=== PATIENT | female | born 1970 ===

== ENCOUNTER 2016-12-20 21:45 | Emergency (ER) | payer MEDICAID ==
[2016-12-20 21:57] VITALS: RESP 20; TEMP 99.2
[2016-12-20] MEDS ORDERED: Sodium Chloride 0.9% 1,000 ML IV ONE (22:01)
--- NOTE | 2016-12-20 22:14 | C.PDOC ---
History Of Present Illness 46 year old patient presents to the ED complaining of right flank pain that began tonight. Patient states the pain is severe. Patient denies fever, nausea, vomiting, numbness, weakness, or incontinence. Time Seen by Provider: 12/20/16 22:00 Chief Complaint (Nursing): Back Pain History Per: Patient History/Exam Limitations: no limitations Onset/Duration Of Symptoms: Hrs (tonight) Current Symptoms Are (Timing): Still Present Quality Of Discomfort: "Pain" Severity: Severe Pain Scale Rating Of: 7 Associated Symptoms: None Exacerbating Factor(s): Nothing Recent travel outside of the [place]: No Past Medical History Reviewed: Historical Data, Nursing Documentation, Vital Signs Vital Signs: Last Vital Signs Temp 99.2 F 12/20/16 21:52 Pulse 74 12/20/16 21:52 Resp 20 12/20/16 21:52 BP 119/73 12/20/16 21:52 Pulse Ox 100 12/21/16 00:50 Family History: States: Unknown Family Hx - Social History Hx Alcohol Use: No Hx Substance Use: No - Immunization History Hx Tetanus Toxoid Vaccination: No Hx Influenza Vaccination: No Hx Pneumococcal Vaccination: No Review Of Systems Except As Marked, All Systems Reviewed And Found Negative. Constitutional: Negative for: Fever Gastrointestinal: Negative for: Nausea, Vomiting Genitourinary: Negative for: Incontinence Musculoskeletal: Positive for: Other (right flank pain) Neurological: Negative for: Weakness, Numbness Physical Exam - Physical Exam Appears: Non-toxic, No Acute Distress Skin: Warm, Dry Head: Atraumatic, Normacephalic Neck: Normal ROM, Supple Chest: Symmetrical Cardiovascular: Rhythm Regular Respiratory: Normal Breath Sounds, No Rales, No Rhonchi, No Wheezing Gastrointestinal/Abdominal: Soft, No Tenderness, No Guarding, No Rebound Back: Normal Inspection, No CVA Tenderness, No Vertebral Tenderness Extremity: Normal ROM Neurological/Psych: Oriented x3, Normal Speech, Normal Cognition, Normal Motor, Normal Sensation Gait: Steady ED Course And Treatment - Laboratory Results Result Diagrams: 12/20/16 22:25 12/20/16 22:25 O2 Sat by Pulse Oximetry: 100 (room air) Pulse Ox Interpretation: Normal - CT Scan/US Abdomen/pelvis CT Other Rad Studies (CT/US): Read By Radiologist (Saulo Posey MD), Radiology Report Reviewed CT/US Interpretation: EXAM: CT Abdomen and Pelvis Without Intravenous Contrast. CLINICAL HISTORY: 46 years old, female; Pain; Abdominal pain; Flank ; Right lower quadrant (rlq); Additional info: Right. flank pain. TECHNIQUE: Axial computed tomography images of the abdomen and pelvis without intravenous contrast. This. CT exam was performed using one or more of the following dose reduction techniques: automated. exposure control, adjustment of the mA and/or kV according to patient size, and/or use of iterative. reconstruction technique. Coronal and sagittal reformatted images were created and reviewed. COMPARISON: No relevant prior studies available. FINDINGS: Lower thorax: There is bilateral linear atelectasis or scarring present in both lung bases. ABDOMEN: Liver: There are no focal liver lesions present. Gallbladder and bile ducts: Small stone the gallbladder. No gallbladder wall thickening or. pericholecystic fluid to suggest cholecystitis. Pancreas: The pancreas appears normal. No ductal dilation. Spleen: Unremarkable. No splenomegaly. Adrenals: Unremarkable. No mass. Kidneys and ureters: No obstructing renal stones or hydronephrosis. No solid mass. Normal. appearance of both ureters, and renal pelvises. Stomach and bowel: The stomach is normal. The duodenum is unremarkable. Bowel loops appear. within normal limits, no signs of wall thickening, mucosal edema, or bowel distention. Abundant. formed fecal material is seen within the large bowel loops which likely represents constipation. Appendix: The appendix is in a retrocecal location. There is a focal intraluminal appendiceal. calcification distal appendix. PELVIS: Bladder: The bladder is moderately distended. No stones. Reproductive: Unremarkable as visualized. ABDOMEN and PELVIS: Intraperitoneal space: Unremarkable. No free air. No significant fluid collection. Bones/joints: No acute fracture. No dislocation. Soft tissues: Unremarkable. Vasculature: The aorta and IVC appear within normal limits. No abdominal aortic aneurysm. Lymph nodes: Nonspecific small bilateral inguinal nodes. IMPRESSION: No evidence for bowel herniation, bowel obstruction, colitis, appendicitis or diverticulitis. No gross ureteral stone or obstructive uropathy is visualized. Constipation is likely present with mild stool impaction within the rectosigmoid. Cholelithiasis without evidence of cholecystitis. Progress Note: Plan: Abdomen/Pelvis CT, Labs, Morphine, IV fluids, Toradol Disposition Counseled Patient/Family Regarding: Diagnosis - Disposition Referrals: [facility] [Outside] Disposition: HOME/ ROUTINE Disposition Time: 00:46 Condition: STABLE Prescriptions: Dicyclomine [Bentyl] 10 mg PO QID #20 cap Instructions: Biliary Colic (GEN), Gallstones (ED), Abdominal Pain (ED) - POA Present On Arrival: None - Clinical Impression Clinical Impression: Gall bladder pain, Abdominal pain - Scribe Statement The provider has reviewed the documentation as recorded by the Scribe Kerry Avalos Provider Attestation: All medical record entries made by the Gulshanibe were at my direction and personally dictated by me. I have reviewed the chart and agree that the record accurately reflects my personal performance of the history, physical exam, medical decision making, and the department course for this patient. I have also personally directed, reviewed, and agree with the discharge instructions and disposition.
[2016-12-20] MEDS ORDERED: Sodium Chloride 0.9% 1,000 ML ONE (22:27)
[2016-12-20 22:32] LABS: BASO % 0.5 % (0.0-2.0); HEMATOCRIT 38.1 % (34.0-47.0); LYMPH # 0.5 K/uL (1.0-4.3); LYMPH % 5.4 % (20.0-40.0); MEAN CELL VOLUME 83.8 fL (81.0-99.0); MEAN CORPUSCULAR HEMOGLOBIN 28.1 pg (27.0-31.0); MEAN CORPUSCULAR HGB CONC 33.6 g/dL (33.0-37.0); MEAN PLATELET VOLUME 7.6 fL (7.2-11.7); MONO # 0.8 K/uL (0.0-0.8); MONO % 8.2 % (0.0-10.0); PLATELET COUNT 270 K/uL (130-400); RED CELL DISTRIBUTION WIDTH 13.9 % (11.5-14.5); WHITE BLOOD COUNT 9.8 K/uL (4.8-10.8)
[2016-12-20 23:10] LABS: CHLORIDE 102 mmol/L (98-107)
[2016-12-20 23:11] LABS: POTASSIUM 3.5 mmol/L (3.6-5.2); SODIUM 137 mmol/L (132-148)
[2016-12-20 23:13] LABS: ALB/GLOB RATIO 1.1 (1.0-2.1); AST/SGOT 21 U/L (14-36); CARBON DIOXIDE 25 mmol/L (22-30); GFR AFRICAN-AMERICAN > 60; TOTAL PROTEIN 7.4 g/dL (6.3-8.3)
[2016-12-20 23:14] LABS: ALKALINE PHOSPHATASE 69 U/L (38-126); ALT/SGPT 16 U/L (9-52); BLOOD UREA NITROGEN 14 mg/dL (7-17); CALCIUM 8.7 mg/dl (8.6-10.4); GLUCOSE,RANDOM 114 mg/dL (65-105)
[2016-12-21 00:29] LABS: RBC URINE 2 /hpf (0-3); URINE BILIRUBIN NEGATIVE (NEGATIVE); URINE BLOOD NEGATIVE (NEGATIVE); URINE COLOR Yellow (YELLOW); URINE GLUCOSE (UA) NORMAL (Normal); URINE KETONE NEGATIVE (NEGATIVE); URINE LEUKOCYTE ESTERASE NEG Leu/uL (Negative); URINE PROTEIN 1+ mg/dL (NEGATIVE); URINE UROBILINOGEN NORMAL mg/dL (0.2-1.0); WBC URINE < 1 /hpf (0-5)
[2016-12-21 04:20] VITALS: BP 128/76; PULSE 88; O2SAT 99
--- NOTE | 2016-12-21 08:27 | CT ---
PROCEDURE: CT Abdomen and Pelvis without intravenous contrast HISTORY: Right flank pain COMPARISON: None. TECHNIQUE: Without contrast.. Contrast Dose: 0 Radiation dose: Total exam DLP = 200.71 mGy-cm. This CT exam was performed using one or more of the following dose reduction techniques: Automated exposure control, adjustment of the mA and/or kV according to patient size, and/or use of iterative reconstruction technique. FINDINGS: LOWER THORAX: Linear scar/ atelectasis in left lower lobe. No infiltrate or pleural effusion LIVER: Unremarkable. No gross lesion or ductal dilatation. GALLBLADDER AND BILE DUCTS: Cholelithiasis. No mural thickening or pericholecystic fluid. PANCREAS: Unremarkable. No gross lesion or ductal dilatation. SPLEEN: Unremarkable. ADRENALS: Unremarkable. No mass. KIDNEYS AND URETERS: No mass, calculus or hydronephrosis. VASCULATURE: Unremarkable. No aortic aneurysm. BOWEL: Abundant feces in rectum. Mild retained feces in the ascending and transverse colon. This may indicate constipation. No bowel obstruction. No other abnormal bowel loops. APPENDIX: Normal appendix identified. High attenuation material is seen within the distal aspect of the appendix, likely reflecting retained contrast material from prior examination. PERITONEUM: Unremarkable. No free fluid. No free air. LYMPH NODES: Shotty inguinal lymphadenopathy. No retroperitoneal or pelvic lymphadenopathy. BLADDER: Unremarkable. REPRODUCTIVE: Normal uterus. BONES: No acute fracture. OTHER FINDINGS: None. IMPRESSION: No evidence of urinary calculus or urinary tract obstruction. Mild retained feces. Possible constipation. Shotty bilateral inguinal lymphadenopathy, nonspecific. The remainder of the examination is unremarkable. Preliminary interpretation of this examination was reported by [employer] at 11:58 p.m. on 12/20/2016. There is concurrence of this report with the preliminary interpretation.
[2016-12-21 08:28] LABS: NEUTROPHIL 87 % (50-75); TOTAL CELLS COUNTED 100
== END 2016-12-21 03:00 | disposition home or self-care (01) ==
LOC: MERGE 21:45 → C.ER 21:45
DX: K82.9 Disease of gallbladder, unspecified (principal); R10.9 Unspecified abdominal pain
CPT/HCPCS: 74176; 80053; 81001; 83690; 84703; 85025; 87086; 87181; 96374; 96375; 99284; J1885; J2270; J7040

== ENCOUNTER 2016-12-22 08:52 | Inpatient (IN) | payer MEDICAID, OTHER ==
--- NOTE | 2016-12-22 10:27 | C.PDOC ---
History Of Present Illness 46 yr old female brought in via BLS, with complaints of low back pain for the past 2-3 days. Patient states she is having difficulty walking due to the pain. Patient was seen in the ED 2 days ago, had a full work up done including CT of the abd/pelvis and blood work, was later discharged home. Patient is also complaining of weakness to the bilateral legs. Patient denies chest pain, SOB, nausea, vomiting, abdominal pain, diarrhea, constipation, dysuria, bowel/ bladder incontinence or sensory changes/saddle anesthesia. Patient also denies recent procedures/surgeries. Time Seen by Provider: 12/22/16 09:03 Chief Complaint (Nursing): Back Pain History Per: Patient History/Exam Limitations: no limitations Onset/Duration Of Symptoms: Days (2-3 days ) Current Symptoms Are (Timing): Still Present Quality Of Discomfort: "Pain" Severity: Moderate Past Medical History Reviewed: Historical Data, Nursing Documentation, Vital Signs Vital Signs: Last Vital Signs Temp 98.2 F 01/02/17 00:00 Pulse 72 01/02/17 00:00 Resp 20 01/02/17 00:00 BP 148/83 01/02/17 00:00 Pulse Ox 98 01/02/17 00:00 - Medical History Other PMH: eczema Family History: States: No Known Family Hx - Social History Hx Alcohol Use: No Hx Substance Use: No - Immunization History Hx Tetanus Toxoid Vaccination: No Hx Influenza Vaccination: No Hx Pneumococcal Vaccination: No Review Of Systems Except As Marked, All Systems Reviewed And Found Negative. Cardiovascular: Negative for: Chest Pain Respiratory: Negative for: Shortness of Breath Gastrointestinal: Negative for: Nausea, Vomiting, Abdominal Pain, Diarrhea, Constipation Genitourinary: Negative for: Dysuria, Incontinence Musculoskeletal: Positive for: Back Pain (Low back pain ), Other ((+) Weakness to the bilateral legs ) Neurological: Positive for: Weakness. Negative for: Numbness, Change in Speech , Confusion, Seizures, Altered Mental Status, Headache, Dizziness Physical Exam - Physical Exam Appears: Non-toxic, In Acute Distress (Mild distress due to the pain ), Other (( +) Malodorous) Skin: Warm, Dry, Other ((+) Upper Extremity - Thickened, scaley, dry skin ( eczematous appearing)) Head: Atraumatic, Normacephalic Eye(s): bilateral: Normal Inspection, PERRL, EOMI Oral Mucosa: Moist Neck: Normal, Normal ROM Cardiovascular: Rhythm Regular Respiratory: Normal Breath Sounds, No Rales, No Rhonchi, No Stridor, No Wheezing Gastrointestinal/Abdominal: Normal Exam, Bowel Sounds, Soft, No Tenderness, No Guarding, No Rebound Extremity: Normal ROM, No Pedal Edema, No Calf Tenderness, No Deformity, No Swelling Extremity: Bilateral: Atraumatic, Normal ROM Pulses: Left Dorsalis Pedis: Normal, Right Dorsalis Pedis: Normal Neurological/Psych: Oriented x3, Normal Speech, Normal Cognition, Normal Cranial Nerves, No Cerebellar Signs, Normal Motor (5/5 motor strength all ext), Normal Sensation, Normal Reflexes, No Dysarthria, No Romberg Gait: Unsteady ED Course And Treatment - Laboratory Results Result Diagrams: 01/02/17 06:24 01/02/17 06:24 O2 Sat by Pulse Oximetry: 100 (ra) Pulse Ox Interpretation: Normal - Other Rad CXR X-Ray: Viewed By Me, Read By Radiologist Interpretation: PROCEDURE: CHEST RADIOGRAPH, 1 VIEW. HISTORY: SOB. COMPARISON: None available. FINDINGS: LUNGS: Mild venous congestion. PLEURA : No pneumothorax or pleural fluid seen. CARDIOVASCULAR: Normal. OSSEOUS STRUCTURES: No significant abnormalities. VISUALIZED UPPER ABDOMEN: Normal. OTHER FINDINGS: None. IMPRESSION: Mild venous congestion. - CT Scan/US CT - Head Other Rad Studies (CT/US): Read By Radiologist, Radiology Report Reviewed CT/US Interpretation: PROCEDURE: CT HEAD WITHOUT CONTRAST. HISTORY: LEG WEAKNESS, ATAXIA. COMPARISON: None available. TECHNIQUE: Axial computed tomography images were obtained through the head/brain without intravenous contrast. Radiation dose: Total exam DLP = 826 mGy-cm. This CT exam was performed using one or more of the following dose reduction techniques: Automated exposure control, adjustment of the mA and/or kV according to patient size, and/or use of iterative reconstruction technique. FINDINGS: HEMORRHAGE: No intracranial hemorrhage. BRAIN: No mass effect or edema. No atrophy or chronic microvascular ischemic changes. VENTRICLES: Unremarkable. No hydrocephalus. CALVARIUM: Unremarkable. PARANASAL SINUSES: Unremarkable as visualized. No significant inflammatory changes. MASTOID AIR CELLS: Unremarkable as visualized. No inflammatory changes. OTHER FINDINGS: None. IMPRESSION: No acute intracranial abnormality. If focal neurologic deficit persists, consider MRI. CT - Lumbar Spine Other Rad Studies (CT/US): Read By Radiologist, Radiology Report Reviewed CT/US Interpretation: EXAM: CT Lumbar Spine With Intravenous Contrast. CLINICAL HISTORY: 46 years old, female; Pain; Low back pain; Additional info: Lowback pain, fever, diffambulating, R/O. abscess. TECHNIQUE: Axial computed tomography images of the lumbar spine with intravenous contrast. This CT exam. was performed using one or more of the following dose reduction techniques: automated exposure. control, adjustment of the mA and/or kV according to patient size, and/or use of iterative. reconstruction technique. Coronal and sagittal reformatted images were created and reviewed. CONTRAST: 100 mL of [id number] administered intravenously. EXAM DATE/TIME: 12/22/2016 12:54 PM. COMPARISON: There are no prior studies for comparison. FINDINGS: Vertebrae: 5 lumbar vertebral bodies are normal in height. There are no lumbar spine fractures. Alignment T12-L1 to L4/L5 is maintained. There is minimal retrolisthesis L5 on S1. There is. narrowing of the L5-S1 disc space. Remaining disc spaces are maintained. There are degenerative. changes L5/S1. There is endplate sclerosis with early subchondral cyst formation. There are degenerative posterior bony arteries. There is mild disc bulging. There is minimal disc bulge at. L4/L5. Facet joints align anatomically. Sacroiliac joints are symmetric. Discs/spinal canal/neural foramina: See above. Soft tissues: Motion limits evaluation of soft tissues. Psoas and paraspinous muscles are. symmetric. Kidneys and ureters: Kidneys are unremarkable. IMPRESSION: Degenerative change L5-S1, no acute osseous abnormality; no abscess Progress Note: Patient given IM Toradol and PO flexeril. On reassessment, patient unsteady on her feet when nurse tried to ambulate her. Blood work, CT head, UA, UDs ordered. Patient also noted to have low grade fever - CT lumbar spine with IV contrast ordered. 3:15pm- Patient resting comfortably, still pending CT LS spine. Asked clearing house clerk to check into delay. 4:05PM- ED nurse calling again to find out about CT scan LS spine delay. Reevaluation Time: 10:50 Reassessment Condition: Improved (On reassessment, patient reports improvement of her back pain. However when ambulated by nurse, patient very unsteady on feet and unable to ambulate. Blood work, UA, Upreg, EKG, CT head ordered.) - Physician Consult Information Physician Contacted: Gus Jung Outcome Of Conversation: Discussed patient with Dr. Aftab jung, agrees with admission to his service. Disposition Counseled Patient/Family Regarding: Studies Performed, Diagnosis, Need For Followup, Rx Given - Disposition Disposition: HOME/ ROUTINE Disposition Time: 18:08 Condition: FAIR - POA Present On Arrival: None - Clinical Impression Clinical Impression: Low back pain, Left shift, Bandemia, Elevated CK, Unsteady gait, Dehydration - Scribe Statement The provider has reviewed the documentation as recorded by the Gulshanibe Martina Portillo Provider Attestation: All medical record entries made by the Gulshanibe were at my direction and personally dictated by me. I have reviewed the chart and agree that the record accurately reflects my personal performance of the history, physical exam, medical decision making, and the department course for this patient. I have also personally directed, reviewed, and agree with the discharge instructions and disposition. Decision To Admit - Pt Status Changed To: Hospital Disposition Of: Inpatient - Admit Certification Admit to Inpatient:: After my assessment, the patient will require hospitalization for at least two midnights. This is because of the severity of symptoms shown, intensity of services needed, and/or the medical risk in this patient being treated as an outpatient. - InPatient: Physician Admission Certification:: see notes - . Bed Request Type: Regular Admitting Physician: Gus Jung Patient Diagnosis: Low back pain, Unsteady gait, Bandemia, Left shift, Elevated CK, Dehydration
[2016-12-22 11:27] LABS: VENOUS BLOOD GAS BASE EXCESS -3.1 mmol/L (0.0-2.0); VENOUS BLOOD GAS PCO2 35 mmHg (40-60); VENOUS BLOOD PH 7.39 (7.32-7.43)
[2016-12-22 11:31] LABS: BASO % 0.5 % (0.0-2.0); HEMATOCRIT 37.5 % (34.0-47.0); LYMPH # 0.4 K/uL (1.0-4.3); LYMPH % 4.5 % (20.0-40.0); MEAN CELL VOLUME 84.2 fL (81.0-99.0); MEAN CORPUSCULAR HEMOGLOBIN 27.8 pg (27.0-31.0); MEAN PLATELET VOLUME 7.9 fL (7.2-11.7); MONO # 0.4 K/uL (0.0-0.8); MONO % 4.7 % (0.0-10.0); PLATELET COUNT 176 K/uL (130-400); RED CELL DISTRIBUTION WIDTH 13.4 % (11.5-14.5); WHITE BLOOD COUNT 8.9 K/uL (4.8-10.8)
[2016-12-22 11:42] LABS: CHLORIDE 102 mmol/L (98-107)
[2016-12-22 11:43] LABS: POTASSIUM 3.5 mmol/L (3.6-5.2); SODIUM 136 mmol/L (132-148)
[2016-12-22 11:45] LABS: ALB/GLOB RATIO 0.9 (1.0-2.1); ALKALINE PHOSPHATASE 68 U/L (38-126); AST/SGOT 24 U/L (14-36); BILIRUBIN,TOTAL 0.9 mg/dL (0.2-1.3); CARBON DIOXIDE 22 mmol/L (22-30); GFR AFRICAN-AMERICAN > 60; TOTAL PROTEIN 7.3 g/dL (6.3-8.3)
[2016-12-22 11:46] LABS: ALT/SGPT 13 U/L (9-52); BLOOD UREA NITROGEN 19 mg/dL (7-17); CALCIUM 8.1 mg/dl (8.6-10.4); GLUCOSE,RANDOM 96 mg/dL (65-105)
--- NOTE | 2016-12-22 11:59 | CT ---
PROCEDURE: CT HEAD WITHOUT CONTRAST. HISTORY: LEG WEAKNESS, ATAXIA COMPARISON: None available. TECHNIQUE: Axial computed tomography images were obtained through the head/brain without intravenous contrast. Radiation dose: Total exam DLP = 826 mGy-cm. This CT exam was performed using one or more of the following dose reduction techniques: Automated exposure control, adjustment of the mA and/or kV according to patient size, and/or use of iterative reconstruction technique. FINDINGS: HEMORRHAGE: No intracranial hemorrhage. BRAIN: No mass effect or edema. No atrophy or chronic microvascular ischemic changes. VENTRICLES: Unremarkable. No hydrocephalus. CALVARIUM: Unremarkable. PARANASAL SINUSES: Unremarkable as visualized. No significant inflammatory changes. MASTOID AIR CELLS: Unremarkable as visualized. No inflammatory changes. OTHER FINDINGS: None. IMPRESSION: No acute intracranial abnormality. If focal neurologic deficit persists, consider MRI.
[2016-12-22 12:12] LABS: RBC URINE 6 /hpf (0-3); URINE BACTERIA RARE (<OCC); URINE BILIRUBIN NEGATIVE (NEGATIVE); URINE BLOOD 1+ (NEGATIVE); URINE COLOR Yellow (YELLOW); URINE GLUCOSE (UA) NORMAL (Normal); URINE KETONE 2+ mg/dL (NEGATIVE); URINE LEUKOCYTE ESTERASE NEG Leu/uL (Negative); URINE PROTEIN 1+ mg/dL (NEGATIVE); WBC URINE 4 /hpf (0-5)
[2016-12-22 12:23] LABS: NEUTROPHIL 86 % (50-75); TOTAL CELLS COUNTED 100
[2016-12-22] MEDS ORDERED: Sodium Chloride 0.9% 1,000 ML IV ONE (12:23)
[2016-12-22 12:25] LABS: LARGE PLATELETS PRESENT
--- NOTE | 2016-12-22 14:01 | RAD ---
PROCEDURE: CHEST RADIOGRAPH, 1 VIEW HISTORY: SOB COMPARISON: None available. FINDINGS: LUNGS: Mild venous congestion. PLEURA: No pneumothorax or pleural fluid seen. CARDIOVASCULAR: Normal. OSSEOUS STRUCTURES: No significant abnormalities. VISUALIZED UPPER ABDOMEN: Normal. OTHER FINDINGS: None. IMPRESSION: Mild venous congestion.
[2016-12-22] MEDS ORDERED: Iodixanol 320 MG/ML 100 ML BOTTLE IV ONE (16:22)
--- NOTE | 2016-12-22 18:02 | CT ---
EXAM: CT Lumbar Spine With Intravenous Contrast CLINICAL HISTORY: 46 years old, female; Pain; Low back pain; Additional info: Lowback pain, fever, diffambulating, R/O abscess TECHNIQUE: Axial computed tomography images of the lumbar spine with intravenous contrast. This CT exam was performed using one or more of the following dose reduction techniques: automated exposure control, adjustment of the mA and/or kV according to patient size, and/or use of iterative reconstruction technique. Coronal and sagittal reformatted images were created and reviewed. CONTRAST: 100 mL of [id number] administered intravenously. EXAM DATE/TIME: 12/22/2016 12:54 PM COMPARISON: There are no prior studies for comparison. FINDINGS: Vertebrae: 5 lumbar vertebral bodies are normal in height. There are no lumbar spine fractures. Alignment T12-L1 to L4/L5 is maintained. There is minimal retrolisthesis L5 on S1. There is narrowing of the L5-S1 disc space. Remaining disc spaces are maintained. There are degenerative changes L5/S1. There is endplate sclerosis with early subchondral cyst formation. There are degenerative posterior bony arteries. There is mild disc bulging. There is minimal disc bulge at L4/L5. Facet joints align anatomically. Sacroiliac joints are symmetric. Discs/spinal canal/neural foramina: See above. Soft tissues: Motion limits evaluation of soft tissues. Psoas and paraspinous muscles are symmetric. Kidneys and ureters: Kidneys are unremarkable. IMPRESSION: Degenerative change L5-S1, no acute osseous abnormality; no abscess
[2016-12-22] MEDS ORDERED: Potassium Chloride 20 mEq ER Tab PO STA (19:04)
[2016-12-23] MEDS: Enoxaparin 40 mg Syringe SC SCH (10:25)
[2016-12-23] MEDS: Pantoprazole 40 mg EC Tab PO SCH (10:30)
--- NOTE | 2016-12-23 12:05 | CP.PCM.HP ---
History of Present Illness - History of Present Illness History of Present Illness: 46 yr female with sudden onset of back for 3 to 4 days was bruoght in by bls with pain in lower back no neutrological weaknes but severe pain on arriva; s/p raven andpo felxeril ct head neg ct ls spine also no fracture no fever or chills pt has no weakness now which pt suggested was difficult as pt had a sevre pain and pain si better Present on Admission - Present on Admission Any Indicators Present on Admission: No Past Patient History - Past Medical History & Family History Past Medical History?: Yes - Past Social History Smoking Status: Never Smoked - CARDIAC Hx Cardiac Disorders: No - PULMONARY Hx Respiratory Disorders: No - NEUROLOGICAL Hx Neurological Disorder: No - HEENT Hx HEENT Problems: No - RENAL Hx Chronic Kidney Disease: No - ENDOCRINE/METABOLIC Hx Endocrine Disorders: No - HEMATOLOGICAL/ONCOLOGICAL Hx Blood Disorders: No - INTEGUMENTARY Hx Dermatological Problems: Yes Hx Basil Cell: No Hx Lomeli: No Hx Cellulitis: No Hx Eczema: Yes Hx Melanoma: No Hx Psoriasis: No Hx Squamous Cell: No - MUSCULOSKELETAL/RHEUMATOLOGICAL Hx Falls: No - GASTROINTESTINAL Hx Gastrointestinal Disorders: No - GENITOURINARY/GYNECOLOGICAL Hx Genitourinary Disorders: No - PSYCHIATRIC Hx Substance Use: No - SURGICAL HISTORY Hx Surgeries: No - ANESTHESIA Hx Anesthesia: No Hx Malignant Hyperthermia: No Has any member of the family had a problem w/ anesthesia?: No Meds Home Medications: Home Medication List Medication Instructions Recorded Confirmed Type Cyclobenzaprine [Cyclobenzaprine 10 mg PO BID PRN #15 tab 12/22/16 Rx HCl] Naproxen [Naprosyn Tab] 375 mg PO BID PRN #15 tab 12/22/16 Rx Allergies/Adverse Reactions: Allergies Allergy/AdvReac Type Severity Reaction Status Date / Time No Known Allergies Allergy Unverified 12/20/16 21:57 Physical Exam - Constitutional Appears: Well - Head Exam Head Exam: ATRAUMATIC, NORMAL INSPECTION, NORMOCEPHALIC - Eye Exam Eye Exam: EOMI, Normal appearance, PERRL Pupil Exam: NORMAL ACCOMODATION, PERRL - ENT Exam ENT Exam: Mucous Membranes Moist, Normal Exam - Neck Exam Neck exam: Positive for: Normal Inspection - Respiratory Exam Respiratory Exam: Decreased Breath Sounds - Cardiovascular Exam Cardiovascular Exam: REGULAR RHYTHM, +S1, +S2 - GI/Abdominal Exam GI & Abdominal Exam: Diminished Bowel Sounds, Soft - Rectal Exam Rectal Exam: Deferred Results - Vital Signs Recent Vital Signs: Last Vital Signs Temp 102.2 F H 12/23/16 08:23 Pulse 94 H 12/23/16 08:23 Resp 20 12/23/16 08:23 BP 119/76 12/23/16 08:23 Pulse Ox 97 12/23/16 08:23 - Labs Result Diagrams: 12/26/16 06:59 12/26/16 06:59 Assessment & Plan (1) Low back pain Status: Acute (2) Abdominal pain Status: Acute (3) Gall bladder pain Status: Acute - Assessment and Plan (Free Text) Plan: ls spine ct no acute patho head ct no acute patho protonix lovenox apin med neuro zoila same felxeril other mx as ordered
[2016-12-23] MEDS: Potassium Chloride 10 mEq ER Tab PO SCH (13:25)
[2016-12-23] MEDS: Vancomycin 1 gm/NS 200 ml 1 GM/200 ML BAG IVPB SCH (14:03)
--- NOTE | 2016-12-23 15:28 | CON ---
DATE: 12/23/2016 ATTENDING PHYSICIAN: Dr. Bijal Avalos REASON FOR CONSULTATION: Intractable low back pain and lower extremity weakness. HISTORY OF PRESENT ILLNESS: The patient is a 46-year-old, right-handed lady with past medical histor y of severe eczema. The patient was admitted because of severe low back pain and difficulty ambulati ng. The patient came to the Emergency Room 4 days ago because of the pain and patient was discharged home and patient came back because of the severe low back pain and in the Emergency Room, patient wa s found to have a fever and patient was admitted for further evaluation and neuro consult was request ed because of the lower extremity weakness. The patient denies any photophobia, phonophobia, nausea, numbness, tingling of the lower extremities. Predominantly, it is pain in the right lower back. Th e patient denies urine or bowel incontinence. The patient stated that she is able to go to the bathr oom by herself without help, but she needs help to get off the bed because of the severe low back yoni n. The patient stated that her back pain is less than before today. PAST MEDICAL HISTORY: As mentioned above. SOCIAL HISTORY: Nonsmoker, ethanol or drug abuser. PERSONAL HISTORY: The patient has 2 children, lives with her 2 children and working at [email or web address]. Most of the day, she is standing. The patient also stated that she fell down 2-3 months ago, slipped and fell down on the ice on her ba ck. ALLERGIES: No known allergic reaction to medications. FAMILY HISTORY: Noncontributory. MEDICATIONS: Naprosyn, dicyclomine, cyclobenzaprine, enoxaparin, pantoprazole, acetaminophen. REVIEW OF SYSTEMS: As per H and P and ER notes, reviewed. PHYSICAL EXAMINATION: VITAL SIGNS: Blood pressure 101/68, respiration 18, pulse 82, temperature 100.2. MENTAL STATUS: The patient is alert, awake, oriented x 3. Normal naming, repetition, comprehension. No agnosia. No apraxia. No right/left confusion. No finger agnosia. CRANIAL NERVES: Pupils 3 mm bilaterally, reactive to light and accommodation. Extraocular movements intact. V1-V3 intact. No double vision. No blurred vision. No nystagmus. No field defect. Tong ue midline. NECK: Supple. Accessory nerve intact. MOTOR: Normal tone in upper and lower extremities. No pronation drift. No tremors . There is diffuse dermatitis of the skin, probably secondary to chronic eczema. Upper extremities: Deltoid, elbow and bods developer 5/5. Lower extremities: Hip flexion, knee flexion/extension, ankle dorsiflexion, eden ntar extension 5/5. Deep tendon reflexes 2 in the upper and lower extremities, plantar flexion both sides. There is no clonus, no fasciculations, no signs of upper motor neuron. No urine or bowel inc ontinence. SENSORY: Pinprick, light touch, position intact. There is no sensory level on examination. COORDINATION: [id number] intact. CAT scan of the lumbar and brain reviewed. CAT scan of the brain did not reveal significant findings . CAT scan of the lumbosacral spine consistent with degenerative disk disease at L5-S1. No large he rniated disk or spinal stenosis. IMPRESSION: Intractable low back pain, most likely secondary to musculoskeletal etiology, probably a ggravated recently post fall on the ice a few months ago. The patient has no signs of upper motor ne uron to indicate cord etiology or cauda equina syndrome. The patient will need physical therapy, chelita st heating pad for the lower back, muscle relaxant and nonsteroidal, Toradol b.i.d. p.r.n. for the lo wer back. The patient has no signs of upper motor neuron to consider further workup. The patient's fever could be secondary to systemic etiology rather than central nervous system etiology. The patie nt has no signs of meningeal irritation. Thank you for the consultation and Dr. Bailon will follow up the patient tomorrow. Stas Arango MD cc: [id number] TT: 12/23/2016 15:27:39 Confirmation # [id number] Dictation # [id number] en
[2016-12-23 19:44] LABS: BASO % 0.3 % (0.0-2.0); EOS % 0.1 % (0.0-4.0); HEMATOCRIT 35.8 % (34.0-47.0); LYMPH # 0.4 K/uL (1.0-4.3); LYMPH % 6.7 % (20.0-40.0); MEAN CORPUSCULAR HEMOGLOBIN 27.4 pg (27.0-31.0); MEAN CORPUSCULAR HGB CONC 32.6 g/dL (33.0-37.0); MEAN PLATELET VOLUME 8.2 fL (7.2-11.7); MONO # 0.4 K/uL (0.0-0.8); MONO % 7.9 % (0.0-10.0); PLATELET COUNT 164 K/uL (130-400); RED CELL DISTRIBUTION WIDTH 13.6 % (11.5-14.5); WHITE BLOOD COUNT 5.4 K/uL (4.8-10.8)
[2016-12-23 19:55] LABS: CHLORIDE 102 mmol/L (98-107)
[2016-12-23 19:56] LABS: POTASSIUM 4.2 mmol/L (3.6-5.2); SODIUM 132 mmol/L (132-148)
[2016-12-23 19:58] LABS: BILIRUBIN,TOTAL 0.5 mg/dL (0.2-1.3); GFR AFRICAN-AMERICAN > 60
[2016-12-23 19:59] LABS: ALB/GLOB RATIO 0.8 (1.0-2.1); ALKALINE PHOSPHATASE 91 U/L (38-126); ALT/SGPT 29 U/L (9-52); AST/SGOT 40 U/L (14-36); BLOOD UREA NITROGEN 11 mg/dL (7-17); CALCIUM 7.2 mg/dl (8.6-10.4); CARBON DIOXIDE 22 mmol/L (22-30); GLUCOSE,RANDOM 137 mg/dL (65-105); TOTAL PROTEIN 6.6 g/dL (6.3-8.3)
[2016-12-23 20:24] LABS: NEUTROPHIL 74 % (50-75); TOTAL CELLS COUNTED 100
[2016-12-24] MEDS: Vancomycin 1 gm/NS 200 ml 1 GM/200 ML BAG IVPB SCH ×2 (00:24→14:01)
--- NOTE | 2016-12-24 07:49 | PN ---
DATE: 12/24/2016 NEUROLOGICAL PROBLEM: Lower back pain. The patient was seen and evaluated by Dr. Stas Arango in the weekend. Her lower back pain is not radicular in nature. Her back pain also not associating with bowel or bladder incontinence. The patient's symptoms improved by bedrest and current medication about more than 40%. The rest of the examination shows mild distal symmetric sensorimotor neuropathy associating with existing lower back pain. The patient's workup has been followed as per Dr. Stas Arango. CAT scan of the lumbosacral spine showed degenerative disease at L5-S1. RECENT BLOOD WORKUP: CBC 5.4, hemoglobin 11.7, hematocrit 35.8, platelet 164. Sodium 132, potassium 4.8 chloride 102, bicarbonate 22, BUN 11, creatinine 0.5. Urinalysis shows 1+ protein, 2+ ketones, 1+ blood, RBCs and squamous epithelial cells noted. Tox screen is negative. RECOMMENDATIONS: 1. Back pain can be treated symptomatically. 2. IV hydration. 3. Appropriate medication for her urinary tract infection. 4. The patient should get out of the bed and physical therapy should be given if it is needed. 5. From neurological point of view, no further workup is needed. Ishaan Bailon MD cc: [id number] TT: 12/24/2016 07:48:42 Confirmation # [id number] Dictation # [id number] mn SKYLER
[2016-12-24] MEDS: Potassium Chloride 10 mEq ER Tab PO SCH (08:56)
--- NOTE | 2016-12-24 09:12 | CP.PCM.PN ---
<Cordell Cornejo - Last Filed: 12/24/16 12:52> Subjective - Date & Time of Evaluation Date of Evaluation: 12/24/16 Time of Evaluation: 09:00 - Subjective Subjective: PGY2 on medicine Dr. Avalos service: Pt seen and examined at bedside this morning. Pt reports elevated temperature this morning at 99.7, Tmax was 102.2 yesterday afternoon. Pt otherwise has no other complaints at the moment. Objective - Vital Signs/Intake and Output Vital Signs (last 24 hours): Temp Pulse Resp BP Pulse Ox 99.7 F H 82 20 109/65 98 12/24/16 08:03 12/24/16 08:03 12/24/16 08:03 12/24/16 08:03 12/24/16 08:03 Intake and Output: 12/24/16 12/24/16 06:59 18:59 Intake Total 400 Balance 400 - Medications Medications: Current Medications Acetaminophen (Tylenol 325mg Tab) 650 mg PO Q8 PRN PRN Reason: Pain, Mild (1-3) Last Admin: 12/23/16 09:04 Dose: 650 mg Acetaminophen (Tylenol 325mg Tab) 650 mg PO Q8 PRN PRN Reason: Fever>100.4 Last Admin: 12/23/16 17:01 Dose: 650 mg Cyclobenzaprine HCl (Flexeril) 10 mg PO BID PRN PRN Reason: Muscle spasm Last Admin: 12/23/16 10:30 Dose: 10 mg Dicyclomine HCl (Bentyl) 10 mg PO QID [facility] Last Admin: 12/23/16 22:45 Dose: 10 mg Enoxaparin Sodium (Lovenox) 40 mg SC DAILY [facility] Last Admin: 12/23/16 10:25 Dose: 40 mg Vancomycin/Sodium Chloride (Vancocin) 1 gm in 200 mls @ 133 mls/hr IVPB Q12H [facility] Stop: 12/28/16 12:01 Last Admin: 12/24/16 00:24 Dose: 133 mls/hr Imipenem/Cilastatin Sodium 500 (mg/ Sodium Chloride) 100 mls @ 100 mls/hr IVPB Q6H [facility] Last Admin: 12/24/16 01:53 Dose: 100 mls/hr Naproxen (Anaprox) 275 mg PO BID PRN PRN Reason: Pain, moderate (4-7) Pantoprazole Sodium (Protonix Ec Tab) 40 mg PO DAILY [place] Last Admin: 12/23/16 10:30 Dose: 40 mg Pneumococcal Polyvalent Vaccine (Pneumovax 23 Vaccine) 0.5 ml IM .ONCE ONE Stop: 12/25/16 21:31 - Labs Labs: 12/23/16 19:37 12/23/16 19:37 - Constitutional Appears: Non-toxic, No Acute Distress - Head Exam Head Exam: NORMAL INSPECTION, NORMOCEPHALIC - Eye Exam Eye Exam: Normal appearance Pupil Exam: NORMAL ACCOMODATION - ENT Exam ENT Exam: Mucous Membranes Moist - Respiratory Exam Respiratory Exam: Clear to Ausculation Bilateral, NORMAL BREATHING PATTERN - Cardiovascular Exam Cardiovascular Exam: REGULAR RHYTHM, +S1, +S2. absent: Gallop, Rubs - GI/Abdominal Exam GI & Abdominal Exam: Soft, Normal Bowel Sounds - Neurological Exam Neurological Exam: Alert, Awake, Oriented x3 - Psychiatric Exam Psychiatric exam: Normal Mood - Skin Skin Exam: Intact Additional comments: left forearm scaly patch Assessment and Plan - Assessment and Plan (Free Text) Assessment: Bacteremia Febrile in past 24 hours, WBC WNL. Blood culture positive for gram positive cocci in clusters. Dr. Russo consulted. Vancomycin 1g IV q12H. Primaxin 500mg IV q6H. F/U vancomycin trough. UTI Urine culture positive for Staph aureus. Dr. Russo consulted. Vancomycin 1g IV q12H. Low back pain Lumbar CT showed degenerative changes L5-S1 without other acute abnormalities per report. Neuro Dr. Bailon consulted, help appreciated. Flexeril 10mg PO BID PRN. Anaprox 275mg PO BID PRN. Likely musculoskeletal origin. Leg weakness Head CT negative for acute etiologies per report. Neuro Dr. Bailon consulted, help appreciated. Prophylactic measure SCD, Lovenox, Protonix <Gus Avalos S - Last Filed: 12/25/16 22:41> Objective - Vital Signs/Intake and Output Vital Signs (last 24 hours): Temp Pulse Resp BP Pulse Ox 98.6 F 96 H 20 121/64 99 12/25/16 15:00 12/25/16 15:00 12/25/16 15:00 12/25/16 15:00 12/25/16 15:00 Intake and Output: 12/25/16 12/26/16 18:59 06:59 Intake Total 1180 Balance 1180 - Medications Medications: Current Medications Acetaminophen (Tylenol 325mg Tab) 650 mg PO Q8 PRN PRN Reason: Pain, Mild (1-3) Last Admin: 12/23/16 09:04 Dose: 650 mg Acetaminophen (Tylenol 325mg Tab) 650 mg PO Q8 PRN PRN Reason: Fever>100.4 Last Admin: 12/23/16 17:01 Dose: 650 mg Cyclobenzaprine HCl (Flexeril) 10 mg PO BID PRN PRN Reason: Muscle spasm Last Admin: 12/24/16 09:30 Dose: 10 mg Dicyclomine HCl (Bentyl) 10 mg PO QID [facility] Last Admin: 12/25/16 21:27 Dose: 10 mg Enoxaparin Sodium (Lovenox) 40 mg SC DAILY [facility] Last Admin: 12/25/16 10:43 Dose: 40 mg Vancomycin/Sodium Chloride (Vancocin) 1 gm in 200 mls @ 133 mls/hr IVPB Q12H [facility] Stop: 12/28/16 12:01 Last Admin: 12/25/16 11:32 Dose: 133 mls/hr Piperacillin Sod/Tazobactam Sod (Zosyn 3.375 Gm Iv Premix) 3.375 gm in 50 mls @ 100 mls/hr IVPB Q6H [facility] Last Admin: 12/25/16 21:29 Dose: 100 mls/hr Naproxen (Anaprox) 275 mg PO BID PRN PRN Reason: Pain, moderate (4-7) Last Admin: 12/24/16 09:27 Dose: 275 mg Pantoprazole Sodium (Protonix Ec Tab) 40 mg PO DAILY [facility] Last Admin: 12/25/16 10:43 Dose: 40 mg Vitamin A (Vitamin A & D Oint Ud Foilpak) 1 ea TOP BID [facility] Last Admin: 12/25/16 17:43 Dose: 1 ea - Labs Labs: 12/25/16 07:08 12/25/16 07:08 Assessment and Plan (1) Low back pain Status: Acute (2) Abdominal pain Status: Acute (3) Gall bladder pain Status: Acute Attending/Attestation - Attestation I have personally seen and examined this patient.: Yes I have fully participated in the care of the patient.: Yes I have reviewed all pertinent clinical information, including history, physical exam and plan: Yes Notes (Text): seen and discussed iwht staff and resident mx as ordered back pain better iv primaxin
[2016-12-24] MEDS: Naproxen 275 mg Tab PO PRN (09:27)
[2016-12-24] MEDS: Pantoprazole 40 mg EC Tab PO SCH (09:28)
[2016-12-24] MEDS: Enoxaparin 40 mg Syringe SC SCH (11:46)
--- NOTE | 2016-12-24 13:05 | CP.PCM.CON ---
History of Present Illness - History of Present Illness History of Present Illness: fver and low back pain hx eczema r/o Osteo consider echo/MRI cont iv antibiotics Review of Systems - Constitutional Constitutional: As Per HPI, Anorexia, Fever - EENT Eyes: absent: As Per HPI, Blind Spots, Blurred Vision, Change in Vision, Decreased Night Vision, Diplopia, Discharge, Dry Eye, Exophthalmos, Floaters, Irritation, Itchy Eyes, Loss of Peripheral Vision, Pain, Photophobia, Requires Corrective Lenses, Sees Flashes, Spots in Vision, Tunnel Vision, Other Visual Disturbances, Loss of Vision, Other Ears: absent: As Per HPI, Decreased Hearing, Ear Discharge, Ear Pain, Tinnitus, Abnormal Hearing, Disequilibrium, Dizziness, Other Nose/Mouth/Throat: absent: As Per HPI, Epistaxis, Nasal Congestion, Nasal Discharge, Nasal Obstruction, Nasal Trauma, Nose Pain, Post Nasal Drip, Sinus Pain, Sinus Pressure, Bleeding Gums, Change in Voice, Dental Pain, Dry Mouth, Dysphagia, Halitosis, Hoarsness, Lip Swelling, Mouth Lesions, Mouth Pain, Odynophagia, Sore Throat, Throat Swelling, Tongue Swelling, Facial Pain, Neck Pain, Neck Mass, Other - Breasts Breasts: absent: As Per HPI, Change in Shape, Mass, Pain, Nipple Discharge, Nipple Inversion, Skin Changes, Swelling, Other - Cardiovascular Cardiovascular: absent: As Per HPI, Acrocyanosis, Chest Pain, Chest Pain at Rest , Chest Pain with Activity, Claudication, Diaphoresis, Dyspnea, Dyspnea on Exertion, Edema, Irregular Heart Rhythm, Pain Radiating to Arm/Neck/Jaw, Leg Edema, Leg Ulcers, Lightheadedness, Orthopnea, Palpitations, Paroxysmal Nocturnal Dyspnea, Pedal Edema, Radiating Pain, Rapid Heart Rate, Slow Heart Rate, Syncope, Other - Respiratory Respiratory: absent: As Per HPI, Cough, Dyspnea, Hemoptysis, Dyspnea on Exertion , Wheezing, Snoring, Stridor, Pain on Inspiration, Chest Congestion, Excessive Mucous Production, Change in Mucous Color, Pain with Coughing, Other - Gastrointestinal Gastrointestinal: absent: As Per HPI, Abdominal Pain, Belching, Bloating, Change in Bowel Habits, Change in Stool Character, Coffee Ground Emesis, Constipation, Cramping, Diarrhea, Dyspepsia, Dysphagia, Early Satiety, Excessive Flatus, Fecal Incontinence, Heartburn, Hematemesis, Hematochezia, Loose Stools, Melena, Nausea, Odynophagia, Temesmus, Vomiting, Other - Genitourinary Genitourinary: absent: As Per HPI, Change in Urinary Stream, Difficulty Urinating, Dysuria, Flank Pain, Hematuria, Pyuria, Nocturia, Urinary Incontinence, Urinary Frequency, Urinary Hesitance, Urinary Urgency, Voiding Freq/Small Amts, Freq UTI, Hx Renal/Bladder Calculi, Hx /Renal Surgery, Bladder Distension, Other - Reproductive: Female Reproductive:Female: absent: As Per HPI, Amenorrhea, Amenorrhea/ Control, Currently Menstual, Cycle <21 Days, Cycle >35 Days, Cycle Variable, Menses 1-7 Days, Menses >/= 8 Days, Menses Variable, Cycle > 4 Weeks Between, No Menses for 6 Months, Heavy Menses, Light Menses, Normal Menses, Spotting Between Cycles , S/P Hysterectomy, Menopausal, Post Menopausal, Premenarche, Abnormal Vaginal Bleeding, Dysmenorrhea, Dyspareunia, Genital Lesions, Genital Pruritis, Pelvic Pain, Prolapse Symptoms, Sexual Dysfunction, Vaginal Discharge, Vaginal Dryness , Vaginal Odor, Vaginal Pruritis, Other - Menstruation Menstruation: absent: As Per HPI, Amenorrhea, Amenorrhea/ Control, Currently Menstual, Cycle <21 Days, Cycle >35 Days, Cycle Variable, Menses 1-7 Days, Menses >/= 8 Days, Menses Variable, Cycle > 4 Weeks Between, No Menses for 6 Months, Heavy Menses, Light Menses, Normal Menses, Spotting Between Cycles , S/P Hysterectomy, Menopausal, Post Menopausal, Premenarche, Abnormal Vaginal Bleeding, Dysmenorrhea, Other - Musculoskeletal Musculoskeletal: As Per HPI - Integumentary Integumentary: As Per HPI, Rash, Skin Pain, Wounds - Neurological Neurological: absent: As Per HPI, Abnormal Gait, Abnormal Hearing, Abnormal Movements, Abnormal Speech, Behavioral Changes, Burning Sensations, Confusion, Convulsions, Disequilibrium, Dizziness, Numbness, Focal Weakness, Frequent Falls , Headaches, Lack of Coordination, Loss of Vision, Memory Loss, Paresthesias, Radicular Pain, Restless Legs, Sensory Deficit, Syncope, Tingling, Tremor, Vertigo, Weakness, Other Visual Disturbances, Other - Psychiatric Psychiatric: absent: As Per HPI, Abnormal Sleep Pattern, Anhedonia, Anxiety, Auditory Hallucinations, Behavioral Changes, Change in Appetite, Change in Libido, Confusion, Depression, Difficulty Concentrating, Hallucinations, Homicidal Ideation, Hopelessness, Irritability, Memory Loss, Mood Swings, Panic Attacks, Paranoia, Suicidal Ideation, Visual Hallucinations, Tactile Hallucinations, Other - Endocrine Endocrine: absent: As Per HPI, Change in Body Appearance, Change in Libido, Cold Intolorance, Deepening of Voice, Excessive Sweating, Fatigue, Flushing, Heat Intolorance, Increase in Ring/Shoe/Hat Size, Palpitations, Polydipsia, Polyphagia, Polyuria, Other - Hematologic/Lymphatic Hematologic: absent: As Per HPI, Easy Bleeding, Easy Bruising, Lymphadenopathy, Other Past Patient History - Past Medical History & Family History Past Medical History?: Yes - Past Social History Smoking Status: Never Smoked - CARDIAC Hx Cardiac Disorders: No - PULMONARY Hx Respiratory Disorders: No - NEUROLOGICAL Hx Neurological Disorder: No - HEENT Hx HEENT Problems: No - RENAL Hx Chronic Kidney Disease: No - ENDOCRINE/METABOLIC Hx Endocrine Disorders: No - HEMATOLOGICAL/ONCOLOGICAL Hx Blood Disorders: No - INTEGUMENTARY Hx Dermatological Problems: Yes Hx Basil Cell: No Hx Lomeli: No Hx Cellulitis: No Hx Eczema: Yes Hx Melanoma: No Hx Psoriasis: No Hx Squamous Cell: No - MUSCULOSKELETAL/RHEUMATOLOGICAL Hx Falls: No - GASTROINTESTINAL Hx Gastrointestinal Disorders: No - GENITOURINARY/GYNECOLOGICAL Hx Genitourinary Disorders: No - PSYCHIATRIC Hx Substance Use: No - SURGICAL HISTORY Hx Surgeries: No - ANESTHESIA Hx Anesthesia: No Hx Malignant Hyperthermia: No Has any member of the family had a problem w/ anesthesia?: No Meds Home Medications: Home Medication List Medication Instructions Recorded Confirmed Type Cyclobenzaprine [Cyclobenzaprine 10 mg PO BID PRN #15 tab 12/22/16 Rx HCl] Naproxen [Naprosyn Tab] 375 mg PO BID PRN #15 tab 12/22/16 Rx Allergies/Adverse Reactions: Allergies Allergy/AdvReac Type Severity Reaction Status Date / Time No Known Allergies Allergy Unverified 12/20/16 21:57 - Medications Medications: Current Medications Acetaminophen (Tylenol 325mg Tab) 650 mg PO Q8 PRN PRN Reason: Pain, Mild (1-3) Last Admin: 12/23/16 09:04 Dose: 650 mg Acetaminophen (Tylenol 325mg Tab) 650 mg PO Q8 PRN PRN Reason: Fever>100.4 Last Admin: 12/23/16 17:01 Dose: 650 mg Cyclobenzaprine HCl (Flexeril) 10 mg PO BID PRN PRN Reason: Muscle spasm Last Admin: 12/24/16 09:30 Dose: 10 mg Dicyclomine HCl (Bentyl) 10 mg PO QID [facility] Last Admin: 12/24/16 09:28 Dose: 10 mg Enoxaparin Sodium (Lovenox) 40 mg SC DAILY [facility] Last Admin: 12/24/16 11:46 Dose: 40 mg Vancomycin/Sodium Chloride (Vancocin) 1 gm in 200 mls @ 133 mls/hr IVPB Q12H [facility] Stop: 12/28/16 12:01 Last Admin: 12/24/16 00:24 Dose: 133 mls/hr Imipenem/Cilastatin Sodium 500 (mg/ Sodium Chloride) 100 mls @ 100 mls/hr IVPB Q6H [facility] Last Admin: 12/24/16 09:38 Dose: 100 mls/hr Naproxen (Anaprox) 275 mg PO BID PRN PRN Reason: Pain, moderate (4-7) Last Admin: 12/24/16 09:27 Dose: 275 mg Pantoprazole Sodium (Protonix Ec Tab) 40 mg PO DAILY [facility] Last Admin: 12/24/16 09:28 Dose: 40 mg Pneumococcal Polyvalent Vaccine (Pneumovax 23 Vaccine) 0.5 ml IM .ONCE ONE Stop: 12/25/16 21:31 Physical Exam - Constitutional Appears: Non-toxic, Chronically Ill - Head Exam Head Exam: NORMOCEPHALIC - Eye Exam Eye Exam: PERRL. absent: Scleral icterus - ENT Exam ENT Exam: Mucous Membranes Dry - Neck Exam Neck exam: Negative for: Lymphadenopathy - Respiratory Exam Respiratory Exam: Decreased Breath Sounds - Cardiovascular Exam Cardiovascular Exam: REGULAR RHYTHM, +S1, +S2 - GI/Abdominal Exam GI & Abdominal Exam: Diminished Bowel Sounds, Soft. absent: Tenderness - Rectal Exam Rectal Exam: Deferred - Exam Exam: NORMAL INSPECTION - Extremities Exam Extremities exam: Positive for: pedal pulses present. Negative for: calf tenderness, tenderness - Back Exam Back exam: absent: CVA tenderness (L), CVA tenderness (R) - Neurological Exam Neurological exam: Alert, CN II-XII Intact, Oriented x3 - Psychiatric Exam Psychiatric exam: Depressed Results - Vital Signs Recent Vital Signs: Last Vital Signs Temp 99.7 F H 12/24/16 08:03 Pulse 82 12/24/16 08:03 Resp 20 12/24/16 08:03 BP 109/65 12/24/16 08:03 Pulse Ox 98 12/24/16 08:03 - Labs Result Diagrams: 12/23/16 19:37 12/23/16 19:37 Labs: Laboratory Results - last 24 hr 12/23/16 12/23/16 19:37 19:37 WBC 5.4 RBC 4.26 Hgb 11.7 Hct 35.8 MCV 84.0 MCH 27.4 MCHC 32.6 L RDW 13.6 Plt Count 164 MPV 8.2 Neut % (Auto) 85.0 H Lymph % (Auto) 6.7 L Fajardo % (Auto) 7.9 Eos % (Auto) 0.1 Baso % (Auto) 0.3 Neut # 4.6 Lymph # 0.4 L Fajardo # 0.4 Eos # 0.0 Baso # 0.0 Neutrophils % (Manual) 74 Lymphocytes % (Manual) 11 L Monocytes % (Manual) 15 H Platelet Estimate Slightly decreased L Sodium 132 Potassium 4.2 Chloride 102 Carbon Dioxide 22 Anion Gap 13 BUN 11 Creatinine 0.5 L Est GFR ( Amer) > 60 Est GFR (Non-Af Amer) > 60 Random Glucose 137 H Calcium 7.2 L Total Bilirubin 0.5 AST 40 H D ALT 29 Alkaline Phosphatase 91 Total Protein 6.6 Albumin 2.9 L Globulin 3.6 Albumin/Globulin Ratio 0.8 L Assessment & Plan (1) Sepsis affecting skin Status: Acute (2) Sepsis affecting skin Status: Acute (3) Low back pain Status: Acute - Assessment and Plan (Free Text) Assessment: needs echo MRI IV antibiotics
[2016-12-24] MEDS ORDERED: Piperacill/Tazo 3.375gm in Dex 3.375 GM/50 ML BAG IVPB SCH (14:30)
[2016-12-24] MEDS: Piperacill/Tazo 3.375gm in Dex 3.375 GM/50 ML BAG IVPB SCH ×2 (16:47→21:38)
--- NOTE | 2016-12-24 18:10 | CP.PCM.PN ---
Subjective - Date & Time of Evaluation Date of Evaluation: 12/24/16 Time of Evaluation: 07:40 - Subjective Subjective: clinically same Objective - Vital Signs/Intake and Output Vital Signs (last 24 hours): Temp Pulse Resp BP Pulse Ox 99.7 F H 82 20 109/65 98 12/24/16 08:03 12/24/16 08:03 12/24/16 08:03 12/24/16 08:03 12/24/16 08:03 Intake and Output: 12/24/16 12/24/16 06:59 18:59 Intake Total 400 700 Balance 400 700 - Medications Medications: Current Medications Acetaminophen (Tylenol 325mg Tab) 650 mg PO Q8 PRN PRN Reason: Pain, Mild (1-3) Last Admin: 12/23/16 09:04 Dose: 650 mg Acetaminophen (Tylenol 325mg Tab) 650 mg PO Q8 PRN PRN Reason: Fever>100.4 Last Admin: 12/23/16 17:01 Dose: 650 mg Cyclobenzaprine HCl (Flexeril) 10 mg PO BID PRN PRN Reason: Muscle spasm Last Admin: 12/24/16 09:30 Dose: 10 mg Dicyclomine HCl (Bentyl) 10 mg PO QID [facility] Last Admin: 12/24/16 14:07 Dose: 10 mg Enoxaparin Sodium (Lovenox) 40 mg SC DAILY [facility] Last Admin: 12/24/16 11:46 Dose: 40 mg Vancomycin/Sodium Chloride (Vancocin) 1 gm in 200 mls @ 133 mls/hr IVPB Q12H [facility] Stop: 12/28/16 12:01 Last Admin: 12/24/16 14:01 Dose: 133 mls/hr Piperacillin Sod/Tazobactam Sod (Zosyn 3.375 Gm Iv Premix) 3.375 gm in 50 mls @ 100 mls/hr IVPB Q6H [facility] Last Admin: 12/24/16 16:47 Dose: 100 mls/hr Naproxen (Anaprox) 275 mg PO BID PRN PRN Reason: Pain, moderate (4-7) Last Admin: 12/24/16 09:27 Dose: 275 mg Pantoprazole Sodium (Protonix Ec Tab) 40 mg PO DAILY [facility] Last Admin: 12/24/16 09:28 Dose: 40 mg Pneumococcal Polyvalent Vaccine (Pneumovax 23 Vaccine) 0.5 ml IM .ONCE ONE Stop: 12/25/16 21:31 - Labs Labs: 12/23/16 19:37 12/23/16 19:37 - Constitutional Appears: Well - Head Exam Head Exam: ATRAUMATIC, NORMAL INSPECTION, NORMOCEPHALIC - Eye Exam Eye Exam: EOMI, Normal appearance, PERRL Pupil Exam: NORMAL ACCOMODATION, PERRL - ENT Exam ENT Exam: Mucous Membranes Moist, Normal Exam - Neck Exam Neck Exam: Full ROM, Normal Inspection. absent: Lymphadenopathy - Respiratory Exam Respiratory Exam: Decreased Breath Sounds - Cardiovascular Exam Cardiovascular Exam: REGULAR RHYTHM, +S1, +S2 - GI/Abdominal Exam GI & Abdominal Exam: Soft, Diminished Bowel Sounds - Rectal Exam Rectal Exam: Deferred Assessment and Plan (1) Low back pain Status: Acute (2) Abdominal pain Status: Acute (3) Gall bladder pain Status: Acute - Assessment and Plan (Free Text) Plan: CASEseen and discussed with staff and resident mx as ordered back pain better iv primaxin discharge with work up of back pain as out pt lumbaosacral ct scan neg for fracture
[2016-12-25] MEDS: Vancomycin 1 gm/NS 200 ml 1 GM/200 ML BAG IVPB SCH ×2 (00:58→11:32)
[2016-12-25] MEDS: Piperacill/Tazo 3.375gm in Dex 3.375 GM/50 ML BAG IVPB SCH ×4 (04:16→21:29)
[2016-12-25 07:28] LABS: BASO % 0.3 % (0.0-2.0); CHLORIDE 100 mmol/L (98-107); EOS # 0.1 K/uL (0.0-0.7); EOS % 1.2 % (0.0-4.0); HEMATOCRIT 36.4 % (34.0-47.0); LYMPH # 0.8 K/uL (1.0-4.3); LYMPH % 12.5 % (20.0-40.0); MEAN CELL VOLUME 84.2 fL (81.0-99.0); MEAN CORPUSCULAR HEMOGLOBIN 28.4 pg (27.0-31.0); MEAN CORPUSCULAR HGB CONC 33.7 g/dL (33.0-37.0); MEAN PLATELET VOLUME 8.5 fL (7.2-11.7); MONO # 0.6 K/uL (0.0-0.8); MONO % 10.1 % (0.0-10.0); NRBC % 0.1 % (0.0-2.0); RED CELL DISTRIBUTION WIDTH 13.5 % (11.5-14.5); WHITE BLOOD COUNT 6.1 K/uL (4.8-10.8)
[2016-12-25 07:29] LABS: POTASSIUM 4.2 mmol/L (3.6-5.2); SODIUM 135 mmol/L (132-148)
[2016-12-25 07:30] LABS: GFR AFRICAN-AMERICAN > 60
[2016-12-25 07:31] LABS: ALB/GLOB RATIO 0.8 (1.0-2.1); ALKALINE PHOSPHATASE 121 U/L (38-126); ALT/SGPT 24 U/L (9-52); AST/SGOT 28 U/L (14-36); BILIRUBIN,TOTAL 0.6 mg/dL (0.2-1.3); BLOOD UREA NITROGEN 11 mg/dL (7-17); CALCIUM 7.8 mg/dl (8.6-10.4); CARBON DIOXIDE 26 mmol/L (22-30); GLUCOSE,RANDOM 106 mg/dL (65-105); TOTAL PROTEIN 6.8 g/dL (6.3-8.3)
--- NOTE | 2016-12-25 10:28 | CP.PCM.PN ---
Subjective - Date & Time of Evaluation Date of Evaluation: 12/25/16 Time of Evaluation: 07:40 - Subjective Subjective: clinically same Objective - Vital Signs/Intake and Output Vital Signs (last 24 hours): Temp Pulse Resp BP Pulse Ox 98.6 F 90 20 122/60 97 12/25/16 07:30 12/25/16 07:30 12/25/16 07:30 12/25/16 07:30 12/25/16 07:30 Intake and Output: 12/25/16 12/25/16 06:59 18:59 Intake Total 480 Balance 480 - Medications Medications: Current Medications Acetaminophen (Tylenol 325mg Tab) 650 mg PO Q8 PRN PRN Reason: Pain, Mild (1-3) Last Admin: 12/23/16 09:04 Dose: 650 mg Acetaminophen (Tylenol 325mg Tab) 650 mg PO Q8 PRN PRN Reason: Fever>100.4 Last Admin: 12/23/16 17:01 Dose: 650 mg Cyclobenzaprine HCl (Flexeril) 10 mg PO BID PRN PRN Reason: Muscle spasm Last Admin: 12/24/16 09:30 Dose: 10 mg Dicyclomine HCl (Bentyl) 10 mg PO QID [facility] Last Admin: 12/24/16 21:38 Dose: 10 mg Enoxaparin Sodium (Lovenox) 40 mg SC DAILY [facility] Last Admin: 12/24/16 11:46 Dose: 40 mg Vancomycin/Sodium Chloride (Vancocin) 1 gm in 200 mls @ 133 mls/hr IVPB Q12H [facility] Stop: 12/28/16 12:01 Last Admin: 12/25/16 00:58 Dose: 133 mls/hr Piperacillin Sod/Tazobactam Sod (Zosyn 3.375 Gm Iv Premix) 3.375 gm in 50 mls @ 100 mls/hr IVPB Q6H [facility] Last Admin: 12/25/16 04:16 Dose: 100 mls/hr Naproxen (Anaprox) 275 mg PO BID PRN PRN Reason: Pain, moderate (4-7) Last Admin: 12/24/16 09:27 Dose: 275 mg Pantoprazole Sodium (Protonix Ec Tab) 40 mg PO DAILY [facility] Last Admin: 12/24/16 09:28 Dose: 40 mg Pneumococcal Polyvalent Vaccine (Pneumovax 23 Vaccine) 0.5 ml IM .ONCE ONE Stop: 12/25/16 21:31 - Labs Labs: 12/25/16 07:08 12/25/16 07:08 - Constitutional Appears: Well - Head Exam Head Exam: ATRAUMATIC, NORMAL INSPECTION, NORMOCEPHALIC - Eye Exam Eye Exam: EOMI, Normal appearance, PERRL Pupil Exam: NORMAL ACCOMODATION, PERRL - ENT Exam ENT Exam: Mucous Membranes Moist, Normal Exam - Neck Exam Neck Exam: Full ROM, Normal Inspection. absent: Lymphadenopathy - Respiratory Exam Respiratory Exam: Decreased Breath Sounds - Cardiovascular Exam Cardiovascular Exam: REGULAR RHYTHM, +S1, +S2 - GI/Abdominal Exam GI & Abdominal Exam: Soft, Diminished Bowel Sounds - Rectal Exam Rectal Exam: Deferred Assessment and Plan (1) Low back pain Status: Acute (2) Abdominal pain Status: Acute (3) Gall bladder pain Status: Acute - Assessment and Plan (Free Text) Plan: CASEseen and discussed iw staff and resident mx as ordered back pain better iv primaxindischarge with work up of back pain as out pt
[2016-12-25] MEDS: Pantoprazole 40 mg EC Tab PO SCH (10:43)
[2016-12-25] MEDS: Enoxaparin 40 mg Syringe SC SCH (10:43)
--- NOTE | 2016-12-25 11:16 | CP.PCM.PN ---
<Joesph Lam - Last Filed: 12/25/16 14:10> Subjective - Date & Time of Evaluation Date of Evaluation: 12/25/16 Time of Evaluation: 09:30 - Subjective Subjective: Medicine Note- Dr. Avalos's service Patient was seen and examined at bedside. Patient reports no acute complaints at this time. No fevers. Tolerating PO, moving bowels normally. No events overnight. Objective - Vital Signs/Intake and Output Vital Signs (last 24 hours): Temp Pulse Resp BP Pulse Ox 98.6 F 90 20 122/60 97 12/25/16 07:30 12/25/16 07:30 12/25/16 07:30 12/25/16 07:30 12/25/16 07:30 Intake and Output: 12/25/16 12/25/16 06:59 18:59 Intake Total 480 Balance 480 - Medications Medications: Current Medications Acetaminophen (Tylenol 325mg Tab) 650 mg PO Q8 PRN PRN Reason: Pain, Mild (1-3) Last Admin: 12/23/16 09:04 Dose: 650 mg Acetaminophen (Tylenol 325mg Tab) 650 mg PO Q8 PRN PRN Reason: Fever>100.4 Last Admin: 12/23/16 17:01 Dose: 650 mg Cyclobenzaprine HCl (Flexeril) 10 mg PO BID PRN PRN Reason: Muscle spasm Last Admin: 12/24/16 09:30 Dose: 10 mg Dicyclomine HCl (Bentyl) 10 mg PO QID [facility] Last Admin: 12/25/16 10:43 Dose: 10 mg Enoxaparin Sodium (Lovenox) 40 mg SC DAILY [facility] Last Admin: 12/25/16 10:43 Dose: 40 mg Vancomycin/Sodium Chloride (Vancocin) 1 gm in 200 mls @ 133 mls/hr IVPB Q12H [facility] Stop: 12/28/16 12:01 Last Admin: 12/25/16 00:58 Dose: 133 mls/hr Piperacillin Sod/Tazobactam Sod (Zosyn 3.375 Gm Iv Premix) 3.375 gm in 50 mls @ 100 mls/hr IVPB Q6H [facility] Last Admin: 12/25/16 10:43 Dose: 100 mls/hr Naproxen (Anaprox) 275 mg PO BID PRN PRN Reason: Pain, moderate (4-7) Last Admin: 12/24/16 09:27 Dose: 275 mg Pantoprazole Sodium (Protonix Ec Tab) 40 mg PO DAILY [facility] Last Admin: 12/25/16 10:43 Dose: 40 mg Pneumococcal Polyvalent Vaccine (Pneumovax 23 Vaccine) 0.5 ml IM .ONCE ONE Stop: 12/25/16 21:31 - Labs Labs: 12/25/16 07:08 12/25/16 07:08 - Constitutional Appears: Non-toxic, No Acute Distress - Head Exam Head Exam: ATRAUMATIC, NORMAL INSPECTION, NORMOCEPHALIC - Eye Exam Pupil Exam: NORMAL ACCOMODATION, PERRL - ENT Exam ENT Exam: Mucous Membranes Moist - Respiratory Exam Respiratory Exam: Clear to Ausculation Bilateral, NORMAL BREATHING PATTERN. absent: Prolonged Expiratory Phase, Rales, Rhonchi, Wheezes - Cardiovascular Exam Cardiovascular Exam: REGULAR RHYTHM, +S1, +S2 - GI/Abdominal Exam GI & Abdominal Exam: Soft, Normal Bowel Sounds. absent: Diminished Bowel Sounds , Hernia, Hypoactive Bowel Sounds - Extremities Exam Extremities Exam: Normal Capillary Refill, Normal Inspection - Neurological Exam Neurological Exam: Alert, Awake, Oriented x3 - Psychiatric Exam Psychiatric exam: Normal Affect, Normal Mood - Skin Skin Exam: Dry, Intact, Normal Color, Warm Assessment and Plan - Assessment and Plan (Free Text) Assessment: Bacteremia Febrile in past 24 hours, WBC WNL. Blood culture positive for gram positive cocci in clusters. Dr. Russo consulted. Vancomycin 1g IV q12H. Primaxin 500mg IV q6H. f/u Echo UTI Urine culture positive for Staph aureus. Dr. Russo consulted. Vancomycin 1g IV q12H. Low back pain Lumbar CT showed degenerative changes L5-S1 without other acute abnormalities per report. Neuro Dr. Bailon consulted- No further neuro workup needed. Flexeril 10mg PO BID PRN. Anaprox 275mg PO BID PRN. Likely musculoskeletal origin. Leg weakness Head CT negative for acute etiologies per report. Neuro Dr. Bailon consulted, help appreciated. Prophylactic measure SCD, Lovenox, Protonix <Gus Avalos S - Last Filed: 12/25/16 22:40> Objective - Vital Signs/Intake and Output Vital Signs (last 24 hours): Temp Pulse Resp BP Pulse Ox 98.6 F 96 H 20 121/64 99 05/23/17 15:00 12/25/16 15:00 12/25/16 15:00 12/25/16 15:00 12/25/16 15:00 Intake and Output: 12/25/16 12/26/16 18:59 06:59 Intake Total 1180 Balance 1180 - Medications Medications: Current Medications Acetaminophen (Tylenol 325mg Tab) 650 mg PO Q8 PRN PRN Reason: Pain, Mild (1-3) Last Admin: 12/23/16 09:04 Dose: 650 mg Acetaminophen (Tylenol 325mg Tab) 650 mg PO Q8 PRN PRN Reason: Fever>100.4 Last Admin: 12/23/16 17:01 Dose: 650 mg Cyclobenzaprine HCl (Flexeril) 10 mg PO BID PRN PRN Reason: Muscle spasm Last Admin: 12/24/16 09:30 Dose: 10 mg Dicyclomine HCl (Bentyl) 10 mg PO QID [facility] Last Admin: 12/25/16 21:27 Dose: 10 mg Enoxaparin Sodium (Lovenox) 40 mg SC DAILY [facility] Last Admin: 12/25/16 10:43 Dose: 40 mg Vancomycin/Sodium Chloride (Vancocin) 1 gm in 200 mls @ 133 mls/hr IVPB Q12H [facility] Stop: 12/28/16 12:01 Last Admin: 12/25/16 11:32 Dose: 133 mls/hr Piperacillin Sod/Tazobactam Sod (Zosyn 3.375 Gm Iv Premix) 3.375 gm in 50 mls @ 100 mls/hr IVPB Q6H [facility] Last Admin: 12/25/16 21:29 Dose: 100 mls/hr Naproxen (Anaprox) 275 mg PO BID PRN PRN Reason: Pain, moderate (4-7) Last Admin: 12/24/16 09:27 Dose: 275 mg Pantoprazole Sodium (Protonix Ec Tab) 40 mg PO DAILY [facility] Last Admin: 12/25/16 10:43 Dose: 40 mg Vitamin A (Vitamin A & D Oint Ud Foilpak) 1 ea TOP BID [facility] Last Admin: 12/25/16 17:43 Dose: 1 ea - Labs Labs: 12/25/16 07:08 12/25/16 07:08 Assessment and Plan (1) Low back pain Status: Acute (2) Abdominal pain Status: Acute (3) Gall bladder pain Status: Acute Attending/Attestation - Attestation I have personally seen and examined this patient.: Yes I have fully participated in the care of the patient.: Yes I have reviewed all pertinent clinical information, including history, physical exam and plan: Yes Notes (Text): 12/25/16 22:39 CASEseen and discussed [facility] staff and resident mx as ordered back pain better iv primaxindischarge with work up of back pain as out pt
--- NOTE | 2016-12-25 12:25 | CP.PCM.PN ---
Subjective - Date & Time of Evaluation Date of Evaluation: 12/25/16 Time of Evaluation: 09:00 - Subjective Subjective: MSSA seopsis r/o endocarditis consider Nafcillin Objective - Vital Signs/Intake and Output Vital Signs (last 24 hours): Temp Pulse Resp BP Pulse Ox 98.6 F 90 20 122/60 97 12/25/16 07:30 12/25/16 07:30 12/25/16 07:30 12/25/16 07:30 12/25/16 07:30 Intake and Output: 12/25/16 12/25/16 06:59 18:59 Intake Total 480 Balance 480 - Medications Medications: Current Medications Acetaminophen (Tylenol 325mg Tab) 650 mg PO Q8 PRN PRN Reason: Pain, Mild (1-3) Last Admin: 12/23/16 09:04 Dose: 650 mg Acetaminophen (Tylenol 325mg Tab) 650 mg PO Q8 PRN PRN Reason: Fever>100.4 Last Admin: 12/23/16 17:01 Dose: 650 mg Cyclobenzaprine HCl (Flexeril) 10 mg PO BID PRN PRN Reason: Muscle spasm Last Admin: 12/24/16 09:30 Dose: 10 mg Dicyclomine HCl (Bentyl) 10 mg PO QID [facility] Last Admin: 12/25/16 10:43 Dose: 10 mg Enoxaparin Sodium (Lovenox) 40 mg SC DAILY [facility] Last Admin: 12/25/16 10:43 Dose: 40 mg Vancomycin/Sodium Chloride (Vancocin) 1 gm in 200 mls @ 133 mls/hr IVPB Q12H [facility] Stop: 12/28/16 12:01 Last Admin: 12/25/16 11:32 Dose: 133 mls/hr Piperacillin Sod/Tazobactam Sod (Zosyn 3.375 Gm Iv Premix) 3.375 gm in 50 mls @ 100 mls/hr IVPB Q6H [facility] Last Admin: 12/25/16 10:43 Dose: 100 mls/hr Naproxen (Anaprox) 275 mg PO BID PRN PRN Reason: Pain, moderate (4-7) Last Admin: 12/24/16 09:27 Dose: 275 mg Pantoprazole Sodium (Protonix Ec Tab) 40 mg PO DAILY [facility] Last Admin: 12/25/16 10:43 Dose: 40 mg Pneumococcal Polyvalent Vaccine (Pneumovax 23 Vaccine) 0.5 ml IM .ONCE ONE Stop: 12/25/16 21:31 - Labs Labs: 12/25/16 07:08 12/25/16 07:08 Assessment and Plan (1) Sepsis affecting skin Status: Acute (2) Sepsis affecting skin Status: Acute (3) Low back pain Status: Acute
[2016-12-25] MEDS ORDERED: Pneumococcal 23-Valent Vaccine IM ONE (13:45)
[2016-12-25] MEDS: Vitamins A & D Oint UD Foilpak TOP SCH (17:43)
[2016-12-26] MEDS: Vancomycin 1 gm/NS 200 ml 1 GM/200 ML BAG IVPB SCH ×2 (00:17→12:22)
[2016-12-26] MEDS: Piperacill/Tazo 3.375gm in Dex 3.375 GM/50 ML BAG IVPB SCH ×3 (03:10→16:41)
[2016-12-26 07:29] LABS: BASO % 0.2 % (0.0-2.0); EOS # 0.1 K/uL (0.0-0.7); EOS % 1.3 % (0.0-4.0); HEMATOCRIT 33.6 % (34.0-47.0); LYMPH # 0.7 K/uL (1.0-4.3); LYMPH % 12.2 % (20.0-40.0); MEAN CELL VOLUME 83.4 fL (81.0-99.0); MEAN CORPUSCULAR HEMOGLOBIN 27.8 pg (27.0-31.0); MEAN CORPUSCULAR HGB CONC 33.3 g/dL (33.0-37.0); MEAN PLATELET VOLUME 8.6 fL (7.2-11.7); MONO # 0.8 K/uL (0.0-0.8); MONO % 13.6 % (0.0-10.0); RED CELL DISTRIBUTION WIDTH 13.8 % (11.5-14.5); WHITE BLOOD COUNT 5.9 K/uL (4.8-10.8)
[2016-12-26 07:51] LABS: CHLORIDE 103 mmol/L (98-107); POTASSIUM 4.1 mmol/L (3.6-5.2); SODIUM 139 mmol/L (132-148)
--- NOTE | 2016-12-26 07:51 | CARD ---
APPROVED REPORT EXAM: Two-dimensional and M-mode echocardiogram with Doppler and color Doppler. Other Information Quality : GoodRhythm : NSR INDICATION endocarditis +blc M-Mode DIMENSIONS RVDd1.52 (2.1-3.2cm)Left Atrium (MM)2.37 (2.5-4.0cm) IVSd0.79 (0.7-1.1cm)Aortic Root2.71 (2.2-3.7cm) LVDd4.91 (4.0-5.6cm)Aortic Cusp Exc.2.00 (1.5-2.0cm) PWd0.68 (0.7-1.1cm)FS (%) 44 % LVDs2.74 (2.0-3.8cm)LVEF (%)75 (>50%) Mitral Valve MV E Ebdyfhxr767.4cm/sMV A Ogiovaha55.2cm/sE/A ratio1.3 TDI E/Lateral E'0.0E/Medial E'0.0 LEFT VENTRICLE The left ventricle is normal size. There is normal left ventricular wall thickness. The left ventricular function is normal. The left ventricular ejection fraction is within the normal range. The Ejection Fraction is >55%. No regional wall motion abnormalities noted. The left ventricular diastolic function is normal. No left ventricle thrombus noted on this study. There is no ventricular septal defect visualized. There is no left ventricular aneurysm. There is no mass noted in the left ventricle. RIGHT VENTRICLE The right ventricle is normal size. There is normal right ventricular wall thickness. The right ventricular systolic function is normal. ATRIA The left atrium size is normal. The right atrium size is normal. The interatrial septum is intact with no evidence for an atrial septal defect. AORTIC VALVE The aortic valve is normal in structure and function. No aortic regurgitation is present. There is no aortic valvular stenosis. There is no aortic valvular vegetation. MITRAL VALVE The mitral valve is normal in structure and function. There is no evidence of mitral valve prolapse. There is no mitral valve stenosis. There is no mitral valve regurgitation noted. TRICUSPID VALVE The tricuspid valve is normal in structure and function. There is no tricuspid valve regurgitation noted. There is no tricuspid valve prolapse or vegetation. There is no tricuspid valve stenosis. PULMONIC VALVE The pulmonary valve is normal in structure and function. There is no pulmonic valvular regurgitation. There is no pulmonic valvular stenosis. GREAT VESSELS The aortic root is normal in size. The ascending aorta is normal in size. The pulmonary artery is normal. The IVC is normal in size and collapses >50% with inspiration. PERICARDIAL EFFUSION The pericardium appears normal. There is no pleural effusion. <Conclusion> The left ventricular ejection fraction is within the normal range. The Ejection Fraction is >55%. If clininically suspected would suggest BAUDILIO for endocarditis eval
[2016-12-26 07:53] LABS: GFR AFRICAN-AMERICAN > 60
[2016-12-26 07:54] LABS: ALB/GLOB RATIO 0.8 (1.0-2.1); ALKALINE PHOSPHATASE 129 U/L (38-126); ALT/SGPT 23 U/L (9-52); AST/SGOT 36 U/L (14-36); BILIRUBIN,TOTAL 0.6 mg/dL (0.2-1.3); BLOOD UREA NITROGEN 13 mg/dL (7-17); CARBON DIOXIDE 26 mmol/L (22-30); GLUCOSE,RANDOM 106 mg/dL (65-105); TOTAL PROTEIN 6.5 g/dL (6.3-8.3)
[2016-12-26 07:55] LABS: CALCIUM 7.9 mg/dl (8.6-10.4)
[2016-12-26] MEDS: Pantoprazole 40 mg EC Tab PO SCH (11:02)
[2016-12-26] MEDS: Vitamins A & D Oint UD Foilpak TOP SCH ×2 (11:03→17:36)
[2016-12-26] MEDS: Enoxaparin 40 mg Syringe SC SCH (11:03)
--- NOTE | 2016-12-26 12:06 | CP.PCM.PN ---
<Cordell Cornejo - Last Filed: 12/26/16 16:11> Subjective - Date & Time of Evaluation Date of Evaluation: 12/26/16 Time of Evaluation: 09:00 - Subjective Subjective: PGY2 on medicine Dr. Avalos service: Pt seen and examined at bedside this morning. Pt reports no complaint at the moment. No acute events overnight. Objective - Vital Signs/Intake and Output Vital Signs (last 24 hours): Temp Pulse Resp BP Pulse Ox 98.4 F 70 20 117/79 98 12/26/16 07:43 12/26/16 07:43 12/26/16 07:43 12/26/16 07:43 12/26/16 07:43 Intake and Output: 12/26/16 12/26/16 06:59 18:59 Intake Total 540 Balance 540 - Medications Medications: Current Medications Acetaminophen (Tylenol 325mg Tab) 650 mg PO Q8 PRN PRN Reason: Pain, Mild (1-3) Last Admin: 12/23/16 09:04 Dose: 650 mg Acetaminophen (Tylenol 325mg Tab) 650 mg PO Q8 PRN PRN Reason: Fever>100.4 Last Admin: 12/23/16 17:01 Dose: 650 mg Cyclobenzaprine HCl (Flexeril) 10 mg PO BID PRN PRN Reason: Muscle spasm Last Admin: 12/24/16 09:30 Dose: 10 mg Dicyclomine HCl (Bentyl) 10 mg PO QID [facility] Last Admin: 12/26/16 11:03 Dose: 10 mg Enoxaparin Sodium (Lovenox) 40 mg SC DAILY [facility] Last Admin: 12/26/16 11:03 Dose: 40 mg Vancomycin/Sodium Chloride (Vancocin) 1 gm in 200 mls @ 133 mls/hr IVPB Q12H [facility] Stop: 12/28/16 12:01 Last Admin: 12/26/16 00:17 Dose: 133 mls/hr Piperacillin Sod/Tazobactam Sod (Zosyn 3.375 Gm Iv Premix) 3.375 gm in 50 mls @ 100 mls/hr IVPB Q6H [facility] Last Admin: 12/26/16 03:10 Dose: 100 mls/hr Naproxen (Anaprox) 275 mg PO BID PRN PRN Reason: Pain, moderate (4-7) Last Admin: 12/24/16 09:27 Dose: 275 mg Pantoprazole Sodium (Protonix Ec Tab) 40 mg PO DAILY [facility] Last Admin: 12/26/16 11:02 Dose: 40 mg Vitamin A (Vitamin A & D Oint Ud Foilpak) 1 ea TOP BID [facility] Last Admin: 12/26/16 11:03 Dose: 1 ea - Labs Labs: 12/26/16 06:59 12/26/16 06:59 - Constitutional Appears: Non-toxic, No Acute Distress - Head Exam Head Exam: NORMAL INSPECTION, NORMOCEPHALIC - ENT Exam ENT Exam: Mucous Membranes Moist - Respiratory Exam Respiratory Exam: Clear to Ausculation Bilateral, NORMAL BREATHING PATTERN. absent: Rhonchi, Wheezes - Cardiovascular Exam Cardiovascular Exam: REGULAR RHYTHM, +S1, +S2. absent: Gallop, Rubs - GI/Abdominal Exam GI & Abdominal Exam: Soft, Normal Bowel Sounds - Extremities Exam Extremities Exam: absent: Pedal Edema - Neurological Exam Neurological Exam: Alert, Awake, Oriented x3 - Psychiatric Exam Psychiatric exam: Normal Mood - Skin Skin Exam: Intact Assessment and Plan - Assessment and Plan (Free Text) Assessment: Bacteremia Febrile in past 24 hours, WBC WNL. Blood culture positive for gram positive cocci in clusters. Dr. Russo consulted, help appreciated. Vancomycin 1g IV q12H started 12/23, trough 15.7 on 12/25. Primaxin 500mg IV q6H started 12/24. TTE ECHO showed EF >55%. Repeat culture negative for [address] Jackson consulted for BAUDILIO to r/o endocarditis, help appreciated. BAUDILIO scheduled for 10:30AM on Saturday. UTI Urine culture positive for Staph aureus. Dr. Russo consulted, help appreciated. Vancomycin 1g IV q12H. Low back pain Lumbar CT showed degenerative changes L5-S1 without other acute abnormalities per report. Neuro Dr. Bailon consulted- No further neuro workup needed. Flexeril 10mg PO BID PRN. Anaprox 275mg PO BID PRN. Likely musculoskeletal origin. Leg weakness Head CT negative for acute etiologies per report. Neuro Dr. Bailon consulted, help appreciated. Prophylactic measure SCD, Lovenox, Protonix <Avalos,Aureliouma S - Last Filed: 12/26/16 20:18> Objective - Vital Signs/Intake and Output Vital Signs (last 24 hours): Temp Pulse Resp BP Pulse Ox 97.7 F 61 20 123/79 99 12/26/16 16:43 12/26/16 16:43 12/26/16 16:43 12/26/16 16:43 12/26/16 16:43 Intake and Output: 12/26/16 12/27/16 18:59 06:59 Intake Total 700 Balance 700 - Medications Medications: Current Medications Acetaminophen (Tylenol 325mg Tab) 650 mg PO Q8 PRN PRN Reason: Pain, Mild (1-3) Last Admin: 12/23/16 09:04 Dose: 650 mg Acetaminophen (Tylenol 325mg Tab) 650 mg PO Q8 PRN PRN Reason: Fever>100.4 Last Admin: 12/23/16 17:01 Dose: 650 mg Cyclobenzaprine HCl (Flexeril) 10 mg PO BID PRN PRN Reason: Muscle spasm Last Admin: 12/24/16 09:30 Dose: 10 mg Dicyclomine HCl (Bentyl) 10 mg PO QID [facility] Last Admin: 12/26/16 17:36 Dose: 10 mg Enoxaparin Sodium (Lovenox) 40 mg SC DAILY [facility] Last Admin: 12/26/16 11:03 Dose: 40 mg Cefazolin Sodium/Dextrose (Ancef Iv 2 Gm Duplex) 2 gm in 100 mls @ 100 mls/hr IVPB Q8H [facility] Naproxen (Anaprox) 275 mg PO BID PRN PRN Reason: Pain, moderate (4-7) Last Admin: 12/26/16 16:14 Dose: 275 mg Pantoprazole Sodium (Protonix Ec Tab) 40 mg PO DAILY [facility] Last Admin: 12/26/16 11:02 Dose: 40 mg Vitamin A (Vitamin A & D Oint Ud Foilpak) 1 ea TOP BID [facility] Last Admin: 12/26/16 17:36 Dose: 1 ea - Labs Labs: 12/26/16 06:59 12/26/16 06:59 Assessment and Plan (1) Low back pain Status: Acute (2) Abdominal pain Status: Acute (3) Gall bladder pain Status: Acute Attending/Attestation - Attestation I have personally seen and examined this patient.: Yes I have fully participated in the care of the patient.: Yes I have reviewed all pertinent clinical information, including history, physical exam and plan: Yes Notes (Text): awaiting for bloo dculture if ok with id kristian callahan pt
[2016-12-26] MEDS: Naproxen 275 mg Tab PO PRN (16:14)
--- NOTE | 2016-12-26 17:51 | CP.PCM.PN ---
Subjective - Date & Time of Evaluation Date of Evaluation: 12/26/16 Time of Evaluation: 09:20 - Subjective Subjective: clinically same Objective - Vital Signs/Intake and Output Vital Signs (last 24 hours): Temp Pulse Resp BP Pulse Ox 97.7 F 61 20 123/79 99 12/26/16 16:43 12/26/16 16:43 12/26/16 16:43 12/26/16 16:43 12/26/16 16:43 Intake and Output: 12/26/16 12/26/16 06:59 18:59 Intake Total 540 700 Balance 540 700 - Medications Medications: Current Medications Acetaminophen (Tylenol 325mg Tab) 650 mg PO Q8 PRN PRN Reason: Pain, Mild (1-3) Last Admin: 12/23/16 09:04 Dose: 650 mg Acetaminophen (Tylenol 325mg Tab) 650 mg PO Q8 PRN PRN Reason: Fever>100.4 Last Admin: 12/23/16 17:01 Dose: 650 mg Cyclobenzaprine HCl (Flexeril) 10 mg PO BID PRN PRN Reason: Muscle spasm Last Admin: 12/24/16 09:30 Dose: 10 mg Dicyclomine HCl (Bentyl) 10 mg PO QID [facility] Last Admin: 12/26/16 17:36 Dose: 10 mg Enoxaparin Sodium (Lovenox) 40 mg SC DAILY [facility] Last Admin: 12/26/16 11:03 Dose: 40 mg Vancomycin/Sodium Chloride (Vancocin) 1 gm in 200 mls @ 133 mls/hr IVPB Q12H [facility] Stop: 12/28/16 12:01 Last Admin: 12/26/16 12:22 Dose: 133 mls/hr Piperacillin Sod/Tazobactam Sod (Zosyn 3.375 Gm Iv Premix) 3.375 gm in 50 mls @ 100 mls/hr IVPB Q6H [facility] Last Admin: 12/26/16 16:41 Dose: 100 mls/hr Naproxen (Anaprox) 275 mg PO BID PRN PRN Reason: Pain, moderate (4-7) Last Admin: 12/26/16 16:14 Dose: 275 mg Pantoprazole Sodium (Protonix Ec Tab) 40 mg PO DAILY [facility] Last Admin: 12/26/16 11:02 Dose: 40 mg Vitamin A (Vitamin A & D Oint Ud Foilpak) 1 ea TOP BID [facility] Last Admin: 12/26/16 17:36 Dose: 1 ea - Labs Labs: 12/26/16 06:59 12/26/16 06:59 - Constitutional Appears: Well - Head Exam Head Exam: ATRAUMATIC, NORMAL INSPECTION, NORMOCEPHALIC - Eye Exam Eye Exam: EOMI, Normal appearance, PERRL Pupil Exam: NORMAL ACCOMODATION, PERRL - ENT Exam ENT Exam: Mucous Membranes Moist, Normal Exam - Neck Exam Neck Exam: Full ROM, Normal Inspection. absent: Lymphadenopathy - Respiratory Exam Respiratory Exam: Decreased Breath Sounds - Cardiovascular Exam Cardiovascular Exam: REGULAR RHYTHM, +S1, +S2 - GI/Abdominal Exam GI & Abdominal Exam: Soft, Diminished Bowel Sounds - Rectal Exam Rectal Exam: Deferred Assessment and Plan (1) Low back pain Status: Acute (2) Abdominal pain Status: Acute (3) Gall bladder pain Status: Acute - Assessment and Plan (Free Text) Plan: ct scan neg coti same id consultation spetic wrok up back pain better
--- NOTE | 2016-12-26 18:32 | CP.PCM.PN ---
Subjective - Date & Time of Evaluation Date of Evaluation: 12/26/16 Time of Evaluation: 09:00 - Subjective Subjective: admitted with severe sepsis and bacteremia on IV antibiotics to [facility] 14 days IV rx consider BAUDILIO Objective - Vital Signs/Intake and Output Vital Signs (last 24 hours): Temp Pulse Resp BP Pulse Ox 97.7 F 61 20 123/79 99 12/26/16 16:43 12/26/16 16:43 12/26/16 16:43 12/26/16 16:43 12/26/16 16:43 Intake and Output: 12/26/16 12/26/16 06:59 18:59 Intake Total 540 700 Balance 540 700 - Medications Medications: Current Medications Acetaminophen (Tylenol 325mg Tab) 650 mg PO Q8 PRN PRN Reason: Pain, Mild (1-3) Last Admin: 12/23/16 09:04 Dose: 650 mg Acetaminophen (Tylenol 325mg Tab) 650 mg PO Q8 PRN PRN Reason: Fever>100.4 Last Admin: 12/23/16 17:01 Dose: 650 mg Cyclobenzaprine HCl (Flexeril) 10 mg PO BID PRN PRN Reason: Muscle spasm Last Admin: 12/24/16 09:30 Dose: 10 mg Dicyclomine HCl (Bentyl) 10 mg PO QID [facility] Last Admin: 12/26/16 17:36 Dose: 10 mg Enoxaparin Sodium (Lovenox) 40 mg SC DAILY [facility] Last Admin: 12/26/16 11:03 Dose: 40 mg Vancomycin/Sodium Chloride (Vancocin) 1 gm in 200 mls @ 133 mls/hr IVPB Q12H [facility] Stop: 12/28/16 12:01 Last Admin: 12/26/16 12:22 Dose: 133 mls/hr Piperacillin Sod/Tazobactam Sod (Zosyn 3.375 Gm Iv Premix) 3.375 gm in 50 mls @ 100 mls/hr IVPB Q6H [facility] Last Admin: 12/26/16 16:41 Dose: 100 mls/hr Naproxen (Anaprox) 275 mg PO BID PRN PRN Reason: Pain, moderate (4-7) Last Admin: 12/26/16 16:14 Dose: 275 mg Pantoprazole Sodium (Protonix Ec Tab) 40 mg PO DAILY [facility] Last Admin: 12/26/16 11:02 Dose: 40 mg Vitamin A (Vitamin A & D Oint Ud Foilpak) 1 ea TOP BID [facility] Last Admin: 12/26/16 17:36 Dose: 1 ea - Labs Labs: 12/26/16 06:59 12/26/16 06:59 - Constitutional Appears: Non-toxic, Cachectic, Chronically Ill - Head Exam Head Exam: NORMOCEPHALIC - Eye Exam Eye Exam: PERRL. absent: Scleral icterus - ENT Exam ENT Exam: Mucous Membranes Dry - Neck Exam Neck Exam: absent: Lymphadenopathy - Respiratory Exam Respiratory Exam: Decreased Breath Sounds - Cardiovascular Exam Cardiovascular Exam: REGULAR RHYTHM, +S1, +S2 - GI/Abdominal Exam GI & Abdominal Exam: Distended, Soft Assessment and Plan (1) Sepsis affecting skin Status: Acute (2) Sepsis affecting skin Status: Acute (3) Low back pain Status: Acute
[2016-12-26] MEDS: ceFAZolin IV 2 gm in Dextrose 2 GM/100 ML BAG IVPB SCH (20:46)
[2016-12-26] MEDS ORDERED: Lidocaine 2% Inj (20ml) INFIL ONE (22:08)
[2016-12-27] MEDS: ceFAZolin IV 2 gm in Dextrose 2 GM/100 ML BAG IVPB SCH ×4 (04:02→23:34)
[2016-12-27 07:26] LABS: BASO % 0.5 % (0.0-2.0); EOS # 0.1 K/uL (0.0-0.7); HEMATOCRIT 34.7 % (34.0-47.0); LYMPH # 0.6 K/uL (1.0-4.3); LYMPH % 12.5 % (20.0-40.0); MEAN CELL VOLUME 83.7 fL (81.0-99.0); MEAN CORPUSCULAR HEMOGLOBIN 27.7 pg (27.0-31.0); MEAN CORPUSCULAR HGB CONC 33.1 g/dL (33.0-37.0); MEAN PLATELET VOLUME 8.2 fL (7.2-11.7); MONO # 0.6 K/uL (0.0-0.8); MONO % 11.6 % (0.0-10.0); NRBC % 0.1 % (0.0-2.0); RED CELL DISTRIBUTION WIDTH 14.3 % (11.5-14.5)
[2016-12-27 07:33] LABS: INR 1.1
[2016-12-27 07:34] LABS: CHLORIDE 102 mmol/L (98-107)
[2016-12-27 07:35] LABS: POTASSIUM 4.2 mmol/L (3.6-5.2); SODIUM 138 mmol/L (132-148)
[2016-12-27 07:37] LABS: ALB/GLOB RATIO 0.8 (1.0-2.1); AST/SGOT 30 U/L (14-36); BILIRUBIN,TOTAL 0.5 mg/dL (0.2-1.3); BLOOD UREA NITROGEN 16 mg/dL (7-17); CARBON DIOXIDE 27 mmol/L (22-30); GFR AFRICAN-AMERICAN > 60
[2016-12-27 07:38] LABS: ALKALINE PHOSPHATASE 143 U/L (38-126); ALT/SGPT 21 U/L (9-52); CALCIUM 8.2 mg/dl (8.6-10.4); GLUCOSE,RANDOM 92 mg/dL (65-105)
[2016-12-27] MEDS ORDERED: ceFAZolin IV 2 gm in Dextrose 2 GM/100 ML BAG IVPB SCH (08:00)
[2016-12-27] MEDS: Enoxaparin 40 mg Syringe SC SCH (11:00)
[2016-12-27] MEDS: Pantoprazole 40 mg EC Tab PO SCH (11:00)
[2016-12-27] MEDS: Vitamins A & D Oint UD Foilpak TOP SCH ×2 (11:00→17:24)
--- NOTE | 2016-12-27 14:26 | CP.PCM.PN ---
<Cordell Cornejo - Last Filed: 12/27/16 14:28> Subjective - Date & Time of Evaluation Date of Evaluation: 12/27/16 Time of Evaluation: 09:00 - Subjective Subjective: PGY2 on medicine Dr. Avalos service: Pt seen and examined at bedside this morning. Pt has no complaints right now. Denied acute events overnight. Objective - Vital Signs/Intake and Output Vital Signs (last 24 hours): Temp Pulse Resp BP Pulse Ox 97.6 F 66 20 131/84 98 12/27/16 07:27 12/27/16 07:27 12/27/16 07:27 12/27/16 07:27 12/27/16 07:27 Intake and Output: 12/27/16 12/27/16 06:59 18:59 Intake Total 890 Balance 890 - Medications Medications: Current Medications Acetaminophen (Tylenol 325mg Tab) 650 mg PO Q8 PRN PRN Reason: Pain, Mild (1-3) Last Admin: 12/23/16 09:04 Dose: 650 mg Acetaminophen (Tylenol 325mg Tab) 650 mg PO Q8 PRN PRN Reason: Fever>100.4 Last Admin: 12/23/16 17:01 Dose: 650 mg Cyclobenzaprine HCl (Flexeril) 10 mg PO BID PRN PRN Reason: Muscle spasm Last Admin: 12/24/16 09:30 Dose: 10 mg Dicyclomine HCl (Bentyl) 10 mg PO QID [facility] Last Admin: 12/26/16 22:19 Dose: 10 mg Enoxaparin Sodium (Lovenox) 40 mg SC DAILY [facility] Last Admin: 12/26/16 11:03 Dose: 40 mg Cefazolin Sodium/Dextrose (Ancef Iv 2 Gm Duplex) 2 gm in 100 mls @ 100 mls/hr IVPB Q8H [facility] Naproxen (Anaprox) 275 mg PO BID PRN PRN Reason: Pain, moderate (4-7) Last Admin: 12/26/16 16:14 Dose: 275 mg Pantoprazole Sodium (Protonix Ec Tab) 40 mg PO DAILY [facility] Last Admin: 12/26/16 11:02 Dose: 40 mg Vitamin A (Vitamin A & D Oint Ud Foilpak) 1 ea TOP BID [facility] Last Admin: 12/26/16 17:36 Dose: 1 ea - Labs Labs: 12/27/16 07:16 05/25/17 07:16 PT 12.0 SECONDS (9.7-12.2) 12/27/16 07:16 INR 1.1 12/27/16 07:16 APTT 30 SECONDS (21-34) 12/27/16 07:16 - Constitutional Appears: Non-toxic, No Acute Distress - Head Exam Head Exam: NORMAL INSPECTION, NORMOCEPHALIC - Eye Exam Eye Exam: Normal appearance Pupil Exam: NORMAL ACCOMODATION - Respiratory Exam Respiratory Exam: Clear to Ausculation Bilateral, NORMAL BREATHING PATTERN. absent: Wheezes - Cardiovascular Exam Cardiovascular Exam: REGULAR RHYTHM, +S1, +S2. absent: Gallop, Rubs - GI/Abdominal Exam GI & Abdominal Exam: Soft, Normal Bowel Sounds - Extremities Exam Extremities Exam: absent: Pedal Edema - Neurological Exam Neurological Exam: Alert, Awake, Oriented x3 - Psychiatric Exam Psychiatric exam: Normal Mood - Skin Skin Exam: Intact, Rash Additional comments: scaly patch on the back and bilateral UE Assessment and Plan - Assessment and Plan (Free Text) Assessment: Bacteremia Febrile in past 24 hours, WBC WNL. Blood culture positive for gram positive cocci in clusters. Dr. Russo consulted, help appreciated. Vancomycin 1g IV q12H started 12/23, trough 15.7 on 12/25. Primaxin 500mg IV q6H started 12/24. TTE ECHO showed EF >55%. Repeat blood culture positive for Gram+ species. Dr. Jackson consulted for BAUDILIO to r/o endocarditis, help appreciated. NPO for BAUDILIO scheduled for 10:30AM on Saturday. UTI Urine culture positive for Staph aureus. Dr. Russo consulted, help appreciated. Vancomycin 1g IV q12H. Low back pain Lumbar CT showed degenerative changes L5-S1 without other acute abnormalities per report. Neuro Dr. Bailon consulted- No further neuro workup needed. Flexeril 10mg PO BID PRN. Anaprox 275mg PO BID PRN. Likely musculoskeletal origin. F/U MRI of back. Leg weakness Head CT negative for acute etiologies per report. Neuro Dr. Bailon consulted, help appreciated. Scaly skin lesions Biopsy taken from back. F/U pathology, lymphocyte studies, as well as rheumatology workup. Prophylactic measure SCD, Lovenox, Protonix <Gus Avalos S - Last Filed: 12/27/16 18:52> Objective - Vital Signs/Intake and Output Vital Signs (last 24 hours): Temp Pulse Resp BP Pulse Ox 97.9 F 82 20 112/76 98 12/27/16 18:18 12/27/16 18:18 12/27/16 18:18 12/27/16 18:18 12/27/16 18:18 Intake and Output: 12/27/16 12/27/16 06:59 18:59 Intake Total 890 240 Balance 890 240 - Medications Medications: Current Medications Acetaminophen (Tylenol 325mg Tab) 650 mg PO Q8 PRN PRN Reason: Pain, Mild (1-3) Last Admin: 12/23/16 09:04 Dose: 650 mg Acetaminophen (Tylenol 325mg Tab) 650 mg PO Q8 PRN PRN Reason: Fever>100.4 Last Admin: 12/23/16 17:01 Dose: 650 mg Cyclobenzaprine HCl (Flexeril) 10 mg PO BID PRN PRN Reason: Muscle spasm Last Admin: 12/24/16 09:30 Dose: 10 mg Dicyclomine HCl (Bentyl) 10 mg PO QID [facility] Last Admin: 12/27/16 17:25 Dose: 10 mg Enoxaparin Sodium (Lovenox) 40 mg SC DAILY [facility] Last Admin: 12/27/16 11:00 Dose: 40 mg Cefazolin Sodium/Dextrose (Ancef Iv 2 Gm Duplex) 2 gm in 100 mls @ 100 mls/hr IVPB Q8H [facility] Last Admin: 12/27/16 16:46 Dose: 100 mls/hr Naproxen (Anaprox) 275 mg PO BID PRN PRN Reason: Pain, moderate (4-7) Last Admin: 12/26/16 16:14 Dose: 275 mg Pantoprazole Sodium (Protonix Ec Tab) 40 mg PO DAILY [facility] Last Admin: 12/27/16 11:00 Dose: 40 mg Vitamin A (Vitamin A & D Oint Ud Foilpak) 1 ea TOP BID [facility] Last Admin: 12/27/16 17:24 Dose: 1 ea - Labs Labs: 12/27/16 07:16 12/27/16 07:16 PT 12.0 SECONDS (9.7-12.2) 12/27/16 07:16 INR 1.1 05/25/17 07:16 APTT 30 SECONDS (21-34) 12/27/16 07:16 Assessment and Plan (1) Low back pain Status: Acute (2) Abdominal pain Status: Acute (3) Gall bladder pain Status: Acute Attending/Attestation - Attestation I have personally seen and examined this patient.: Yes I have fully participated in the care of the patient.: Yes I have reviewed all pertinent clinical information, including history, physical exam and plan: Yes Notes (Text): 12/27/16 18:52 case seen and discussed iw staff and resident zoila as ordered iv antibitoic followupiw id skin biopsy pending
[2016-12-28 02:22] LABS: TOTAL PROTEIN, SERUM 6.3 g/dL (6.1-8.1)
[2016-12-28 06:33] LABS: CHLORIDE 101 mmol/L (98-107); POTASSIUM 3.9 mmol/L (3.6-5.2); SODIUM 138 mmol/L (132-148)
[2016-12-28 06:35] LABS: AST/SGOT 24 U/L (14-36); BILIRUBIN,TOTAL 0.6 mg/dL (0.2-1.3); CARBON DIOXIDE 27 mmol/L (22-30); GFR AFRICAN-AMERICAN > 60
[2016-12-28 06:36] LABS: ALB/GLOB RATIO 0.8 (1.0-2.1); ALKALINE PHOSPHATASE 130 U/L (38-126); ALT/SGPT 13 U/L (9-52); BLOOD UREA NITROGEN 17 mg/dL (7-17); CALCIUM 8.5 mg/dl (8.6-10.4); GLUCOSE,RANDOM 105 mg/dL (65-105); TOTAL PROTEIN 6.7 g/dL (6.3-8.3)
[2016-12-28 06:37] LABS: BASO % 0.4 % (0.0-2.0); EOS % 0.6 % (0.0-4.0); HEMATOCRIT 34.3 % (34.0-47.0); LYMPH # 0.8 K/uL (1.0-4.3); LYMPH % 15.4 % (20.0-40.0); MEAN CELL VOLUME 83.3 fL (81.0-99.0); MEAN CORPUSCULAR HEMOGLOBIN 27.7 pg (27.0-31.0); MEAN CORPUSCULAR HGB CONC 33.2 g/dL (33.0-37.0); MEAN PLATELET VOLUME 8.3 fL (7.2-11.7); MONO # 0.6 K/uL (0.0-0.8); NRBC % 0.1 % (0.0-2.0); RED CELL DISTRIBUTION WIDTH 13.8 % (11.5-14.5)
--- NOTE | 2016-12-28 07:22 | MRI ---
PROCEDURE: MR LUMBAR SPINE WITH AND WITHOUT CONTRAST HISTORY: back pain, bacteremia COMPARISON: None available. TECHNIQUE: Multiecho multiplanar sequences were performed through the lumbar spine with and without the use of intravenous contrast. FINDINGS: Normal lumbar lordosis. Vertebral body heights are preserved. Marrow signal unremarkable. Conus medullaris unremarkable at the level of L1 Paraspinal soft tissues are unremarkable. No abnormal enhancement. T12-L1: No disc herniation, spinal canal stenosis or neural foraminal narrowing. L1-2: No disc herniation, spinal canal stenosis or neural foraminal narrowing. L2-3: No disc herniation, spinal canal stenosis or neural foraminal narrowing. L3-4: No disc herniation, spinal canal stenosis or neural foraminal narrowing. L4-5: No disc herniation, spinal canal stenosis or neural foraminal narrowing. L5-S1: Broad-based posterior disc herniation with narrowing of the L5-S1 disc space. Abnormal increased signal along the disc on the T2 weighted images. Postcontrast imaging demonstrates enhancement noted with vertebral bodies bridging of the L5-S1 disc space and associated enhancement of the paravertebral and epidural soft tissues with thickening. Enhancement of the nerve root sleeve is also noted on the right. OTHER FINDINGS: None. IMPRESSION: Discitis at L5-S1 with epidural phlegmon and inflammation of the adjacent paravertebral soft tissues. No evidence of abscess. Enhancement of the vertebral bodies at L5 and S1 bridging L5-S1 disc space which could represent marrow reactive changes related to adjacent discitis. Vertebral osteomyelitis is not excluded.
[2016-12-28] MEDS: ceFAZolin IV 2 gm in Dextrose 2 GM/100 ML BAG IVPB SCH (08:37)
--- NOTE | 2016-12-28 10:29 | CP.PCM.PN ---
Addendum entered and electronically signed by Joesph Lam DO 12/28/16 14:29: As per Dr. Russo, patient will need 6 weeks of IV antibiotics. Addendum entered and electronically signed by Joesph Lam DO 12/28/16 13:51: As per Dr. Palma, no surgical intervention needed at this time, continue antibiotics. Recommends TLSO brace for comfort. Addendum entered and electronically signed by Joesph Lam DO 12/28/16 12:48: BAUDILIO negative. Consulting neurosurg- Dr. Palma for epidural phlegmon and discitis- he will evaluate the patient today Original Note: <Joesph Lam - Last Filed: 12/28/16 10:26> Subjective - Date & Time of Evaluation Date of Evaluation: 12/28/16 Time of Evaluation: 07:40 - Subjective Subjective: Medicine Note- Dr. Avalos's service Patient was seen and examined at bedside. Patient reports that her back is still painful from biopsy. Otherwise no acute complaints. No events overnight, per nursing. Scheduled for BAUDILIO today Objective - Vital Signs/Intake and Output Vital Signs (last 24 hours): Temp Pulse Resp BP Pulse Ox 98.0 F 61 20 91/45 L 100 12/28/16 08:00 12/28/16 08:00 12/28/16 08:00 12/28/16 08:00 12/28/16 08:00 Intake and Output: 12/28/16 12/28/16 06:59 18:59 Intake Total 450 Balance 450 - Medications Medications: Current Medications Acetaminophen (Tylenol 325mg Tab) 650 mg PO Q8 PRN PRN Reason: Pain, Mild (1-3) Last Admin: 12/23/16 09:04 Dose: 650 mg Acetaminophen (Tylenol 325mg Tab) 650 mg PO Q8 PRN PRN Reason: Fever>100.4 Last Admin: 12/23/16 17:01 Dose: 650 mg Cyclobenzaprine HCl (Flexeril) 10 mg PO BID PRN PRN Reason: Muscle spasm Last Admin: 12/24/16 09:30 Dose: 10 mg Dicyclomine HCl (Bentyl) 10 mg PO QID [facility] Last Admin: 12/27/16 21:26 Dose: 10 mg Enoxaparin Sodium (Lovenox) 40 mg SC DAILY [facility] Last Admin: 12/27/16 11:00 Dose: 40 mg Cefazolin Sodium/Dextrose (Ancef Iv 2 Gm Duplex) 2 gm in 100 mls @ 100 mls/hr IVPB Q8H [facility] Last Admin: 12/28/16 08:37 Dose: 100 mls/hr Naproxen (Anaprox) 275 mg PO BID PRN PRN Reason: Pain, moderate (4-7) Last Admin: 12/26/16 16:14 Dose: 275 mg Pantoprazole Sodium (Protonix Ec Tab) 40 mg PO DAILY [facility] Last Admin: 12/27/16 11:00 Dose: 40 mg Vitamin A (Vitamin A & D Oint Ud Foilpak) 1 ea TOP BID [facility] Last Admin: 12/27/16 17:24 Dose: 1 ea - Labs Labs: 12/28/16 06:15 12/28/16 06:15 PT 12.0 SECONDS (9.7-12.2) 12/27/16 07:16 INR 1.1 12/27/16 07:16 APTT 30 SECONDS (21-34) 12/27/16 07:16 - Constitutional Appears: Non-toxic, No Acute Distress - Head Exam Head Exam: ATRAUMATIC, NORMAL INSPECTION, NORMOCEPHALIC - Eye Exam Pupil Exam: NORMAL ACCOMODATION - ENT Exam ENT Exam: Mucous Membranes Moist - Respiratory Exam Respiratory Exam: Clear to Ausculation Bilateral, NORMAL BREATHING PATTERN. absent: Prolonged Expiratory Phase, Rales, Rhonchi, Wheezes - Cardiovascular Exam Cardiovascular Exam: REGULAR RHYTHM, +S1, +S2 - GI/Abdominal Exam GI & Abdominal Exam: Soft, Normal Bowel Sounds. absent: Guarding, Tenderness, Diminished Bowel Sounds, Hypoactive Bowel Sounds - Extremities Exam Extremities Exam: Normal Capillary Refill, Normal Inspection - Back Exam Additional comments: scaly patch on the back and bilateral UE - Neurological Exam Neurological Exam: Alert, Awake, Oriented x3 - Psychiatric Exam Psychiatric exam: Normal Affect, Normal Mood - Skin Skin Exam: Dry, Intact, Normal Color, Warm Assessment and Plan - Assessment and Plan (Free Text) Assessment: Bacteremia Febrile in past 24 hours, WBC WNL. Blood culture positive for gram positive cocci in clusters. Dr. Russo consulted, help appreciated. Vancomycin 1g IV q12H started 12/23, trough 15.7 on 12/25. Primaxin 500mg IV q6H started 12/24. TTE ECHO showed EF >55%. Repeat blood culture positive for Gram+ species. Dr. Jackson consulted for BAUDILIO to r/o endocarditis, help appreciated. NPO for BAUDILIO scheduled for 10:30AM today UTI Urine culture positive for Staph aureus. Dr. Rusos consulted, help appreciated. Vancomycin 1g IV q12H. Low back pain Lumbar CT showed degenerative changes L5-S1 without other acute abnormalities per report. Neuro Dr. Bailon consulted- No further neuro workup needed. Flexeril 10mg PO BID PRN. Anaprox 275mg PO BID PRN. Likely musculoskeletal origin. MRI lumbar w and w/o contrast- Discitis at L5-S1 with epidural phlegmon and inflammation of adjacent apravertebral soft tissues. No evidence of abscess. Enhancement of the vertebral bodies at L5 and S1 bridging L5-S1 disc space which could represent marrow reactive changes related to adjacent discitis. Vertebral osteomyelitis is not excluded. Leg weakness Head CT negative for acute etiologies per report. Neuro Dr. Bailon consulted, help appreciated. Scaly skin lesions Biopsy taken from back. F/U pathology, lymphocyte studies, as well as rheumatology workup. Prophylactic measure SCD, Lovenox, Protonix <Gus Avalos S - Last Filed: 12/30/16 12:16> Objective - Vital Signs/Intake and Output Vital Signs (last 24 hours): Temp Pulse Resp BP Pulse Ox 97.6 F 73 20 138/82 98 12/30/16 07:34 12/30/16 07:34 12/30/16 07:34 12/30/16 07:34 12/30/16 07:34 Intake and Output: 12/30/16 12/30/16 06:59 18:59 Intake Total 1340 Balance 1340 - Medications Medications: Current Medications Acetaminophen (Tylenol 325mg Tab) 650 mg PO Q8 PRN PRN Reason: Pain, Mild (1-3) Last Admin: 12/23/16 09:04 Dose: 650 mg Acetaminophen (Tylenol 325mg Tab) 650 mg PO Q8 PRN PRN Reason: Fever>100.4 Last Admin: 12/23/16 17:01 Dose: 650 mg Cyclobenzaprine HCl (Flexeril) 10 mg PO BID PRN PRN Reason: Muscle spasm Last Admin: 12/28/16 11:52 Dose: 10 mg Dicyclomine HCl (Bentyl) 10 mg PO QID [facility] Last Admin: 12/30/16 09:47 Dose: 10 mg Nafcillin Sodium 2 gm/ Sodium (Chloride) 250 mls @ 250 mls/hr IVPB Q6H [facility] Last Admin: 12/30/16 08:40 Dose: 250 mls/hr Naproxen (Anaprox) 275 mg PO BID PRN PRN Reason: Pain, moderate (4-7) Last Admin: 12/28/16 11:53 Dose: 275 mg Pantoprazole Sodium (Protonix Ec Tab) 40 mg PO DAILY [facility] Last Admin: 12/30/16 09:47 Dose: 40 mg Vitamin A (Vitamin A & D Oint Ud Foilpak) 1 ea TOP BID [facility] Last Admin: 12/30/16 09:47 Dose: 1 ea - Labs Labs: 12/29/16 07:15 12/29/16 07:15 PT 12.0 SECONDS (9.7-12.2) 12/27/16 07:16 INR 1.1 12/27/16 07:16 APTT 30 SECONDS (21-34) 12/27/16 07:16 Assessment and Plan (1) Low back pain Status: Acute (2) Abdominal pain Status: Acute (3) Gall bladder pain Status: Acute Attending/Attestation - Attestation I have personally seen and examined this patient.: Yes I have fully participated in the care of the patient.: Yes I have reviewed all pertinent clinical information, including history, physical exam and plan: Yes Notes (Text): admitted with back peters and no whas phelgmon neeeds antibitoic
[2016-12-28] MEDS ORDERED: ePHEDrine 50 mg/ml Inj ONE (10:43)
[2016-12-28] MEDS ORDERED: Lidocaine 2% Inj (20ml) ONE (10:43)
[2016-12-28] MEDS ORDERED: Propofol 10 mg/ml Inj (20 ML) ONE ×2 (10:43)
--- NOTE | 2016-12-28 11:09 | CP.PCM.PN ---
Subjective - Date & Time of Evaluation Date of Evaluation: 12/28/16 Time of Evaluation: 11:08 - Subjective Subjective: Patient s/p BAUDILIO No evidence of endocarditis Normal EF Medical management Full BAUDILIO report to follow Thank you Objective - Vital Signs/Intake and Output Vital Signs (last 24 hours): Temp Pulse Resp BP Pulse Ox 98.0 F 61 20 91/45 L 100 12/28/16 08:00 12/28/16 08:00 12/28/16 08:00 12/28/16 08:00 12/28/16 08:00 Intake and Output: 12/28/16 12/28/16 06:59 18:59 Intake Total 450 Balance 450 - Medications Medications: Current Medications Acetaminophen (Tylenol 325mg Tab) 650 mg PO Q8 PRN PRN Reason: Pain, Mild (1-3) Last Admin: 12/23/16 09:04 Dose: 650 mg Acetaminophen (Tylenol 325mg Tab) 650 mg PO Q8 PRN PRN Reason: Fever>100.4 Last Admin: 12/23/16 17:01 Dose: 650 mg Cyclobenzaprine HCl (Flexeril) 10 mg PO BID PRN PRN Reason: Muscle spasm Last Admin: 12/24/16 09:30 Dose: 10 mg Dicyclomine HCl (Bentyl) 10 mg PO QID [facility] Last Admin: 12/27/16 21:26 Dose: 10 mg Enoxaparin Sodium (Lovenox) 40 mg SC DAILY [facility] Last Admin: 12/27/16 11:00 Dose: 40 mg Cefazolin Sodium/Dextrose (Ancef Iv 2 Gm Duplex) 2 gm in 100 mls @ 100 mls/hr IVPB Q8H [facility] Last Admin: 12/28/16 08:37 Dose: 100 mls/hr Naproxen (Anaprox) 275 mg PO BID PRN PRN Reason: Pain, moderate (4-7) Last Admin: 12/26/16 16:14 Dose: 275 mg Pantoprazole Sodium (Protonix Ec Tab) 40 mg PO DAILY [facility] Last Admin: 12/27/16 11:00 Dose: 40 mg Vitamin A (Vitamin A & D Oint Ud Foilpak) 1 ea TOP BID [facility] Last Admin: 12/27/16 17:24 Dose: 1 ea - Labs Labs: 12/28/16 06:15 12/28/16 06:15 PT 12.0 SECONDS (9.7-12.2) 12/27/16 07:16 INR 1.1 12/27/16 07:16 APTT 30 SECONDS (21-34) 12/27/16 07:16
[2016-12-28] MEDS: Pantoprazole 40 mg EC Tab PO SCH (11:52)
[2016-12-28] MEDS: Enoxaparin 40 mg Syringe SC SCH (11:52)
[2016-12-28] MEDS: Vitamins A & D Oint UD Foilpak TOP SCH ×2 (11:53→17:50)
[2016-12-28] MEDS: Naproxen 275 mg Tab PO PRN (11:53)
--- NOTE | 2016-12-28 12:19 | CP.PCM.PN ---
Subjective - Date & Time of Evaluation Date of Evaluation: 12/28/16 Time of Evaluation: 08:00 - Subjective Subjective: blood cultures are persistently positive source unclear at this time cont IV antibiotics for persistent MSSA bacteremia Objective - Vital Signs/Intake and Output Vital Signs (last 24 hours): Temp Pulse Resp BP Pulse Ox 98.0 F 61 20 91/45 L 100 12/28/16 08:00 12/28/16 08:00 12/28/16 10:00 12/28/16 08:00 12/28/16 10:00 Intake and Output: 12/28/16 12/28/16 06:59 18:59 Intake Total 450 Balance 450 - Medications Medications: Current Medications Acetaminophen (Tylenol 325mg Tab) 650 mg PO Q8 PRN PRN Reason: Pain, Mild (1-3) Last Admin: 12/23/16 09:04 Dose: 650 mg Acetaminophen (Tylenol 325mg Tab) 650 mg PO Q8 PRN PRN Reason: Fever>100.4 Last Admin: 12/23/16 17:01 Dose: 650 mg Cyclobenzaprine HCl (Flexeril) 10 mg PO BID PRN PRN Reason: Muscle spasm Last Admin: 12/28/16 11:52 Dose: 10 mg Dicyclomine HCl (Bentyl) [address] [facility] Last Admin: 12/28/16 11:54 Dose: 10 mg Enoxaparin Sodium (Lovenox) [address] [facility] Last Admin: 12/28/16 11:52 Dose: 40 mg Cefazolin Sodium/Dextrose (Ancef Iv 2 Gm Duplex) 2 gm in 100 mls @ 100 mls/hr IVPB Q8H [facility] Last Admin: 12/28/16 08:37 Dose: 100 mls/hr Naproxen (Anaprox) 275 mg PO BID PRN PRN Reason: Pain, moderate (4-7) Last Admin: 12/28/16 11:53 Dose: 275 mg Pantoprazole Sodium (Protonix Ec Tab) [address] [facility] Last Admin: 12/28/16 11:52 Dose: 40 mg Vitamin A (Vitamin A & D Oint Ud Foilpak) [address] [facility] Last Admin: 12/28/16 11:53 Dose: 1 ea - Labs Labs: 12/28/16 06:15 12/28/16 06:15 PT 12.0 SECONDS (9.7-12.2) 12/27/16 07:16 INR 1.1 12/27/16 07:16 APTT 30 SECONDS (21-34) 12/27/16 07:16 Assessment and Plan (1) Sepsis affecting skin Status: Acute (2) Sepsis affecting skin Status: Acute (3) Low back pain Status: Acute
--- NOTE | 2016-12-28 13:05 | CP.PCM.PN ---
Subjective - Date & Time of Evaluation Date of Evaluation: 12/28/16 Time of Evaluation: 07:20 - Subjective Subjective: clinically same Objective - Vital Signs/Intake and Output Vital Signs (last 24 hours): Temp Pulse Resp BP Pulse Ox 98.0 F 61 20 91/45 L 100 12/28/16 08:00 12/28/16 08:00 12/28/16 10:00 12/28/16 08:00 12/28/16 10:00 Intake and Output: 12/28/16 12/28/16 06:59 18:59 Intake Total 450 Balance 450 - Medications Medications: Current Medications Acetaminophen (Tylenol 325mg Tab) 650 mg PO Q8 PRN PRN Reason: Pain, Mild (1-3) Last Admin: 12/23/16 09:04 Dose: 650 mg Acetaminophen (Tylenol 325mg Tab) 650 mg PO Q8 PRN PRN Reason: Fever>100.4 Last Admin: 12/23/16 17:01 Dose: 650 mg Cyclobenzaprine HCl (Flexeril) 10 mg PO BID PRN PRN Reason: Muscle spasm Last Admin: 12/28/16 11:52 Dose: 10 mg Dicyclomine HCl (Bentyl) 10 mg PO QID [facility] Last Admin: 12/28/16 11:54 Dose: 10 mg Enoxaparin Sodium (Lovenox) 40 mg SC DAILY [facility] Last Admin: 12/28/16 11:52 Dose: 40 mg Nafcillin Sodium 2 gm/ Sodium (Chloride) 250 mls @ 250 mls/hr IVPB Q6H [facility] Naproxen (Anaprox) 275 mg PO BID PRN PRN Reason: Pain, moderate (4-7) Last Admin: 12/28/16 11:53 Dose: 275 mg Pantoprazole Sodium (Protonix Ec Tab) 40 mg PO DAILY [facility] Last Admin: 12/28/16 11:52 Dose: 40 mg Vitamin A (Vitamin A & D Oint Ud Foilpak) 1 ea TOP BID [facility] Last Admin: 12/28/16 11:53 Dose: 1 ea - Labs Labs: 12/28/16 06:15 12/28/16 06:15 PT 12.0 SECONDS (9.7-12.2) 12/27/16 07:16 INR 1.1 12/27/16 07:16 APTT 30 SECONDS (21-34) 12/27/16 07:16 - Constitutional Appears: Well - Head Exam Head Exam: ATRAUMATIC, NORMAL INSPECTION, NORMOCEPHALIC - Eye Exam Eye Exam: EOMI, Normal appearance, PERRL Pupil Exam: NORMAL ACCOMODATION, PERRL - ENT Exam ENT Exam: Mucous Membranes Moist, Normal Exam - Neck Exam Neck Exam: Full ROM, Normal Inspection. absent: Lymphadenopathy - Cardiovascular Exam Cardiovascular Exam: REGULAR RHYTHM, +S1, +S2 - GI/Abdominal Exam GI & Abdominal Exam: Soft, Diminished Bowel Sounds - Rectal Exam Rectal Exam: Deferred Assessment and Plan (1) Low back pain Status: Acute (2) Abdominal pain Status: Acute (3) Gall bladder pain Status: Acute - Assessment and Plan (Free Text) Plan: may need iv antibitic for 6 weeks eacho neg for vegetation
--- NOTE | 2016-12-29 06:42 | CARD ---
APPROVED REPORT EXAM: Transesophageal echocardiogram with color flow Doppler. INDICATION R/O Veg.; positive blood culture. Mitral Valve E/A ratio0.0 TDI E/Lateral E'0.0E/Medial E'0.0 Reason For Test : Rule out endocarditis. PROCEDURE After obtaining informed consent, patient underwent transesophageal echo in the [employer]. Type of Sedation : Conscious Sedation Sedation was provided by anesthesiologist. Sedation was achieved with intravenously. The BAUDILIO was performed complications. Throughout the procedure, the blood pressure, pulse oximetry, cardiac rhythm, and rate were monitored. The patient tolerated the procedure without adverse effects. Recovery from conscious sedation was uneventful and vital signs were stable. LEFT VENTRICLE The left ventricle is normal size. The left ventricular function is normal. The left ventricular ejection fraction is within the normal range. RIGHT VENTRICLE The right ventricle is normal size. ATRIA The left atrium size is normal. The right atrium size is normal. AORTIC VALVE The aortic valve is normal in structure. There is no aortic valvular stenosis. There is no aortic valvular vegetation. MITRAL VALVE The mitral valve is normal in structure. Mitral regurgitation is mild. TRICUSPID VALVE The tricuspid valve is normal in structure. PULMONIC VALVE The pulmonary valve is normal in structure. GREAT VESSELS The aortic root is normal in size. <Conclusion> No Endocarditis noted Normal LV function
[2016-12-29 07:41] LABS: BASO % 0.5 % (0.0-2.0); EOS % 0.5 % (0.0-4.0); HEMATOCRIT 33.1 % (34.0-47.0); LYMPH % 19.6 % (20.0-40.0); MEAN CELL VOLUME 83.6 fL (81.0-99.0); MEAN CORPUSCULAR HEMOGLOBIN 27.8 pg (27.0-31.0); MEAN CORPUSCULAR HGB CONC 33.2 g/dL (33.0-37.0); MEAN PLATELET VOLUME 8.1 fL (7.2-11.7); MONO # 0.6 K/uL (0.0-0.8); NRBC % 0.1 % (0.0-2.0); RED CELL DISTRIBUTION WIDTH 13.9 % (11.5-14.5); WHITE BLOOD COUNT 5.1 K/uL (4.8-10.8)
[2016-12-29 07:59] LABS: CHLORIDE 104 mmol/L (98-107); POTASSIUM 4.1 mmol/L (3.6-5.2); SODIUM 138 mmol/L (132-148)
[2016-12-29 08:01] LABS: GFR AFRICAN-AMERICAN > 60
[2016-12-29 08:02] LABS: ALB/GLOB RATIO 0.8 (1.0-2.1); ALKALINE PHOSPHATASE 114 U/L (38-126); ALT/SGPT 14 U/L (9-52); AST/SGOT 32 U/L (14-36); BLOOD UREA NITROGEN 17 mg/dL (7-17); CALCIUM 8.2 mg/dl (8.6-10.4); CARBON DIOXIDE 25 mmol/L (22-30); GLUCOSE,RANDOM 92 mg/dL (65-105); TOTAL PROTEIN 6.7 g/dL (6.3-8.3)
[2016-12-29] MEDS: Vitamins A & D Oint UD Foilpak TOP SCH ×2 (10:38→17:24)
[2016-12-29] MEDS: Enoxaparin 40 mg Syringe SC SCH (10:38)
[2016-12-29] MEDS: Pantoprazole 40 mg EC Tab PO SCH (10:38)
--- NOTE | 2016-12-29 10:38 | CP.PCM.PN ---
Subjective - Date & Time of Evaluation Date of Evaluation: 12/29/16 Time of Evaluation: 07:20 - Subjective Subjective: clinically same Objective - Vital Signs/Intake and Output Vital Signs (last 24 hours): Temp Pulse Resp BP Pulse Ox 98 F 60 20 133/76 96 12/29/16 07:59 12/29/16 07:59 12/29/16 07:59 12/29/16 07:59 12/29/16 07:59 Intake and Output: 12/29/16 12/29/16 06:59 18:59 Intake Total 370 Balance 370 - Medications Medications: Current Medications Acetaminophen (Tylenol 325mg Tab) 650 mg PO Q8 PRN PRN Reason: Pain, Mild (1-3) Last Admin: 12/23/16 09:04 Dose: 650 mg Acetaminophen (Tylenol 325mg Tab) 650 mg PO Q8 PRN PRN Reason: Fever>100.4 Last Admin: 12/23/16 17:01 Dose: 650 mg Cyclobenzaprine HCl (Flexeril) 10 mg PO BID PRN PRN Reason: Muscle spasm Last Admin: 12/28/16 11:52 Dose: 10 mg Dicyclomine HCl (Bentyl) 10 mg PO QID [facility] Last Admin: 12/28/16 21:31 Dose: 10 mg Enoxaparin Sodium (Lovenox) 40 mg SC DAILY [facility] Last Admin: 12/28/16 11:52 Dose: 40 mg Nafcillin Sodium 2 gm/ Sodium (Chloride) 250 mls @ 250 mls/hr IVPB Q6H [facility] Last Admin: 12/29/16 08:21 Dose: 250 mls/hr Naproxen (Anaprox) 275 mg PO BID PRN PRN Reason: Pain, moderate (4-7) Last Admin: 12/28/16 11:53 Dose: 275 mg Pantoprazole Sodium (Protonix Ec Tab) 40 mg PO DAILY [facility] Last Admin: 12/28/16 11:52 Dose: 40 mg Vitamin A (Vitamin A & D Oint Ud Foilpak) 1 ea TOP BID [facility] Last Admin: 12/28/16 17:50 Dose: 1 ea - Labs Labs: 12/29/16 07:15 12/29/16 07:15 PT 12.0 SECONDS (9.7-12.2) 12/27/16 07:16 INR 1.1 12/27/16 07:16 APTT 30 SECONDS (21-34) 12/27/16 07:16 - Constitutional Appears: Well - Head Exam Head Exam: ATRAUMATIC, NORMAL INSPECTION, NORMOCEPHALIC - Eye Exam Eye Exam: EOMI, Normal appearance, PERRL Pupil Exam: NORMAL ACCOMODATION, PERRL - ENT Exam ENT Exam: Mucous Membranes Moist, Normal Exam - Neck Exam Neck Exam: Full ROM, Normal Inspection. absent: Lymphadenopathy - Respiratory Exam Respiratory Exam: Decreased Breath Sounds - Cardiovascular Exam Cardiovascular Exam: REGULAR RHYTHM, +S1, +S2 - GI/Abdominal Exam GI & Abdominal Exam: Soft, Diminished Bowel Sounds - Rectal Exam Rectal Exam: Deferred Assessment and Plan (1) Low back pain Status: Acute (2) Abdominal pain Status: Acute (3) Gall bladder pain Status: Acute
[2016-12-30] MEDS: Enoxaparin 40 mg Syringe SC SCH (09:47)
[2016-12-30] MEDS: Vitamins A & D Oint UD Foilpak TOP SCH ×2 (09:47→17:31)
[2016-12-30] MEDS: Pantoprazole 40 mg EC Tab PO SCH (09:47)
--- NOTE | 2016-12-30 12:42 | CP.PCM.PN ---
Subjective - Date & Time of Evaluation Date of Evaluation: 12/30/16 Time of Evaluation: 07:00 - Subjective Subjective: clinically same Objective - Vital Signs/Intake and Output Vital Signs (last 24 hours): Temp Pulse Resp BP Pulse Ox 97.6 F 73 20 138/82 98 12/30/16 07:34 12/30/16 07:34 12/30/16 07:34 12/30/16 07:34 12/30/16 07:34 Intake and Output: 12/30/16 12/30/16 06:59 18:59 Intake Total 1340 Balance 1340 - Medications Medications: Current Medications Acetaminophen (Tylenol 325mg Tab) 650 mg PO Q8 PRN PRN Reason: Pain, Mild (1-3) Last Admin: 12/23/16 09:04 Dose: 650 mg Acetaminophen (Tylenol 325mg Tab) 650 mg PO Q8 PRN PRN Reason: Fever>100.4 Last Admin: 12/23/16 17:01 Dose: 650 mg Cyclobenzaprine HCl (Flexeril) 10 mg PO BID PRN PRN Reason: Muscle spasm Last Admin: 12/28/16 11:52 Dose: 10 mg Dicyclomine HCl (Bentyl) 10 mg PO QID [facility] Last Admin: 12/30/16 09:47 Dose: 10 mg Nafcillin Sodium 2 gm/ Sodium (Chloride) 250 mls @ 250 mls/hr IVPB Q6H [facility] Last Admin: 12/30/16 08:40 Dose: 250 mls/hr Naproxen (Anaprox) 275 mg PO BID PRN PRN Reason: Pain, moderate (4-7) Last Admin: 12/28/16 11:53 Dose: 275 mg Pantoprazole Sodium (Protonix Ec Tab) 40 mg PO DAILY [facility] Last Admin: 12/30/16 09:47 Dose: 40 mg Vitamin A (Vitamin A & D Oint Ud Foilpak) 1 ea TOP BID [facility] Last Admin: 12/30/16 09:47 Dose: 1 ea - Labs Labs: 12/29/16 07:15 12/29/16 07:15 PT 12.0 SECONDS (9.7-12.2) 12/27/16 07:16 INR 1.1 12/27/16 07:16 APTT 30 SECONDS (21-34) 12/27/16 07:16 - Constitutional Appears: Well - Head Exam Head Exam: ATRAUMATIC, NORMAL INSPECTION, NORMOCEPHALIC - Eye Exam Eye Exam: EOMI, Normal appearance, PERRL Pupil Exam: NORMAL ACCOMODATION, PERRL - ENT Exam ENT Exam: Mucous Membranes Moist, Normal Exam - Neck Exam Neck Exam: Full ROM, Normal Inspection. absent: Lymphadenopathy - Respiratory Exam Respiratory Exam: Decreased Breath Sounds - Cardiovascular Exam Cardiovascular Exam: REGULAR RHYTHM, +S1, +S2 - GI/Abdominal Exam GI & Abdominal Exam: Soft, Diminished Bowel Sounds - Rectal Exam Rectal Exam: Deferred Assessment and Plan (1) Low back pain Status: Acute (2) Abdominal pain Status: Acute (3) Gall bladder pain Status: Acute
[2016-12-31] MEDS: Vitamins A & D Oint UD Foilpak TOP SCH ×2 (09:31→18:15)
[2016-12-31] MEDS: Pantoprazole 40 mg EC Tab PO SCH (09:31)
[2016-12-31] MEDS: Naproxen 275 mg Tab PO PRN (09:32)
--- NOTE | 2016-12-31 12:54 | CP.PCM.PN ---
Subjective - Date & Time of Evaluation Date of Evaluation: 12/31/16 Time of Evaluation: 08:00 - Subjective Subjective: MRI COULD NOT R/O VERTEBRAL OSTEOMYELITIS- RECC AT LEAST 6 WEEKS HI DOSE IV RX Objective - Vital Signs/Intake and Output Vital Signs (last 24 hours): Temp Pulse Resp BP Pulse Ox 98.2 F 69 20 167/91 H 99 12/31/16 08:00 12/31/16 08:00 12/31/16 08:00 12/31/16 08:00 12/31/16 08:00 Intake and Output: 12/31/16 12/31/16 06:59 18:59 Intake Total 1430 Balance 1430 - Medications Medications: Current Medications Acetaminophen (Tylenol 325mg Tab) 650 mg PO Q8 PRN PRN Reason: Pain, Mild (1-3) Last Admin: 12/23/16 09:04 Dose: 650 mg Acetaminophen (Tylenol 325mg Tab) 650 mg PO Q8 PRN PRN Reason: Fever>100.4 Last Admin: 12/23/16 17:01 Dose: 650 mg Cyclobenzaprine HCl (Flexeril) 10 mg PO BID PRN PRN Reason: Muscle spasm Last Admin: 12/31/16 09:31 Dose: 10 mg Dicyclomine HCl (Bentyl) 10 mg PO QID [facility] Last Admin: 12/31/16 09:32 Dose: 10 mg Nafcillin Sodium 2 gm/ Sodium (Chloride) 250 mls @ 250 mls/hr IVPB Q6H [place] Last Admin: 12/31/16 08:17 Dose: 250 mls/hr Naproxen (Anaprox) 275 mg PO BID PRN PRN Reason: Pain, moderate (4-7) Last Admin: 12/31/16 09:32 Dose: 275 mg Pantoprazole Sodium (Protonix Ec Tab) 40 mg PO DAILY [facility] Last Admin: 12/31/16 09:31 Dose: 40 mg Vitamin A (Vitamin A & D Oint Ud Foilpak) 1 ea TOP BID [facility] Last Admin: 12/31/16 09:31 Dose: 1 ea - Labs Labs: 12/29/16 07:15 12/29/16 07:15 PT 12.0 SECONDS (9.7-12.2) 12/27/16 07:16 INR 1.1 05/25/17 07:16 APTT 30 SECONDS (21-34) 12/27/16 07:16 Assessment and Plan (1) Sepsis affecting skin Status: Acute (2) Sepsis affecting skin Status: Acute (3) Low back pain Status: Acute
--- NOTE | 2016-12-31 18:06 | CP.PCM.PN ---
Subjective - Date & Time of Evaluation Date of Evaluation: 12/31/16 Time of Evaluation: 07:00 - Subjective Subjective: clinically same Objective - Vital Signs/Intake and Output Vital Signs (last 24 hours): Temp Pulse Resp BP Pulse Ox 97.3 F L 87 20 144/93 H 98 12/31/16 15:35 12/31/16 15:35 12/31/16 15:35 12/31/16 15:35 12/31/16 15:35 Intake and Output: 12/31/16 12/31/16 06:59 18:59 Intake Total 1430 1000 Balance 1430 1000 - Medications Medications: Current Medications Acetaminophen (Tylenol 325mg Tab) 650 mg PO Q8 PRN PRN Reason: Pain, Mild (1-3) Last Admin: 12/23/16 09:04 Dose: 650 mg Acetaminophen (Tylenol 325mg Tab) 650 mg PO Q8 PRN PRN Reason: Fever>100.4 Last Admin: 12/23/16 17:01 Dose: 650 mg Cyclobenzaprine HCl (Flexeril) 10 mg PO BID PRN PRN Reason: Muscle spasm Last Admin: 12/31/16 09:31 Dose: 10 mg Dicyclomine HCl (Bentyl) 10 mg PO QID [facility] Last Admin: 12/31/16 17:31 Dose: 10 mg Nafcillin Sodium 2 gm/ Sodium (Chloride) 250 mls @ 250 mls/hr IVPB Q4H [facility] Last Admin: 12/31/16 16:07 Dose: 250 mls/hr Naproxen (Anaprox) 275 mg PO BID PRN PRN Reason: Pain, moderate (4-7) Last Admin: 12/31/16 09:32 Dose: 275 mg Pantoprazole Sodium (Protonix Ec Tab) 40 mg PO DAILY [facility] Last Admin: 12/31/16 09:31 Dose: 40 mg Vitamin A (Vitamin A & D Oint Ud Foilpak) 1 ea TOP BID [facility] Last Admin: 12/31/16 09:31 Dose: 1 ea - Labs Labs: 12/29/16 07:15 12/29/16 07:15 PT 12.0 SECONDS (9.7-12.2) 12/27/16 07:16 INR 1.1 12/27/16 07:16 APTT 30 SECONDS (21-34) 12/27/16 07:16 - Constitutional Appears: Well - Head Exam Head Exam: ATRAUMATIC, NORMAL INSPECTION, NORMOCEPHALIC - Eye Exam Eye Exam: EOMI, Normal appearance, PERRL Pupil Exam: NORMAL ACCOMODATION, PERRL - ENT Exam ENT Exam: Mucous Membranes Moist, Normal Exam - Neck Exam Neck Exam: Full ROM, Normal Inspection. absent: Lymphadenopathy - Respiratory Exam Respiratory Exam: Decreased Breath Sounds - Cardiovascular Exam Cardiovascular Exam: REGULAR RHYTHM, +S1, +S2 - GI/Abdominal Exam GI & Abdominal Exam: Soft, Diminished Bowel Sounds - Rectal Exam Rectal Exam: Deferred Assessment and Plan (1) Low back pain Status: Acute (2) Abdominal pain Status: Acute (3) Gall bladder pain Status: Acute
--- NOTE | 2017-01-01 07:43 | CON ---
DATE: 12/28/2016 HISTORY OF PRESENT ILLNESS: This is a 34-year-old lady who was admitted to the hospital 3 or 4 days ago with several days of severe low back pain and what she describes as difficulty walking. Upon adm ission, she was found to have fever, leftward shift. Further workup with a CT and MR documented disk itis with an epidural phlegmon at the L5-S1 level. Interviewing the patient today, she reports nothing but back pain, severe pain in the lumbosacral lakeisha ction. Denies any shooting pain into the leg though she states she occasionally gets intermittent nu mbness in her calf. She denies bowel or bladder complaints. Her past medical history, medications, allergies, social history are all reviewed in the EMR. PHYSICAL EXAMINATION: She does demonstrate 5/5 strength in all groups of both lower extremities. Se nsory exam is grossly intact. Reflexes are 1+ throughout. She has severe tenderness to palpation of the lumbosacral junction was not tested. MRI shows a very mild diskitis with disk space collapse at L5-S1. There is a phlegmon, which is not causing any significant neural element compromise, which is mostly behind the body of the upper sacru m. The thecal sac and the S1 nerve roots are very well visualized. IMPRESSION AND PLAN: I would advocate ordering a TLSO brace for the patient, which she should wear w henever she is out of bed for the next 6 weeks. This will invariably help her low back pain. Tomas hobson, the antibiotic treatment for the diskitis I would leave to Dr. Russo. The computer crashed juan le I was using it and thus I was not able to visualize whether she had an ESR or CRP done. The gener al recommendation is to obtain that now and treat her with IV antibiotics until it is less than half the original value, but again, I would leave this much more definitively to Dr. Russo. Jamison Khanna MD cc: [id number] TT: 12/28/2016 15:24:48 Confirmation # [id number] Dictation # [id number] jody
[2017-01-01] MEDS: Vitamins A & D Oint UD Foilpak TOP SCH ×2 (11:44→18:18)
[2017-01-01] MEDS: Pantoprazole 40 mg EC Tab PO SCH (11:44)
--- NOTE | 2017-01-01 14:32 | CP.PCM.PN ---
Subjective - Date & Time of Evaluation Date of Evaluation: 01/01/17 Time of Evaluation: 12:00 - Subjective Subjective: PGY2 Medicine Note - Dr. Bijal Avalos's service: Patient seen and examined at bedside this AM. Patient reports low back pain. Patient denies fever, chills, chest pain, SOB. Objective - Vital Signs/Intake and Output Vital Signs (last 24 hours): Temp Pulse Resp BP Pulse Ox 98.4 F 76 20 159/97 H 99 01/01/17 08:00 01/01/17 08:00 01/01/17 08:00 01/01/17 08:00 01/01/17 08:00 Intake and Output: 01/01/17 01/01/17 06:59 18:59 Intake Total 1730 Balance 1730 - Medications Medications: Current Medications Acetaminophen (Tylenol 325mg Tab) 650 mg PO Q8 PRN PRN Reason: Pain, Mild (1-3) Last Admin: 12/23/16 09:04 Dose: 650 mg Acetaminophen (Tylenol 325mg Tab) 650 mg PO Q8 PRN PRN Reason: Fever>100.4 Last Admin: 12/23/16 17:01 Dose: 650 mg Cyclobenzaprine HCl (Flexeril) 10 mg PO BID PRN PRN Reason: Muscle spasm Last Admin: 12/31/16 09:31 Dose: 10 mg Dicyclomine HCl (Bentyl) 10 mg PO QID [facility] Last Admin: 01/01/17 11:43 Dose: 10 mg Nafcillin Sodium 2 gm/ Sodium (Chloride) 250 mls @ 250 mls/hr IVPB Q4H [facility] Last Admin: 01/01/17 13:43 Dose: 250 mls/hr Naproxen (Anaprox) 275 mg PO BID PRN PRN Reason: Pain, moderate (4-7) Last Admin: 12/31/16 09:32 Dose: 275 mg Pantoprazole Sodium (Protonix Ec Tab) 40 mg PO DAILY [facility] Last Admin: 01/01/17 11:44 Dose: 40 mg Vitamin A (Vitamin A & D Oint Ud Foilpak) 1 ea TOP BID [facility] Last Admin: 01/01/17 11:44 Dose: 1 ea - Labs Labs: 12/29/16 07:15 12/29/16 07:15 PT 12.0 SECONDS (9.7-12.2) 12/27/16 07:16 INR 1.1 12/27/16 07:16 APTT 30 SECONDS (21-34) 12/27/16 07:16 - Constitutional Appears: Non-toxic, No Acute Distress - Head Exam Head Exam: NORMAL INSPECTION - Eye Exam Eye Exam: EOMI - ENT Exam ENT Exam: Mucous Membranes Moist - Respiratory Exam Respiratory Exam: Clear to Ausculation Bilateral, NORMAL BREATHING PATTERN. absent: Rales, Rhonchi, Wheezes - Cardiovascular Exam Cardiovascular Exam: REGULAR RHYTHM, +S1, +S2. absent: Gallop, Rubs, Murmur - GI/Abdominal Exam GI & Abdominal Exam: Soft, Normal Bowel Sounds. absent: Tenderness - Neurological Exam Neurological Exam: Alert, Oriented x3 - Psychiatric Exam Psychiatric exam: Normal Affect, Normal Mood - Skin Skin Exam: Normal Color, Warm Assessment and Plan - Assessment and Plan (Free Text) Assessment: Bacteremia Afebrile in past 24 hours, WBC WNL. Blood culture positive for gram positive cocci in clusters. Repeat blood culture negative x [address] Russo consulted, help appreciated. Vancomycin 1g IV q12H started 12/23, trough 15.7 on 12/25. Primaxin 500mg IV q6H started 12/24. BAUDILIO ECHO showed EF >55%. negative for vegetations. Dr. Jackson consulted for BAUDILIO to r/o endocarditis, help appreciated. 6 weeks of IV abx per Dr. Russo PICC line ordered UTI Urine culture positive for Staph aureus. Dr. Russo consulted, help appreciated. Vancomycin 1g IV q12H. Low back pain Lumbar CT showed degenerative changes L5-S1 without other acute abnormalities per report. Neuro Dr. Bailon consulted- No further neuro workup needed. Flexeril 10mg PO BID PRN. Anaprox 275mg PO BID PRN. Likely musculoskeletal origin. MRI lumbar w and w/o contrast- Discitis at L5-S1 with epidural phlegmon and inflammation of adjacent apravertebral soft tissues. No evidence of abscess. Enhancement of the vertebral bodies at L5 and S1 bridging L5-S1 disc space which could represent marrow reactive changes related to adjacent discitis. Vertebral osteomyelitis is not excluded. WHITNEYLO brace per Dr. Khanna F/U ESR and CRP - if levels are half of what they were before, may not need full 6 weeks of IV abx Leg weakness Head CT negative for acute etiologies per report. Neuro Dr. Bailon consulted, help appreciated. Scaly skin lesions Biopsy taken from back. F/U pathology, lymphocyte studies, as well as rheumatology workup. Prophylactic measure SCD, Lovenox, Protonix
--- NOTE | 2017-01-01 15:27 | CP.PCM.PN ---
Subjective - Date & Time of Evaluation Date of Evaluation: 01/01/17 Time of Evaluation: 07:00 - Subjective Subjective: Clinically same Objective - Vital Signs/Intake and Output Vital Signs (last 24 hours): Temp Pulse Resp BP Pulse Ox 98.4 F 76 20 159/97 H 99 01/01/17 08:00 01/01/17 08:00 01/01/17 08:00 01/01/17 08:00 01/01/17 08:00 Intake and Output: 01/01/17 01/01/17 06:59 18:59 Intake Total 1730 Balance 1730 - Medications Medications: Current Medications Acetaminophen (Tylenol 325mg Tab) 650 mg PO Q8 PRN PRN Reason: Pain, Mild (1-3) Last Admin: 12/23/16 09:04 Dose: 650 mg Acetaminophen (Tylenol 325mg Tab) 650 mg PO Q8 PRN PRN Reason: Fever>100.4 Last Admin: 12/23/16 17:01 Dose: 650 mg Cyclobenzaprine HCl (Flexeril) 10 mg PO BID PRN PRN Reason: Muscle spasm Last Admin: 12/31/16 09:31 Dose: 10 mg Dicyclomine HCl (Bentyl) 10 mg PO QID [facility] Last Admin: 01/01/17 15:04 Dose: 10 mg Nafcillin Sodium 2 gm/ Sodium (Chloride) 250 mls @ 250 mls/hr IVPB Q4H [facility] Last Admin: 01/01/17 13:43 Dose: 250 mls/hr Naproxen (Anaprox) 275 mg PO BID PRN PRN Reason: Pain, moderate (4-7) Last Admin: 12/31/16 09:32 Dose: 275 mg Pantoprazole Sodium (Protonix Ec Tab) 40 mg PO DAILY [facility] Last Admin: 01/01/17 11:44 Dose: 40 mg Vitamin A (Vitamin A & D Oint Ud Foilpak) 1 ea TOP BID [facility] Last Admin: 01/01/17 11:44 Dose: 1 ea - Labs Labs: 12/29/16 07:15 12/29/16 07:15 PT 12.0 SECONDS (9.7-12.2) 12/27/16 07:16 INR 1.1 12/27/16 07:16 APTT 30 SECONDS (21-34) 05/25/17 07:16 - Constitutional Appears: Well - Head Exam Head Exam: ATRAUMATIC, NORMAL INSPECTION, NORMOCEPHALIC - Eye Exam Eye Exam: EOMI, Normal appearance, PERRL Pupil Exam: NORMAL ACCOMODATION, PERRL - ENT Exam ENT Exam: Mucous Membranes Moist, Normal Exam - Neck Exam Neck Exam: Full ROM, Normal Inspection. absent: Lymphadenopathy - Respiratory Exam Respiratory Exam: Decreased Breath Sounds - Cardiovascular Exam Cardiovascular Exam: REGULAR RHYTHM, +S1, +S2 - GI/Abdominal Exam GI & Abdominal Exam: Soft, Diminished Bowel Sounds - Rectal Exam Rectal Exam: Deferred Assessment and Plan (1) Low back pain Status: Acute (2) Abdominal pain Status: Acute (3) Gall bladder pain Status: Acute
[2017-01-02 06:39] LABS: BASO % 0.3 % (0.0-2.0); EOS % 0.1 % (0.0-4.0); HEMATOCRIT 33.8 % (34.0-47.0); LYMPH # 1.4 K/uL (1.0-4.3); LYMPH % 20.4 % (20.0-40.0); MEAN CELL VOLUME 83.7 fL (81.0-99.0); MEAN CORPUSCULAR HEMOGLOBIN 28.1 pg (27.0-31.0); MEAN CORPUSCULAR HGB CONC 33.5 g/dL (33.0-37.0); MEAN PLATELET VOLUME 7.2 fL (7.2-11.7); MONO # 0.4 K/uL (0.0-0.8); MONO % 6.1 % (0.0-10.0); RED CELL DISTRIBUTION WIDTH 13.9 % (11.5-14.5); WHITE BLOOD COUNT 6.6 K/uL (4.8-10.8)
[2017-01-02 06:40] LABS: CHLORIDE 101 mmol/L (98-107); SODIUM 135 mmol/L (132-148)
[2017-01-02 06:41] LABS: POTASSIUM 3.9 mmol/L (3.6-5.2)
[2017-01-02 06:43] LABS: ALB/GLOB RATIO 0.8 (1.0-2.1); ALKALINE PHOSPHATASE 96 U/L (38-126); AST/SGOT 31 U/L (14-36); BILIRUBIN,TOTAL 1.2 mg/dL (0.2-1.3); BLOOD UREA NITROGEN 13 mg/dL (7-17); CARBON DIOXIDE 27 mmol/L (22-30); GFR AFRICAN-AMERICAN > 60; GLUCOSE,RANDOM 79 mg/dL (65-105); TOTAL PROTEIN 6.6 g/dL (6.3-8.3)
[2017-01-02 06:44] LABS: ALT/SGPT 17 U/L (9-52); CALCIUM 8.2 mg/dl (8.6-10.4)
[2017-01-02 07:28] LABS: ABNORMAL PROTEIN BAND 1 0.23 g/dL (None Detected); BETA 1 GLOBULIN 0.4 g/dL (0.4-0.6); BETA 2 GLOBULIN 0.4 g/dL (0.2-0.5); GAMMA GLOBULIN 1.3 g/dL (0.8-1.7)
--- NOTE | 2017-01-02 09:14 | CP.PCM.PN ---
Subjective - Date & Time of Evaluation Date of Evaluation: 01/02/17 Time of Evaluation: 10:00 - Subjective Subjective: PGY2 on medicine Dr. Avalos service: Pt seen and examined at bedside this morning. Pt reports back pain improved from yesterday. No other complaints at this time. Objective - Vital Signs/Intake and Output Vital Signs (last 24 hours): Temp Pulse Resp BP Pulse Ox 98.1 F 86 20 161/99 H 100 01/02/17 08:00 01/02/17 08:00 01/02/17 08:00 01/02/17 08:00 01/02/17 08:37 Intake and Output: 01/02/17 01/02/17 06:59 18:59 Intake Total 1600 Balance 1600 - Medications Medications: Current Medications Acetaminophen (Tylenol 325mg Tab) 650 mg PO Q8 PRN PRN Reason: Pain, Mild (1-3) Last Admin: 12/23/16 09:04 Dose: 650 mg Acetaminophen (Tylenol 325mg Tab) 650 mg PO Q8 PRN PRN Reason: Fever>100.4 Last Admin: 12/23/16 17:01 Dose: 650 mg Cyclobenzaprine HCl (Flexeril) 10 mg PO BID PRN PRN Reason: Muscle spasm Last Admin: 12/31/16 09:31 Dose: 10 mg Dicyclomine HCl (Bentyl) 10 mg PO QID [facility] Last Admin: 01/01/17 22:06 Dose: 10 mg Nafcillin Sodium 2 gm/ Sodium (Chloride) 250 mls @ 250 mls/hr IVPB Q4H [facility] Last Admin: 01/02/17 08:17 Dose: 250 mls/hr Naproxen (Anaprox) 275 mg PO BID PRN PRN Reason: Pain, moderate (4-7) Last Admin: 12/31/16 09:32 Dose: 275 mg Pantoprazole Sodium (Protonix Ec Tab) 40 mg PO DAILY [facility] Last Admin: 01/01/17 11:44 Dose: 40 mg Vitamin A (Vitamin A & D Oint Ud Foilpak) 1 ea TOP BID [facility] Last Admin: 01/01/17 18:18 Dose: 1 ea - Labs Labs: 01/02/17 06:24 01/02/17 06:24 PT 12.0 SECONDS (9.7-12.2) 12/27/16 07:16 INR 1.1 12/27/16 07:16 APTT 30 SECONDS (21-34) 12/27/16 07:16 - Constitutional Appears: Non-toxic, No Acute Distress - Head Exam Head Exam: NORMOCEPHALIC - Eye Exam Eye Exam: Normal appearance - Respiratory Exam Respiratory Exam: Clear to Ausculation Bilateral, NORMAL BREATHING PATTERN. absent: Rhonchi, Wheezes - Cardiovascular Exam Cardiovascular Exam: REGULAR RHYTHM, +S1, +S2. absent: Gallop, Rubs - GI/Abdominal Exam GI & Abdominal Exam: Soft, Normal Bowel Sounds - Extremities Exam Extremities Exam: absent: Pedal Edema - Neurological Exam Neurological Exam: Alert, Awake, Oriented x3 - Psychiatric Exam Psychiatric exam: Normal Affect, Normal Mood - Skin Skin Exam: Dry, Intact Assessment and Plan - Assessment and Plan (Free Text) Assessment: Bacteremia Afebrile in past 24 hours, WBC WNL. Blood culture positive for gram positive cocci in clusters. Repeat blood culture negative x [address] Russo consulted, help appreciated. Vancomycin 1g IV q12H started 12/23, trough 15.7 on 12/25. Primaxin 500mg IV q6H started 12/24. BAUDILIO ECHO showed EF >55%. negative for vegetations. Dr. Jackson consulted for BAUDILIO to r/o endocarditis, help appreciated. 6 weeks of IV abx per Dr. Russo. PICC line installed. UTI Urine culture positive for Staph aureus. Dr. Russo consulted, help appreciated. Vancomycin 1g IV q12H. Low back pain Lumbar CT showed degenerative changes L5-S1 without other acute abnormalities per report. Neuro Dr. Bailon consulted- No further neuro workup needed. Flexeril 10mg PO BID PRN. Anaprox 275mg PO BID PRN. Likely musculoskeletal origin. MRI lumbar w and w/o contrast- Discitis at L5-S1 with epidural phlegmon and inflammation of adjacent apravertebral soft tissues. No evidence of abscess. Enhancement of the vertebral bodies at L5 and S1 bridging L5-S1 disc space which could represent marrow reactive changes related to adjacent discitis. Vertebral osteomyelitis is not excluded. ESLO brace per Dr. Khanna ESR 54, previously 59. Leg weakness Head CT negative for acute etiologies per report. Neuro Dr. Bailon consulted, help appreciated. Scaly skin lesions Biopsy taken from back. F/U pathology, lymphocyte studies, as well as rheumatology workup. Prophylactic measure SCD, Lovenox, Protonix
[2017-01-02] MEDS: Vitamins A & D Oint UD Foilpak TOP SCH ×2 (10:27→17:18)
[2017-01-02] MEDS: Pantoprazole 40 mg EC Tab PO SCH (10:28)
--- NOTE | 2017-01-02 11:21 | CP.PCM.PN ---
Subjective - Date & Time of Evaluation Date of Evaluation: 01/02/17 Time of Evaluation: 07:00 - Subjective Subjective: clinically same Objective - Vital Signs/Intake and Output Vital Signs (last 24 hours): Temp Pulse Resp BP Pulse Ox 98.1 F 86 20 161/99 H 100 01/02/17 08:00 01/02/17 08:00 01/02/17 08:00 01/02/17 08:00 01/02/17 08:37 Intake and Output: 01/02/17 01/02/17 06:59 18:59 Intake Total 1600 Balance 1600 - Medications Medications: Current Medications Acetaminophen (Tylenol 325mg Tab) 650 mg PO Q8 PRN PRN Reason: Pain, Mild (1-3) Last Admin: 12/23/16 09:04 Dose: 650 mg Acetaminophen (Tylenol 325mg Tab) 650 mg PO Q8 PRN PRN Reason: Fever>100.4 Last Admin: 12/23/16 17:01 Dose: 650 mg Cyclobenzaprine HCl (Flexeril) 10 mg PO BID PRN PRN Reason: Muscle spasm Last Admin: 12/31/16 09:31 Dose: 10 mg Dicyclomine HCl (Bentyl) 10 mg PO QID [facility] Last Admin: 01/02/17 10:28 Dose: 10 mg Nafcillin Sodium 2 gm/ Sodium (Chloride) 250 mls @ 250 mls/hr IVPB Q4H [facility] Last Admin: 01/02/17 08:17 Dose: 250 mls/hr Naproxen (Anaprox) 275 mg PO BID PRN PRN Reason: Pain, moderate (4-7) Last Admin: 12/31/16 09:32 Dose: 275 mg Pantoprazole Sodium (Protonix Ec Tab) 40 mg PO DAILY [facility] Last Admin: 01/02/17 10:28 Dose: 40 mg Vitamin A (Vitamin A & D Oint Ud Foilpak) 1 ea TOP BID [facility] Last Admin: 01/02/17 10:27 Dose: 1 ea - Labs Labs: 01/02/17 06:24 01/02/17 06:24 PT 12.0 SECONDS (9.7-12.2) 12/27/16 07:16 INR 1.1 12/27/16 07:16 APTT 30 SECONDS (21-34) 12/27/16 07:16 - Constitutional Appears: Well - Head Exam Head Exam: ATRAUMATIC, NORMAL INSPECTION, NORMOCEPHALIC - Eye Exam Eye Exam: EOMI, Normal appearance, PERRL Pupil Exam: NORMAL ACCOMODATION, PERRL - ENT Exam ENT Exam: Mucous Membranes Moist, Normal Exam - Neck Exam Neck Exam: Full ROM, Normal Inspection. absent: Lymphadenopathy - Respiratory Exam Respiratory Exam: Decreased Breath Sounds - Cardiovascular Exam Cardiovascular Exam: REGULAR RHYTHM, +S1, +S2 - GI/Abdominal Exam GI & Abdominal Exam: Soft, Diminished Bowel Sounds - Rectal Exam Rectal Exam: Deferred Assessment and Plan (1) Low back pain Status: Acute (2) Abdominal pain Status: Acute (3) Gall bladder pain Status: Acute - Assessment and Plan (Free Text) Plan: clinically same dr. 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
--- NOTE | 2017-01-02 14:32 | RAD ---
PROCEDURE: CHEST RADIOGRAPH, 1 VIEW HISTORY: verify right PICC COMPARISON: None available. FINDINGS: LUNGS: RIGHT PICC LINE WITH TIP EXTENDING TO THE CAVOATRIAL JUNCTION. NO EVIDENCE OF POSTPROCEDURE PNEUMOTHORAX. MILD VENOUS CONGESTION. PATCHY BIBASILAR AIRSPACE OPACITIES WITH A SUGGESTION OF A SMALL LEFT pleural effusion. PLEURA: As above. CARDIOVASCULAR: Normal. OSSEOUS STRUCTURES: No significant abnormalities. VISUALIZED UPPER ABDOMEN: Normal. OTHER FINDINGS: None. IMPRESSION: RIGHT PICC LINE WITH TIP EXTENDING TO THE CAVOATRIAL JUNCTION. NO EVIDENCE OF POSTPROCEDURE PNEUMOTHORAX. MILD VENOUS CONGESTION. PATCHY BIBASILAR AIRSPACE OPACITIES WITH A SUGGESTION OF A SMALL LEFT pleural effusion.
[2017-01-02 17:17] LABS: HTLV-I-II AB W/REFL CONF Nonreactive (Nonreactive)
[2017-01-03 07:28] LABS: BASO % 0.4 % (0.0-2.0); EOS % 0.1 % (0.0-4.0); LYMPH % 16.7 % (20.0-40.0); MEAN CELL VOLUME 83.2 fL (81.0-99.0); MEAN CORPUSCULAR HEMOGLOBIN 27.7 pg (27.0-31.0); MEAN CORPUSCULAR HGB CONC 33.3 g/dL (33.0-37.0); MEAN PLATELET VOLUME 7.1 fL (7.2-11.7); MONO # 0.4 K/uL (0.0-0.8); MONO % 6.3 % (0.0-10.0); WHITE BLOOD COUNT 5.7 K/uL (4.8-10.8)
[2017-01-03 07:42] LABS: CHLORIDE 103 mmol/L (98-107); SODIUM 137 mmol/L (132-148)
[2017-01-03 07:43] LABS: POTASSIUM 3.5 mmol/L (3.6-5.2)
[2017-01-03 07:45] LABS: ALB/GLOB RATIO 0.7 (1.0-2.1); ALKALINE PHOSPHATASE 95 U/L (38-126); AST/SGOT 25 U/L (14-36); BLOOD UREA NITROGEN 11 mg/dL (7-17); CARBON DIOXIDE 27 mmol/L (22-30); GFR AFRICAN-AMERICAN > 60; GLUCOSE,RANDOM 78 mg/dL (65-105); TOTAL PROTEIN 6.1 g/dL (6.3-8.3)
[2017-01-03 07:46] LABS: ALT/SGPT 16 U/L (9-52); CALCIUM 7.7 mg/dl (8.6-10.4)
--- NOTE | 2017-01-03 10:11 | CP.PCM.PN ---
Subjective - Date & Time of Evaluation Date of Evaluation: 01/03/17 Time of Evaluation: 07:00 - Subjective Subjective: clinically same Objective - Vital Signs/Intake and Output Vital Signs (last 24 hours): Temp Pulse Resp BP Pulse Ox 98.0 F 77 20 164/93 H 99 01/03/17 07:43 01/03/17 07:43 01/03/17 07:43 01/03/17 07:43 01/03/17 07:43 Intake and Output: 01/03/17 01/03/17 06:59 18:59 Intake Total 1650 Balance 1650 - Medications Medications: Current Medications Acetaminophen (Tylenol 325mg Tab) 650 mg PO Q8 PRN PRN Reason: Pain, Mild (1-3) Last Admin: 12/23/16 09:04 Dose: 650 mg Acetaminophen (Tylenol 325mg Tab) 650 mg PO Q8 PRN PRN Reason: Fever>100.4 Last Admin: 12/23/16 17:01 Dose: 650 mg Cyclobenzaprine HCl (Flexeril) 10 mg PO BID PRN PRN Reason: Muscle spasm Last Admin: 12/31/16 09:31 Dose: 10 mg Dicyclomine HCl (Bentyl) 10 mg PO QID [facility] Last Admin: 01/02/17 21:22 Dose: 10 mg Nafcillin Sodium 2 gm/ Sodium (Chloride) 250 mls @ 250 mls/hr IVPB Q4H [facility] Last Admin: 01/03/17 05:15 Dose: 250 mls/hr Naproxen (Anaprox) 275 mg PO BID PRN PRN Reason: Pain, moderate (4-7) Last Admin: 12/31/16 09:32 Dose: 275 mg Pantoprazole Sodium (Protonix Ec Tab) 40 mg PO DAILY [facility] Last Admin: 01/02/17 10:28 Dose: 40 mg Vitamin A (Vitamin A & D Oint Ud Foilpak) 1 ea TOP BID [facility] Last Admin: 01/02/17 17:18 Dose: 1 ea - Labs Labs: 01/03/17 07:06 01/03/17 07:06 PT 12.0 SECONDS (9.7-12.2) 12/27/16 07:16 INR 1.1 12/27/16 07:16 APTT 30 SECONDS (21-34) 05/25/17 07:16 - Constitutional Appears: Well - Head Exam Head Exam: ATRAUMATIC, NORMAL INSPECTION, NORMOCEPHALIC - Eye Exam Eye Exam: EOMI, Normal appearance, PERRL Pupil Exam: NORMAL ACCOMODATION, PERRL - ENT Exam ENT Exam: Mucous Membranes Moist, Normal Exam - Neck Exam Neck Exam: Full ROM, Normal Inspection. absent: Lymphadenopathy - Respiratory Exam Respiratory Exam: Decreased Breath Sounds - Cardiovascular Exam Cardiovascular Exam: REGULAR RHYTHM, +S1, +S2 - GI/Abdominal Exam GI & Abdominal Exam: Soft, Diminished Bowel Sounds - Rectal Exam Rectal Exam: Deferred Assessment and Plan (1) Low back pain Status: Acute (2) Abdominal pain Status: Acute (3) Gall bladder pain Status: Acute
[2017-01-03] MEDS: Vitamins A & D Oint UD Foilpak TOP SCH ×2 (10:43→17:26)
[2017-01-03] MEDS: Pantoprazole 40 mg EC Tab PO SCH (10:43)
--- NOTE | 2017-01-03 14:03 | CP.PCM.PN ---
<Cordell Cornejo - Last Filed: 01/03/17 13:56> Subjective - Date & Time of Evaluation Date of Evaluation: 01/03/17 Time of Evaluation: 09:00 - Subjective Subjective: PGY2 on medicine Dr. Avalos service: Pt seen and examined at bedside this morning. No complaints at the moment and no acute events overnight. Pt will be followed by hospitalist service as per Dr. Avalos. Per Dr. Russo, pt will need to complete 2 weeks of Nifcillin 2g IV q4H (12/28-01/11) followed by 4 more weeks of Rocephin 2g IV qD. Objective - Vital Signs/Intake and Output Vital Signs (last 24 hours): Temp Pulse Resp BP Pulse Ox 98.0 F 77 20 164/93 H 99 01/03/17 07:43 01/03/17 07:43 01/03/17 07:43 01/03/17 07:43 01/03/17 07:43 Intake and Output: 01/03/17 01/03/17 06:59 18:59 Intake Total 1650 Balance 1650 - Medications Medications: Current Medications Acetaminophen (Tylenol 325mg Tab) 650 mg PO Q8 PRN PRN Reason: Pain, Mild (1-3) Last Admin: 12/23/16 09:04 Dose: 650 mg Acetaminophen (Tylenol 325mg Tab) 650 mg PO Q8 PRN PRN Reason: Fever>100.4 Last Admin: 12/23/16 17:01 Dose: 650 mg Cyclobenzaprine HCl (Flexeril) 10 mg PO BID PRN PRN Reason: Muscle spasm Last Admin: 12/31/16 09:31 Dose: 10 mg Dicyclomine HCl (Bentyl) 10 mg PO QID [facility] Last Admin: 01/03/17 10:44 Dose: 10 mg Nafcillin Sodium 2 gm/ Sodium (Chloride) 250 mls @ 250 mls/hr IVPB Q4H [facility] Last Admin: 01/03/17 10:00 Dose: 250 mls/hr Naproxen (Anaprox) 275 mg PO BID PRN PRN Reason: Pain, moderate (4-7) Last Admin: 12/31/16 09:32 Dose: 275 mg Pantoprazole Sodium (Protonix Ec Tab) 40 mg PO DAILY [facility] Last Admin: 01/03/17 10:43 Dose: 40 mg Vitamin A (Vitamin A & D Oint Ud Foilpak) 1 ea TOP BID [place] Last Admin: 01/03/17 10:43 Dose: 1 ea - Labs Labs: 01/03/17 07:06 01/03/17 07:06 PT 12.0 SECONDS (9.7-12.2) 12/27/16 07:16 INR 1.1 12/27/16 07:16 APTT 30 SECONDS (21-34) 12/27/16 07:16 - Constitutional Appears: Non-toxic, No Acute Distress - Head Exam Head Exam: NORMOCEPHALIC - Eye Exam Eye Exam: Normal appearance Pupil Exam: NORMAL ACCOMODATION - Respiratory Exam Respiratory Exam: Clear to Ausculation Bilateral, NORMAL BREATHING PATTERN. absent: Rhonchi, Wheezes - Cardiovascular Exam Cardiovascular Exam: REGULAR RHYTHM, +S1, +S2. absent: Gallop, Rubs - GI/Abdominal Exam GI & Abdominal Exam: Soft, Normal Bowel Sounds - Neurological Exam Neurological Exam: Alert, Awake, Oriented x3 - Psychiatric Exam Psychiatric exam: Normal Mood - Skin Skin Exam: Intact Assessment and Plan - Assessment and Plan (Free Text) Assessment: Bacteremia Afebrile in past 24 hours, WBC WNL. Blood culture positive for gram positive cocci in clusters. Repeat blood culture negative x [address] Russo consulted, help appreciated. Vancomycin 1g IV q12H started 12/23, trough 15.7 on 12/25. Primaxin 500mg IV q6H started 12/24. Nafcillin 2g IV q4 started 12/28. BAUDILIO ECHO showed EF >55%. negative for vegetations. Dr. Jackson consulted for BAUDILIO to r/o endocarditis, help appreciated. 6 weeks of IV abx per Dr. Russo. PICC line installed. Per Dr. Russo, pt will need to complete 2 weeks of Nifcillin 2g IV q4H (12/28-01/11) followed by 4 more weeks of Rocephin 2g IV qD. UTI Urine culture positive for Staph aureus. Dr. Russo consulted, help appreciated. See above for abx management. Low back pain Lumbar CT showed degenerative changes L5-S1 without other acute abnormalities per report. Neuro Dr. Bailon consulted- No further neuro workup needed. Flexeril 10mg PO BID PRN. Anaprox 275mg PO BID PRN. Likely musculoskeletal origin. MRI lumbar w and w/o contrast- Discitis at L5-S1 with epidural phlegmon and inflammation of adjacent apravertebral soft tissues. No evidence of abscess. Enhancement of the vertebral bodies at L5 and S1 bridging L5-S1 disc space which could represent marrow reactive changes related to adjacent discitis. Vertebral osteomyelitis is not excluded. ESLO brace per Dr. Khanna ESR 54, previously 59. Leg weakness Head CT negative for acute etiologies per report. Neuro Dr. Bailon consulted, help appreciated. Scaly skin lesions Biopsy taken from back. CD4 count 293. HIV negative. HTLV AB negative. Heme Dr. Ramirez consulted, help appreciated. F/U pathology, lymphocyte studies, as well as rheumatology workup. Prophylactic measure SCD, Lovenox, Protonix Will transfer care to hospitalist service as per Dr. Avalos. <Saad Rios H - Last Filed: 01/03/17 15:21> Objective - Vital Signs/Intake and Output Vital Signs (last 24 hours): Temp Pulse Resp BP Pulse Ox 98.0 F 77 20 164/93 H 99 01/03/17 07:43 01/03/17 07:43 01/03/17 07:43 01/03/17 07:43 01/03/17 07:43 Intake and Output: 01/03/17 01/03/17 06:59 18:59 Intake Total 1650 Balance 1650 - Medications Medications: Current Medications Acetaminophen (Tylenol 325mg Tab) 650 mg PO Q8 PRN PRN Reason: Pain, Mild (1-3) Last Admin: 12/23/16 09:04 Dose: 650 mg Acetaminophen (Tylenol 325mg Tab) 650 mg PO Q8 PRN PRN Reason: Fever>100.4 Last Admin: 12/23/16 17:01 Dose: 650 mg Cyclobenzaprine HCl (Flexeril) 10 mg PO BID PRN PRN Reason: Muscle spasm Last Admin: 12/31/16 09:31 Dose: 10 mg Dicyclomine HCl (Bentyl) 10 mg PO QID [facility] Last Admin: 01/03/17 14:09 Dose: 10 mg Nafcillin Sodium 2 gm/ Sodium (Chloride) 250 mls @ 250 mls/hr IVPB Q4H [facility] Last Admin: 01/03/17 14:00 Dose: 250 mls/hr Naproxen (Anaprox) 275 mg PO BID PRN PRN Reason: Pain, moderate (4-7) Last Admin: 12/31/16 09:32 Dose: 275 mg Pantoprazole Sodium (Protonix Ec Tab) 40 mg PO DAILY [facility] Last Admin: 01/03/17 10:43 Dose: 40 mg Vitamin A (Vitamin A & D Oint Ud Foilpak) 1 ea TOP BID [place] Last Admin: 01/03/17 10:43 Dose: 1 ea - Labs Labs: 01/03/17 07:06 01/03/17 07:06 PT 12.0 SECONDS (9.7-12.2) 12/27/16 07:16 INR 1.1 12/27/16 07:16 APTT 30 SECONDS (21-34) 12/27/16 07:16 Attending/Attestation - Attestation I have personally seen and examined this patient.: No I have fully participated in the care of the patient.: No I have reviewed all pertinent clinical information, including history, physical exam and plan: Yes Notes (Text): 01/03/17 15:20 Medical attending: The patient is being transferred to the hospitalist service after they found out that the patient does not have insurance. I reviewed the case with the registered medical assistant, oriented the patient to the hospitalist census will be following the patient. From what I understand she is probably can be needing prolonged IV antibiotics and will need a PICC line Thank you very much, Saad Rios
--- NOTE | 2017-01-03 14:12 | CP.PCM.CON ---
History of Present Illness - History of Present Illness History of Present Illness: Dr. 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 She reports that these lesions started about a year ago was on her arms and also lower back area. She has had these lesions for about a year and they have become progressively worse. She came to the hospital because of lower back pain and fever and chills as well. She denies any weight loss, night sweats, chest pain or palpitations, PMH: none PSH: denies PFH: denies Social History: Denies smoking, etoh use, or illicit drug use, she works at [employer] Review of Systems - Review of Systems All systems: reviewed and no additional remarkable complaints except - Constitutional Constitutional: Chills, Fever - Cardiovascular Cardiovascular: absent: Chest Pain - Gastrointestinal Gastrointestinal: absent: Abdominal Pain, Nausea, Vomiting - Genitourinary Genitourinary: absent: Dysuria - Musculoskeletal Musculoskeletal: Back Pain - Integumentary Integumentary: Changing Lesions, Pruritus - Neurological Neurological: absent: Weakness Past Patient History - Past Medical History & Family History Past Medical History?: Yes - Past Social History Smoking Status: Never Smoked - CARDIAC Hx Cardiac Disorders: No - PULMONARY Hx Respiratory Disorders: No - NEUROLOGICAL Hx Neurological Disorder: No - HEENT Hx HEENT Problems: No - RENAL Hx Chronic Kidney Disease: No - ENDOCRINE/METABOLIC Hx Endocrine Disorders: No - HEMATOLOGICAL/ONCOLOGICAL Hx Blood Disorders: No - INTEGUMENTARY Hx Dermatological Problems: Yes Hx Basil Cell: No Hx Lomeli: No Hx Cellulitis: No Hx Eczema: Yes Hx Melanoma: No Hx Psoriasis: No Hx Squamous Cell: No - MUSCULOSKELETAL/RHEUMATOLOGICAL Hx Falls: No - GASTROINTESTINAL Hx Gastrointestinal Disorders: No - GENITOURINARY/GYNECOLOGICAL Hx Genitourinary Disorders: No - PSYCHIATRIC Hx Substance Use: No - SURGICAL HISTORY Hx Surgeries: No - ANESTHESIA Hx Anesthesia: No Hx Malignant Hyperthermia: No Has any member of the family had a problem w/ anesthesia?: No Meds Home Medications: Home Medication List Medication Instructions Recorded Confirmed Type Cyclobenzaprine [Cyclobenzaprine 10 mg PO BID PRN #15 tab 12/22/16 Rx HCl] Naproxen [Naprosyn Tab] 375 mg PO BID PRN #15 tab 12/22/16 Rx Allergies/Adverse Reactions: Allergies Allergy/AdvReac Type Severity Reaction Status Date / Time No Known Allergies Allergy Unverified 12/20/16 21:57 - Medications Medications: Current Medications Acetaminophen (Tylenol 325mg Tab) 650 mg PO Q8 PRN PRN Reason: Pain, Mild (1-3) Last Admin: 12/23/16 09:04 Dose: 650 mg Acetaminophen (Tylenol 325mg Tab) 650 mg PO Q8 PRN PRN Reason: Fever>100.4 Last Admin: 12/23/16 17:01 Dose: 650 mg Cyclobenzaprine HCl (Flexeril) 10 mg PO BID PRN PRN Reason: Muscle spasm Last Admin: 12/31/16 09:31 Dose: 10 mg Dicyclomine HCl (Bentyl) 10 mg PO QID [facility] Last Admin: 01/03/17 14:09 Dose: 10 mg Nafcillin Sodium 2 gm/ Sodium (Chloride) 250 mls @ 250 mls/hr IVPB Q4H [facility] Last Admin: 01/03/17 14:00 Dose: 250 mls/hr Naproxen (Anaprox) 275 mg PO BID PRN PRN Reason: Pain, moderate (4-7) Last Admin: 12/31/16 09:32 Dose: 275 mg Pantoprazole Sodium (Protonix Ec Tab) 40 mg PO DAILY [facility] Last Admin: 01/03/17 10:43 Dose: 40 mg Vitamin A (Vitamin A & D Oint Ud Foilpak) 1 ea TOP BID [facility] Last Admin: 01/03/17 10:43 Dose: 1 ea Physical Exam - Constitutional Appears: Non-toxic, No Acute Distress - Head Exam Head Exam: ATRAUMATIC, NORMAL INSPECTION - Eye Exam Eye Exam: Normal appearance Pupil Exam: NORMAL ACCOMODATION - Respiratory Exam Respiratory Exam: Clear to Auscultation Bilateral. absent: Rhonchi, Wheezes - Cardiovascular Exam Cardiovascular Exam: REGULAR RHYTHM, RRR, +S1, +S2. absent: Gallop, Rubs - Skin Additional comments: thick scaly lesions on her forearms and hands and also lower back area. Results - Vital Signs Recent Vital Signs: Last Vital Signs Temp 98.0 F 01/03/17 07:43 Pulse 77 01/03/17 07:43 Resp 20 01/03/17 07:43 BP 164/93 H 01/03/17 07:43 Pulse Ox 99 01/03/17 07:43 - Labs Result Diagrams: 01/03/17 07:06 01/03/17 07:06 Labs: Laboratory Results - last 24 hr 12/27/16 01/03/17 01/03/17 07:16 07:06 07:06 WBC 5.7 RBC 3.72 L Hgb 10.3 L Hct 31.0 L MCV 83.2 MCH 27.7 MCHC 33.3 RDW 14.0 Plt Count 450 H MPV 7.1 L Neut % (Auto) 76.5 H Lymph % (Auto) 16.7 L [place] % (Auto) 6.3 Eos % (Auto) 0.1 Baso % (Auto) 0.4 Neut # 4.4 Lymph # 1.0 [place] # 0.4 Eos # 0.0 Baso # 0.0 Sodium 137 Potassium 3.5 L Chloride 103 Carbon Dioxide 27 Anion Gap 11 BUN 11 Creatinine 0.8 Est GFR ( Amer) > 60 Est GFR (Non-Af Amer) > 60 Random Glucose 78 Calcium 7.7 L Total Bilirubin 1.0 AST 25 ALT 16 Alkaline Phosphatase 95 Total Protein 6.1 L Albumin 2.6 L Globulin 3.5 Albumin/Globulin Ratio 0.7 L HTLV I/II Antibody Nonreactive HTLV I/II Ab (MAITE) TEST NOT PERFORMED HTLV I/II P19-I TEST NOT PERFORMED HTLV I/II P19-I/II TEST NOT PERFORMED HTLV I/II P24 TEST NOT PERFORMED HTLV I/II gp 21 TEST NOT PERFORMED HTLV I/II gp 46 TEST NOT PERFORMED HTLV I/II gp 46-I TEST NOT PERFORMED HTLV I/II gp 46-II TEST NOT PERFORMED HTLV Streptavidin Ctrl TEST NOT PERFORMED Assessment & Plan (1) Skin lesions Assessment and Plan: Consulted for 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 Will follow up biopsy results when they become available. A&D ointment. Status: Acute (2) Bandemia Assessment and Plan: On IV antibiotics for bacteremia. Status: Acute (3) Low back pain Assessment and Plan: on Naproxen. Status: Acute
[2017-01-03] MEDS ORDERED: Potassium Chloride 20 mEq ER Tab PO STA (16:48)
[2017-01-04 07:32] LABS: BASO % 0.4 % (0.0-2.0); HEMATOCRIT 31.9 % (34.0-47.0); LYMPH # 0.9 K/uL (1.0-4.3); MEAN CELL VOLUME 83.6 fL (81.0-99.0); MEAN CORPUSCULAR HGB CONC 33.5 g/dL (33.0-37.0); MONO # 0.3 K/uL (0.0-0.8); MONO % 5.9 % (0.0-10.0); NRBC % 0.1 % (0.0-2.0); RED CELL DISTRIBUTION WIDTH 14.3 % (11.5-14.5); WHITE BLOOD COUNT 5.4 K/uL (4.8-10.8)
[2017-01-04 07:58] LABS: CHLORIDE 103 mmol/L (98-107); POTASSIUM 3.8 mmol/L (3.6-5.2); SODIUM 137 mmol/L (132-148)
[2017-01-04 08:00] LABS: ALB/GLOB RATIO 0.8 (1.0-2.1); ALKALINE PHOSPHATASE 99 U/L (38-126); ALT/SGPT 18 U/L (9-52); AST/SGOT 17 U/L (14-36); BLOOD UREA NITROGEN 9 mg/dL (7-17); CARBON DIOXIDE 27 mmol/L (22-30); GFR AFRICAN-AMERICAN > 60; TOTAL PROTEIN 6.2 g/dL (6.3-8.3)
[2017-01-04 08:01] LABS: GLUCOSE,RANDOM 87 mg/dL (65-105); PHOSPHOROUS 3.7 mg/dL (2.5-4.5)
[2017-01-04] MEDS: Pantoprazole 40 mg EC Tab PO SCH (10:17)
[2017-01-04] MEDS: Vitamins A & D Oint UD Foilpak TOP SCH ×2 (10:17→18:12)
--- NOTE | 2017-01-04 11:20 | CARD ---
APPROVED REPORT EKG Measurement Heart [id number] OR 130P30 [id number] <Conclusion> Normal sinus rhythm Normal ECG
--- NOTE | 2017-01-04 13:29 | CP.PCM.PN ---
<Cordell Cornejo - Last Filed: 01/04/17 13:27> Subjective - Date & Time of Evaluation Date of Evaluation: 01/04/17 Time of Evaluation: 09:00 - Subjective Subjective: PGY2 on medicine Dr. Rios service: Pt seen and examined at bedside this morning. Pt has no acute complaints and reports no acute events overnight. Objective - Vital Signs/Intake and Output Vital Signs (last 24 hours): Temp Pulse Resp BP Pulse Ox 98.2 F 78 20 173/99 H 100 01/04/17 07:49 01/04/17 07:49 01/04/17 07:49 01/04/17 07:49 01/04/17 07:49 Intake and Output: 01/04/17 01/04/17 06:59 18:59 Intake Total 1600 Balance 1600 - Medications Medications: Current Medications Acetaminophen (Tylenol 325mg Tab) 650 mg PO Q8 PRN PRN Reason: Pain, Mild (1-3) Last Admin: 12/23/16 09:04 Dose: 650 mg Acetaminophen (Tylenol 325mg Tab) 650 mg PO Q8 PRN PRN Reason: Fever>100.4 Last Admin: 12/23/16 17:01 Dose: 650 mg Cyclobenzaprine HCl (Flexeril) 10 mg PO BID PRN PRN Reason: Muscle spasm Last Admin: 12/31/16 09:31 Dose: 10 mg Dicyclomine HCl (Bentyl) 10 mg PO QID [facility] Last Admin: 01/04/17 10:17 Dose: 10 mg Nafcillin Sodium 2 gm/ Sodium (Chloride) 250 mls @ 250 mls/hr IVPB Q4H [facility] Last Admin: 01/04/17 12:28 Dose: 250 mls/hr Naproxen (Anaprox) 275 mg PO BID PRN PRN Reason: Pain, moderate (4-7) Last Admin: 12/31/16 09:32 Dose: 275 mg Pantoprazole Sodium (Protonix Ec Tab) 40 mg PO DAILY [facility] Last Admin: 01/04/17 10:17 Dose: 40 mg Vitamin A (Vitamin A & D Oint Ud Foilpak) 1 ea TOP BID [facility] Last Admin: 01/04/17 10:17 Dose: 1 ea - Labs Labs: 01/04/17 07:23 01/04/17 07:23 PT 12.0 SECONDS (9.7-12.2) 12/27/16 07:16 INR 1.1 12/27/16 07:16 APTT 30 SECONDS (21-34) 12/27/16 07:16 - Constitutional Appears: Non-toxic, No Acute Distress - Head Exam Head Exam: NORMOCEPHALIC - Eye Exam Eye Exam: Normal appearance - ENT Exam ENT Exam: Mucous Membranes Moist - Respiratory Exam Respiratory Exam: Clear to Ausculation Bilateral, NORMAL BREATHING PATTERN. absent: Wheezes - Cardiovascular Exam Cardiovascular Exam: REGULAR RHYTHM, +S1, +S2. absent: Gallop, Rubs - GI/Abdominal Exam GI & Abdominal Exam: Soft, Normal Bowel Sounds - Neurological Exam Neurological Exam: Alert, Awake, Oriented x3 - Psychiatric Exam Psychiatric exam: Normal Mood - Skin Skin Exam: Intact Additional comments: scaly lesions bilateral arms and back Assessment and Plan - Assessment and Plan (Free Text) Assessment: Bacteremia Afebrile in past 24 hours, WBC WNL. Blood culture positive for gram positive cocci in clusters. Repeat blood culture negative x [address] Russo consulted, help appreciated. Vancomycin 1g IV q12H started 12/23, trough 15.7 on 12/25. Primaxin 500mg IV q6H started 12/24. Nafcillin 2g IV q4 started 12/28. BAUDILIO ECHO showed EF >55%. negative for vegetations. Dr. Jackson consulted for BAUDILIO to r/o endocarditis, help appreciated. 6 weeks of IV abx per Dr. Russo. PICC line installed. Per Dr. Russo, pt will need to complete 2 weeks of Nifcillin 2g IV q4H (12/28-01/11) followed by 4 more weeks of Rocephin 2g IV qD. UTI Urine culture positive for Staph aureus. Dr. Russo consulted, help appreciated. See above for abx management. Low back pain Lumbar CT showed degenerative changes L5-S1 without other acute abnormalities per report. Neuro Dr. Bailon consulted- No further neuro workup needed. Flexeril 10mg PO BID PRN. Anaprox 275mg PO BID PRN. Likely musculoskeletal origin. MRI lumbar w and w/o contrast- Discitis at L5-S1 with epidural phlegmon and inflammation of adjacent apravertebral soft tissues. No evidence of abscess. Enhancement of the vertebral bodies at L5 and S1 bridging L5-S1 disc space which could represent marrow reactive changes related to adjacent discitis. Vertebral osteomyelitis is not excluded. TLSO brace per Dr. Khanna ESR 54, previously 59. Leg weakness Head CT negative for acute etiologies per report. Neuro Dr. Bailon consulted, help appreciated. Scaly skin lesions Biopsy taken from back. CD4 count 293. HIV negative. HTLV AB negative. Heme Dr. Ramirez consulted, help appreciated. F/U pathology, lymphocyte studies, as well as rheumatology workup. Prophylactic measure SCD, Lovenox, Protonix <Saad Rios H - Last Filed: 01/04/17 14:39> Objective - Vital Signs/Intake and Output Vital Signs (last 24 hours): Temp Pulse Resp BP Pulse Ox 98.2 F 78 20 173/99 H 100 01/04/17 07:49 01/04/17 07:49 01/04/17 07:49 01/04/17 07:49 01/04/17 07:49 Intake and Output: 01/04/17 01/04/17 06:59 18:59 Intake Total 1600 Balance 1600 - Medications Medications: Current Medications Acetaminophen (Tylenol 325mg Tab) 650 mg PO Q8 PRN PRN Reason: Pain, Mild (1-3) Last Admin: 12/23/16 09:04 Dose: 650 mg Acetaminophen (Tylenol 325mg Tab) 650 mg PO Q8 PRN PRN Reason: Fever>100.4 Last Admin: 12/23/16 17:01 Dose: 650 mg Cyclobenzaprine HCl (Flexeril) 10 mg PO BID PRN PRN Reason: Muscle spasm Last Admin: 12/31/16 09:31 Dose: 10 mg Dicyclomine HCl (Bentyl) 10 mg PO QID [facility] Last Admin: 01/04/17 14:35 Dose: 10 mg Nafcillin Sodium 2 gm/ Sodium (Chloride) 250 mls @ 250 mls/hr IVPB Q4H [facility] Last Admin: 01/04/17 12:28 Dose: 250 mls/hr Naproxen (Anaprox) 275 mg PO BID PRN PRN Reason: Pain, moderate (4-7) Last Admin: 12/31/16 09:32 Dose: 275 mg Pantoprazole Sodium (Protonix Ec Tab) 40 mg PO DAILY [facility] Last Admin: 01/04/17 10:17 Dose: 40 mg Vitamin A (Vitamin A & D Oint Ud Foilpak) 1 ea TOP BID [place] Last Admin: 01/04/17 10:17 Dose: 1 ea - Labs Labs: 01/04/17 07:23 01/04/17 07:23 PT 12.0 SECONDS (9.7-12.2) 12/27/16 07:16 INR 1.1 12/27/16 07:16 APTT 30 SECONDS (21-34) 12/27/16 07:16 Attending/Attestation - Attestation I have personally seen and examined this patient.: Yes I have fully participated in the care of the patient.: Yes I have reviewed all pertinent clinical information, including history, physical exam and plan: Yes Notes (Text): 01/04/17 14:38 Medical attending: Patient was seen and examined by me, agrees the above note by medical social worker. This is my first time meeting the patient she was transferred to the hospitalist service after the previous physician was no longer able to see her. I spoke with the medical staff as well as reviewed some old medical records and previous recent notes. She is a on IV antibiotics at this time and from what I understand she's can needed until January 11 at which point she could hopefully be discharge and come back with IV antibiotics infusions. Thank you very much, Saad Rios
--- NOTE | 2017-01-05 01:11 | CP.PCM.PN ---
<Loli Burr - Last Filed: 01/05/17 01:08> Subjective - Date & Time of Evaluation Date of Evaluation: 01/05/17 Time of Evaluation: 00:35 - Subjective Subjective: Pt seen and examined at bedside. Pt has no acute complaints . Denies SOB, chest pain, headache, f/c, abd pain, n/v, pain or swelling in the extremities. Objective - Vital Signs/Intake and Output Vital Signs (last 24 hours): Temp Pulse Resp BP Pulse Ox 98.4 F 86 20 157/98 H 99 01/05/17 00:00 01/05/17 00:00 01/05/17 00:00 01/05/17 00:00 01/05/17 00:00 Intake and Output: 01/04/17 01/05/17 18:59 06:59 Intake Total 980 900 Balance 980 900 - Medications Medications: Current Medications Acetaminophen (Tylenol 325mg Tab) 650 mg PO Q8 PRN PRN Reason: Pain, Mild (1-3) Last Admin: 12/23/16 09:04 Dose: 650 mg Acetaminophen (Tylenol 325mg Tab) 650 mg PO Q8 PRN PRN Reason: Fever>100.4 Last Admin: 12/23/16 17:01 Dose: 650 mg Cyclobenzaprine HCl (Flexeril) 10 mg PO BID PRN PRN Reason: Muscle spasm Last Admin: 12/31/16 09:31 Dose: 10 mg Dicyclomine HCl (Bentyl) 10 mg PO QID [facility] Last Admin: 01/04/17 21:30 Dose: 10 mg Nafcillin Sodium 2 gm/ Sodium (Chloride) 250 mls @ 250 mls/hr IVPB Q4H [facility] Last Admin: 01/05/17 00:47 Dose: 250 mls/hr Naproxen (Anaprox) 275 mg PO BID PRN PRN Reason: Pain, moderate (4-7) Last Admin: 12/31/16 09:32 Dose: 275 mg Pantoprazole Sodium (Protonix Ec Tab) 40 mg PO DAILY [facility] Last Admin: 01/04/17 10:17 Dose: 40 mg Vitamin A (Vitamin A & D Oint Ud Foilpak) 1 ea TOP BID [facility] Last Admin: 01/04/17 18:12 Dose: 1 ea - Labs Labs: 01/04/17 07:23 01/04/17 07:23 PT 12.0 SECONDS (9.7-12.2) 12/27/16 07:16 INR 1.1 12/27/16 07:16 APTT 30 SECONDS (21-34) 12/27/16 07:16 - Constitutional Appears: Non-toxic, No Acute Distress - Head Exam Head Exam: ATRAUMATIC, NORMAL INSPECTION - Eye Exam Eye Exam: EOMI, PERRL - Respiratory Exam Respiratory Exam: Clear to Ausculation Bilateral, NORMAL BREATHING PATTERN. absent: Respiratory Distress - Cardiovascular Exam Cardiovascular Exam: REGULAR RHYTHM, +S1, +S2 - GI/Abdominal Exam GI & Abdominal Exam: Soft, Normal Bowel Sounds. absent: Distended, Firm, Guarding, Tenderness - Extremities Exam Extremities Exam: Normal Inspection - Back Exam Back Exam: NORMAL INSPECTION - Neurological Exam Neurological Exam: Alert, Awake - Psychiatric Exam Psychiatric exam: Normal Affect, Normal Mood - Skin Additional comments: scaly lesions bilateral arms and back Assessment and Plan - Assessment and Plan (Free Text) Assessment: Bacteremia Afebrile in past 24 hours, WBC WNL. Blood culture positive for gram positive cocci in clusters. Repeat blood culture negative x [address] Russo consulted, help appreciated. Vancomycin 1g IV q12H started 12/23, trough 15.7 on 12/25. Primaxin 500mg IV q6H started 12/24. Nafcillin 2g IV q4 started 12/28. BAUDILIO ECHO showed EF >55%. negative for vegetations. Dr. Jackson consulted for BAUDILIO to r/o endocarditis, help appreciated. 6 weeks of IV abx per Dr. Russo. PICC line installed. Per Dr. Russo, pt will need to complete 2 weeks of Nifcillin 2g IV q4H (12/28-01/11) followed by 4 more weeks of Rocephin 2g IV qD. UTI Urine culture positive for Staph aureus. Dr. Russo consulted, help appreciated. See above for abx management. Low back pain Lumbar CT showed degenerative changes L5-S1 without other acute abnormalities per report. Neuro Dr. Bailon consulted- No further neuro workup needed. Flexeril 10mg PO BID PRN. Anaprox 275mg PO BID PRN. Likely musculoskeletal origin. MRI lumbar w and w/o contrast- Discitis at L5-S1 with epidural phlegmon and inflammation of adjacent apravertebral soft tissues. No evidence of abscess. Enhancement of the vertebral bodies at L5 and S1 bridging L5-S1 disc space which could represent marrow reactive changes related to adjacent discitis. Vertebral osteomyelitis is not excluded. TLSO brace per Dr. Khanna ESR 54, previously 59. Leg weakness Head CT negative for acute etiologies per report. Neuro Dr. Bailon consulted, help appreciated. Scaly skin lesions Biopsy taken from back. CD4 count 293. HIV negative. HTLV AB negative. Heme Dr. Ramirez consulted, help appreciated. F/U pathology, lymphocyte studies, as well as rheumatology workup. Prophylactic measure SCD, Lovenox, Protonix <Saad Rios H - Last Filed: 01/05/17 14:20> Objective - Vital Signs/Intake and Output Vital Signs (last 24 hours): Temp Pulse Resp BP Pulse Ox 98.5 F 93 H 20 151/91 H 97 01/05/17 10:00 01/05/17 10:00 01/05/17 10:00 01/05/17 10:00 01/05/17 10:00 Intake and Output: 01/05/17 01/05/17 06:59 18:59 Intake Total 900 1120 Balance 900 1120 - Medications Medications: Current Medications Acetaminophen (Tylenol 325mg Tab) 650 mg PO Q8 PRN PRN Reason: Pain, Mild (1-3) Last Admin: 12/23/16 09:04 Dose: 650 mg Acetaminophen (Tylenol 325mg Tab) 650 mg PO Q8 PRN PRN Reason: Fever>100.4 Last Admin: 12/23/16 17:01 Dose: 650 mg Cyclobenzaprine HCl (Flexeril) 10 mg PO BID PRN PRN Reason: Muscle spasm Last Admin: 12/31/16 09:31 Dose: 10 mg Dicyclomine HCl (Bentyl) 10 mg PO QID [facility] Last Admin: 01/05/17 13:10 Dose: 10 mg Nafcillin Sodium 2 gm/ Sodium (Chloride) 250 mls @ 250 mls/hr IVPB Q4H [place] Last Admin: 01/05/17 13:10 Dose: 250 mls/hr Naproxen (Anaprox) 275 mg PO BID PRN PRN Reason: Pain, moderate (4-7) Last Admin: 12/31/16 09:32 Dose: 275 mg Pantoprazole Sodium (Protonix Ec Tab) 40 mg PO DAILY [facility] Last Admin: 01/05/17 09:03 Dose: 40 mg Vitamin A (Vitamin A & D Oint Ud Foilpak) 1 ea TOP BID [facility] Last Admin: 01/05/17 09:03 Dose: 1 ea - Labs Labs: 01/05/17 07:00 01/05/17 07:00 PT 12.0 SECONDS (9.7-12.2) 12/27/16 07:16 INR 1.1 12/27/16 07:16 APTT 30 SECONDS (21-34) 12/27/16 07:16 Attending/Attestation - Attestation I have personally seen and examined this patient.: Yes I have fully participated in the care of the patient.: Yes I have reviewed all pertinent clinical information, including history, physical exam and plan: Yes Notes (Text): 01/05/17 14:19 Medical Attending: Patient was seen and examined by me. Agree with the above note by the resident Patient did not have any acute complaints when I saw her. She felt that we were moving in the right direction Her pain she said was decreased from before Currently will be here until January 11 and then hopefully can be DC then thank you Saad Rios
[2017-01-05 07:18] LABS: BASO % 0.5 % (0.0-2.0); EOS % 0.1 % (0.0-4.0); HEMATOCRIT 30.6 % (34.0-47.0); LYMPH # 0.8 K/uL (1.0-4.3); LYMPH % 19.5 % (20.0-40.0); MEAN CELL VOLUME 83.2 fL (81.0-99.0); MEAN CORPUSCULAR HEMOGLOBIN 28.1 pg (27.0-31.0); MEAN CORPUSCULAR HGB CONC 33.8 g/dL (33.0-37.0); MEAN PLATELET VOLUME 6.8 fL (7.2-11.7); MONO # 0.3 K/uL (0.0-0.8); MONO % 6.9 % (0.0-10.0); RED CELL DISTRIBUTION WIDTH 14.6 % (11.5-14.5); WHITE BLOOD COUNT 4.1 K/uL (4.8-10.8)
[2017-01-05 07:31] LABS: CHLORIDE 102 mmol/L (98-107); SODIUM 137 mmol/L (132-148)
[2017-01-05 07:32] LABS: POTASSIUM 3.5 mmol/L (3.6-5.2)
[2017-01-05 07:34] LABS: ALB/GLOB RATIO 0.8 (1.0-2.1); ALKALINE PHOSPHATASE 81 U/L (38-126); ALT/SGPT 16 U/L (9-52); AST/SGOT 21 U/L (14-36); BLOOD UREA NITROGEN 9 mg/dL (7-17); CARBON DIOXIDE 27 mmol/L (22-30); GFR AFRICAN-AMERICAN > 60; GLUCOSE,RANDOM 82 mg/dL (65-105); TOTAL PROTEIN 6.2 g/dL (6.3-8.3)
[2017-01-05 07:35] LABS: CALCIUM 7.8 mg/dl (8.6-10.4)
[2017-01-05] MEDS: Vitamins A & D Oint UD Foilpak TOP SCH ×2 (09:03→17:02)
[2017-01-05] MEDS: Pantoprazole 40 mg EC Tab PO SCH (09:03)
--- NOTE | 2017-01-05 21:41 | CP.PCM.PN ---
Subjective - Date & Time of Evaluation Date of Evaluation: 01/05/17 Time of Evaluation: 16:00 - Subjective Subjective: Feeling better Objective - Vital Signs/Intake and Output Vital Signs (last 24 hours): Temp Pulse Resp BP Pulse Ox 97.4 F L 94 H 20 157/97 H 96 01/05/17 15:00 01/05/17 15:00 01/05/17 15:00 01/05/17 15:00 01/05/17 15:00 Intake and Output: 01/05/17 01/06/17 18:59 06:59 Intake Total 1920 Balance 1920 - Medications Medications: Current Medications Acetaminophen (Tylenol 325mg Tab) 650 mg PO Q8 PRN PRN Reason: Pain, Mild (1-3) Last Admin: 12/23/16 09:04 Dose: 650 mg Acetaminophen (Tylenol 325mg Tab) 650 mg PO Q8 PRN PRN Reason: Fever>100.4 Last Admin: 12/23/16 17:01 Dose: 650 mg Cyclobenzaprine HCl (Flexeril) 10 mg PO BID PRN PRN Reason: Muscle spasm Last Admin: 12/31/16 09:31 Dose: 10 mg Dicyclomine HCl (Bentyl) 10 mg PO QID [facility] Last Admin: 01/05/17 21:14 Dose: 10 mg Nafcillin Sodium 2 gm/ Sodium (Chloride) 250 mls @ 250 mls/hr IVPB Q4H [facility] Last Admin: 01/05/17 21:14 Dose: 250 mls/hr Naproxen (Anaprox) 275 mg PO BID PRN PRN Reason: Pain, moderate (4-7) Last Admin: 12/31/16 09:32 Dose: 275 mg Pantoprazole Sodium (Protonix Ec Tab) 40 mg PO DAILY [facility] Last Admin: 01/05/17 09:03 Dose: 40 mg Vitamin A (Vitamin A & D Oint Ud Foilpak) 1 ea TOP BID [facility] Last Admin: 01/05/17 17:02 Dose: 1 ea - Labs Labs: 01/05/17 07:00 01/05/17 07:00 PT 12.0 SECONDS (9.7-12.2) 12/27/16 07:16 INR 1.1 12/27/16 07:16 APTT 30 SECONDS (21-34) 12/27/16 07:16 - Head Exam Head Exam: ATRAUMATIC - Eye Exam Eye Exam: Normal appearance - ENT Exam ENT Exam: Mucous Membranes Dry - Respiratory Exam Respiratory Exam: NORMAL BREATHING PATTERN - Cardiovascular Exam Cardiovascular Exam: +S1, +S2 - GI/Abdominal Exam GI & Abdominal Exam: Normal Bowel Sounds Assessment and Plan (1) Skin lesions Assessment & Plan: awaiting skin biopsy results Status: Acute
[2017-01-06] MEDS ORDERED: Potassium Chloride 20 mEq ER Tab PO STA (01:59)
--- NOTE | 2017-01-06 02:00 | CP.PCM.PN ---
<LenoLoli - Last Filed: 01/06/17 01:56> Subjective - Date & Time of Evaluation Date of Evaluation: 01/06/17 Time of Evaluation: 00:10 - Subjective Subjective: Pt seen and examined at bedside. Pt has no acute complaints. Reports 2 normal BM today. Tolerating diet. Denies SOB, chest pain, headache, f/c, abd pain, n/v , pain or swelling in the extremities. Objective - Vital Signs/Intake and Output Vital Signs (last 24 hours): Temp Pulse Resp BP Pulse Ox 98 F 81 20 136/88 100 01/06/17 00:00 01/06/17 00:00 01/06/17 00:00 01/06/17 00:00 01/06/17 00:00 Intake and Output: 01/05/17 01/06/17 18:59 06:59 Intake Total 1920 Balance 1920 - Medications Medications: Current Medications Acetaminophen (Tylenol 325mg Tab) 650 mg PO Q8 PRN PRN Reason: Pain, Mild (1-3) Last Admin: 12/23/16 09:04 Dose: 650 mg Acetaminophen (Tylenol 325mg Tab) 650 mg PO Q8 PRN PRN Reason: Fever>100.4 Last Admin: 12/23/16 17:01 Dose: 650 mg Cyclobenzaprine HCl (Flexeril) 10 mg PO BID PRN PRN Reason: Muscle spasm Last Admin: 12/31/16 09:31 Dose: 10 mg Dicyclomine HCl (Bentyl) 10 mg PO QID [facility] Last Admin: 01/05/17 21:14 Dose: 10 mg Nafcillin Sodium 2 gm/ Sodium (Chloride) 250 mls @ 250 mls/hr IVPB Q4H [facility] Last Admin: 01/06/17 00:44 Dose: 250 mls/hr Naproxen (Anaprox) 275 mg PO BID PRN PRN Reason: Pain, moderate (4-7) Last Admin: 12/31/16 09:32 Dose: 275 mg Pantoprazole Sodium (Protonix Ec Tab) 40 mg PO DAILY [facility] Last Admin: 01/05/17 09:03 Dose: 40 mg Vitamin A (Vitamin A & D Oint Ud Foilpak) 1 ea TOP BID [facility] Last Admin: 01/05/17 17:02 Dose: 1 ea - Labs Labs: 01/05/17 07:00 06/03/17 07:00 PT 12.0 SECONDS (9.7-12.2) 12/27/16 07:16 INR 1.1 12/27/16 07:16 APTT 30 SECONDS (21-34) 12/27/16 07:16 - Constitutional Appears: Non-toxic, No Acute Distress - Head Exam Head Exam: ATRAUMATIC, NORMAL INSPECTION - Eye Exam Eye Exam: EOMI - ENT Exam ENT Exam: Mucous Membranes Moist - Respiratory Exam Respiratory Exam: Clear to Ausculation Bilateral, NORMAL BREATHING PATTERN. absent: Accessory Muscle Use, Respiratory Distress - Cardiovascular Exam Cardiovascular Exam: REGULAR RHYTHM, +S1, +S2 - GI/Abdominal Exam GI & Abdominal Exam: Soft, Normal Bowel Sounds. absent: Distended, Firm, Guarding, Tenderness - Extremities Exam Extremities Exam: Normal Inspection. absent: Calf Tenderness - Back Exam Back Exam: NORMAL INSPECTION. absent: CVA tenderness (L), CVA tenderness (R), paraspinal tenderness - Neurological Exam Neurological Exam: Alert, Awake, Oriented x3 - Psychiatric Exam Psychiatric exam: Normal Affect, Normal Mood - Skin Skin Exam: Dry, Intact, Normal Color, Warm Assessment and Plan - Assessment and Plan (Free Text) Assessment: Bacteremia Afebrile in past 24 hours, WBC WNL. Blood culture positive for gram positive cocci in clusters. Repeat blood culture negative x [address] Russo consulted, help appreciated. Vancomycin 1g IV q12H started 12/23, trough 15.7 on 12/25. Primaxin 500mg IV q6H started 12/24. Nafcillin 2g IV q4 started 12/28. BAUDILIO ECHO showed EF >55%. negative for vegetations. Dr. Jackson consulted for BAUDILIO to r/o endocarditis, help appreciated. 6 weeks of IV abx per Dr. Russo. PICC line installed. Per Dr. Russo, pt will need to complete 2 weeks of Nifcillin 2g IV q4H (12/28-01/11) followed by 4 more weeks of Rocephin 2g IV qD. UTI Urine culture positive for Staph aureus. Dr. Russo consulted, help appreciated. See above for abx management. Hypokalemia K 3.5 Replaced with 20meq orally f/u am labs, Mg Low back pain Lumbar CT showed degenerative changes L5-S1 without other acute abnormalities per report. Neuro Dr. Bailon consulted- No further neuro workup needed. Flexeril 10mg PO BID PRN. Anaprox 275mg PO BID PRN. Likely musculoskeletal origin. MRI lumbar w and w/o contrast- Discitis at L5-S1 with epidural phlegmon and inflammation of adjacent apravertebral soft tissues. No evidence of abscess. Enhancement of the vertebral bodies at L5 and S1 bridging L5-S1 disc space which could represent marrow reactive changes related to adjacent discitis. Vertebral osteomyelitis is not excluded. TLSO brace per Dr. Khanna ESR 54, previously 59. Leg weakness Head CT negative for acute etiologies per report. Neuro Dr. Bailon consulted, help appreciated. Scaly skin lesions Biopsy taken from back. CD4 count 293. HIV negative. HTLV AB negative. Heme Dr. Ramirez consulted, help appreciated. F/U pathology, lymphocyte studies, as well as rheumatology workup. Prophylactic measure SCD, Lovenox, Protonix <Saad Rios H - Last Filed: 01/06/17 10:17> Objective - Vital Signs/Intake and Output Vital Signs (last 24 hours): Temp Pulse Resp BP Pulse Ox 98 F 81 20 136/88 100 01/06/17 00:00 01/06/17 00:00 01/06/17 00:00 01/06/17 00:00 01/06/17 00:00 Intake and Output: 01/06/17 01/06/17 06:59 18:59 Intake Total 740 Balance 740 - Medications Medications: Current Medications Acetaminophen (Tylenol 325mg Tab) 650 mg PO Q8 PRN PRN Reason: Pain, Mild (1-3) Last Admin: 12/23/16 09:04 Dose: 650 mg Acetaminophen (Tylenol 325mg Tab) 650 mg PO Q8 PRN PRN Reason: Fever>100.4 Last Admin: 12/23/16 17:01 Dose: 650 mg Cyclobenzaprine HCl (Flexeril) 10 mg PO BID PRN PRN Reason: Muscle spasm Last Admin: 12/31/16 09:31 Dose: 10 mg Dicyclomine HCl (Bentyl) 10 mg PO QID [facility] Last Admin: 01/06/17 09:17 Dose: 10 mg Nafcillin Sodium 2 gm/ Sodium (Chloride) 250 mls @ 250 mls/hr IVPB Q4H [facility] Last Admin: 01/06/17 09:16 Dose: 250 mls/hr Naproxen (Anaprox) 275 mg PO BID PRN PRN Reason: Pain, moderate (4-7) Last Admin: 12/31/16 09:32 Dose: 275 mg Pantoprazole Sodium (Protonix Ec Tab) 40 mg PO DAILY [facility] Last Admin: 01/06/17 09:17 Dose: 40 mg Vitamin A (Vitamin A & D Oint Ud Foilpak) 1 ea TOP BID [facility] Last Admin: 01/06/17 09:17 Dose: 1 ea - Labs Labs: 01/06/17 06:50 01/06/17 06:50 PT 12.0 SECONDS (9.7-12.2) 12/27/16 07:16 INR 1.1 12/27/16 07:16 APTT 30 SECONDS (21-34) 12/27/16 07:16 Attending/Attestation - Attestation I have personally seen and examined this patient.: Yes I have fully participated in the care of the patient.: Yes I have reviewed all pertinent clinical information, including history, physical exam and plan: Yes Notes (Text): 01/06/17 10:15 Medical Attending: Patient was seen and examined by me. Agree with the above note by the resident. No large changes from before. We are continuing the current IV abx regimen until January 11. She reports feeling better and thinks we are moving in the right direction When asked about walking she says it is only during PT and she still has a lot of lower extremity weakness. Eating/diet is ok Bathroom BM and urination reported as ok thank you Saad Rios
[2017-01-06 06:59] LABS: BASO % 0.4 % (0.0-2.0); HEMATOCRIT 33.6 % (34.0-47.0); LYMPH # 1.1 K/uL (1.0-4.3); LYMPH % 20.2 % (20.0-40.0); MEAN CELL VOLUME 83.6 fL (81.0-99.0); MEAN CORPUSCULAR HEMOGLOBIN 27.6 pg (27.0-31.0); MEAN CORPUSCULAR HGB CONC 32.9 g/dL (33.0-37.0); MEAN PLATELET VOLUME 6.9 fL (7.2-11.7); MONO # 0.4 K/uL (0.0-0.8); MONO % 6.9 % (0.0-10.0); RED CELL DISTRIBUTION WIDTH 14.6 % (11.5-14.5); WHITE BLOOD COUNT 5.6 K/uL (4.8-10.8)
[2017-01-06 07:24] LABS: CHLORIDE 104 mmol/L (98-107)
[2017-01-06 07:26] LABS: POTASSIUM 3.7 mmol/L (3.6-5.2); SODIUM 137 mmol/L (132-148)
[2017-01-06 07:27] LABS: ALB/GLOB RATIO 0.8 (1.0-2.1); ALKALINE PHOSPHATASE 91 U/L (38-126); AST/SGOT 16 U/L (14-36); CARBON DIOXIDE 25 mmol/L (22-30); GFR AFRICAN-AMERICAN > 60; TOTAL PROTEIN 6.6 g/dL (6.3-8.3)
[2017-01-06 07:28] LABS: ALT/SGPT 18 U/L (9-52); BLOOD UREA NITROGEN 12 mg/dL (7-17); CALCIUM 7.8 mg/dl (8.6-10.4); GLUCOSE,RANDOM 91 mg/dL (65-105); MAGNESIUM 2.1 mg/dL (1.6-2.3)
[2017-01-06] MEDS: Pantoprazole 40 mg EC Tab PO SCH (09:17)
[2017-01-06] MEDS: Vitamins A & D Oint UD Foilpak TOP SCH ×2 (09:17→18:15)
--- NOTE | 2017-01-06 15:54 | CP.PCM.PN ---
Subjective - Date & Time of Evaluation Date of Evaluation: 01/06/17 Time of Evaluation: 09:00 - Subjective Subjective: no fever less pain await bx report cont rx Objective - Vital Signs/Intake and Output Vital Signs (last 24 hours): Temp Pulse Resp BP Pulse Ox 98.1 F 90 20 117/73 98 01/06/17 09:00 01/06/17 09:00 01/06/17 09:00 01/06/17 09:00 01/06/17 09:00 Intake and Output: 01/06/17 01/06/17 06:59 18:59 Intake Total 740 Balance 740 - Medications Medications: Current Medications Acetaminophen (Tylenol 325mg Tab) 650 mg PO Q8 PRN PRN Reason: Pain, Mild (1-3) Last Admin: 12/23/16 09:04 Dose: 650 mg Acetaminophen (Tylenol 325mg Tab) 650 mg PO Q8 PRN PRN Reason: Fever>100.4 Last Admin: 12/23/16 17:01 Dose: 650 mg Cyclobenzaprine HCl (Flexeril) 10 mg PO BID PRN PRN Reason: Muscle spasm Last Admin: 12/31/16 09:31 Dose: 10 mg Dicyclomine HCl (Bentyl) 10 mg PO QID [facility] Last Admin: 01/06/17 13:49 Dose: 10 mg Nafcillin Sodium 2 gm/ Sodium (Chloride) 250 mls @ 250 mls/hr IVPB Q4H [facility] Last Admin: 01/06/17 13:49 Dose: 250 mls/hr Naproxen (Anaprox) 275 mg PO BID PRN PRN Reason: Pain, moderate (4-7) Last Admin: 12/31/16 09:32 Dose: 275 mg Pantoprazole Sodium (Protonix Ec Tab) 40 mg PO DAILY [facility] Last Admin: 01/06/17 09:17 Dose: 40 mg Vitamin A (Vitamin A & D Oint Ud Foilpak) 1 ea TOP BID [facility] Last Admin: 01/06/17 09:17 Dose: 1 ea - Labs Labs: 01/06/17 06:50 01/06/17 06:50 PT 12.0 SECONDS (9.7-12.2) 12/27/16 07:16 INR 1.1 12/27/16 07:16 APTT 30 SECONDS (21-34) 12/27/16 07:16 Assessment and Plan (1) Sepsis affecting skin Status: Acute (2) Sepsis affecting skin Status: Acute (3) Low back pain Status: Acute
[2017-01-07 07:14] LABS: BASO % 0.4 % (0.0-2.0); EOS % 0.1 % (0.0-4.0); HEMATOCRIT 31.6 % (34.0-47.0); LYMPH # 0.8 K/uL (1.0-4.3); LYMPH % 17.7 % (20.0-40.0); MEAN CELL VOLUME 83.7 fL (81.0-99.0); MEAN CORPUSCULAR HEMOGLOBIN 27.7 pg (27.0-31.0); MEAN PLATELET VOLUME 7.2 fL (7.2-11.7); MONO # 0.3 K/uL (0.0-0.8); MONO % 6.4 % (0.0-10.0); RED CELL DISTRIBUTION WIDTH 14.3 % (11.5-14.5); WHITE BLOOD COUNT 4.7 K/uL (4.8-10.8)
[2017-01-07 07:45] LABS: CHLORIDE 104 mmol/L (98-107); POTASSIUM 3.5 mmol/L (3.6-5.2); SODIUM 138 mmol/L (132-148)
[2017-01-07 07:47] LABS: BILIRUBIN,TOTAL 1.1 mg/dL (0.2-1.3); GFR AFRICAN-AMERICAN > 60
[2017-01-07 07:48] LABS: ALB/GLOB RATIO 0.8 (1.0-2.1); ALKALINE PHOSPHATASE 76 U/L (38-126); ALT/SGPT 13 U/L (9-52); AST/SGOT 18 U/L (14-36); BLOOD UREA NITROGEN 11 mg/dL (7-17); CARBON DIOXIDE 27 mmol/L (22-30); GLUCOSE,RANDOM 80 mg/dL (65-105); TOTAL PROTEIN 6.4 g/dL (6.3-8.3)
[2017-01-07] MEDS ORDERED: Potassium Chloride 20 mEq ER Tab PO ONE (08:30)
--- NOTE | 2017-01-07 08:30 | CP.PCM.PN ---
<Teresa Nguyen - Last Filed: 01/07/17 12:57> Subjective - Date & Time of Evaluation Date of Evaluation: 01/07/17 Time of Evaluation: 08:08 - Subjective Subjective: Patient seen and examined at bedside. Patient is resting comfortably. She states pain to lumbar spine has improved. Physical therapy instructed patient on posture to alleviate pain while awaiting brace. Patient denies pruritus/pain of skin. She also denies fever and chills. Patient reports she is tolerating diet well and having normal bowel movements. She denies dysuria. Objective - Vital Signs/Intake and Output Vital Signs (last 24 hours): Temp Pulse Resp BP Pulse Ox 97.7 F 69 20 149/94 H 97 01/07/17 00:00 01/07/17 00:00 01/07/17 00:00 01/07/17 00:00 01/07/17 00:00 Intake and Output: 01/07/17 01/07/17 06:59 18:59 Intake Total 850 Balance 850 - Medications Medications: Current Medications Acetaminophen (Tylenol 325mg Tab) 650 mg PO Q8 PRN PRN Reason: Pain, Mild (1-3) Last Admin: 12/23/16 09:04 Dose: 650 mg Acetaminophen (Tylenol 325mg Tab) 650 mg PO Q8 PRN PRN Reason: Fever>100.4 Last Admin: 12/23/16 17:01 Dose: 650 mg Cyclobenzaprine HCl (Flexeril) 10 mg PO BID PRN PRN Reason: Muscle spasm Last Admin: 12/31/16 09:31 Dose: 10 mg Dicyclomine HCl (Bentyl) 10 mg PO QID [facility] Last Admin: 01/06/17 21:39 Dose: 10 mg Nafcillin Sodium 2 gm/ Sodium (Chloride) 250 mls @ 250 mls/hr IVPB Q4H [facility] Last Admin: 01/07/17 05:20 Dose: 250 mls/hr Naproxen (Anaprox) 275 mg PO BID PRN PRN Reason: Pain, moderate (4-7) Last Admin: 12/31/16 09:32 Dose: 275 mg Pantoprazole Sodium (Protonix Ec Tab) 40 mg PO DAILY [facility] Last Admin: 01/06/17 09:17 Dose: 40 mg Vitamin A (Vitamin A & D Oint Ud Foilpak) 1 ea TOP BID [place] Last Admin: 01/06/17 18:15 Dose: 1 ea - Labs Labs: 01/07/17 07:01 01/07/17 07:01 PT 12.0 SECONDS (9.7-12.2) 12/27/16 07:16 INR 1.1 12/27/16 07:16 APTT 30 SECONDS (21-34) 12/27/16 07:16 - Constitutional Appears: Non-toxic, No Acute Distress - Head Exam Head Exam: ATRAUMATIC, NORMAL INSPECTION, NORMOCEPHALIC - Eye Exam Eye Exam: EOMI, Normal appearance, PERRL - ENT Exam ENT Exam: Mucous Membranes Moist - Neck Exam Neck Exam: Full ROM, Normal Inspection - Respiratory Exam Respiratory Exam: Clear to Ausculation Bilateral, NORMAL BREATHING PATTERN. absent: Rales, Rhonchi, Wheezes - Cardiovascular Exam Cardiovascular Exam: +S1, +S2. absent: Bradycardia, Tachycardia, Murmur - GI/Abdominal Exam GI & Abdominal Exam: Soft, Normal Bowel Sounds. absent: Distended, Firm - Extremities Exam Extremities Exam: absent: Pedal Edema, Tenderness - Back Exam Back Exam: tenderness Additional comments: tenderness to palpation of lumbar spine - Neurological Exam Neurological Exam: Alert, Awake, Oriented x3 - Psychiatric Exam Psychiatric exam: Normal Affect, Normal Mood - Skin Additional comments: significant xerosis and scaling to bilateral hands, legs, abdomen and back. Mildly improved. Assessment and Plan - Assessment and Plan (Free Text) Assessment: Bacteremia Afebrile in past 24 hours, WBC 4.7 Blood culture (12/26/16) positive for Staphylococcus Aureus Repeat blood culture negative Dr. Russo on case. Recommends continuing Nafcillin 2 gm IVPB q4h. Started on and to be continued until 01/11. Patient will then need 4 week course of Rocephin 2g IV q24h to complete 6 week course of IV antibiotic therapy. Primaxin and Vancomycin discontinued. BAUDILIO ECHO showed EF >55%. Negative for vegetations/endocarditis. Dr. Jackson consulted for BAUDILIO to r/o endocarditis, help appreciated. PICC line. UTI Urine culture positive for Staph aureus. Dr. Russo consulted, help appreciated. See above for abx management. Hypokalemia K 3.5 Replaced with kdur 40meq orally f/u am labs, Mg Lumbar spine pain Likely musculoskeletal in origin Lumbar CT showed degenerative changes L5-S1 without other acute abnormalities per report. Neuro Dr. Bailon consulted- No further neuro workup needed. Continue Flexeril 10mg PO BID PRN and Naproxen 275mg PO BID PRN for pain. MRI lumbar w and w/o contrast- Discitis at L5-S1 with epidural phlegmon and inflammation of adjacent paravertebral soft tissues. No evidence of abscess. Enhancement of the vertebral bodies at L5 and S1 bridging L5-S1 disc space which could represent marrow reactive changes related to adjacent discitis. Vertebral osteomyelitis is not excluded. TLSO brace per Dr. Khanna ESR 54, previously 59. Leg weakness Head CT negative for acute etiologies per report. Neuro Dr. Bailon consulted, help appreciated. Exfoliative Dermatitis rule out cutaneous T cell lymphoma vs. Pityriasis Rubra Pilaris vs. Vitamin A deficiency Punch Biopsy x2 taken on 12/26/16 from right upper buttock and right lower back for histopathology and T cell rearrangement study. Awaiting report from [facility]. Absolute CD4 count 293, Absolute CD8 count 154 - not suggestive of Mycosis Fungoides HIV negative. HTLV AB negative. STEPHANIE negative, Rheum Arthritis Panel negative SHELDON & Serum PEP: faint restricted M band spike. Vitamin A low- 24. Dietary consult to increase intake of vitamin A rich foods as pharmacy does not have vitamin A. Started LacHydrin 12% Lotion BID to affected scaly areas Hemeonc Dr. Ramirez consulted, help appreciated. Prophylactic measure SCD, Lovenox, Protonix <Borker,Angelica V - Last Filed: 01/07/17 20:46> Objective - Vital Signs/Intake and Output Vital Signs (last 24 hours): Temp Pulse Resp BP Pulse Ox 98.5 F 95 H 20 126/82 98 01/07/17 15:00 01/07/17 15:00 01/07/17 15:00 01/07/17 15:00 01/07/17 15:00 - Medications Medications: Current Medications Acetaminophen (Tylenol 325mg Tab) 650 mg PO Q8 PRN PRN Reason: Pain, Mild (1-3) Last Admin: 12/23/16 09:04 Dose: 650 mg Acetaminophen (Tylenol 325mg Tab) 650 mg PO Q8 PRN PRN Reason: Fever>100.4 Last Admin: 12/23/16 17:01 Dose: 650 mg Cyclobenzaprine HCl (Flexeril) 10 mg PO BID PRN PRN Reason: Muscle spasm Last Admin: 12/31/16 09:31 Dose: 10 mg Dicyclomine HCl (Bentyl) 10 mg PO QID [facility] Last Admin: 01/07/17 18:13 Dose: 10 mg Nafcillin Sodium 2 gm/ Sodium (Chloride) 250 mls @ 250 mls/hr IVPB Q4H [facility] Last Admin: 01/07/17 17:39 Dose: 250 mls/hr Lactic Acid (Lac-Hydrin 12% Lotion (225 G)) 0 gm EXT BID [facility] Last Admin: 01/07/17 12:43 Dose: 1 applic Naproxen (Anaprox) 275 mg PO BID PRN PRN Reason: Pain, moderate (4-7) Last Admin: 12/31/16 09:32 Dose: 275 mg Pantoprazole Sodium (Protonix Ec Tab) 40 mg PO DAILY [facility] Last Admin: 01/07/17 18:21 Dose: 40 mg Vitamin A (Vitamin A & D Oint Ud Foilpak) 1 ea TOP BID [facility] Last Admin: 01/07/17 11:12 Dose: 1 ea - Labs Labs: 01/07/17 07:01 01/07/17 07:01 PT 12.0 SECONDS (9.7-12.2) 12/27/16 07:16 INR 1.1 12/27/16 07:16 APTT 30 SECONDS (21-34) 12/27/16 07:16 Attending/Attestation - Attestation I have personally seen and examined this patient.: Yes I have fully participated in the care of the patient.: Yes I have reviewed all pertinent clinical information, including history, physical exam and plan: Yes Notes (Text): Patient seen, examined and case discussed with day-time resident. Patient currently being treated for IV antibiotics for bacteremia, UTI, and associated Discitis. Patient is awaiting skin biopsy result dermatologic workup. Follow-up case management, regarding placement given long-term IV abx use. Assessment/Plan 1) Bacteremia secondary to Staph Aureus * Infectious Disease (Dr. Russo) on board-->help appreciated * Cardiology (Dr. Jackson) on board-->help appreciated * Blood culture (12/22/16): Staph Aureus X2 * Blood culture (12/24/16): Staph Aureus X2 * Blood culture (12/26/16): Staph Aureus X2 * Blood culture (12/28/16): No growth after 5 days X2 * Nafcillin 2gram Q4H (12/28-01/11); followed by 4 weeks of Rocephin 2g IV qD * BAUDILIO (12/29/16): no endocarditis noted. Normal LV function 2) Urinary Tract Infection secondary to Staph Aureus * Infectious Disease (Dr. Russo) on board-->help appreciated * Urine culture (12/2016) positive for Staph aureus. 3) Hypokalemia * Monitor and replete if necessary 4) Discitis * Neurology (Dr. Bailon) on board-->no further neuro workup * Neurosurgery (Dr. Khanna) on board-->very mild diskitis space at L5-1, Phlegmon which is not causing any significant neural element compromise, behind the body of the upper sacrum. Thecal sac and the S1 nerve roots are very well visualized; recommend for TLSO brace for when patient is out of bed * Infectious disease (Dr. Russo) on board-->help appreciated * MRI lumbar w and w/o contrast (12/27/16): Discitis at L5-S1 with epidural phlegmon and inflammation of adjacent apravertebral soft tissues. No evidence of abscess. Enhancement of the vertebral bodies at L5 and S1 bridging L5-S1 disc space which could represent marrow reactive changes related to adjacent discitis. Vertebral osteomyelitis is not excluded. * Lumbar Spine CT (12/22/16): degenerative change L5-S1, no acute osseous abnormality, no abscess * Tylenol 650mg PO Q 8 PRN pain * Tylenol 650mg PO Q 8 PRN Fever >100.4F * Flexeril 10mg PO BID PRN muscle spasm * Anaproz 275mg PO BID PRN moderate * Negative RA, STEPHANIE 5) Skin lesions * Heme-onc (Dr. Mckenna Ramirez) on board-->help appreciated * Awaiting skin biopsy results * HIV negative * HTLV negative * negative [id number] * IPEP/SPEP: faint M spike * absolute: CD 4: 293, CD 8 * UDS: negative 6) Prophylactic measure * SCDs b/l * Lovenox 40mg subq daily for DVT ppx * Protonix 40mg PO daily for GI ppx
[2017-01-07] MEDS: Vitamins A & D Oint UD Foilpak TOP SCH ×2 (11:12→21:38)
[2017-01-07] MEDS: Ammonium Lactate 12% Lotion (225 g) EXT SCH ×2 (12:43→21:32)
[2017-01-07] MEDS: Pantoprazole 40 mg EC Tab PO SCH (18:21)
--- NOTE | 2017-01-08 07:10 | CP.PCM.PN ---
<Teresa Nguyen - Last Filed: 01/08/17 12:30> Subjective - Date & Time of Evaluation Date of Evaluation: 01/08/17 Time of Evaluation: 07:07 - Subjective Subjective: Patient seen and examined at bedside. Patient is resting comfortably and notes lumbar spine pain to have greatly improved. Patient is still awaiting thoracolumbosacral orthosis. Physical therapy has been working with patient to increase core strength. Patient reports scaling rash has minimally improved. She denies pain and pruritus and is using LacHydrin lotion. Patient also denies fever, chills, nausea, vomiting, abdominal pain, diarrhea, constipation, and dysuria. Objective - Vital Signs/Intake and Output Vital Signs (last 24 hours): Temp Pulse Resp BP Pulse Ox 98.3 F 75 20 102/65 95 01/08/17 00:00 01/08/17 00:00 01/08/17 00:00 01/08/17 00:00 01/08/17 00:00 Intake and Output: 01/08/17 01/08/17 06:59 18:59 Intake Total 850 Balance 850 - Medications Medications: Current Medications Acetaminophen (Tylenol 325mg Tab) 650 mg PO Q8 PRN PRN Reason: Pain, Mild (1-3) Last Admin: 12/23/16 09:04 Dose: 650 mg Acetaminophen (Tylenol 325mg Tab) 650 mg PO Q8 PRN PRN Reason: Fever>100.4 Last Admin: 12/23/16 17:01 Dose: 650 mg Cyclobenzaprine HCl (Flexeril) 10 mg PO BID PRN PRN Reason: Muscle spasm Last Admin: 12/31/16 09:31 Dose: 10 mg Dicyclomine HCl (Bentyl) 10 mg PO QID [facility] Last Admin: 01/07/17 21:38 Dose: 10 mg Enoxaparin Sodium (Lovenox) 40 mg SC DAILY [facility] Nafcillin Sodium 2 gm/ Sodium (Chloride) 250 mls @ 250 mls/hr IVPB Q4H [facility] Last Admin: 01/08/17 05:01 Dose: 250 mls/hr Lactic Acid (Lac-Hydrin 12% Lotion (225 G)) 0 gm EXT BID [facility] Last Admin: 01/07/17 21:32 Dose: 1 applic Naproxen (Anaprox) 275 mg PO BID PRN PRN Reason: Pain, moderate (4-7) Last Admin: 12/31/16 09:32 Dose: 275 mg Pantoprazole Sodium (Protonix Ec Tab) 40 mg PO DAILY [facility] Last Admin: 01/07/17 18:21 Dose: 40 mg Vitamin A (Vitamin A & D Oint Ud Foilpak) 1 ea TOP BID [facility] Last Admin: 01/07/17 21:38 Dose: 1 ea - Labs Labs: 01/07/17 07:01 01/07/17 07:01 PT 12.0 SECONDS (9.7-12.2) 12/27/16 07:16 INR 1.1 12/27/16 07:16 APTT 30 SECONDS (21-34) 12/27/16 07:16 - Constitutional Appears: Non-toxic, No Acute Distress - Head Exam Head Exam: ATRAUMATIC, NORMAL INSPECTION, NORMOCEPHALIC - Eye Exam Eye Exam: EOMI, Normal appearance, PERRL - ENT Exam ENT Exam: Mucous Membranes Moist - Neck Exam Neck Exam: Full ROM, Normal Inspection - Respiratory Exam Respiratory Exam: Clear to Ausculation Bilateral, NORMAL BREATHING PATTERN. absent: Rales, Rhonchi, Wheezes - Cardiovascular Exam Cardiovascular Exam: RRR, +S1, +S2. absent: Bradycardia, Tachycardia, Murmur - GI/Abdominal Exam GI & Abdominal Exam: Soft, Normal Bowel Sounds. absent: Distended, Firm, Guarding, Tenderness - Extremities Exam Extremities Exam: Full ROM, Normal Capillary Refill. absent: Tenderness - Back Exam Back Exam: tenderness Additional comments: mild right lumbar pain to palpation - Neurological Exam Neurological Exam: Alert, Awake, Oriented x3 - Psychiatric Exam Psychiatric exam: Normal Affect, Normal Mood - Skin Additional comments: diffuse scaly plaques to trunk and extremities Assessment and Plan - Assessment and Plan (Free Text) Assessment: Bacteremia Afebrile in past 24 hours, WBC 4.7 Blood culture (12/26/16) positive for Staphylococcus Aureus Repeat blood culture negative Dr. Russo on case. Recommends continuing Nafcillin 2 gm IVPB q4h. Started on and to be continued until 01/11. Patient will then need 4 week course of Rocephin 2g IV q24h to complete 6 week course of IV antibiotic therapy. Primaxin and Vancomycin discontinued. BAUDILIO ECHO showed EF >55%. Negative for vegetations/endocarditis. Dr. Jackson consulted for BAUDILIO to r/o endocarditis, help appreciated. PICC line. UTI UA - negative f/u Urine culture Urine culture positive for Staph aureus. Dr. Russo consulted, help appreciated. See above for abx management. Hypokalemia Resolved Lumbar spine pain Likely musculoskeletal in origin Lumbar CT showed degenerative changes L5-S1 without other acute abnormalities per report. Neuro Dr. Bailon consulted- No further neuro workup needed. Continue Flexeril 10mg PO BID PRN and Naproxen 275mg PO BID PRN for pain. MRI lumbar w and w/o contrast- Discitis at L5-S1 with epidural phlegmon and inflammation of adjacent paravertebral soft tissues. No evidence of abscess. Enhancement of the vertebral bodies at L5 and S1 bridging L5-S1 disc space which could represent marrow reactive changes related to adjacent discitis. Vertebral osteomyelitis is not excluded. TLSO brace per Dr. Khanna. Awaiting brace. ESR 54, previously 59. Leg weakness Head CT negative for acute etiologies per report. Neuro Dr. Bailon consulted, help appreciated. Exfoliative Dermatitis rule out cutaneous T cell lymphoma vs. Pityriasis Rubra Pilaris vs. Vitamin A deficiency Punch Biopsy x2 taken on 12/26/16 from right upper buttock and right lower back for histopathology and T cell rearrangement study. Awaiting report from [facility]. Absolute CD4 count 293, Absolute CD8 count 154 - not suggestive of Mycosis Fungoides HIV negative. HTLV AB negative. STEPHANIE negative, Rheum Arthritis Panel negative SHELDON & Serum PEP: faint restricted M band spike. Vitamin A low- 24. Dietary consulted to increase intake of vitamin A rich foods as pharmacy does not have vitamin A. Continue LacHydrin 12% Lotion BID to affected scaly areas Hemeonc Dr. Ramirez consulted, help appreciated. Prophylactic measure SCD, Lovenox, Protonix <Angelica Caba V - Last Filed: 01/08/17 17:35> Objective - Vital Signs/Intake and Output Vital Signs (last 24 hours): Temp Pulse Resp BP Pulse Ox 97.8 F 76 20 135/79 98 01/08/17 15:00 01/08/17 15:00 01/08/17 15:00 01/08/17 15:00 01/08/17 15:00 Intake and Output: 01/08/17 01/08/17 06:59 18:59 Intake Total 1550 740 Balance 1550 740 - Medications Medications: Current Medications Acetaminophen (Tylenol 325mg Tab) 650 mg PO Q8 PRN PRN Reason: Pain, Mild (1-3) Last Admin: 12/23/16 09:04 Dose: 650 mg Acetaminophen (Tylenol 325mg Tab) 650 mg PO Q8 PRN PRN Reason: Fever>100.4 Last Admin: 12/23/16 17:01 Dose: 650 mg Cyclobenzaprine HCl (Flexeril) 10 mg PO BID PRN PRN Reason: Muscle spasm Last Admin: 12/31/16 09:31 Dose: 10 mg Dicyclomine HCl (Bentyl) 10 mg PO QID [facility] Last Admin: 01/08/17 17:20 Dose: 10 mg Enoxaparin Sodium (Lovenox) 40 mg SC DAILY [facility] Last Admin: 01/08/17 09:18 Dose: 40 mg Nafcillin Sodium 2 gm/ Sodium (Chloride) 250 mls @ 250 mls/hr IVPB Q4H [facility] Last Admin: 01/08/17 17:21 Dose: 250 mls/hr Lactic Acid (Lac-Hydrin 12% Lotion (225 G)) 0 gm EXT BID [facility] Last Admin: 01/08/17 17:20 Dose: 1 applic Naproxen (Anaprox) 275 mg PO BID PRN PRN Reason: Pain, moderate (4-7) Last Admin: 12/31/16 09:32 Dose: 275 mg Pantoprazole Sodium (Protonix Ec Tab) 40 mg PO DAILY [facility] Last Admin: 01/08/17 09:18 Dose: 40 mg Vitamin A (Vitamin A & D Oint Ud Foilpak) 1 ea TOP BID [facility] Last Admin: 01/08/17 17:21 Dose: 1 ea - Labs Labs: 01/08/17 07:17 01/08/17 07:17 PT 12.0 SECONDS (9.7-12.2) 12/27/16 07:16 INR 1.1 12/27/16 07:16 APTT 30 SECONDS (21-34) 12/27/16 07:16 Attending/Attestation - Attestation I have personally seen and examined this patient.: Yes I have fully participated in the care of the patient.: Yes I have reviewed all pertinent clinical information, including history, physical exam and plan: Yes Notes (Text): Patient seen, examined and case discussed with day-time resident. Patient denies acute complaints. Patient currently being treated for IV antibiotics for bacteremia, UTI, and associated Discitis. Patient is awaiting skin biopsy result dermatologic workup (Sent to [place], unknown when result will be available) Follow-up case management, regarding placement given long-term IV abx use. Assessment/Plan 1) Bacteremia secondary to Staph Aureus * Infectious Disease (Dr. Russo) on board-->help appreciated * Cardiology (Dr. Jackson) on board-->help appreciated * Blood culture (12/22/16): Staph Aureus X2 * Blood culture (12/24/16): Staph Aureus X2 * Blood culture (12/26/16): Staph Aureus X2 * Blood culture (12/28/16): No growth after 5 days X2 * Nafcillin 2gram Q4H (12/28-01/11); followed by 4 weeks of Rocephin 2g IV qD * BAUDILIO (12/29/16): no endocarditis noted. Normal LV function 2) Urinary Tract Infection secondary to Staph Aureus * Infectious Disease (Dr. Russo) on board-->help appreciated * Urine culture (12/2016) positive for Staph aureus * Urine culture (01/08/2017) 3) Hypokalemia * Monitor and replete if necessary 4) Discitis * Neurology (Dr. Bailon) on board-->no further neuro workup * Neurosurgery (Dr. Khanna) on board-->very mild diskitis space at L5-1, Phlegmon which is not causing any significant neural element compromise, behind the body of the upper sacrum. Thecal sac and the S1 nerve roots are very well visualized; recommend for TLSO brace for when patient is out of bed * Infectious disease (Dr. Russo) on board-->help appreciated * MRI lumbar w and w/o contrast (12/27/16): Discitis at L5-S1 with epidural phlegmon and inflammation of adjacent apravertebral soft tissues. No evidence of abscess. Enhancement of the vertebral bodies at L5 and S1 bridging L5-S1 disc space which could represent marrow reactive changes related to adjacent discitis. Vertebral osteomyelitis is not excluded. * Lumbar Spine CT (5/20/17): degenerative change L5-S1, no acute osseous abnormality, no abscess * Tylenol 650mg PO Q 8 PRN pain * Tylenol 650mg PO Q 8 PRN Fever >100.4F * Flexeril 10mg PO BID PRN muscle spasm * Anaproz 275mg PO BID PRN moderate * Negative RA, STEPHANIE 5) Skin lesions * Heme-onc (Dr. Mckenna Ramirez) on board-->help appreciated * Awaiting skin biopsy results * HIV negative * HTLV negative * negative HLA-B278 * IPEP/SPEP: faint M spike * absolute: CD 4: 293, CD 8 * UDS: negative 6) Prophylactic measure * SCDs b/l * Lovenox 40mg subq daily for DVT ppx * Protonix 40mg PO daily for GI ppx
[2017-01-08 07:33] LABS: BASO % 0.3 % (0.0-2.0); EOS % 0.4 % (0.0-4.0); HEMATOCRIT 32.2 % (34.0-47.0); LYMPH # 0.9 K/uL (1.0-4.3); MEAN CELL VOLUME 84.1 fL (81.0-99.0); MEAN CORPUSCULAR HEMOGLOBIN 27.9 pg (27.0-31.0); MEAN CORPUSCULAR HGB CONC 33.2 g/dL (33.0-37.0); MEAN PLATELET VOLUME 7.1 fL (7.2-11.7); MONO # 0.4 K/uL (0.0-0.8); MONO % 7.1 % (0.0-10.0); RED CELL DISTRIBUTION WIDTH 14.8 % (11.5-14.5)
[2017-01-08 08:22] LABS: CHLORIDE 104 mmol/L (98-107); SODIUM 137 mmol/L (132-148)
[2017-01-08 08:23] LABS: POTASSIUM 3.8 mmol/L (3.6-5.2)
[2017-01-08 08:25] LABS: ALB/GLOB RATIO 0.8 (1.0-2.1); ALKALINE PHOSPHATASE 76 U/L (38-126); ALT/SGPT 10 U/L (9-52); AST/SGOT 19 U/L (14-36); BILIRUBIN,TOTAL 1.1 mg/dL (0.2-1.3); BLOOD UREA NITROGEN 10 mg/dL (7-17); CALCIUM 8.1 mg/dl (8.6-10.4); CARBON DIOXIDE 25 mmol/L (22-30); GFR AFRICAN-AMERICAN > 60; GLUCOSE,RANDOM 81 mg/dL (65-105); TOTAL PROTEIN 6.6 g/dL (6.3-8.3)
[2017-01-08 08:26] LABS: MAGNESIUM 2.1 mg/dL (1.6-2.3)
[2017-01-08] MEDS: Ammonium Lactate 12% Lotion (225 g) EXT SCH ×2 (09:17→17:20)
[2017-01-08] MEDS: Pantoprazole 40 mg EC Tab PO SCH (09:18)
[2017-01-08 09:41] LABS: RBC URINE < 1 /hpf (0-3); URINE BILIRUBIN NEGATIVE (NEGATIVE); URINE BLOOD NEGATIVE (NEGATIVE); URINE COLOR Straw (YELLOW); URINE GLUCOSE (UA) NORMAL (Normal); URINE KETONE NEGATIVE (NEGATIVE); URINE LEUKOCYTE ESTERASE NEG Leu/uL (Negative); URINE PROTEIN NEGATIVE (NEGATIVE); URINE UROBILINOGEN NORMAL mg/dL (0.2-1.0); WBC URINE 1 /hpf (0-5)
[2017-01-08] MEDS ORDERED: Enoxaparin 40 mg Syringe SC SCH (10:00)
[2017-01-08] MEDS: Vitamins A & D Oint UD Foilpak TOP SCH ×2 (10:20→17:21)
[2017-01-09 07:25] LABS: BASO % 0.5 % (0.0-2.0); EOS % 0.8 % (0.0-4.0); HEMATOCRIT 31.9 % (34.0-47.0); LYMPH # 0.7 K/uL (1.0-4.3); LYMPH % 20.6 % (20.0-40.0); MEAN CELL VOLUME 83.5 fL (81.0-99.0); MEAN CORPUSCULAR HGB CONC 33.6 g/dL (33.0-37.0); MEAN PLATELET VOLUME 7.1 fL (7.2-11.7); MONO # 0.3 K/uL (0.0-0.8); MONO % 7.4 % (0.0-10.0); NRBC % 0.1 % (0.0-2.0); RED CELL DISTRIBUTION WIDTH 15.1 % (11.5-14.5); WHITE BLOOD COUNT 3.5 K/uL (4.8-10.8)
[2017-01-09 07:50] LABS: CHLORIDE 103 mmol/L (98-107); POTASSIUM 3.6 mmol/L (3.6-5.2); SODIUM 137 mmol/L (132-148)
[2017-01-09 07:52] LABS: GFR AFRICAN-AMERICAN > 60
[2017-01-09 07:53] LABS: ALB/GLOB RATIO 0.8 (1.0-2.1); ALKALINE PHOSPHATASE 88 U/L (38-126); ALT/SGPT 12 U/L (9-52); AST/SGOT 17 U/L (14-36); BILIRUBIN,TOTAL 1.1 mg/dL (0.2-1.3); BLOOD UREA NITROGEN 10 mg/dL (7-17); CARBON DIOXIDE 28 mmol/L (22-30); GLUCOSE,RANDOM 84 mg/dL (65-105); TOTAL PROTEIN 6.6 g/dL (6.3-8.3)
[2017-01-09 07:54] LABS: CALCIUM 8.1 mg/dl (8.6-10.4); MAGNESIUM 2.1 mg/dL (1.6-2.3)
[2017-01-09] MEDS: Pantoprazole 40 mg EC Tab PO SCH (10:02)
[2017-01-09] MEDS: Ammonium Lactate 12% Lotion (225 g) EXT SCH ×2 (10:02→17:59)
[2017-01-09] MEDS: Vitamins A & D Oint UD Foilpak TOP SCH ×2 (10:02→17:58)
[2017-01-09] MEDS: Enoxaparin 40 mg Syringe SC SCH (10:02)
--- NOTE | 2017-01-09 12:42 | CP.PCM.PN ---
<PatrickTeresa - Last Filed: 01/09/17 12:39> Subjective - Date & Time of Evaluation Date of Evaluation: 01/09/17 Time of Evaluation: 12:39 - Subjective Subjective: Patient seen and examined at bedside. Patient is resting comfortably and states back pain has resolved. Patient is still awaiting thoracolumbosacral orthosis. life sciences manager was contacting regarding obtaining brace. Patient reports improvement of rash with LacHydrin lotion. She is tolerating her diet well and having normal bowel movements. Patient denies fever, chills, nausea, vomiting, abdominal pain, diarrhea, constipation, and dysuria. Objective - Vital Signs/Intake and Output Vital Signs (last 24 hours): Temp Pulse Resp BP Pulse Ox 98.3 F 73 20 159/98 H 99 01/09/17 08:00 01/09/17 08:00 01/09/17 08:00 01/09/17 08:00 01/09/17 08:00 Intake and Output: 01/09/17 01/09/17 06:59 18:59 Intake Total 740 Balance 740 - Medications Medications: Current Medications Acetaminophen (Tylenol 325mg Tab) 650 mg PO Q8 PRN PRN Reason: Pain, Mild (1-3) Last Admin: 12/23/16 09:04 Dose: 650 mg Acetaminophen (Tylenol 325mg Tab) 650 mg PO Q8 PRN PRN Reason: Fever>100.4 Last Admin: 12/23/16 17:01 Dose: 650 mg Cyclobenzaprine HCl (Flexeril) 10 mg PO BID PRN PRN Reason: Muscle spasm Last Admin: 12/31/16 09:31 Dose: 10 mg Dicyclomine HCl (Bentyl) 10 mg PO QID [facility] Last Admin: 01/09/17 10:02 Dose: 10 mg Enoxaparin Sodium (Lovenox) 40 mg SC DAILY [facility] Last Admin: 01/09/17 10:02 Dose: 40 mg Nafcillin Sodium 2 gm/ Sodium (Chloride) 250 mls @ 250 mls/hr IVPB Q4H [facility] Last Admin: 01/09/17 10:02 Dose: 250 mls/hr Lactic Acid (Lac-Hydrin 12% Lotion (225 G)) 0 gm EXT BID [facility] Last Admin: 01/09/17 10:02 Dose: 1 applic Naproxen (Anaprox) 275 mg PO BID PRN PRN Reason: Pain, moderate (4-7) Last Admin: 12/31/16 09:32 Dose: 275 mg Pantoprazole Sodium (Protonix Ec Tab) 40 mg PO DAILY [facility] Last Admin: 01/09/17 10:02 Dose: 40 mg Vitamin A (Vitamin A & D Oint Ud Foilpak) 1 ea TOP BID [facility] Last Admin: 01/09/17 10:02 Dose: 1 ea - Labs Labs: 01/09/17 07:12 01/09/17 07:12 PT 12.0 SECONDS (9.7-12.2) 12/27/16 07:16 INR 1.1 12/27/16 07:16 APTT 30 SECONDS (21-34) 12/27/16 07:16 - Constitutional Appears: Non-toxic, No Acute Distress - Head Exam Head Exam: ATRAUMATIC, NORMAL INSPECTION, NORMOCEPHALIC - Eye Exam Eye Exam: EOMI, Normal appearance, PERRL - ENT Exam ENT Exam: Mucous Membranes Moist - Neck Exam Neck Exam: Full ROM, Normal Inspection - Respiratory Exam Respiratory Exam: Clear to Ausculation Bilateral, NORMAL BREATHING PATTERN. absent: Rales, Rhonchi, Wheezes - Cardiovascular Exam Cardiovascular Exam: +S1, +S2. absent: Tachycardia - GI/Abdominal Exam GI & Abdominal Exam: Soft, Normal Bowel Sounds. absent: Firm, Guarding, Rigid, Tenderness - Extremities Exam Extremities Exam: Normal Inspection. absent: Pedal Edema, Tenderness - Back Exam Back Exam: absent: tenderness - Neurological Exam Neurological Exam: Alert, Awake, Oriented x3 - Psychiatric Exam Psychiatric exam: Normal Affect, Normal Mood - Skin Additional comments: diffuse scaly plaques to trunk and extremities Assessment and Plan - Assessment and Plan (Free Text) Assessment: Bacteremia Afebrile in past 24 hours, WBC 4.7 Blood culture (12/26/16) positive for Staphylococcus Aureus Repeat blood culture negative Dr. Russo on case. Recommends continuing Nafcillin 2 gm IVPB q4h. Started on and to be continued until 01/11. Patient will then need 4 week course of Rocephin 2g IV q24h to complete 6 week course of IV antibiotic therapy. Primaxin and Vancomycin discontinued. BAUDILIO ECHO showed EF >55%. Negative for vegetations/endocarditis. Dr. Jackson consulted for BAUDILIO to r/o endocarditis, help appreciated. PICC line. UTI UA - negative Urine culture (01/08): no growth Urine culture positive for Staph aureus. Dr. Russo consulted, help appreciated. See above for abx management. Hypokalemia Resolved Lumbar spine pain Likely musculoskeletal in origin Lumbar CT showed degenerative changes L5-S1 without other acute abnormalities per report. Neuro Dr. Bailon consulted- No further neuro workup needed. Continue Flexeril 10mg PO BID PRN and Naproxen 275mg PO BID PRN for pain. MRI lumbar w and w/o contrast- Discitis at L5-S1 with epidural phlegmon and inflammation of adjacent paravertebral soft tissues. No evidence of abscess. Enhancement of the vertebral bodies at L5 and S1 bridging L5-S1 disc space which could represent marrow reactive changes related to adjacent discitis. Vertebral osteomyelitis is not excluded. TLSO brace per Dr. Khanna. Awaiting brace. ESR 54, previously 59. Leg weakness Head CT negative for acute etiologies per report. Neuro Dr. Bailon consulted, help appreciated. Exfoliative Dermatitis rule out cutaneous T cell lymphoma vs. Pityriasis Rubra Pilaris vs. Vitamin A deficiency Punch Biopsy x2 taken on 12/26/16 from right upper buttock and right lower back for histopathology and T cell rearrangement study. Awaiting report from [facility]. Absolute CD4 count 293, Absolute CD8 count 154 - not suggestive of Mycosis Fungoides HIV negative. HTLV AB negative. STEPHANIE negative, Rheum Arthritis Panel negative SHELDON & Serum PEP: faint restricted M band spike. Vitamin A low- 24. Dietary consulted to increase intake of vitamin A rich foods as pharmacy does not have vitamin A. Continue LacHydrin 12% Lotion BID to affected scaly areas Hemeonc Dr. Ramirez consulted, help appreciated. Prophylactic measure SCD, Lovenox, Protonix <Angelica Caba V - Last Filed: 01/09/17 15:47> Objective - Vital Signs/Intake and Output Vital Signs (last 24 hours): Temp Pulse Resp BP Pulse Ox 98.3 F 73 20 159/98 H 99 01/09/17 08:00 01/09/17 08:00 01/09/17 08:00 01/09/17 08:00 01/09/17 08:00 Intake and Output: 01/09/17 01/09/17 06:59 18:59 Intake Total 740 860 Balance 740 860 - Medications Medications: Current Medications Acetaminophen (Tylenol 325mg Tab) 650 mg PO Q8 PRN PRN Reason: Pain, Mild (1-3) Last Admin: 12/23/16 09:04 Dose: 650 mg Acetaminophen (Tylenol 325mg Tab) 650 mg PO Q8 PRN PRN Reason: Fever>100.4 Last Admin: 12/23/16 17:01 Dose: 650 mg Cyclobenzaprine HCl (Flexeril) 10 mg PO BID PRN PRN Reason: Muscle spasm Last Admin: 12/31/16 09:31 Dose: 10 mg Dicyclomine HCl (Bentyl) 10 mg PO QID [facility] Last Admin: 01/09/17 13:01 Dose: 10 mg Enoxaparin Sodium (Lovenox) 40 mg SC DAILY [facility] Last Admin: 01/09/17 10:02 Dose: 40 mg Nafcillin Sodium 2 gm/ Sodium (Chloride) 250 mls @ 250 mls/hr IVPB Q4H [facility] Last Admin: 01/09/17 12:59 Dose: 250 mls/hr Lactic Acid (Lac-Hydrin 12% Lotion (225 G)) 0 gm EXT BID [facility] Last Admin: 01/09/17 10:02 Dose: 1 applic Naproxen (Anaprox) 275 mg PO BID PRN PRN Reason: Pain, moderate (4-7) Last Admin: 12/31/16 09:32 Dose: 275 mg Pantoprazole Sodium (Protonix Ec Tab) 40 mg PO DAILY [facility] Last Admin: 01/09/17 10:02 Dose: 40 mg Vitamin A (Vitamin A & D Oint Ud Foilpak) 1 ea TOP BID [facility] Last Admin: 01/09/17 10:02 Dose: 1 ea - Labs Labs: 01/09/17 07:12 01/09/17 07:12 PT 12.0 SECONDS (9.7-12.2) 12/27/16 07:16 INR 1.1 12/27/16 07:16 APTT 30 SECONDS (21-34) 12/27/16 07:16 Attending/Attestation - Attestation I have personally seen and examined this patient.: Yes I have fully participated in the care of the patient.: Yes I have reviewed all pertinent clinical information, including history, physical exam and plan: Yes Notes (Text): Patient seen, examined and case discussed with day-time resident. Patient denies acute complaints. Patient currently being treated for IV antibiotics for bacteremia, UTI, and associated Discitis. Patient is awaiting skin biopsy result dermatologic workup (Sent to [place], unknown when result will be available) Awaiting TLSO-brace for the patient. Follow-up case management, regarding placement given long-term IV abx use. Assessment/Plan 1) Bacteremia secondary to Staph Aureus * Infectious Disease (Dr. Russo) on board-->help appreciated * Cardiology (Dr. Jackson) on board-->help appreciated * Blood culture (12/22/16): Staph Aureus X2 * Blood culture (12/24/16): Staph Aureus X2 * Blood culture (12/26/16): Staph Aureus X2 * Blood culture (12/28/16): No growth after 5 days X2 * Nafcillin 2gram Q4H (12/28-01/11); followed by 4 weeks of Rocephin 2g IV qD * BAUDILIO (12/29/16): no endocarditis noted. Normal LV function 2) Urinary Tract Infection secondary to Staph Aureus * Infectious Disease (Dr. Russo) on board-->help appreciated * Urine culture (12/2016) positive for Staph aureus * Urine culture (01/08/2017) 3) Hypokalemia * Monitor and replete if necessary 4) Discitis * Neurology (Dr. Bailon) on board-->no further neuro workup * Neurosurgery (Dr. Khanna) on board-->very mild diskitis space at L5-1, Phlegmon which is not causing any significant neural element compromise, behind the body of the upper sacrum. Thecal sac and the S1 nerve roots are very well visualized; recommend for TLSO brace for when patient is out of bed * Infectious disease (Dr. Russo) on board-->help appreciated * MRI lumbar w and w/o contrast (12/27/16): Discitis at L5-S1 with epidural phlegmon and inflammation of adjacent apravertebral soft tissues. No evidence of abscess. Enhancement of the vertebral bodies at L5 and S1 bridging L5-S1 disc space which could represent marrow reactive changes related to adjacent discitis. Vertebral osteomyelitis is not excluded. * Lumbar Spine CT (12/22/16): degenerative change L5-S1, no acute osseous abnormality, no abscess * Tylenol 650mg PO Q 8 PRN pain * Tylenol 650mg PO Q 8 PRN Fever >100.4F * Flexeril 10mg PO BID PRN muscle spasm * Anaproz 275mg PO BID PRN moderate * Negative RA, STEPHANIE 5) Skin lesions * Heme-onc (Dr. Mckenna Ramirez) on board-->help appreciated * Awaiting skin biopsy results * HIV negative * HTLV negative * negative [id number] * IPEP/SPEP: faint M spike * absolute: CD 4: 293, CD 8 * UDS: negative 6) Prophylactic measure * SCDs b/l * Lovenox 40mg subq daily for DVT ppx * Protonix 40mg PO daily for GI ppx
--- NOTE | 2017-01-10 05:43 | CP.PCM.PN ---
<PatrickTeresa - Last Filed: 01/10/17 12:29> Subjective - Date & Time of Evaluation Date of Evaluation: 01/10/17 Time of Evaluation: 05:43 - Subjective Subjective: The patient was seen and examined at bedside. The patient is doing well today. Her brace has still not been brought up to her. The order is in but we are still waiting for it. She denies fever/chills, diarrhea/constipation, hematochezia/hematuria. She states that her skin is improving. She is not complaining of tenderness to palpation of her spine. The water rights specialist has not spoken with her as of yet. Objective - Vital Signs/Intake and Output Vital Signs (last 24 hours): Temp Pulse Resp BP Pulse Ox 98.4 F 84 20 125/81 99 01/10/17 00:00 01/10/17 00:00 01/10/17 00:00 01/10/17 00:00 01/10/17 00:00 Intake and Output: 01/09/17 01/10/17 18:59 06:59 Intake Total 860 900 Balance 860 900 - Medications Medications: Current Medications Acetaminophen (Tylenol 325mg Tab) 650 mg PO Q8 PRN PRN Reason: Pain, Mild (1-3) Last Admin: 12/23/16 09:04 Dose: 650 mg Acetaminophen (Tylenol 325mg Tab) 650 mg PO Q8 PRN PRN Reason: Fever>100.4 Last Admin: 12/23/16 17:01 Dose: 650 mg Cyclobenzaprine HCl (Flexeril) 10 mg PO BID PRN PRN Reason: Muscle spasm Last Admin: 12/31/16 09:31 Dose: 10 mg Dicyclomine HCl (Bentyl) 10 mg PO QID [facility] Last Admin: 01/09/17 21:14 Dose: 10 mg Enoxaparin Sodium (Lovenox) 40 mg SC DAILY [facility] Last Admin: 01/09/17 10:02 Dose: 40 mg Nafcillin Sodium 2 gm/ Sodium (Chloride) 250 mls @ 250 mls/hr IVPB Q4H [facility] Last Admin: 01/10/17 05:04 Dose: 250 mls/hr Lactic Acid (Lac-Hydrin 12% Lotion (225 G)) 0 gm EXT BID [facility] Last Admin: 01/09/17 17:59 Dose: 1 applic Naproxen (Anaprox) 275 mg PO BID PRN PRN Reason: Pain, moderate (4-7) Last Admin: 12/31/16 09:32 Dose: 275 mg Pantoprazole Sodium (Protonix Ec Tab) 40 mg PO DAILY [facility] Last Admin: 01/09/17 10:02 Dose: 40 mg - Labs Labs: 01/09/17 07:12 01/09/17 07:12 PT 12.0 SECONDS (9.7-12.2) 12/27/16 07:16 INR 1.1 12/27/16 07:16 APTT 30 SECONDS (21-34) 12/27/16 07:16 - Constitutional Appears: Non-toxic, No Acute Distress - Head Exam Head Exam: ATRAUMATIC, NORMOCEPHALIC - Eye Exam Eye Exam: EOMI, PERRL - ENT Exam ENT Exam: Mucous Membranes Moist - Neck Exam Neck Exam: Normal Inspection - Respiratory Exam Respiratory Exam: Clear to Ausculation Bilateral, NORMAL BREATHING PATTERN. absent: Rales, Rhonchi, Wheezes - Cardiovascular Exam Cardiovascular Exam: RRR, +S1, +S2. absent: Bradycardia, Tachycardia, Gallop, Rubs, Murmur - GI/Abdominal Exam GI & Abdominal Exam: Soft, Normal Bowel Sounds. absent: Distended, Tenderness - Extremities Exam Extremities Exam: Normal Inspection. absent: Pedal Edema, Tenderness - Back Exam Back Exam: NORMAL INSPECTION - Neurological Exam Neurological Exam: Alert, Awake, CN II-XII Intact, Oriented x3 - Psychiatric Exam Psychiatric exam: Normal Affect, Normal Mood - Skin Additional comments: Diffuse xerosis with mild scale affecting trunk and extremities Assessment and Plan - Assessment and Plan (Free Text) Assessment: Bacteremia Afebrile in past 24 hours, WBC 3.6 Blood culture (12/26/16) positive for Staphylococcus Aureus Repeat blood culture negative Dr. Russo on case. Recommends continuing Nafcillin 2 gm IVPB q4h. Started on and to be continued until 01/11. Patient will then need 4 week course of Rocephin 2g IV q24h to complete 6 week course of IV antibiotic therapy. Primaxin and Vancomycin discontinued. BAUDILIO ECHO showed EF >55%. Negative for vegetations/endocarditis. Dr. Jackson consulted for BAUDILIO to r/o endocarditis, help appreciated. PICC line. UTI UA - negative Urine culture (01/08): no growth Urine culture positive for Staph aureus. Dr. Russo consulted, help appreciated. See above for abx management. Hypokalemia Potassium 3.5, replete Lumbar spine pain Likely musculoskeletal in origin Lumbar CT showed degenerative changes L5-S1 without other acute abnormalities per report. Neuro Dr. Bailon consulted- No further neuro workup needed. Continue Flexeril 10mg PO BID PRN and Naproxen 275mg PO BID PRN for pain. MRI lumbar w and w/o contrast- Discitis at L5-S1 with epidural phlegmon and inflammation of adjacent paravertebral soft tissues. No evidence of abscess. Enhancement of the vertebral bodies at L5 and S1 bridging L5-S1 disc space which could represent marrow reactive changes related to adjacent discitis. Vertebral osteomyelitis is not excluded. TLSO brace per Dr. Khanna. Awaiting brace. Per physical therapist, brace to arrive today. ESR 54, previously 59. Leg weakness Head CT negative for acute etiologies per report. Neuro Dr. Bailon consulted, help appreciated. Exfoliative Dermatitis rule out cutaneous T cell lymphoma vs. Pityriasis Rubra Pilaris vs. Vitamin A deficiency Xerosis and scaling improving. Likely secondary to Vitamin A deficiency. Punch Biopsy x2 taken on 12/26/16 from right upper buttock and right lower back for histopathology and T cell rearrangement study. Awaiting report from [facility]. Absolute CD4 count 293, Absolute CD8 count 154 - not suggestive of Mycosis Fungoides HIV negative. HTLV AB negative. STEPHANIE negative, Rheum Arthritis Panel negative SHELDON & Serum PEP: faint restricted M band spike. Vitamin A low- 24. Dietary consulted to increase intake of vitamin A rich foods as pharmacy does not have vitamin A. Continue LacHydrin 12% Lotion BID to affected scaly areas Hemeonc Dr. Ramirez consulted, help appreciated. Hypertension 177/107 (01/09/17) Blood pressure controlled today - 134/86 Continue to monitor Prophylactic measure SCD, Lovenox, Protonix <Angelica Caba V - Last Filed: 01/15/17 16:31> Objective - Vital Signs/Intake and Output Vital Signs (last 24 hours): Temp Pulse Resp BP Pulse Ox 98.2 F 76 20 130/85 100 01/15/17 00:00 01/15/17 00:00 01/15/17 00:00 01/15/17 00:00 01/15/17 00:00 Intake and Output: 01/15/17 01/15/17 06:59 18:59 Intake Total 1400 Balance 1400 - Medications Medications: Current Medications Acetaminophen (Tylenol 325mg Tab) 650 mg PO Q8 PRN PRN Reason: Pain, Mild (1-3) Last Admin: 12/23/16 09:04 Dose: 650 mg Acetaminophen (Tylenol 325mg Tab) 650 mg PO Q8 PRN PRN Reason: Fever>100.4 Last Admin: 12/23/16 17:01 Dose: 650 mg Amlodipine Besylate (Norvasc) 5 mg PO DAILY [facility] Last Admin: 01/15/17 09:19 Dose: 5 mg Chlorthalidone (Hygroton) 25 mg PO DAILY [facility] Last Admin: 01/15/17 09:18 Dose: 25 mg Cyclobenzaprine HCl (Flexeril) 10 mg PO BID PRN PRN Reason: Muscle spasm Last Admin: 12/31/16 09:31 Dose: 10 mg Dicyclomine HCl (Bentyl) 10 mg PO QID [facility] Last Admin: 01/15/17 13:11 Dose: 10 mg Docusate Sodium (Colace) 100 mg PO BID [facility] Last Admin: 01/15/17 09:18 Dose: 100 mg Enoxaparin Sodium (Lovenox) 40 mg SC DAILY [facility] Last Admin: 01/15/17 10:32 Dose: 40 mg Ceftriaxone Sodium 2 gm/ (Sodium Chloride) 100 mls @ 100 mls/hr IVPB Q24H [facility] Last Admin: 01/15/17 09:18 Dose: 100 mls/hr Nafcillin Sodium 2 gm/ Sodium (Chloride) 250 mls @ 250 mls/hr IVPB Q4H [facility] Last Admin: 01/15/17 13:10 Dose: 250 mls/hr Lactic Acid (Lac-Hydrin 12% Lotion (225 G)) 0 gm EXT BID [facility] Last Admin: 01/15/17 10:28 Dose: 1 applic Naproxen (Anaprox) 275 mg PO BID PRN PRN Reason: Pain, moderate (4-7) Last Admin: 01/14/17 09:02 Dose: 275 mg Pantoprazole Sodium (Protonix Ec Tab) 40 mg PO DAILY [facility] Last Admin: 01/15/17 09:18 Dose: 40 mg - Labs Labs: 01/15/17 06:16 01/15/17 06:16 PT 12.0 SECONDS (9.7-12.2) 12/27/16 07:16 INR 1.1 12/27/16 07:16 APTT 30 SECONDS (21-34) 12/27/16 07:16 Attending/Attestation - Attestation I have personally seen and examined this patient.: Yes I have fully participated in the care of the patient.: Yes I have reviewed all pertinent clinical information, including history, physical exam and plan: Yes Notes (Text): This is a late computer entry for 01/10/17. Patient seen, examined and case discussed with day-time resident. Patient denies acute complaints. Patient currently being treated for IV antibiotics for bacteremia, UTI, and associated Discitis. Patient is awaiting skin biopsy result dermatologic workup (Sent to [place], unknown when result will be available) Awaiting TLSO-brace for the patient. Follow-up case management, regarding placement given long-term IV abx use. Assessment/Plan 1) Bacteremia secondary to Staph Aureus * Infectious Disease (Dr. Russo) on board-->help appreciated * Cardiology (Dr. Jackson) on board-->help appreciated * Blood culture (12/22/16): Staph Aureus X2 * Blood culture (12/24/16): Staph Aureus X2 * Blood culture (12/26/16): Staph Aureus X2 * Blood culture (12/28/16): No growth after 5 days X2 * Nafcillin 2gram Q4H (12/28-01/11); followed by 4 weeks of Rocephin 2g IV qD * BAUDILIO (12/29/16): no endocarditis noted. Normal LV function 2) Urinary Tract Infection secondary to Staph Aureus * Infectious Disease (Dr. Russo) on board-->help appreciated * Urine culture (12/2016) positive for Staph aureus * Urine culture (01/08/2017): no growth 3) Hypokalemia * Monitor and replete if necessary 4) Discitis * Neurology (Dr. Bailon) on board-->no further neuro workup * Neurosurgery (Dr. Khanna) on board-->very mild diskitis space at L5-1, Phlegmon which is not causing any significant neural element compromise, behind the body of the upper sacrum. Thecal sac and the S1 nerve roots are very well visualized; recommend for TLSO brace for when patient is out of bed * Infectious disease (Dr. Russo) on board-->help appreciated * MRI lumbar w and w/o contrast (12/27/16): Discitis at L5-S1 with epidural phlegmon and inflammation of adjacent apravertebral soft tissues. No evidence of abscess. Enhancement of the vertebral bodies at L5 and S1 bridging L5-S1 disc space which could represent marrow reactive changes related to adjacent discitis. Vertebral osteomyelitis is not excluded. * Lumbar Spine CT (12/22/16): degenerative change L5-S1, no acute osseous abnormality, no abscess * Tylenol 650mg PO Q 8 PRN pain * Tylenol 650mg PO Q 8 PRN Fever >100.4F * Flexeril 10mg PO BID PRN muscle spasm * Anaproz 275mg PO BID PRN moderate * Negative RA, STEPHANIE 5) Skin lesions * Heme-onc (Dr. Mckenna Ramirez) on board-->help appreciated * Awaiting skin biopsy results * HIV negative * HTLV negative * negative HLA-B278 * IPEP/SPEP: faint M spike * absolute: CD 4: 293, CD 8 * UDS: negative 6) Prophylactic measure * SCDs b/l * Lovenox 40mg subq daily for DVT ppx * Protonix 40mg PO daily for GI ppx
[2017-01-10 08:09] LABS: BASO % 0.4 % (0.0-2.0); EOS # 0.1 K/uL (0.0-0.7); EOS % 1.6 % (0.0-4.0); HEMATOCRIT 31.9 % (34.0-47.0); LYMPH # 0.8 K/uL (1.0-4.3); MEAN CELL VOLUME 83.8 fL (81.0-99.0); MEAN CORPUSCULAR HEMOGLOBIN 27.5 pg (27.0-31.0); MEAN CORPUSCULAR HGB CONC 32.9 g/dL (33.0-37.0); MEAN PLATELET VOLUME 7.3 fL (7.2-11.7); MONO # 0.3 K/uL (0.0-0.8); NRBC % 0.1 % (0.0-2.0); RED CELL DISTRIBUTION WIDTH 14.8 % (11.5-14.5); WHITE BLOOD COUNT 3.6 K/uL (4.8-10.8)
[2017-01-10 08:22] LABS: CHLORIDE 105 mmol/L (98-107); POTASSIUM 3.5 mmol/L (3.6-5.2); SODIUM 139 mmol/L (132-148)
[2017-01-10 08:24] LABS: GFR AFRICAN-AMERICAN > 60
[2017-01-10 08:25] LABS: ALB/GLOB RATIO 0.8 (1.0-2.1); ALKALINE PHOSPHATASE 90 U/L (38-126); ALT/SGPT 10 U/L (9-52); AST/SGOT 15 U/L (14-36); BLOOD UREA NITROGEN 13 mg/dL (7-17); CALCIUM 7.9 mg/dl (8.6-10.4); CARBON DIOXIDE 26 mmol/L (22-30); GLUCOSE,RANDOM 83 mg/dL (65-105); TOTAL PROTEIN 6.5 g/dL (6.3-8.3)
[2017-01-10 08:26] LABS: MAGNESIUM 2.1 mg/dL (1.6-2.3)
[2017-01-10] MEDS ORDERED: Potassium Chloride 20 mEq ER Tab PO ONE (10:00)
[2017-01-10] MEDS: Pantoprazole 40 mg EC Tab PO SCH (10:35)
[2017-01-10] MEDS: Enoxaparin 40 mg Syringe SC SCH (10:35)
[2017-01-10] MEDS: Ammonium Lactate 12% Lotion (225 g) EXT SCH ×2 (10:50→17:53)
[2017-01-11 07:18] LABS: BASO % 0.1 % (0.0-2.0); EOS # 0.1 K/uL (0.0-0.7); EOS % 2.4 % (0.0-4.0); HEMATOCRIT 33.4 % (34.0-47.0); LYMPH # 0.8 K/uL (1.0-4.3); LYMPH % 18.7 % (20.0-40.0); MEAN CORPUSCULAR HEMOGLOBIN 27.6 pg (27.0-31.0); MEAN CORPUSCULAR HGB CONC 32.9 g/dL (33.0-37.0); MEAN PLATELET VOLUME 7.3 fL (7.2-11.7); MONO # 0.3 K/uL (0.0-0.8); MONO % 7.9 % (0.0-10.0); NRBC % 0.1 % (0.0-2.0); RED CELL DISTRIBUTION WIDTH 15.2 % (11.5-14.5); WHITE BLOOD COUNT 4.3 K/uL (4.8-10.8)
[2017-01-11 07:26] LABS: CHLORIDE 105 mmol/L (98-107); POTASSIUM 3.8 mmol/L (3.6-5.2); SODIUM 140 mmol/L (132-148)
[2017-01-11 07:28] LABS: BILIRUBIN,TOTAL 0.9 mg/dL (0.2-1.3); CARBON DIOXIDE 26 mmol/L (22-30); GFR AFRICAN-AMERICAN > 60
[2017-01-11 07:29] LABS: ALB/GLOB RATIO 0.8 (1.0-2.1); ALKALINE PHOSPHATASE 94 U/L (38-126); ALT/SGPT 16 U/L (9-52); AST/SGOT 16 U/L (14-36); BLOOD UREA NITROGEN 10 mg/dL (7-17); CALCIUM 8.5 mg/dl (8.6-10.4); GLUCOSE,RANDOM 85 mg/dL (65-105); TOTAL PROTEIN 6.8 g/dL (6.3-8.3)
[2017-01-11 07:30] LABS: MAGNESIUM 2.2 mg/dL (1.6-2.3)
[2017-01-11] MEDS: Pantoprazole 40 mg EC Tab PO SCH (10:12)
[2017-01-11] MEDS: Enoxaparin 40 mg Syringe SC SCH (10:12)
[2017-01-11] MEDS: Ammonium Lactate 12% Lotion (225 g) EXT SCH ×2 (10:13→18:20)
--- NOTE | 2017-01-11 10:29 | CP.PCM.PN ---
Subjective - Date & Time of Evaluation Date of Evaluation: 01/11/17 Time of Evaluation: 10:22 - Subjective Subjective: Patient seen and examined at bedside. Patient received TLSO brace yesterday and tolerated well. Patient states she worked with She denies pain to thoracic/ lumbar spine. She Objective - Vital Signs/Intake and Output Vital Signs (last 24 hours): Temp Pulse Resp BP Pulse Ox 98.7 F 75 20 166/107 H 100 01/11/17 07:42 01/11/17 07:42 01/11/17 07:42 01/11/17 07:42 01/11/17 07:42 Intake and Output: 01/11/17 01/11/17 06:59 18:59 Intake Total 750 Balance 750 - Medications Medications: Current Medications Acetaminophen (Tylenol 325mg Tab) 650 mg PO Q8 PRN PRN Reason: Pain, Mild (1-3) Last Admin: 12/23/16 09:04 Dose: 650 mg Acetaminophen (Tylenol 325mg Tab) 650 mg PO Q8 PRN PRN Reason: Fever>100.4 Last Admin: 12/23/16 17:01 Dose: 650 mg Cyclobenzaprine HCl (Flexeril) 10 mg PO BID PRN PRN Reason: Muscle spasm Last Admin: 12/31/16 09:31 Dose: 10 mg Dicyclomine HCl (Bentyl) 10 mg PO QID [facility] Last Admin: 01/11/17 10:12 Dose: 10 mg Enoxaparin Sodium (Lovenox) 40 mg SC DAILY [facility] Last Admin: 01/11/17 10:12 Dose: 40 mg Nafcillin Sodium 2 gm/ Sodium (Chloride) 250 mls @ 250 mls/hr IVPB Q4H [facility] Last Admin: 01/11/17 10:00 Dose: 250 mls/hr Lactic Acid (Lac-Hydrin 12% Lotion (225 G)) 0 gm EXT BID [facility] Last Admin: 01/11/17 10:13 Dose: 1 applic Naproxen (Anaprox) 275 mg PO BID PRN PRN Reason: Pain, moderate (4-7) Last Admin: 12/31/16 09:32 Dose: 275 mg Pantoprazole Sodium (Protonix Ec Tab) 40 mg PO DAILY [facility] Last Admin: 01/11/17 10:12 Dose: 40 mg - Labs Labs: 01/11/17 07:01 06/09/17 07:01 PT 12.0 SECONDS (9.7-12.2) 12/27/16 07:16 INR 1.1 12/27/16 07:16 APTT 30 SECONDS (21-34) 12/27/16 07:16 - Constitutional Appears: Non-toxic, No Acute Distress - Head Exam Head Exam: ATRAUMATIC, NORMAL INSPECTION, NORMOCEPHALIC - Eye Exam Eye Exam: EOMI, Normal appearance, PERRL - ENT Exam ENT Exam: Mucous Membranes Moist - Neck Exam Neck Exam: Full ROM, Normal Inspection - Respiratory Exam Respiratory Exam: Clear to Ausculation Bilateral, NORMAL BREATHING PATTERN. absent: Rales, Rhonchi, Wheezes - Cardiovascular Exam Cardiovascular Exam: +S1, +S2. absent: Bradycardia, Tachycardia - GI/Abdominal Exam GI & Abdominal Exam: Soft, Normal Bowel Sounds. absent: Distended, Firm, Guarding, Mass - Extremities Exam Extremities Exam: Normal Inspection. absent: Pedal Edema, Tenderness - Back Exam Back Exam: NORMAL INSPECTION. absent: tenderness - Neurological Exam Neurological Exam: Alert, Awake, Oriented x3 - Psychiatric Exam Psychiatric exam: Normal Affect, Normal Mood - Skin Skin Exam: Intact, Normal Color Assessment and Plan - Assessment and Plan (Free Text) Assessment: Bacteremia Afebrile in past 24 hours, WBC 4.3 Last day of Nafcillin. Patient to start Rocephin 2g IV q24h for 4 weeks tomorrow Blood culture (12/26/16) positive for Staphylococcus Aureus Repeat blood culture negative Dr. Rusos on case. Recommends continuing Nafcillin 2 gm IVPB q4h. Started on and to be continued until 01/11. Patient will then need 4 week course of Rocephin 2g IV q24h to complete 6 week course of IV antibiotic therapy. Primaxin and Vancomycin discontinued. BAUDILIO ECHO showed EF >55%. Negative for vegetations/endocarditis. Dr. Jackson consulted for BAUDILIO to r/o endocarditis, help appreciated. PICC line. UTI UA - negative Urine culture (01/08): no growth Urine culture positive for Staph aureus. Dr. Russo consulted, help appreciated. See above for abx management. Hypokalemia Resolved Lumbar spine pain Likely musculoskeletal in origin TLSO brace received. Patient worked with PT yesterday and was walking out of bed. Educated on proper donning of brace. Tolerated well. Lumbar CT showed degenerative changes L5-S1 without other acute abnormalities per report. Neuro Dr. Bailon consulted- No further neuro workup needed. Continue Flexeril 10mg PO BID PRN and Naproxen 275mg PO BID PRN for pain. MRI lumbar w and w/o contrast- Discitis at L5-S1 with epidural phlegmon and inflammation of adjacent paravertebral soft tissues. No evidence of abscess. Enhancement of the vertebral bodies at L5 and S1 bridging L5-S1 disc space which could represent marrow reactive changes related to adjacent discitis. Vertebral osteomyelitis is not excluded. TLSO brace per Dr. Khanna. ESR 54, previously 59. Leg weakness Head CT negative for acute etiologies per report. Per PT: "TOLERATED USE OF TLSO DURING AMBULATION AND WHILE OOB, PATIENT REQUIRES VC TO PROPER DONNING OF BRACE AND SAFETY DURING GAIT, + UNSTEADINESS BUT STABLE W/ RW. WILL BENEFIT W/ SKILLED PT FOR ENDURANCE, BALANCE AND GAIT TRNG." Neuro Dr. Bailon consulted, help appreciated. Exfoliative Dermatitis Xerosis and scaling improving. Likely secondary to Vitamin A deficiency. Punch Biopsy x2 taken on 12/26/16 from right upper buttock and right lower back for histopathology and T cell rearrangement study. Awaiting report from [facility] - slides not properly prepared but may represent spongiotic dermatitis/lichenoid dermatitis Absolute CD4 count 293, Absolute CD8 count 154 - not suggestive of Mycosis Fungoides HIV negative. HTLV AB negative. STEPHANIE negative, Rheum Arthritis Panel negative SHELDNO & Serum PEP: faint restricted M band spike. Vitamin A low- 24. Dietary consulted to increase intake of vitamin A rich foods as pharmacy does not have vitamin A. Continue LacHydrin 12% Lotion BID to affected scaly areas Hemeonc Dr. Ramirez consulted, help appreciated. Hypertension 177/107 (01/09/17) Blood pressure controlled today - 134/86 Continue to monitor Prophylactic measure SCD, Lovenox, Protonix
--- NOTE | 2017-01-12 01:38 | CP.PCM.PN ---
<Cabrera Leonard - Last Filed: 01/12/17 07:49> Subjective - Date & Time of Evaluation Date of Evaluation: 01/12/17 Time of Evaluation: 01:35 - Subjective Subjective: PGY-1 medicine progress note Pt seen and examined at bedside. Nursing reports no acute events overnight. Pt found resting comfortably in bed watching TV. Pt has been working with PT daily , and their note reports "improving tolerance and endurance with ambulation." Pt denies any back pain at this time. She further denies chest pain, abdominal pain, N/V/D/C. Objective - Vital Signs/Intake and Output Vital Signs (last 24 hours): Temp Pulse Resp BP Pulse Ox 97.5 F L 91 H 20 115/77 100 01/12/17 00:00 01/12/17 00:00 01/12/17 00:00 01/12/17 00:00 01/12/17 00:00 Intake and Output: 01/11/17 01/12/17 18:59 06:59 Intake Total 800 Output Total 500 Balance 300 - Medications Medications: Current Medications Acetaminophen (Tylenol 325mg Tab) 650 mg PO Q8 PRN PRN Reason: Pain, Mild (1-3) Last Admin: 12/23/16 09:04 Dose: 650 mg Acetaminophen (Tylenol 325mg Tab) 650 mg PO Q8 PRN PRN Reason: Fever>100.4 Last Admin: 12/23/16 17:01 Dose: 650 mg Amlodipine Besylate (Norvasc) 5 mg PO DAILY [facility] Chlorthalidone (Hygroton) 25 mg PO DAILY [facility] Last Admin: 01/11/17 14:21 Dose: 25 mg Cyclobenzaprine HCl (Flexeril) 10 mg PO BID PRN PRN Reason: Muscle spasm Last Admin: 12/31/16 09:31 Dose: 10 mg Dicyclomine HCl (Bentyl) 10 mg PO QID [facility] Last Admin: 01/11/17 21:17 Dose: 10 mg Enoxaparin Sodium (Lovenox) 40 mg SC DAILY [facility] Last Admin: 01/11/17 10:12 Dose: 40 mg Nafcillin Sodium 2 gm/ Sodium (Chloride) 250 mls @ 250 mls/hr IVPB Q4H [facility] Last Admin: 01/12/17 00:40 Dose: 250 mls/hr Lactic Acid (Lac-Hydrin 12% Lotion (225 G)) 0 gm EXT BID [facility] Last Admin: 01/11/17 18:20 Dose: 1 applic Naproxen (Anaprox) 275 mg PO BID PRN PRN Reason: Pain, moderate (4-7) Last Admin: 12/31/16 09:32 Dose: 275 mg Pantoprazole Sodium (Protonix Ec Tab) 40 mg PO DAILY [facility] Last Admin: 01/11/17 10:12 Dose: 40 mg - Labs Labs: 01/11/17 07:01 01/11/17 07:01 PT 12.0 SECONDS (9.7-12.2) 12/27/16 07:16 INR 1.1 12/27/16 07:16 APTT 30 SECONDS (21-34) 12/27/16 07:16 - Additional Findings Additional findings: Head Exam Head Exam: ATRAUMATIC, NORMAL INSPECTION, NORMOCEPHALIC - Eye Exam Eye Exam: EOMI, Normal appearance, PERRL - ENT Exam ENT Exam: Mucous Membranes Moist - Neck Exam Neck Exam: Full ROM, Normal Inspection - Respiratory Exam Respiratory Exam: Clear to Ausculation Bilateral, NORMAL BREATHING PATTERN. absent: Rales, Rhonchi, Wheezes - Cardiovascular Exam Cardiovascular Exam: +S1, +S2. absent: Bradycardia, Tachycardia - GI/Abdominal Exam GI & Abdominal Exam: Soft, Normal Bowel Sounds. absent: Distended, Firm, Guarding, Mass - Extremities Exam Extremities Exam: Normal Inspection. absent: Pedal Edema, Tenderness - Back Exam Back Exam: NORMAL INSPECTION. absent: tenderness - Neurological Exam Neurological Exam: Alert, Awake, Oriented x3 - Psychiatric Exam Psychiatric exam: Normal Affect, Normal Mood - Skin Skin Exam: Intact, Normal Color Assessment and Plan - Assessment and Plan (Free Text) Plan: Bacteremia Afebrile in past 24 hours, WBC 4.3 Start Rocephin 2g IV q24h for 4 weeks today (01/12) - Nafcillin D/C Blood culture (12/26/16) positive for Staphylococcus Aureus Repeat blood culture negative Dr. Russo on case. Recommends continuing Nafcillin 2 gm IVPB q4h. Started on and to be continued until 01/11. Patient will then need 4 week course of Rocephin 2g IV q24h to complete 6 week course of IV antibiotic therapy. Primaxin and Vancomycin discontinued. BAUDILIO ECHO showed EF >55%. Negative for vegetations/endocarditis. Dr. Jackson consulted for BAUDILIO to r/o endocarditis, help appreciated. PICC line. UTI UA - negative Urine culture (01/08): no growth Urine culture positive for Staph aureus. Dr. Russo consulted, help appreciated. See above for abx management. Hypokalemia Resolved Lumbar spine pain Likely musculoskeletal in origin TLSO brace received. Patient worked with PT yesterday and was walking out of bed. Educated on proper donning of brace. Tolerated well. Lumbar CT showed degenerative changes L5-S1 without other acute abnormalities per report. Neuro Dr. Bailon consulted- No further neuro workup needed. Continue Flexeril 10mg PO BID PRN and Naproxen 275mg PO BID PRN for pain. MRI lumbar w and w/o contrast- Discitis at L5-S1 with epidural phlegmon and inflammation of adjacent paravertebral soft tissues. No evidence of abscess. Enhancement of the vertebral bodies at L5 and S1 bridging L5-S1 disc space which could represent marrow reactive changes related to adjacent discitis. Vertebral osteomyelitis is not excluded. TLSO brace per Dr. Khanna. ESR 54, previously 59. Leg weakness Head CT negative for acute etiologies per report. Per PT: "TOLERATED USE OF TLSO DURING AMBULATION AND WHILE OOB, PATIENT REQUIRES VC TO PROPER DONNING OF BRACE AND SAFETY DURING GAIT, + UNSTEADINESS BUT STABLE W/ RW. WILL BENEFIT W/ SKILLED PT FOR ENDURANCE, BALANCE AND GAIT TRNG." Neuro Dr. Bailon consulted, help appreciated. Exfoliative Dermatitis Xerosis and scaling improving. Likely secondary to Vitamin A deficiency. Punch Biopsy x2 taken on 12/26/16 from right upper buttock and right lower back for histopathology and T cell rearrangement study. Awaiting report from [facility] - slides not properly prepared but may represent spongiotic dermatitis/lichenoid dermatitis Absolute CD4 count 293, Absolute CD8 count 154 - not suggestive of Mycosis Fungoides HIV negative. HTLV AB negative. STEPHANIE negative, Rheum Arthritis Panel negative SHELDON & Serum PEP: faint restricted M band spike. Vitamin A low- 24. Dietary consulted to increase intake of vitamin A rich foods as pharmacy does not have vitamin A. Continue LacHydrin 12% Lotion BID to affected scaly areas Hemeonc Dr. Ramirez consulted, help appreciated. Hypertension 177/107 (01/09/17) Blood pressure controlled today - 134/86 Continue to monitor Prophylactic measure SCD, Lovenox, Protonix <Rafael Micahel - Last Filed: 01/12/17 17:21> Objective - Vital Signs/Intake and Output Vital Signs (last 24 hours): Temp Pulse Resp BP Pulse Ox 98.3 F 92 H 20 134/87 100 01/12/17 08:31 01/12/17 08:31 01/12/17 08:31 01/12/17 08:31 01/12/17 08:31 Intake and Output: 01/12/17 01/12/17 06:59 18:59 Intake Total 800 340 Output Total 500 Balance 300 340 - Medications Medications: Current Medications Acetaminophen (Tylenol 325mg Tab) 650 mg PO Q8 PRN PRN Reason: Pain, Mild (1-3) Last Admin: 12/23/16 09:04 Dose: 650 mg Acetaminophen (Tylenol 325mg Tab) 650 mg PO Q8 PRN PRN Reason: Fever>100.4 Last Admin: 12/23/16 17:01 Dose: 650 mg Amlodipine Besylate (Norvasc) 5 mg PO DAILY [facility] Last Admin: 01/12/17 10:31 Dose: 5 mg Chlorthalidone (Hygroton) 25 mg PO DAILY [facility] Last Admin: 01/12/17 10:30 Dose: 25 mg Cyclobenzaprine HCl (Flexeril) 10 mg PO BID PRN PRN Reason: Muscle spasm Last Admin: 12/31/16 09:31 Dose: 10 mg Dicyclomine HCl (Bentyl) 10 mg PO QID [facility] Last Admin: 01/12/17 14:27 Dose: 10 mg Enoxaparin Sodium (Lovenox) 40 mg SC DAILY [facility] Last Admin: 01/12/17 10:30 Dose: 40 mg Ceftriaxone Sodium 2 gm/ (Sodium Chloride) 100 mls @ 100 mls/hr IVPB Q24H [facility] Last Admin: 01/12/17 10:31 Dose: 100 mls/hr Nafcillin Sodium 2 gm/ Sodium (Chloride) 250 mls @ 250 mls/hr IVPB Q4H [facility] Last Admin: 01/12/17 16:43 Dose: 250 mls/hr Lactic Acid (Lac-Hydrin 12% Lotion (225 G)) 0 gm EXT BID [facility] Last Admin: 01/12/17 10:31 Dose: 1 applic Naproxen (Anaprox) 275 mg PO BID PRN PRN Reason: Pain, moderate (4-7) Last Admin: 12/31/16 09:32 Dose: 275 mg Pantoprazole Sodium (Protonix Ec Tab) 40 mg PO DAILY [facility] Last Admin: 01/12/17 10:30 Dose: 40 mg - Labs Labs: 01/12/17 06:54 01/12/17 06:54 PT 12.0 SECONDS (9.7-12.2) 12/27/16 07:16 INR 1.1 12/27/16 07:16 APTT 30 SECONDS (21-34) 12/27/16 07:16 Attending/Attestation - Attestation I have personally seen and examined this patient.: Yes I have fully participated in the care of the patient.: Yes I have reviewed all pertinent clinical information, including history, physical exam and plan: Yes Notes (Text): 01/12/17 17:14 Still with leg weakness. Afebriole. No overnight changes #. Bacteremia with Staph Aureus - Nafcillin for 2 weeks. started on 12/31/16 to 01/14/17 - Rocephin 2gms IVPB daily From 01/15/17 for 4 weeks to complete 6 weeks of antibiotic treatment. #. Hypokalemia with Potassium repleted - follow electrolytes - Patient will need maintenance KCL #. Leg weakness - PT/OT Rafael Michael MD
[2017-01-12] MEDS ORDERED: cefTRIAXone 2 GM in Sodium Chloride 0.9% 100 ML IVPB SCH (07:00)
[2017-01-12 07:08] LABS: BASO % 0.3 % (0.0-2.0); EOS # 0.2 K/uL (0.0-0.7); EOS % 5.7 % (0.0-4.0); HEMATOCRIT 32.3 % (34.0-47.0); LYMPH # 0.6 K/uL (1.0-4.3); LYMPH % 21.6 % (20.0-40.0); MEAN CELL VOLUME 83.2 fL (81.0-99.0); MEAN CORPUSCULAR HEMOGLOBIN 27.7 pg (27.0-31.0); MEAN CORPUSCULAR HGB CONC 33.3 g/dL (33.0-37.0); MEAN PLATELET VOLUME 7.3 fL (7.2-11.7); MONO # 0.2 K/uL (0.0-0.8); MONO % 8.3 % (0.0-10.0); RED CELL DISTRIBUTION WIDTH 15.6 % (11.5-14.5); WHITE BLOOD COUNT 2.9 K/uL (4.8-10.8)
[2017-01-12 07:16] LABS: CHLORIDE 106 mmol/L (98-107)
[2017-01-12 07:17] LABS: SODIUM 139 mmol/L (132-148)
[2017-01-12 07:18] LABS: POTASSIUM 3.3 mmol/L (3.6-5.2)
[2017-01-12 07:20] LABS: ALB/GLOB RATIO 0.8 (1.0-2.1); ALKALINE PHOSPHATASE 90 U/L (38-126); ALT/SGPT 11 U/L (9-52); AST/SGOT 19 U/L (14-36); BLOOD UREA NITROGEN 9 mg/dL (7-17); CARBON DIOXIDE 26 mmol/L (22-30); GFR AFRICAN-AMERICAN > 60; GLUCOSE,RANDOM 85 mg/dL (65-105); TOTAL PROTEIN 6.5 g/dL (6.3-8.3)
[2017-01-12 07:21] LABS: CALCIUM 8.2 mg/dl (8.6-10.4)
[2017-01-12] MEDS: Enoxaparin 40 mg Syringe SC SCH (10:30)
[2017-01-12] MEDS: Pantoprazole 40 mg EC Tab PO SCH (10:30)
[2017-01-12] MEDS: cefTRIAXone 2 GM in Sodium Chloride 0.9% 100 ML IVPB SCH (10:31)
[2017-01-12] MEDS: Ammonium Lactate 12% Lotion (225 g) EXT SCH ×2 (10:31→20:57)
[2017-01-12] MEDS ORDERED: Potassium Chloride 20 mEq/15 ml LIQ UD PO STA (14:33)
[2017-01-12] MEDS: Potassium Chloride 20 mEq/15 ml LIQ UD PO STA ×2 (14:36→14:47)
--- NOTE | 2017-01-13 01:15 | CP.PCM.PN ---
Subjective - Date & Time of Evaluation Date of Evaluation: 01/13/17 Time of Evaluation: 01:08 - Subjective Subjective: PGY-1 medicine progress note Pt seen and examined at bedside. Nursing reports no acute events overnight. Pt resting comfortably in bed watching TV. She denies any back pain at this time. Pt was reminded of importance of ambulation while in the hospital to prevent blood clots. She denies chest pain, abdominal pain, N/V/D/C, or weakness in the extremities. Pt is tolerating diet, and denies difficulty urinating or moving bowels. Objective - Vital Signs/Intake and Output Vital Signs (last 24 hours): Temp Pulse Resp BP Pulse Ox 98.2 F 91 H 20 123/83 99 01/12/17 15:00 01/12/17 15:00 01/12/17 15:00 01/12/17 15:00 01/12/17 15:00 Intake and Output: 01/12/17 01/13/17 18:59 06:59 Intake Total 340 Balance 340 - Medications Medications: Current Medications Acetaminophen (Tylenol 325mg Tab) 650 mg PO Q8 PRN PRN Reason: Pain, Mild (1-3) Last Admin: 12/23/16 09:04 Dose: 650 mg Acetaminophen (Tylenol 325mg Tab) 650 mg PO Q8 PRN PRN Reason: Fever>100.4 Last Admin: 12/23/16 17:01 Dose: 650 mg Amlodipine Besylate (Norvasc) 5 mg PO DAILY [facility] Last Admin: 01/12/17 10:31 Dose: 5 mg Chlorthalidone (Hygroton) 25 mg PO DAILY [facility] Last Admin: 01/12/17 10:30 Dose: 25 mg Cyclobenzaprine HCl (Flexeril) 10 mg PO BID PRN PRN Reason: Muscle spasm Last Admin: 12/31/16 09:31 Dose: 10 mg Dicyclomine HCl (Bentyl) 10 mg PO QID [facility] Last Admin: 01/12/17 21:01 Dose: 10 mg Enoxaparin Sodium (Lovenox) 40 mg SC DAILY [facility] Last Admin: 01/12/17 10:30 Dose: 40 mg Ceftriaxone Sodium 2 gm/ (Sodium Chloride) 100 mls @ 100 mls/hr IVPB Q24H [facility] Last Admin: 01/12/17 10:31 Dose: 100 mls/hr Nafcillin Sodium 2 gm/ Sodium (Chloride) 250 mls @ 250 mls/hr IVPB Q4H [facility] Last Admin: 01/13/17 00:07 Dose: 250 mls/hr Lactic Acid (Lac-Hydrin 12% Lotion (225 G)) 0 gm EXT BID [facility] Last Admin: 01/12/17 20:57 Dose: 1 applic Naproxen (Anaprox) 275 mg PO BID PRN PRN Reason: Pain, moderate (4-7) Last Admin: 12/31/16 09:32 Dose: 275 mg Pantoprazole Sodium (Protonix Ec Tab) 40 mg PO DAILY [facility] Last Admin: 01/12/17 10:30 Dose: 40 mg - Labs Labs: 01/12/17 06:54 01/12/17 06:54 PT 12.0 SECONDS (9.7-12.2) 12/27/16 07:16 INR 1.1 12/27/16 07:16 APTT 30 SECONDS (21-34) 12/27/16 07:16 - Additional Findings Additional findings: Head Exam Head Exam: ATRAUMATIC, NORMAL INSPECTION, NORMOCEPHALIC - Eye Exam Eye Exam: EOMI, Normal appearance, PERRL - ENT Exam ENT Exam: Mucous Membranes Moist - Neck Exam Neck Exam: Full ROM, Normal Inspection - Respiratory Exam Respiratory Exam: Clear to Ausculation Bilateral, NORMAL BREATHING PATTERN. absent: Rales, Rhonchi, Wheezes - Cardiovascular Exam Cardiovascular Exam: +S1, +S2. absent: Bradycardia, Tachycardia - GI/Abdominal Exam GI & Abdominal Exam: Soft, Normal Bowel Sounds. absent: Distended, Firm, Guarding, Mass - Extremities Exam Extremities Exam: Normal Inspection. absent: Pedal Edema, Tenderness - Back Exam Back Exam: NORMAL INSPECTION. absent: tenderness - Neurological Exam Neurological Exam: Alert, Awake, Oriented x3 - Psychiatric Exam Psychiatric exam: Normal Affect, Normal Mood - Skin Skin Exam: Intact, Normal Color Assessment and Plan - Assessment and Plan (Free Text) Plan: Bacteremia Afebrile in past 24 hours, WBC 4.3 Continue Rocephin 2g IV q24h for 4 weeks (01/12) Continue Nafcillin 2gm IVPB Q4H (started 12/31, to be d/c on 01/15) Blood culture (12/26/16) positive for Staphylococcus Aureus Repeat blood culture negative Dr. Russo on case. Recommends continuing Nafcillin 2 gm IVPB q4h. Started on and to be continued until 01/11. Patient will then need 4 week course of Rocephin 2g IV q24h to complete 6 week course of IV antibiotic therapy. Primaxin and Vancomycin discontinued. BAUDILIO ECHO showed EF >55%. Negative for vegetations/endocarditis. Dr. Jackson consulted for BAUDILIO to r/o endocarditis, help appreciated. PICC line. UTI UA - negative Urine culture (01/08): no growth Urine culture positive for Staph aureus. Dr. Russo consulted, help appreciated. See above for abx management. Hypokalemia Resolved Lumbar spine pain Likely musculoskeletal in origin TLSO brace received. Patient worked with PT yesterday and was walking out of bed. Educated on proper donning of brace. Tolerated well. Lumbar CT showed degenerative changes L5-S1 without other acute abnormalities per report. Neuro Dr. Bailon consulted- No further neuro workup needed. Continue Flexeril 10mg PO BID PRN and Naproxen 275mg PO BID PRN for pain. MRI lumbar w and w/o contrast- Discitis at L5-S1 with epidural phlegmon and inflammation of adjacent paravertebral soft tissues. No evidence of abscess. Enhancement of the vertebral bodies at L5 and S1 bridging L5-S1 disc space which could represent marrow reactive changes related to adjacent discitis. Vertebral osteomyelitis is not excluded. TLSO brace per Dr. Khanna. ESR 54, previously 59. Leg weakness Head CT negative for acute etiologies per report. Per PT: "TOLERATED USE OF TLSO DURING AMBULATION AND WHILE OOB, PATIENT REQUIRES VC TO PROPER DONNING OF BRACE AND SAFETY DURING GAIT, + UNSTEADINESS BUT STABLE W/ RW. WILL BENEFIT W/ SKILLED PT FOR ENDURANCE, BALANCE AND GAIT TRNG." Neuro Dr. Bailon consulted, help appreciated. Exfoliative Dermatitis Xerosis and scaling improving. Likely secondary to Vitamin A deficiency. Punch Biopsy x2 taken on 12/26/16 from right upper buttock and right lower back for histopathology and T cell rearrangement study. Awaiting report from [facility] - slides not properly prepared but may represent spongiotic dermatitis/lichenoid dermatitis Absolute CD4 count 293, Absolute CD8 count 154 - not suggestive of Mycosis Fungoides HIV negative. HTLV AB negative. STEPHANIE negative, Rheum Arthritis Panel negative SHELDON & Serum PEP: faint restricted M band spike. Vitamin A low- 24. Dietary consulted to increase intake of vitamin A rich foods as pharmacy does not have vitamin A. Continue LacHydrin 12% Lotion BID to affected scaly areas Hemeon Dr. Ramirez consulted, help appreciated. Hypertension 177/107 (01/09/17) Blood pressure controlled today - 134/86 Continue to monitor Prophylactic measure SCD, Lovenox, Protonix
[2017-01-13 07:32] LABS: BASO % 0.3 % (0.0-2.0); EOS # 0.2 K/uL (0.0-0.7); HEMATOCRIT 33.1 % (34.0-47.0); LYMPH # 0.7 K/uL (1.0-4.3); LYMPH % 26.2 % (20.0-40.0); MEAN CELL VOLUME 84.2 fL (81.0-99.0); MEAN CORPUSCULAR HEMOGLOBIN 27.7 pg (27.0-31.0); MEAN CORPUSCULAR HGB CONC 32.9 g/dL (33.0-37.0); MEAN PLATELET VOLUME 7.5 fL (7.2-11.7); MONO # 0.2 K/uL (0.0-0.8); MONO % 8.7 % (0.0-10.0); NRBC % 0.5 % (0.0-2.0); RED CELL DISTRIBUTION WIDTH 15.3 % (11.5-14.5); WHITE BLOOD COUNT 2.7 K/uL (4.8-10.8)
[2017-01-13 07:37] LABS: CHLORIDE 106 mmol/L (98-107); POTASSIUM 3.7 mmol/L (3.6-5.2); SODIUM 140 mmol/L (132-148)
[2017-01-13 07:39] LABS: BILIRUBIN,TOTAL 1.1 mg/dL (0.2-1.3); CARBON DIOXIDE 24 mmol/L (22-30); GFR AFRICAN-AMERICAN > 60
[2017-01-13 07:40] LABS: ALB/GLOB RATIO 0.9 (1.0-2.1); ALKALINE PHOSPHATASE 88 U/L (38-126); ALT/SGPT 8 U/L (9-52); AST/SGOT 16 U/L (14-36); BLOOD UREA NITROGEN 10 mg/dL (7-17); CALCIUM 7.8 mg/dl (8.6-10.4); GLUCOSE,RANDOM 81 mg/dL (65-105); MAGNESIUM 2.1 mg/dL (1.6-2.3); TOTAL PROTEIN 6.5 g/dL (6.3-8.3)
[2017-01-13] MEDS: cefTRIAXone 2 GM in Sodium Chloride 0.9% 100 ML IVPB SCH (08:37)
[2017-01-13] MEDS: Enoxaparin 40 mg Syringe SC SCH (09:28)
[2017-01-13] MEDS: Pantoprazole 40 mg EC Tab PO SCH (09:29)
[2017-01-13] MEDS: Ammonium Lactate 12% Lotion (225 g) EXT SCH ×2 (09:30→17:34)
[2017-01-14 07:56] LABS: BASO % 0.3 % (0.0-2.0); EOS # 0.3 K/uL (0.0-0.7); EOS % 9.2 % (0.0-4.0); LYMPH # 0.6 K/uL (1.0-4.3); LYMPH % 17.6 % (20.0-40.0); MEAN CORPUSCULAR HEMOGLOBIN 27.9 pg (27.0-31.0); MEAN CORPUSCULAR HGB CONC 33.2 g/dL (33.0-37.0); MEAN PLATELET VOLUME 7.4 fL (7.2-11.7); MONO # 0.3 K/uL (0.0-0.8); MONO % 8.4 % (0.0-10.0); NRBC % 0.1 % (0.0-2.0); RED CELL DISTRIBUTION WIDTH 15.7 % (11.5-14.5); WHITE BLOOD COUNT 3.3 K/uL (4.8-10.8)
[2017-01-14 08:49] LABS: ALB/GLOB RATIO 0.8 (1.0-2.1); ALKALINE PHOSPHATASE 83 U/L (38-126); ALT/SGPT 13 U/L (9-52); AST/SGOT 21 U/L (14-36); BLOOD UREA NITROGEN 12 mg/dL (7-17); CALCIUM 8.3 mg/dl (8.6-10.4); CARBON DIOXIDE 25 mmol/L (22-30); CHLORIDE 104 mmol/L (98-107); GFR AFRICAN-AMERICAN > 60; GLUCOSE,RANDOM 80 mg/dL (65-105); MAGNESIUM 2.1 mg/dL (1.6-2.3); PHOSPHOROUS 3.7 mg/dL (2.5-4.5); POTASSIUM 3.2 mmol/L (3.6-5.2); SODIUM 139 mmol/L (132-148); TOTAL PROTEIN 6.8 g/dL (6.3-8.3)
[2017-01-14] MEDS: Enoxaparin 40 mg Syringe SC SCH (09:01)
[2017-01-14] MEDS: Naproxen 275 mg Tab PO PRN (09:02)
[2017-01-14] MEDS: Pantoprazole 40 mg EC Tab PO SCH (09:05)
--- NOTE | 2017-01-14 09:39 | CP.PCM.PN ---
Subjective - Date & Time of Evaluation Date of Evaluation: 01/14/17 Time of Evaluation: 09:35 - Subjective Subjective: Patient seen and examined at bedside. Today the patient states that she is doing well and that her weekend was uneventful. She has not been walking around as per recommendations partly because of difficulties with putting on her brace. Collection of a third biopsy was recommended to the patient to which she said she is currently unsure about. She reports constipation and is requesting medication for it. She denies fever/chills, back pain, pruritus, dysuria, urgency, and frequency. Objective - Vital Signs/Intake and Output Vital Signs (last 24 hours): Temp Pulse Resp BP Pulse Ox 97.8 F 100 H 20 141/89 98 01/14/17 08:00 01/14/17 08:00 01/14/17 08:00 01/14/17 08:00 01/14/17 08:00 Intake and Output: 01/14/17 01/14/17 06:59 18:59 Intake Total 740 Balance 740 - Medications Medications: Current Medications Acetaminophen (Tylenol 325mg Tab) 650 mg PO Q8 PRN PRN Reason: Pain, Mild (1-3) Last Admin: 12/23/16 09:04 Dose: 650 mg Acetaminophen (Tylenol 325mg Tab) 650 mg PO Q8 PRN PRN Reason: Fever>100.4 Last Admin: 12/23/16 17:01 Dose: 650 mg Amlodipine Besylate (Norvasc) 5 mg PO DAILY [facility] Last Admin: 01/14/17 09:04 Dose: 5 mg Chlorthalidone (Hygroton) 25 mg PO DAILY [facility] Last Admin: 01/14/17 09:04 Dose: 25 mg Cyclobenzaprine HCl (Flexeril) 10 mg PO BID PRN PRN Reason: Muscle spasm Last Admin: 12/31/16 09:31 Dose: 10 mg Dicyclomine HCl (Bentyl) 10 mg PO QID [facility] Last Admin: 01/14/17 09:04 Dose: 10 mg Enoxaparin Sodium (Lovenox) 40 mg SC DAILY [facility] Last Admin: 01/14/17 09:01 Dose: 40 mg Ceftriaxone Sodium 2 gm/ (Sodium Chloride) 100 mls @ 100 mls/hr IVPB Q24H [facility] Last Admin: 01/13/17 08:37 Dose: 100 mls/hr Nafcillin Sodium 2 gm/ Sodium (Chloride) 250 mls @ 250 mls/hr IVPB Q4H [facility] Last Admin: 01/14/17 09:06 Dose: 250 mls/hr Lactic Acid (Lac-Hydrin 12% Lotion (225 G)) 0 gm EXT BID [facility] Last Admin: 01/13/17 17:34 Dose: 1 applic Naproxen (Anaprox) 275 mg PO BID PRN PRN Reason: Pain, moderate (4-7) Last Admin: 01/14/17 09:02 Dose: 275 mg Pantoprazole Sodium (Protonix Ec Tab) 40 mg PO DAILY [facility] Last Admin: 01/14/17 09:05 Dose: 40 mg Potassium Chloride (K-Dur 20 Meq Er Tab) 40 meq PO STAT STA Stop: 01/14/17 09:34 - Labs Labs: 01/14/17 07:43 01/14/17 07:43 PT 12.0 SECONDS (9.7-12.2) 12/27/16 07:16 INR 1.1 12/27/16 07:16 APTT 30 SECONDS (21-34) 12/27/16 07:16 - Constitutional Appears: Non-toxic, No Acute Distress - Head Exam Head Exam: ATRAUMATIC, NORMAL INSPECTION, NORMOCEPHALIC - Eye Exam Eye Exam: EOMI, Normal appearance - ENT Exam ENT Exam: Mucous Membranes Moist - Neck Exam Neck Exam: Full ROM, Normal Inspection - Respiratory Exam Respiratory Exam: Clear to Ausculation Bilateral, NORMAL BREATHING PATTERN. absent: Rales, Rhonchi, Wheezes - Cardiovascular Exam Cardiovascular Exam: RRR, +S1, +S2. absent: Tachycardia, Murmur - GI/Abdominal Exam GI & Abdominal Exam: Soft, Normal Bowel Sounds. absent: Distended, Firm, Tenderness - Extremities Exam Extremities Exam: Normal Inspection. absent: Pedal Edema, Tenderness - Back Exam Back Exam: absent: paraspinal tenderness, tenderness - Neurological Exam Neurological Exam: Alert, Awake, Oriented x3 - Psychiatric Exam Psychiatric exam: Normal Affect, Normal Mood - Skin Skin Exam: Dry Additional comments: xerosis, scaling and hypopigmentation to hands, abdomen and back Assessment and Plan - Assessment and Plan (Free Text) Assessment: Bacteremia Afebrile in past 24 hours, WBC 4.3 Continue Rocephin 2g IV q24h for 4 weeks (6/10) Continue Nafcillin 2gm IVPB Q4H (started 12/31, to be d/c on 01/15) Blood culture (12/26/16) positive for Staphylococcus Aureus Repeat blood culture negative Dr. Russo on case. Recommends continuing Nafcillin 2 gm IVPB q4h. Started on and to be continued until 01/11. Patient will then need 4 week course of Rocephin 2g IV q24h to complete 6 week course of IV antibiotic therapy. Primaxin and Vancomycin discontinued. BAUDILIO ECHO showed EF >55%. Negative for vegetations/endocarditis. Dr. Jackson consulted for BAUDILIO to r/o endocarditis, help appreciated. PICC line. UTI UA - negative Urine culture (01/08): no growth Urine culture positive for Staph aureus. Dr. Russo consulted, help appreciated. See above for abx management. Hypokalemia Resolved Lumbar spine pain Likely musculoskeletal in origin TLSO brace received. Patient worked with PT yesterday and was walking out of bed. Educated on proper donning of brace. Tolerated well. Lumbar CT showed degenerative changes L5-S1 without other acute abnormalities per report. Neuro Dr. Bailon consulted- No further neuro workup needed. Continue Flexeril 10mg PO BID PRN and Naproxen 275mg PO BID PRN for pain. MRI lumbar w and w/o contrast- Discitis at L5-S1 with epidural phlegmon and inflammation of adjacent paravertebral soft tissues. No evidence of abscess. Enhancement of the vertebral bodies at L5 and S1 bridging L5-S1 disc space which could represent marrow reactive changes related to adjacent discitis. Vertebral osteomyelitis is not excluded. TLSO brace per Dr. Khanna. ESR 54, previously 59. Leg weakness Head CT negative for acute etiologies per report. Per PT: "TOLERATED USE OF TLSO DURING AMBULATION AND WHILE OOB, PATIENT REQUIRES VC TO PROPER DONNING OF BRACE AND SAFETY DURING GAIT, + UNSTEADINESS BUT STABLE W/ RW. WILL BENEFIT W/ SKILLED PT FOR ENDURANCE, BALANCE AND GAIT TRNG." Neuro Dr. Bailon consulted, help appreciated. Exfoliative Dermatitis Xerosis and scaling improving. Likely secondary to Vitamin A deficiency. Punch Biopsy x2 taken on 12/26/16 from right upper buttock and right lower back for histopathology and T cell rearrangement study. Dermatopathology - slides not properly prepared but may represent spongiotic dermatitis/lichenoid dermatitis. Discussed with patient possibility of taking a third biopsy specimen. Patient currently considering. Absolute CD4 count 293, Absolute CD8 count 154 - not suggestive of Mycosis Fungoides HIV negative. HTLV AB negative. STEPHANIE negative, Rheum Arthritis Panel negative SHELDON & Serum PEP: faint restricted M band spike. Vitamin A low- 24. Dietary consulted to increase intake of vitamin A rich foods as pharmacy does not have vitamin A. Continue LacHydrin 12% Lotion BID to affected scaly areas Hemeon Dr. Ramirez consulted, help appreciated. Hypertension 177/107 (01/09/17) Blood pressure controlled today - 134/86 Continue to monitor Prophylactic measure SCD, Lovenox, Protonix
[2017-01-14] MEDS ORDERED: Potassium Chloride 20 mEq ER Tab PO ONE (10:00)
[2017-01-14] MEDS: cefTRIAXone 2 GM in Sodium Chloride 0.9% 100 ML IVPB SCH (10:18)
[2017-01-14] MEDS: Ammonium Lactate 12% Lotion (225 g) EXT SCH ×2 (11:31→17:40)
[2017-01-15 06:30] LABS: BASO % 0.5 % (0.0-2.0); EOS # 0.4 K/uL (0.0-0.7); EOS % 17.1 % (0.0-4.0); HEMATOCRIT 32.8 % (34.0-47.0); LYMPH # 0.6 K/uL (1.0-4.3); LYMPH % 27.8 % (20.0-40.0); MEAN CELL VOLUME 83.7 fL (81.0-99.0); MEAN CORPUSCULAR HEMOGLOBIN 27.8 pg (27.0-31.0); MEAN CORPUSCULAR HGB CONC 33.2 g/dL (33.0-37.0); MEAN PLATELET VOLUME 7.2 fL (7.2-11.7); MONO # 0.3 K/uL (0.0-0.8); MONO % 11.7 % (0.0-10.0); NRBC % 0.2 % (0.0-2.0); RED CELL DISTRIBUTION WIDTH 15.8 % (11.5-14.5); WHITE BLOOD COUNT 2.2 K/uL (4.8-10.8)
[2017-01-15 06:37] LABS: CHLORIDE 103 mmol/L (98-107)
[2017-01-15 06:38] LABS: POTASSIUM 3.4 mmol/L (3.6-5.2); SODIUM 137 mmol/L (132-148)
[2017-01-15 06:40] LABS: GFR AFRICAN-AMERICAN > 60
[2017-01-15 06:41] LABS: ALB/GLOB RATIO 0.8 (1.0-2.1); ALKALINE PHOSPHATASE 92 U/L (38-126); ALT/SGPT 21 U/L (9-52); AST/SGOT 21 U/L (14-36); BILIRUBIN,TOTAL 1.1 mg/dL (0.2-1.3); BLOOD UREA NITROGEN 10 mg/dL (7-17); CARBON DIOXIDE 24 mmol/L (22-30); GLUCOSE,RANDOM 83 mg/dL (65-105); PHOSPHOROUS 3.5 mg/dL (2.5-4.5); TOTAL PROTEIN 6.5 g/dL (6.3-8.3)
[2017-01-15 06:42] LABS: CALCIUM 7.9 mg/dl (8.6-10.4); MAGNESIUM 2.1 mg/dL (1.6-2.3)
[2017-01-15] MEDS: cefTRIAXone 2 GM in Sodium Chloride 0.9% 100 ML IVPB SCH (09:18)
[2017-01-15] MEDS: Pantoprazole 40 mg EC Tab PO SCH (09:18)
--- NOTE | 2017-01-15 09:29 | CP.PCM.PN ---
Subjective - Date & Time of Evaluation Date of Evaluation: 01/15/17 Time of Evaluation: 09:28 - Subjective Subjective: Patient seen and examined at bedside. She states that she is doing well today and was able to walk outside of room with PT. She had a bowel movement both yesterday and today and states that her appetite is good and that she is eating without issues. She is still unsure about consenting to a repeat skin biopsy. The patient denies fever/chills, chest pain, shortness of breath, and diarrhea. Objective - Vital Signs/Intake and Output Vital Signs (last 24 hours): Temp Pulse Resp BP Pulse Ox 98.2 F 76 20 130/85 100 01/15/17 00:00 01/15/17 00:00 01/15/17 00:00 01/15/17 00:00 01/15/17 00:00 - Medications Medications: Current Medications Acetaminophen (Tylenol 325mg Tab) 650 mg PO Q8 PRN PRN Reason: Pain, Mild (1-3) Last Admin: 12/23/16 09:04 Dose: 650 mg Acetaminophen (Tylenol 325mg Tab) 650 mg PO Q8 PRN PRN Reason: Fever>100.4 Last Admin: 12/23/16 17:01 Dose: 650 mg Amlodipine Besylate (Norvasc) 5 mg PO DAILY [facility] Last Admin: 01/15/17 09:19 Dose: 5 mg Chlorthalidone (Hygroton) 25 mg PO DAILY [facility] Last Admin: 01/15/17 09:18 Dose: 25 mg Cyclobenzaprine HCl (Flexeril) 10 mg PO BID PRN PRN Reason: Muscle spasm Last Admin: 12/31/16 09:31 Dose: 10 mg Dicyclomine HCl (Bentyl) 10 mg PO QID [facility] Last Admin: 01/15/17 09:18 Dose: 10 mg Docusate Sodium (Colace) 100 mg PO BID [facility] Last Admin: 01/15/17 09:18 Dose: 100 mg Enoxaparin Sodium (Lovenox) 40 mg SC DAILY [facility] Last Admin: 01/14/17 09:01 Dose: 40 mg Ceftriaxone Sodium 2 gm/ (Sodium Chloride) 100 mls @ 100 mls/hr IVPB Q24H [facility] Last Admin: 01/15/17 09:18 Dose: 100 mls/hr Nafcillin Sodium 2 gm/ Sodium (Chloride) 250 mls @ 250 mls/hr IVPB Q4H [facility] Last Admin: 01/15/17 04:12 Dose: 250 mls/hr Lactic Acid (Lac-Hydrin 12% Lotion (225 G)) 0 gm EXT BID [facility] Last Admin: 01/14/17 17:40 Dose: 1 applic Naproxen (Anaprox) 275 mg PO BID PRN PRN Reason: Pain, moderate (4-7) Last Admin: 01/14/17 09:02 Dose: 275 mg Pantoprazole Sodium (Protonix Ec Tab) 40 mg PO DAILY [facility] Last Admin: 01/15/17 09:18 Dose: 40 mg - Labs Labs: 01/15/17 06:16 01/15/17 06:16 PT 12.0 SECONDS (9.7-12.2) 12/27/16 07:16 INR 1.1 12/27/16 07:16 APTT 30 SECONDS (21-34) 12/27/16 07:16 - Constitutional Appears: Non-toxic, No Acute Distress - Head Exam Head Exam: ATRAUMATIC, NORMAL INSPECTION, NORMOCEPHALIC - Eye Exam Eye Exam: EOMI, Normal appearance, PERRL - ENT Exam ENT Exam: Mucous Membranes Moist, Normal Exam - Neck Exam Neck Exam: Full ROM, Normal Inspection - Respiratory Exam Respiratory Exam: Clear to Ausculation Bilateral, NORMAL BREATHING PATTERN. absent: Rales, Rhonchi, Wheezes - Cardiovascular Exam Cardiovascular Exam: +S1, +S2. absent: Bradycardia, Tachycardia - GI/Abdominal Exam GI & Abdominal Exam: Soft, Normal Bowel Sounds. absent: Distended, Firm, Guarding, Tenderness - Extremities Exam Extremities Exam: Normal Capillary Refill, Normal Inspection. absent: Pedal Edema, Tenderness - Back Exam Back Exam: absent: tenderness, vertebral tenderness - Neurological Exam Neurological Exam: Alert, Awake, Oriented x3 - Psychiatric Exam Psychiatric exam: Normal Affect, Normal Mood - Skin Additional comments: generalized xerosis and hypopigmentation to extremities, abdomen and back Assessment and Plan - Assessment and Plan (Free Text) Assessment: Bacteremia Afebrile in past 24 hours, WBC 4.3 Continue Rocephin 2g IV q24h for 4 weeks (01/12) Continue Nafcillin 2gm IVPB Q4H (started 12/31, to be d/c on 01/15) Blood culture (12/26/16) positive for Staphylococcus Aureus Repeat blood culture negative Dr. Russo on case. Recommends continuing Nafcillin 2 gm IVPB q4h. Started on and to be continued until 01/11. Patient will then need 4 week course of Rocephin 2g IV q24h to complete 6 week course of IV antibiotic therapy. Primaxin and Vancomycin discontinued. BAUDILIO ECHO showed EF >55%. Negative for vegetations/endocarditis. Dr. Jackson consulted for BAUDILIO to r/o endocarditis, help appreciated. PICC line. UTI UA - negative Urine culture (01/08): no growth Urine culture positive for Staph aureus. Dr. Russo consulted, help appreciated. See above for abx management. Hypokalemia Resolved Lumbar spine pain Likely musculoskeletal in origin Improved TLSO brace received. Patient worked with PT yesterday and was walking out of bed. Educated on proper donning of brace. Tolerated well. Lumbar CT showed degenerative changes L5-S1 without other acute abnormalities per report. Neuro Dr. Bailon consulted- No further neuro workup needed. Continue Flexeril 10mg PO BID PRN and Naproxen 275mg PO BID PRN for pain. MRI lumbar w and w/o contrast- Discitis at L5-S1 with epidural phlegmon and inflammation of adjacent paravertebral soft tissues. No evidence of abscess. Enhancement of the vertebral bodies at L5 and S1 bridging L5-S1 disc space which could represent marrow reactive changes related to adjacent discitis. Vertebral osteomyelitis is not excluded. TLSO brace per Dr. Khanna. ESR 54, previously 59. Leg weakness Head CT negative for acute etiologies per report. Per PT: "TOLERATED USE OF TLSO DURING AMBULATION AND WHILE OOB, PATIENT REQUIRES VC TO PROPER DONNING OF BRACE AND SAFETY DURING GAIT, + UNSTEADINESS BUT STABLE W/ RW. WILL BENEFIT W/ SKILLED PT FOR ENDURANCE, BALANCE AND GAIT TRNG." Neuro Dr. Bailon consulted, help appreciated. Exfoliative Dermatitis Xerosis and scaling improving. Likely secondary to Vitamin A deficiency. Punch Biopsy x2 taken on 12/26/16 from right upper buttock and right lower back for histopathology and T cell rearrangement study. Dermatopathology - slides not properly prepared but may represent spongiotic dermatitis/lichenoid dermatitis. Discussed with patient possibility of taking a third biopsy specimen. Patient currently considering. Absolute CD4 count 293, Absolute CD8 count 154 - not suggestive of Mycosis Fungoides HIV negative. HTLV AB negative. STEPHANIE negative, Rheum Arthritis Panel negative SHELDON & Serum PEP: faint restricted M band spike. Vitamin A low- 24. Dietary consulted to increase intake of vitamin A rich foods as pharmacy does not have vitamin A. Continue LacHydrin 12% Lotion BID to affected scaly areas Hemeonc Dr. Ramirez consulted, help appreciated. Hypertension normotensive Blood pressure controlled today - 134/86 Continue to monitor Prophylactic measure SCD, Lovenox, Protonix
[2017-01-15] MEDS: Ammonium Lactate 12% Lotion (225 g) EXT SCH ×2 (10:28→17:40)
[2017-01-15] MEDS: Enoxaparin 40 mg Syringe SC SCH (10:32)
--- NOTE | 2017-01-16 07:20 | CP.PCM.PN ---
<PatrickTeresa - Last Filed: 01/16/17 13:06> Subjective - Date & Time of Evaluation Date of Evaluation: 01/16/17 Time of Evaluation: :17 - Subjective Subjective: Pt seen and examined at bedside. Patient reports she is doing well and continuing to get out of bed and walk. Physical therapy could not work with her today due to hypokalemia. Patient denies fever, chills, chest pain, palpitations , shortness of breath, abdominal pain, nausea, vomiting, and constipation. Patient notes soft stools. Objective - Vital Signs/Intake and Output Vital Signs (last 24 hours): Temp Pulse Resp BP Pulse Ox 98.7 F 87 18 134/83 99 01/16/17 00:21 01/16/17 00:21 01/16/17 00:21 01/16/17 00:21 01/16/17 00:21 Intake and Output: 01/16/17 01/16/17 06:59 18:59 Intake Total 500 Balance 500 - Medications Medications: Current Medications Acetaminophen (Tylenol 325mg Tab) 650 mg PO Q8 PRN PRN Reason: Pain, Mild (1-3) Last Admin: 12/23/16 09:04 Dose: 650 mg Acetaminophen (Tylenol 325mg Tab) 650 mg PO Q8 PRN PRN Reason: Fever>100.4 Last Admin: 12/23/16 17:01 Dose: 650 mg Amlodipine Besylate (Norvasc) 5 mg PO DAILY [facility] Last Admin: 01/15/17 09:19 Dose: 5 mg Chlorthalidone (Hygroton) 25 mg PO DAILY [facility] Last Admin: 01/15/17 09:18 Dose: 25 mg Cyclobenzaprine HCl (Flexeril) 10 mg PO BID PRN PRN Reason: Muscle spasm Last Admin: 12/31/16 09:31 Dose: 10 mg Dicyclomine HCl (Bentyl) 10 mg PO QID [facility] Last Admin: 01/15/17 21:37 Dose: 10 mg Docusate Sodium (Colace) 100 mg PO BID [facility] Last Admin: 01/15/17 17:38 Dose: 100 mg Enoxaparin Sodium (Lovenox) 40 mg SC DAILY [facility] Last Admin: 01/15/17 10:32 Dose: 40 mg Ceftriaxone Sodium 2 gm/ (Sodium Chloride) 100 mls @ 100 mls/hr IVPB Q24H [facility] Last Admin: 01/15/17 09:18 Dose: 100 mls/hr Nafcillin Sodium 2 gm/ Sodium (Chloride) 250 mls @ 250 mls/hr IVPB Q4H [facility] Last Admin: 01/16/17 05:02 Dose: 250 mls/hr Lactic Acid (Lac-Hydrin 12% Lotion (225 G)) 0 gm EXT BID [facility] Last Admin: 01/15/17 17:40 Dose: 1 applic Naproxen (Anaprox) 275 mg PO BID PRN PRN Reason: Pain, moderate (4-7) Last Admin: 01/14/17 09:02 Dose: 275 mg Pantoprazole Sodium (Protonix Ec Tab) 40 mg PO DAILY [facility] Last Admin: 01/15/17 09:18 Dose: 40 mg - Labs Labs: 01/15/17 06:16 01/15/17 06:16 PT 12.0 SECONDS (9.7-12.2) 12/27/16 07:16 INR 1.1 12/27/16 07:16 APTT 30 SECONDS (21-34) 12/27/16 07:16 - Constitutional Appears: Non-toxic, No Acute Distress - Head Exam Head Exam: ATRAUMATIC, NORMAL INSPECTION, NORMOCEPHALIC - Eye Exam Eye Exam: EOMI, Normal appearance - ENT Exam ENT Exam: Mucous Membranes Moist - Neck Exam Neck Exam: Full ROM - Respiratory Exam Respiratory Exam: Clear to Ausculation Bilateral, NORMAL BREATHING PATTERN. absent: Rales, Rhonchi, Wheezes - Cardiovascular Exam Cardiovascular Exam: +S1, +S2. absent: Bradycardia, Tachycardia - GI/Abdominal Exam GI & Abdominal Exam: Soft, Normal Bowel Sounds. absent: Firm, Rigid, Tenderness - Extremities Exam Extremities Exam: Normal Inspection. absent: Pedal Edema, Tenderness - Back Exam Back Exam: absent: tenderness - Psychiatric Exam Psychiatric exam: Normal Affect, Normal Mood - Skin Additional comments: xerosis to extremities and trunk Assessment and Plan - Assessment and Plan (Free Text) Assessment: Bacteremia Afebrile in past 24 hours, WBC 4.3 Continue Rocephin 2g IV q24h for 4 weeks (01/12). Will discuss with case if patient can now get outpatient daily infusions. Discontinued Nafcillin 2gm IVPB Q4H (started 5/29, to be d/c on 01/15) Blood culture (12/26/16) positive for Staphylococcus Aureus Repeat blood culture negative Dr. Russo on case. Recommends continuing Nafcillin 2 gm IVPB q4h. Started on and to be continued until 01/11. Patient will then need 4 week course of Rocephin 2g IV q24h to complete 6 week course of IV antibiotic therapy. Primaxin and Vancomycin discontinued. BUADILIO ECHO showed EF >55%. Negative for vegetations/endocarditis. Dr. Jackson consulted for BAUDILIO to r/o endocarditis, help appreciated. PICC line. UTI UA - negative Urine culture (01/08): no growth Urine culture positive for Staph aureus. Dr. Russo consulted, help appreciated. See above for abx management. Hypokalemia Resolved Lumbar spine pain Likely musculoskeletal in origin Improved TLSO brace received. Patient worked with PT yesterday and was walking out of bed. Educated on proper donning of brace. Tolerated well. Lumbar CT showed degenerative changes L5-S1 without other acute abnormalities per report. Neuro Dr. Bailon consulted- No further neuro workup needed. Continue Flexeril 10mg PO BID PRN and Naproxen 275mg PO BID PRN for pain. MRI lumbar w and w/o contrast- Discitis at L5-S1 with epidural phlegmon and inflammation of adjacent paravertebral soft tissues. No evidence of abscess. Enhancement of the vertebral bodies at L5 and S1 bridging L5-S1 disc space which could represent marrow reactive changes related to adjacent discitis. Vertebral osteomyelitis is not excluded. TLSO brace per Dr. Khanna. ESR 54, previously 59. Leg weakness Head CT negative for acute etiologies per report. Per PT: "TOLERATED USE OF TLSO DURING AMBULATION AND WHILE OOB, PATIENT REQUIRES VC TO PROPER DONNING OF BRACE AND SAFETY DURING GAIT, + UNSTEADINESS BUT STABLE W/ RW. WILL BENEFIT W/ SKILLED PT FOR ENDURANCE, BALANCE AND GAIT TRNG." Neuro Dr. Bailon consulted, help appreciated. Exfoliative Dermatitis Xerosis and scaling improving. Likely secondary to Vitamin A deficiency. Punch Biopsy x2 taken on 12/26/16 from right upper buttock and right lower back for histopathology and T cell rearrangement study. Dermatopathology - slides not properly prepared but may represent spongiotic dermatitis/lichenoid dermatitis. Discussed with patient possibility of taking a third biopsy specimen. Patient agreeable for repeat biopsy. Plan for tomorrow. Absolute CD4 count 293, Absolute CD8 count 154 - not suggestive of Mycosis Fungoides HIV negative. HTLV AB negative. STEPHANIE negative, Rheum Arthritis Panel negative SHELDON & Serum PEP: faint restricted M band spike. Vitamin A low- 24. Dietary consulted to increase intake of vitamin A rich foods as pharmacy does not have vitamin A. Continue LacHydrin 12% Lotion BID to affected scaly areas Hemeon Dr. Ramirez consulted, help appreciated. Hypertension normotensive Blood pressure controlled today - 134/86 Continue to monitor Prophylactic measure SCD, Lovenox, Protonix Dispo Patient lives [place] 4 flights of stairs and would not be able to get to for daily infusions as her ex- would need to transport her. Will try to get home infusions and home care approved. Patient now has Medicaid. <Angelica Caba V - Last Filed: 01/16/17 23:44> Objective - Vital Signs/Intake and Output Vital Signs (last 24 hours): Temp Pulse Resp BP Pulse Ox 97.8 F 87 20 144/90 99 01/16/17 15:00 01/16/17 15:00 01/16/17 15:00 01/16/17 15:00 01/16/17 15:00 Intake and Output: 01/16/17 01/17/17 18:59 06:59 Intake Total 900 550 Output Total 500 Balance 900 50 - Medications Medications: Current Medications Acetaminophen (Tylenol 325mg Tab) 650 mg PO Q8 PRN PRN Reason: Pain, Mild (1-3) Last Admin: 12/23/16 09:04 Dose: 650 mg Acetaminophen (Tylenol 325mg Tab) 650 mg PO Q8 PRN PRN Reason: Fever>100.4 Last Admin: 12/23/16 17:01 Dose: 650 mg Amlodipine Besylate (Norvasc) 5 mg PO DAILY [facility] Last Admin: 01/16/17 09:21 Dose: 5 mg Chlorthalidone (Hygroton) 25 mg PO DAILY [facility] Last Admin: 01/16/17 09:20 Dose: 25 mg Cyclobenzaprine HCl (Flexeril) 10 mg PO BID PRN PRN Reason: Muscle spasm Last Admin: 12/31/16 09:31 Dose: 10 mg Dicyclomine HCl (Bentyl) 10 mg PO QID [facility] Last Admin: 01/16/17 21:39 Dose: 10 mg Docusate Sodium (Colace) 100 mg PO BID [facility] Last Admin: 01/16/17 17:52 Dose: 100 mg Ceftriaxone Sodium 2 gm/ (Sodium Chloride) 100 mls @ 100 mls/hr IVPB Q24H [facility] Last Admin: 01/16/17 09:23 Dose: 100 mls/hr Nafcillin Sodium 2 gm/ Sodium (Chloride) 250 mls @ 250 mls/hr IVPB Q6H [facility] Lactic Acid (Lac-Hydrin 12% Lotion (225 G)) 0 gm EXT BID [facility] Last Admin: 01/16/17 17:48 Dose: 1 applic Naproxen (Anaprox) 275 mg PO BID PRN PRN Reason: Pain, moderate (4-7) Last Admin: 01/14/17 09:02 Dose: 275 mg Pantoprazole Sodium (Protonix Ec Tab) 40 mg PO DAILY [facility] Last Admin: 01/16/17 09:20 Dose: 40 mg - Labs Labs: 01/16/17 07:41 01/16/17 04:00 PT 12.0 SECONDS (9.7-12.2) 12/27/16 07:16 INR 1.1 12/27/16 07:16 APTT 30 SECONDS (21-34) 12/27/16 07:16 Attending/Attestation - Attestation I have personally seen and examined this patient.: Yes I have fully participated in the care of the patient.: Yes I have reviewed all pertinent clinical information, including history, physical exam and plan: Yes Notes (Text): Patient seen, examined, and case discussed with day-time resident. Patient denies acute complaints. She wants to work with physical therapist but could not due to hypokalemia. Patient reports she has four flights of stairs to get to her house. Discussed with case management, patient has Medicaid and will follow-up with social work to see if patient is eligible for outpatient IV transfusion center. Patient is currently on Rocephin 2gram IV qdaily (started on 01/12/17 and to finish last dose on 02/09/17) for 4 weeks to complete 6 week total course of IV abx for discitis Patient to have repeat biopsy tomorrow given inadequate preparation in prior attempt. Patient is amenable for repeat. Assessment/Plan 1) Bacteremia secondary to Staph Aureus * Infectious Disease (Dr. Russo) on board-->help appreciated * Cardiology (Dr. Jackson) on board-->help appreciated * Blood culture (12/22/16): Staph Aureus X2 * Blood culture (12/24/16): Staph Aureus X2 * Blood culture (12/26/16): Staph Aureus X2 * Blood culture (12/28/16): No growth after 5 days X2 * Nafcillin 2gram Q4H (12/28-01/11); followed by 4 weeks of Rocephin 2g IV qdaily ( 01/12/17-02/09/17) * BAUDILIO (12/29/16): no endocarditis noted. Normal LV function 2) Urinary Tract Infection secondary to Staph Aureus * Infectious Disease (Dr. Russo) on board-->help appreciated * Urine culture (12/2016) positive for Staph aureus * Urine culture (01/08/2017): no growth 3) Hypokalemia * Monitor and replete if necessary 4) Discitis * Neurology (Dr. Bailon) on board-->no further neuro workup * Neurosurgery (Dr. Khanna) on board-->very mild diskitis space at L5-1, Phlegmon which is not causing any significant neural element compromise, behind the body of the upper sacrum. Thecal sac and the S1 nerve roots are very well visualized; recommend for TLSO brace for when patient is out of bed * Infectious disease (Dr. Russo) on board-->help appreciated * MRI lumbar w and w/o contrast (12/27/16): Discitis at L5-S1 with epidural phlegmon and inflammation of adjacent apravertebral soft tissues. No evidence of abscess. Enhancement of the vertebral bodies at L5 and S1 bridging L5-S1 disc space which could represent marrow reactive changes related to adjacent discitis. Vertebral osteomyelitis is not excluded. * Lumbar Spine CT (12/22/16): degenerative change L5-S1, no acute osseous abnormality, no abscess * Tylenol 650mg PO Q 8 PRN pain * Tylenol 650mg PO Q 8 PRN Fever >100.4F * Flexeril 10mg PO BID PRN muscle spasm * Anaproz 275mg PO BID PRN moderate * Negative RA, STEPHANIE 5) Skin lesions * Heme-onc (Dr. Mckenna Ramirez) on board-->help appreciated * inadequate preparation of prior sample; will re-attempt biopsy * suspicion for T-cell lymphoma with possible associated with low vitamin A * HIV negative * HTLV negative * negative [id number] * IPEP/SPEP: faint M spike * absolute: CD 4: 293, CD 8 * UDS: negative 6) Prophylactic measure * SCDs b/l * Lovenox 40mg subq daily for DVT ppx * Protonix 40mg PO daily for GI ppx
[2017-01-16 07:51] LABS: EOS # 0.4 K/uL (0.0-0.7); EOS % 19.9 % (0.0-4.0); HEMATOCRIT 32.3 % (34.0-47.0); LYMPH # 0.4 K/uL (1.0-4.3); LYMPH % 19.9 % (20.0-40.0); MEAN CELL VOLUME 83.8 fL (81.0-99.0); MEAN CORPUSCULAR HEMOGLOBIN 27.5 pg (27.0-31.0); MEAN CORPUSCULAR HGB CONC 32.8 g/dL (33.0-37.0); MEAN PLATELET VOLUME 7.4 fL (7.2-11.7); MONO # 0.2 K/uL (0.0-0.8); MONO % 10.9 % (0.0-10.0); NRBC % 0.1 % (0.0-2.0); RED CELL DISTRIBUTION WIDTH 15.8 % (11.5-14.5); WHITE BLOOD COUNT 2.2 K/uL (4.8-10.8)
[2017-01-16 08:11] LABS: CHLORIDE 106 mmol/L (98-107); SODIUM 140 mmol/L (132-148)
[2017-01-16 08:13] LABS: GFR AFRICAN-AMERICAN > 60
[2017-01-16 08:14] LABS: ALB/GLOB RATIO 0.9 (1.0-2.1); ALKALINE PHOSPHATASE 85 U/L (38-126); ALT/SGPT 21 U/L (9-52); AST/SGOT 25 U/L (14-36); BILIRUBIN,TOTAL 1.1 mg/dL (0.2-1.3); BLOOD UREA NITROGEN 9 mg/dL (7-17); CALCIUM 8.3 mg/dl (8.6-10.4); CARBON DIOXIDE 25 mmol/L (22-30); GLUCOSE,RANDOM 78 mg/dL (65-105); MAGNESIUM 2.1 mg/dL (1.6-2.3); PHOSPHOROUS 3.8 mg/dL (2.5-4.5); TOTAL PROTEIN 6.2 g/dL (6.3-8.3)
[2017-01-16 08:22] VITALS: RESP 20
[2017-01-16] MEDS ORDERED: Potassium Chloride 20 mEq ER Tab PO STA (09:13)
[2017-01-16] MEDS: Pantoprazole 40 mg EC Tab PO SCH (09:20)
[2017-01-16] MEDS: Enoxaparin 40 mg Syringe SC SCH (09:21)
[2017-01-16] MEDS: Ammonium Lactate 12% Lotion (225 g) EXT SCH ×2 (09:23→17:48)
[2017-01-16] MEDS: cefTRIAXone 2 GM in Sodium Chloride 0.9% 100 ML IVPB SCH (09:23)
[2017-01-16] MEDS ORDERED: Potassium Chloride 20 mEq/15 ml LIQ UD PO STA (10:56)
[2017-01-17 06:51] LABS: MAGNESIUM 1.9 mg/dL (1.6-2.3)
--- NOTE | 2017-01-17 07:27 | CP.PCM.PN ---
<Teresa Nguyen - Last Filed: 01/17/17 15:13> Subjective - Date & Time of Evaluation Date of Evaluation: 01/17/17 Time of Evaluation: 07:27 - Subjective Subjective: Patient seen and examined at bedside. Patient is resting comfortably. No acute events per nursing. She denies fever, chills. She did not have physical therapy yesterday due to hypokalemia. Patient denies chest pain, SOB, palpitations, abdominal pain, nausea/vomiting, diarrhea, constipation, dysuria, increased urinary frequency. Objective - Vital Signs/Intake and Output Vital Signs (last 24 hours): Temp Pulse Resp BP Pulse Ox 98.2 F 75 20 125/86 99 01/17/17 00:00 01/17/17 00:00 01/17/17 00:00 01/17/17 00:00 01/17/17 00:00 Intake and Output: 01/17/17 01/17/17 06:59 18:59 Intake Total 950 Output Total 500 Balance 450 - Medications Medications: Current Medications Acetaminophen (Tylenol 325mg Tab) 650 mg PO Q8 PRN PRN Reason: Pain, Mild (1-3) Last Admin: 12/23/16 09:04 Dose: 650 mg Acetaminophen (Tylenol 325mg Tab) 650 mg PO Q8 PRN PRN Reason: Fever>100.4 Last Admin: 12/23/16 17:01 Dose: 650 mg Amlodipine Besylate (Norvasc) 5 mg PO DAILY [facility] Last Admin: 01/16/17 09:21 Dose: 5 mg Chlorthalidone (Hygroton) 25 mg PO DAILY [facility] Last Admin: 01/16/17 09:20 Dose: 25 mg Cyclobenzaprine HCl (Flexeril) 10 mg PO BID PRN PRN Reason: Muscle spasm Last Admin: 12/31/16 09:31 Dose: 10 mg Dicyclomine HCl (Bentyl) 10 mg PO QID [facility] Last Admin: 01/16/17 21:39 Dose: 10 mg Docusate Sodium (Colace) 100 mg PO BID [facility] Last Admin: 01/16/17 17:52 Dose: 100 mg Ceftriaxone Sodium 2 gm/ (Sodium Chloride) 100 mls @ 100 mls/hr IVPB Q24H [facility] Last Admin: 01/16/17 09:23 Dose: 100 mls/hr Nafcillin Sodium 2 gm/ Sodium (Chloride) 250 mls @ 250 mls/hr IVPB Q6H [facility] Last Admin: 01/17/17 03:03 Dose: 250 mls/hr Lactic Acid (Lac-Hydrin 12% Lotion (225 G)) 0 gm EXT BID [facility] Last Admin: 01/16/17 17:48 Dose: 1 applic Naproxen (Anaprox) 275 mg PO BID PRN PRN Reason: Pain, moderate (4-7) Last Admin: 01/14/17 09:02 Dose: 275 mg Pantoprazole Sodium (Protonix Ec Tab) 40 mg PO DAILY [facility] Last Admin: 01/16/17 09:20 Dose: 40 mg - Labs Labs: 01/16/17 07:41 01/16/17 04:00 PT 12.0 SECONDS (9.7-12.2) 12/27/16 07:16 INR 1.1 12/27/16 07:16 APTT 30 SECONDS (21-34) 12/27/16 07:16 - Constitutional Appears: Non-toxic, No Acute Distress - Head Exam Head Exam: ATRAUMATIC, NORMAL INSPECTION, NORMOCEPHALIC - Eye Exam Eye Exam: EOMI, Normal appearance, PERRL - ENT Exam ENT Exam: Mucous Membranes Moist - Neck Exam Neck Exam: Full ROM, Normal Inspection - Respiratory Exam Respiratory Exam: Clear to Ausculation Bilateral, NORMAL BREATHING PATTERN. absent: Rales, Rhonchi, Wheezes - Cardiovascular Exam Cardiovascular Exam: +S1, +S2. absent: Tachycardia, Murmur - GI/Abdominal Exam GI & Abdominal Exam: Soft, Normal Bowel Sounds. absent: Distended, Firm, Guarding, Tenderness - Extremities Exam Extremities Exam: Full ROM. absent: Pedal Edema, Tenderness - Back Exam Back Exam: NORMAL INSPECTION. absent: tenderness - Neurological Exam Neurological Exam: Alert, Awake, Oriented x3 - Psychiatric Exam Psychiatric exam: Normal Affect, Normal Mood - Skin Additional comments: generalized xerosis and dyspigmentation Assessment and Plan - Assessment and Plan (Free Text) Assessment: Bacteremia Afebrile in past 24 hours, WBC 4.3 Continue Rocephin 2g IV q24h for 4 weeks (01/12). Nafcillin 2 gm IVPB q6h restarted by Dr. Russo. Blood culture (12/26/16) positive for Staphylococcus Aureus Repeat blood culture negative Dr. Russo on case. Recommends continuing Nafcillin 2 gm IVPB q4h. Started on and to be continued until 01/11. Patient will then need 4 week course of Rocephin 2g IV q24h to complete 6 week course of IV antibiotic therapy. Primaxin and Vancomycin discontinued. BAUDILIO ECHO showed EF >55%. Negative for vegetations/endocarditis. Dr. Jackson consulted for BAUDILIO to r/o endocarditis, help appreciated. PICC line. UTI UA - negative Urine culture (01/08): no growth Urine culture positive for Staph aureus. Dr. Russo consulted, help appreciated. See above for abx management. Hypokalemia Resolved Lumbar spine pain Likely musculoskeletal in origin Improved TLSO brace received. Patient worked with PT yesterday and was walking out of bed. Educated on proper donning of brace. Tolerated well. Lumbar CT showed degenerative changes L5-S1 without other acute abnormalities per report. Neuro Dr. Bailon consulted- No further neuro workup needed. Continue Flexeril 10mg PO BID PRN and Naproxen 275mg PO BID PRN for pain. MRI lumbar w and w/o contrast- Discitis at L5-S1 with epidural phlegmon and inflammation of adjacent paravertebral soft tissues. No evidence of abscess. Enhancement of the vertebral bodies at L5 and S1 bridging L5-S1 disc space which could represent marrow reactive changes related to adjacent discitis. Vertebral osteomyelitis is not excluded. TLSO brace per Dr. Khanna. ESR 54, previously 59. Leg weakness Head CT negative for acute etiologies per report. Per PT: "TOLERATED USE OF TLSO DURING AMBULATION AND WHILE OOB, PATIENT REQUIRES VC TO PROPER DONNING OF BRACE AND SAFETY DURING GAIT, + UNSTEADINESS BUT STABLE W/ RW. WILL BENEFIT W/ SKILLED PT FOR ENDURANCE, BALANCE AND GAIT TRNG." Neuro Dr. Bailon consulted, help appreciated. Exfoliative Dermatitis Xerosis and scaling improving. Likely secondary to Vitamin A deficiency. Punch Biopsy x2 taken on 12/26/16 from right upper buttock and right lower back for histopathology and T cell rearrangement study. Dermatopathology - slides not properly prepared but may represent spongiotic dermatitis/lichenoid dermatitis. Discussed with patient possibility of taking a third biopsy specimen. Patient agreeable for repeat biopsy. Absolute CD4 count 293, Absolute CD8 count 154 - not suggestive of Mycosis Fungoides HIV negative. HTLV AB negative. STEPHANIE negative, Rheum Arthritis Panel negative SHELDON & Serum PEP: faint restricted M band spike. Vitamin A low- 24. Dietary consulted to increase intake of vitamin A rich foods as pharmacy does not have vitamin A. Continue LacHydrin 12% Lotion BID to affected scaly areas Hemeon Dr. Ramirez consulted, help appreciated. Hypertension normotensive Blood pressure controlled today - 134/86 Continue to monitor Prophylactic measure SCD, Lovenox, Protonix Dispo Patient lives [place] 4 flights of stairs and would not be able to get to for daily infusions as her ex- would need to transport her. Will try to get home infusions and home care approved. Patient now has Medicaid. <Angelica Caba V - Last Filed: 01/17/17 21:42> Objective - Vital Signs/Intake and Output Vital Signs (last 24 hours): Temp Pulse Resp BP Pulse Ox 97.4 F L 79 20 142/93 H 100 01/17/17 15:00 01/17/17 15:00 01/17/17 15:00 01/17/17 15:00 01/17/17 15:00 - Medications Medications: Current Medications Acetaminophen (Tylenol 325mg Tab) 650 mg PO Q8 PRN PRN Reason: Pain, Mild (1-3) Last Admin: 12/23/16 09:04 Dose: 650 mg Acetaminophen (Tylenol 325mg Tab) 650 mg PO Q8 PRN PRN Reason: Fever>100.4 Last Admin: 12/23/16 17:01 Dose: 650 mg Amlodipine Besylate (Norvasc) 5 mg PO DAILY [facility] Last Admin: 01/17/17 09:32 Dose: 5 mg Chlorthalidone (Hygroton) 25 mg PO DAILY [facility] Last Admin: 01/17/17 09:34 Dose: 25 mg Cyclobenzaprine HCl (Flexeril) 10 mg PO BID PRN PRN Reason: Muscle spasm Last Admin: 12/31/16 09:31 Dose: 10 mg Dicyclomine HCl (Bentyl) 10 mg PO QID [facility] Last Admin: 01/17/17 21:09 Dose: 10 mg Docusate Sodium (Colace) 100 mg PO BID [facility] Last Admin: 01/17/17 17:31 Dose: Not Given Nafcillin Sodium 2 gm/ Sodium (Chloride) 250 mls @ 250 mls/hr IVPB Q6H [facility] Last Admin: 01/17/17 21:09 Dose: 250 mls/hr Lactic Acid (Lac-Hydrin 12% Lotion (225 G)) 0 gm EXT BID [facility] Last Admin: 01/17/17 17:31 Dose: 1 applic Naproxen (Anaprox) 275 mg PO BID PRN PRN Reason: Pain, moderate (4-7) Last Admin: 01/14/17 09:02 Dose: 275 mg Pantoprazole Sodium (Protonix Ec Tab) 40 mg PO DAILY [facility] Last Admin: 01/17/17 09:32 Dose: 40 mg - Labs Labs: 01/16/17 07:41 01/17/17 06:12 PT 12.0 SECONDS (9.7-12.2) 12/27/16 07:16 INR 1.1 12/27/16 07:16 APTT 30 SECONDS (21-34) 12/27/16 07:16 Attending/Attestation - Attestation I have personally seen and examined this patient.: Yes I have fully participated in the care of the patient.: Yes I have reviewed all pertinent clinical information, including history, physical exam and plan: Yes Notes (Text): Patient seen, examined, and case discussed with day-time resident. Patient denies acute complaints. She wants to work with physical therapist and worked with her today; who recommended for subacute rehab. Patient is currently on Rocephin 2gram IV qdaily (started on 01/12/17 and to finish last dose on 02/09/17) for 4 weeks to complete 6 week total course of IV abx for disciti and patient restarted on Nafcillin 2gram IV Q6 H per infectious disease while patient remains in house. Patient to have repeat biopsy today given inadequate preparation in prior attempt. Patient is amenable for repeat for workup for possible T-cell lymphoma. Assessment/Plan 1) Bacteremia secondary to Staph Aureus * Infectious Disease (Dr. Russo) on board-->help appreciated * Cardiology (Dr. Jackson) on board-->help appreciated * Blood culture (12/22/16): Staph Aureus X2 * Blood culture (12/24/16): Staph Aureus X2 * Blood culture (12/26/16): Staph Aureus X2 * Blood culture (12/28/16): No growth after 5 days X2 * Nafcillin 2gram Q6H (12/28-01/11); followed by 4 weeks of Rocephin 2g IV qdaily ( 01/12/17-02/09/17) * Per infectious disease, patient's restarted on Nafcillin 2gram Q6H * BAUDILIO (12/29/16): no endocarditis noted. Normal LV function 2) Urinary Tract Infection secondary to Staph Aureus * Infectious Disease (Dr. Russo) on board-->help appreciated * Urine culture (12/2016) positive for Staph aureus * Urine culture (01/08/2017): no growth 3) Hypokalemia * Monitor and replete if necessary 4) Discitis * Neurology (Dr. Bailon) on board-->no further neuro workup * Neurosurgery (Dr. Khanna) on board-->very mild diskitis space at L5-1, Phlegmon which is not causing any significant neural element compromise, behind the body of the upper sacrum. Thecal sac and the S1 nerve roots are very well visualized; recommend for TLSO brace for when patient is out of bed * Infectious disease (Dr. Russo) on board-->help appreciated * MRI lumbar w and w/o contrast (12/27/16): Discitis at L5-S1 with epidural phlegmon and inflammation of adjacent apravertebral soft tissues. No evidence of abscess. Enhancement of the vertebral bodies at L5 and S1 bridging L5-S1 disc space which could represent marrow reactive changes related to adjacent discitis. Vertebral osteomyelitis is not excluded. * Lumbar Spine CT (12/22/16): degenerative change L5-S1, no acute osseous abnormality, no abscess * Tylenol 650mg PO Q 8 PRN pain * Tylenol 650mg PO Q 8 PRN Fever >100.4F * Flexeril 10mg PO BID PRN muscle spasm * Anaproz 275mg PO BID PRN moderate * Negative RA, STEPHANIE 5) Skin lesions * Heme-onc (Dr. Mckenna Ramirez) on board-->help appreciated * inadequate preparation of prior sample; will re-attempt biopsy today * suspicion for T-cell lymphoma with possible associated with low vitamin A * HIV negative * HTLV negative * negative HLA-B278 * IPEP/SPEP: faint M spike * absolute: CD 4: 293, CD 8 * UDS: negative 6) Prophylactic measure * SCDs b/l * Lovenox 40mg subq daily for DVT ppx * Protonix 40mg PO daily for GI ppx Disposition * Will need to follow-up with case management and social regarding establishing patient for out-patient transfusion center. patient has recently received Medicaid. * Follow-up repeat biopsy in workup of T-cell lymphoma
[2017-01-17] MEDS: cefTRIAXone 2 GM in Sodium Chloride 0.9% 100 ML IVPB SCH (09:25)
[2017-01-17] MEDS: Pantoprazole 40 mg EC Tab PO SCH (09:32)
[2017-01-17] MEDS: Ammonium Lactate 12% Lotion (225 g) EXT SCH ×2 (09:34→17:31)
[2017-01-17 10:51] LABS: CHLORIDE 100 mmol/L (98-107)
[2017-01-17 10:52] LABS: POTASSIUM 3.5 mmol/L (3.6-5.2); SODIUM 137 mmol/L (132-148)
[2017-01-17 10:54] LABS: AST/SGOT 38 U/L (14-36); BILIRUBIN,TOTAL 1.2 mg/dL (0.2-1.3); CARBON DIOXIDE 25 mmol/L (22-30); GFR AFRICAN-AMERICAN > 60
[2017-01-17 10:55] LABS: ALKALINE PHOSPHATASE 106 U/L (38-126); ALT/SGPT 29 U/L (9-52); BLOOD UREA NITROGEN 9 mg/dL (7-17); CALCIUM 8.8 mg/dl (8.6-10.4); GLUCOSE,RANDOM 89 mg/dL (65-105); TOTAL PROTEIN 7.6 g/dL (6.3-8.3)
[2017-01-17 10:58] LABS: ALB/GLOB RATIO 0.8 (1.0-2.1)
[2017-01-17] MEDS ORDERED: Potassium Chloride 20 mEq/15 ml LIQ UD PO STA (15:28)
[2017-01-18] MEDS ORDERED: Lidocaine/Epi 1% 1:100000 20 ML IJ ONE (07:05)
--- NOTE | 2017-01-18 07:07 | CP.PCM.PN ---
Subjective - Date & Time of Evaluation Date of Evaluation: 01/18/17 Time of Evaluation: 07:06 - Subjective Subjective: Patient seen and examined at bedside. Patient is doing well and has no complaints. She reports she worked with physical therapy yesterday while wearing TLSO brace and tolerated well. She denies fever and chills. She is tolerating diet well and denies diarrhea, nausea, vomiting, and abdominal pain. She also denies chest pain, shortness of breath, dysuria, increased urinary frequency and lower extremity swelling. Objective - Vital Signs/Intake and Output Vital Signs (last 24 hours): Temp Pulse Resp BP Pulse Ox 98.4 F 83 20 141/89 99 01/18/17 00:00 01/18/17 00:00 01/18/17 00:00 01/18/17 00:00 01/18/17 00:00 Intake and Output: 01/18/17 01/18/17 06:59 18:59 Intake Total 550 Balance 550 - Medications Medications: Current Medications Acetaminophen (Tylenol 325mg Tab) 650 mg PO Q8 PRN PRN Reason: Pain, Mild (1-3) Last Admin: 12/23/16 09:04 Dose: 650 mg Acetaminophen (Tylenol 325mg Tab) 650 mg PO Q8 PRN PRN Reason: Fever>100.4 Last Admin: 12/23/16 17:01 Dose: 650 mg Amlodipine Besylate (Norvasc) 5 mg PO DAILY [facility] Last Admin: 01/17/17 09:32 Dose: 5 mg Chlorthalidone (Hygroton) 25 mg PO DAILY [facility] Last Admin: 01/17/17 09:34 Dose: 25 mg Cyclobenzaprine HCl (Flexeril) 10 mg PO BID PRN PRN Reason: Muscle spasm Last Admin: 12/31/16 09:31 Dose: 10 mg Dicyclomine HCl (Bentyl) 10 mg PO QID [facility] Last Admin: 01/17/17 21:09 Dose: 10 mg Docusate Sodium (Colace) 100 mg PO BID [facility] Last Admin: 01/17/17 17:31 Dose: Not Given Nafcillin Sodium 2 gm/ Sodium (Chloride) 250 mls @ 250 mls/hr IVPB Q6H [facility] Last Admin: 01/18/17 03:36 Dose: 250 mls/hr Lactic Acid (Lac-Hydrin 12% Lotion (225 G)) 0 gm EXT BID [facility] Last Admin: 01/17/17 17:31 Dose: 1 applic Lidocaine/Epinephrine (Lidocaine 1%/Epinephrine [id number] 30 Ml) 30 ml IJ ONCE ONE Stop: 01/18/17 07:06 Naproxen (Anaprox) 275 mg PO BID PRN PRN Reason: Pain, moderate (4-7) Last Admin: 01/14/17 09:02 Dose: 275 mg Pantoprazole Sodium (Protonix Ec Tab) 40 mg PO DAILY [facility] Last Admin: 01/17/17 09:32 Dose: 40 mg Saccharomyces Boulardii (Florastor) 250 mg PO BID [facility] - Labs Labs: 01/16/17 07:41 01/17/17 06:12 PT 12.0 SECONDS (9.7-12.2) 12/27/16 07:16 INR 1.1 12/27/16 07:16 APTT 30 SECONDS (21-34) 12/27/16 07:16 - Constitutional Appears: Non-toxic, No Acute Distress - Head Exam Head Exam: ATRAUMATIC, NORMAL INSPECTION, NORMOCEPHALIC - Eye Exam Eye Exam: EOMI, Normal appearance - ENT Exam ENT Exam: Mucous Membranes Moist - Neck Exam Neck Exam: Full ROM - Respiratory Exam Respiratory Exam: Clear to Ausculation Bilateral, NORMAL BREATHING PATTERN. absent: Rales, Rhonchi, Wheezes - Cardiovascular Exam Cardiovascular Exam: +S1, +S2. absent: Tachycardia - GI/Abdominal Exam GI & Abdominal Exam: Soft, Normal Bowel Sounds. absent: Tenderness - Extremities Exam Extremities Exam: Normal Inspection. absent: Pedal Edema, Tenderness - Neurological Exam Neurological Exam: Alert, Awake, Oriented x3 - Psychiatric Exam Psychiatric exam: Normal Affect, Normal Mood - Skin Additional comments: generalized xerosis and dyspigmentation Assessment and Plan - Assessment and Plan (Free Text) Assessment: Bacteremia Afebrile in past 24 hours, WBC 4.3 Continue Rocephin 2g IV q24h for 4 weeks (01/12). Nafcillin 2 gm IVPB q6h restarted by Dr. Russo. Blood culture (12/26/16) positive for Staphylococcus Aureus Repeat blood culture negative Dr. Russo on case. Recommends continuing Nafcillin 2 gm IVPB q4h. Started on and to be continued until 01/11. Patient will then need 4 week course of Rocephin 2g IV q24h to complete 6 week course of IV antibiotic therapy. Primaxin and Vancomycin discontinued. BAUDILIO ECHO showed EF >55%. Negative for vegetations/endocarditis. Dr. Jackson consulted for BAUDILIO to r/o endocarditis, help appreciated. PICC line. UTI UA - negative Urine culture (01/08): no growth Urine culture positive for Staph aureus. Dr. Russo consulted, help appreciated. See above for abx management. Hypokalemia Resolved Lumbar spine pain Likely musculoskeletal in origin Improved TLSO brace received. Patient worked with PT yesterday and was walking out of bed. Educated on proper donning of brace. Tolerated well. Lumbar CT showed degenerative changes L5-S1 without other acute abnormalities per report. Neuro Dr. Bailon consulted- No further neuro workup needed. Continue Flexeril 10mg PO BID PRN and Naproxen 275mg PO BID PRN for pain. MRI lumbar w and w/o contrast- Discitis at L5-S1 with epidural phlegmon and inflammation of adjacent paravertebral soft tissues. No evidence of abscess. Enhancement of the vertebral bodies at L5 and S1 bridging L5-S1 disc space which could represent marrow reactive changes related to adjacent discitis. Vertebral osteomyelitis is not excluded. TLSO brace per Dr. Khanna. ESR 54, previously 59. Leg weakness Head CT negative for acute etiologies per report. Per PT: "TOLERATED USE OF TLSO DURING AMBULATION AND WHILE OOB, PATIENT REQUIRES VC TO PROPER DONNING OF BRACE AND SAFETY DURING GAIT, + UNSTEADINESS BUT STABLE W/ RW. WILL BENEFIT W/ SKILLED PT FOR ENDURANCE, BALANCE AND GAIT TRNG." Neuro Dr. Bailon consulted, help appreciated. Exfoliative Dermatitis Xerosis and scaling improving. Likely secondary to Vitamin A deficiency. Punch Biopsy x2 taken on 12/26/16 from right upper buttock and right lower back for histopathology and T cell rearrangement study. Dermatopathology - slides not properly prepared but may represent spongiotic dermatitis/lichenoid dermatitis. Discussed with patient possibility of taking a third biopsy specimen. Per pathologist, recommends larger specimen for better analysis. Consider consulting surgery. Absolute CD4 count 293, Absolute CD8 count 154 - not suggestive of Mycosis Fungoides HIV negative. HTLV AB negative. STEPHANIE negative, Rheum Arthritis Panel negative SHELDON & Serum PEP: faint restricted M band spike. Vitamin A low- 24. Dietary consulted to increase intake of vitamin A rich foods as pharmacy does not have vitamin A. Continue LacHydrin 12% Lotion BID to affected scaly areas [facility] Dr. Ramirez consulted, help appreciated. Hypertension normotensive Blood pressure controlled today - 134/86 Continue to monitor Prophylactic measure SCD, Lovenox, Protonix Dispo Patient lives [place] 4 flights of stairs and would not be able to get to for daily infusions as her ex- would need to transport her. Will try to get home infusions and home care approved. Patient now has Medicaid.
[2017-01-18 07:27] LABS: BASO % 0.4 % (0.0-2.0); EOS # 0.6 K/uL (0.0-0.7); EOS % 21.4 % (0.0-4.0); HEMATOCRIT 33.4 % (34.0-47.0); LYMPH # 0.8 K/uL (1.0-4.3); LYMPH % 27.9 % (20.0-40.0); MEAN CELL VOLUME 83.8 fL (81.0-99.0); MEAN CORPUSCULAR HGB CONC 33.4 g/dL (33.0-37.0); MEAN PLATELET VOLUME 7.5 fL (7.2-11.7); MONO # 0.3 K/uL (0.0-0.8); MONO % 10.9 % (0.0-10.0); NRBC % 0.1 % (0.0-2.0); PLATELET COUNT 246 K/uL (130-400); WHITE BLOOD COUNT 2.9 K/uL (4.8-10.8)
[2017-01-18 07:59] LABS: CHLORIDE 103 mmol/L (98-107); SODIUM 139 mmol/L (132-148)
[2017-01-18 08:00] LABS: POTASSIUM 3.6 mmol/L (3.6-5.2)
[2017-01-18 08:02] LABS: ALKALINE PHOSPHATASE 90 U/L (38-126); AST/SGOT 31 U/L (14-36); BILIRUBIN,TOTAL 1.1 mg/dL (0.2-1.3); BLOOD UREA NITROGEN 10 mg/dL (7-17); CALCIUM 8.5 mg/dl (8.6-10.4); CARBON DIOXIDE 24 mmol/L (22-30); GFR AFRICAN-AMERICAN > 60; GLUCOSE,RANDOM 77 mg/dL (65-105); TOTAL PROTEIN 6.7 g/dL (6.3-8.3)
[2017-01-18 08:03] LABS: ALT/SGPT 25 U/L (9-52); MAGNESIUM 2.2 mg/dL (1.6-2.3)
[2017-01-18 08:37] LABS: BASOPHIL 1 % (0-2); EOSINOPHIL 23 % (0-4); NEUTROPHIL 41 % (50-75); TOTAL CELLS COUNTED 100
[2017-01-18] MEDS: Pantoprazole 40 mg EC Tab PO SCH (09:40)
[2017-01-18] MEDS: Saccharomyces Boulardi 250 mg Cap PO SCH ×2 (09:40→17:12)
[2017-01-18] MEDS: Ammonium Lactate 12% Lotion (225 g) EXT SCH ×2 (09:41→17:14)
--- NOTE | 2017-01-18 15:16 | CP.PCM.PN ---
Subjective - Date & Time of Evaluation Date of Evaluation: 01/18/17 Time of Evaluation: 09:00 - Subjective Subjective: improving iv rx reordered Objective - Vital Signs/Intake and Output Vital Signs (last 24 hours): Temp Pulse Resp BP Pulse Ox 98.1 F 74 20 129/79 100 01/18/17 07:31 01/18/17 07:31 01/18/17 07:31 01/18/17 07:31 01/18/17 07:31 Intake and Output: 01/18/17 01/18/17 06:59 18:59 Intake Total 550 800 Balance 550 800 - Medications Medications: Current Medications Acetaminophen (Tylenol 325mg Tab) 650 mg PO Q8 PRN PRN Reason: Pain, Mild (1-3) Last Admin: 12/23/16 09:04 Dose: 650 mg Acetaminophen (Tylenol 325mg Tab) 650 mg PO Q8 PRN PRN Reason: Fever>100.4 Last Admin: 12/23/16 17:01 Dose: 650 mg Amlodipine Besylate (Norvasc) 5 mg PO DAILY [facility] Last Admin: 01/18/17 09:40 Dose: 5 mg Chlorthalidone (Hygroton) 25 mg PO DAILY [facility] Last Admin: 01/18/17 09:41 Dose: 25 mg Cyclobenzaprine HCl (Flexeril) 10 mg PO BID PRN PRN Reason: Muscle spasm Last Admin: 12/31/16 09:31 Dose: 10 mg Dicyclomine HCl (Bentyl) 10 mg PO QID [facility] Last Admin: 01/18/17 13:37 Dose: 10 mg Docusate Sodium (Colace) 100 mg PO BID [facility] Last Admin: 01/18/17 09:40 Dose: 100 mg Nafcillin Sodium 2 gm/ Sodium (Chloride) 250 mls @ 250 mls/hr IVPB Q6H [facility] Last Admin: 01/18/17 14:03 Dose: 250 mls/hr Lactic Acid (Lac-Hydrin 12% Lotion (225 G)) 0 gm EXT BID [facility] Last Admin: 01/18/17 09:41 Dose: 1 applic Naproxen (Anaprox) 275 mg PO BID PRN PRN Reason: Pain, moderate (4-7) Last Admin: 01/14/17 09:02 Dose: 275 mg Pantoprazole Sodium (Protonix Ec Tab) 40 mg PO DAILY [facility] Last Admin: 01/18/17 09:40 Dose: 40 mg Saccharomyces Boulardii (Florastor) 250 mg PO BID [facility] Last Admin: 01/18/17 09:40 Dose: 250 mg - Labs Labs: 01/18/17 07:07 01/18/17 07:07 PT 12.0 SECONDS (9.7-12.2) 12/27/16 07:16 INR 1.1 12/27/16 07:16 APTT 30 SECONDS (21-34) 12/27/16 07:16 - Constitutional Appears: Non-toxic, Chronically Ill - Head Exam Head Exam: NORMOCEPHALIC - Eye Exam Eye Exam: PERRL. absent: Scleral icterus - ENT Exam ENT Exam: Mucous Membranes Dry, Normal External Ear Exam - Neck Exam Neck Exam: absent: Lymphadenopathy - Respiratory Exam Respiratory Exam: Decreased Breath Sounds, Clear to Ausculation Bilateral - Cardiovascular Exam Cardiovascular Exam: REGULAR RHYTHM, +S1, +S2 - GI/Abdominal Exam GI & Abdominal Exam: Distended Assessment and Plan (1) Sepsis affecting skin Status: Acute (2) Sepsis affecting skin Status: Acute (3) Low back pain Status: Acute
--- NOTE | 2017-01-19 01:15 | CP.PCM.PN ---
Subjective - Date & Time of Evaluation Date of Evaluation: 01/19/17 Time of Evaluation: 00:21 - Subjective Subjective: PGY 1 Medicine Note- Dr. Caldwell's service Patient seen and examined at bedside. Patient is doing well and has no complaints. She reports wearing TLSO brace with relief. She denies subjective fever and chills, diarrhea, nausea, vomiting, abdominal pain, chest pain, shortness of breath, dysuria, increased urinary frequency or lower extremity swelling. Objective - Vital Signs/Intake and Output Vital Signs (last 24 hours): Temp Pulse Resp BP Pulse Ox 98.5 F 97 H 20 120/75 97 01/19/17 00:00 01/19/17 00:00 01/19/17 00:00 01/19/17 00:00 01/19/17 00:00 Intake and Output: 01/18/17 01/19/17 18:59 06:59 Intake Total 800 900 Balance 800 900 - Medications Medications: Current Medications Acetaminophen (Tylenol 325mg Tab) 650 mg PO Q8 PRN PRN Reason: Pain, Mild (1-3) Last Admin: 12/23/16 09:04 Dose: 650 mg Acetaminophen (Tylenol 325mg Tab) 650 mg PO Q8 PRN PRN Reason: Fever>100.4 Last Admin: 12/23/16 17:01 Dose: 650 mg Amlodipine Besylate (Norvasc) 5 mg PO DAILY [facility] Last Admin: 01/18/17 09:40 Dose: 5 mg Chlorthalidone (Hygroton) 25 mg PO DAILY [facility] Last Admin: 01/18/17 09:41 Dose: 25 mg Cyclobenzaprine HCl (Flexeril) 10 mg PO BID PRN PRN Reason: Muscle spasm Last Admin: 12/31/16 09:31 Dose: 10 mg Dicyclomine HCl (Bentyl) 10 mg PO QID [facility] Last Admin: 01/18/17 21:10 Dose: 10 mg Docusate Sodium (Colace) 100 mg PO BID [facility] Last Admin: 01/18/17 17:12 Dose: 100 mg Nafcillin Sodium 2 gm/ Sodium (Chloride) 250 mls @ 250 mls/hr IVPB Q6H [facility] Last Admin: 01/18/17 21:09 Dose: 250 mls/hr Lactic Acid (Lac-Hydrin 12% Lotion (225 G)) 0 gm EXT BID [facility] Last Admin: 01/18/17 17:14 Dose: 1 applic Naproxen (Anaprox) 275 mg PO BID PRN PRN Reason: Pain, moderate (4-7) Last Admin: 01/14/17 09:02 Dose: 275 mg Pantoprazole Sodium (Protonix Ec Tab) 40 mg PO DAILY [facility] Last Admin: 01/18/17 09:40 Dose: 40 mg Saccharomyces Boulardii (Florastor) 250 mg PO BID [facility] Last Admin: 01/18/17 17:12 Dose: 250 mg - Labs Labs: 01/18/17 07:07 01/18/17 07:07 PT 12.0 SECONDS (9.7-12.2) 12/27/16 07:16 INR 1.1 12/27/16 07:16 APTT 30 SECONDS (21-34) 12/27/16 07:16 - Constitutional Appears: No Acute Distress - Head Exam Head Exam: ATRAUMATIC, NORMAL INSPECTION, NORMOCEPHALIC - Eye Exam Eye Exam: EOMI, Normal appearance, PERRL Pupil Exam: NORMAL ACCOMODATION, PERRL - ENT Exam ENT Exam: Mucous Membranes Moist - Neck Exam Neck Exam: Full ROM, Normal Inspection - Respiratory Exam Respiratory Exam: NORMAL BREATHING PATTERN - Cardiovascular Exam Cardiovascular Exam: +S1, +S2 - GI/Abdominal Exam GI & Abdominal Exam: Soft, Normal Bowel Sounds - Extremities Exam Extremities Exam: Normal Inspection - Back Exam Back Exam: Full ROM - Neurological Exam Neurological Exam: Alert, Awake, Oriented x3 - Psychiatric Exam Psychiatric exam: Normal Affect, Normal Mood Assessment and Plan - Assessment and Plan (Free Text) Assessment: Bacteremia Afebrile in past 24 hours, WBC 4.3 Nafcillin 2 gm IVPB q6h restarted by Dr. Russo. Rocephin 2gram IV qdaily (started on 01/12/17 and to finish last dose on 02/09/17) for 4 weeks to complete 6 week total course of IV abx Blood culture (12/26/16) positive for Staphylococcus Aureus Repeat blood culture negative Dr. Russo on case. Recommends continuing Nafcillin 2 gm IVPB q4h. Started on and to be continued until 01/11. Patient will then need 4 week course of Rocephin 2g IV q24h to complete 6 week course of IV antibiotic therapy. Primaxin and Vancomycin discontinued. BAUDILIO ECHO showed EF >55%. Negative for vegetations/endocarditis. Dr. Jackson consulted for BAUDILIO to r/o endocarditis, help appreciated. PICC line. UTI Most recent UA - negative Urine culture (01/08): no growth Urine culture previouslt positive for Staph aureus however now negative growth Dr. Russo consulted, help appreciated. See above for abx management. Hypokalemia WNL Replete as needed Lumbar spine pain Likely musculoskeletal in origin Improved TLSO brace received. Patient works with Physical therapy daily Lumbar CT showed degenerative changes L5-S1 without other acute abnormalities per report. Neuro Dr. Bailon consulted- No further neuro workup needed. Continue Flexeril 10mg PO BID PRN and Naproxen 275mg PO BID PRN for pain. MRI lumbar w and w/o contrast- Discitis at L5-S1 with epidural phlegmon and inflammation of adjacent paravertebral soft tissues. No evidence of abscess. Enhancement of the vertebral bodies at L5 and S1 bridging L5-S1 disc space which could represent marrow reactive changes related to adjacent discitis. Vertebral osteomyelitis is not excluded. TLSO brace per Dr. Khanna. ESR 54, previously 59. Leg weakness Head CT negative for acute etiologies per report. Per PT: "TOLERATED USE OF TLSO DURING AMBULATION AND WHILE OOB, PATIENT REQUIRES VC TO PROPER DONNING OF BRACE AND SAFETY DURING GAIT, + UNSTEADINESS BUT STABLE W/ RW. WILL BENEFIT W/ SKILLED PT FOR ENDURANCE, BALANCE AND GAIT TRNG." Neuro Dr. Bailon consulted, help appreciated. Exfoliative Dermatitis Xerosis and scaling improving. Likely secondary to Vitamin A deficiency. Punch Biopsy x2 taken on 12/26/16 from right upper buttock and right lower back for histopathology and T cell rearrangement study. Dermatopathology - slides not properly prepared but may represent spongiotic dermatitis/lichenoid dermatitis. Discussed with patient possibility of taking a third biopsy specimen. Per pathologist, recommends larger specimen for better analysis. Consider consulting surgery. Absolute CD4 count 293, Absolute CD8 count 154 - not suggestive of Mycosis Fungoides HIV negative. HTLV AB negative. STEPHANIE negative, Rheum Arthritis Panel negative SHELDON & Serum PEP: faint restricted M band spike. Vitamin A low- 24. Dietary consulted to increase intake of vitamin A rich foods as pharmacy does not have vitamin A. Continue LacHydrin 12% Lotion BID to affected scaly areas Hemeonc Dr. Ramirez consulted, help appreciated. Hypertension normotensive Continue to monitor Prophylactic measure SCD, Lovenox, Protonix Dispo Patient lives [place] 4 flights of stairs and would not be able to get to for daily infusions as her ex- would need to transport her. Will try to get home infusions and home care approved. Patient now has Medicaid.
[2017-01-19 07:01] LABS: BASO % 0.4 % (0.0-2.0); EOS # 0.6 K/uL (0.0-0.7); EOS % 18.2 % (0.0-4.0); HEMATOCRIT 32.8 % (34.0-47.0); LYMPH # 0.9 K/uL (1.0-4.3); MEAN CELL VOLUME 83.3 fL (81.0-99.0); MEAN CORPUSCULAR HEMOGLOBIN 28.2 pg (27.0-31.0); MEAN CORPUSCULAR HGB CONC 33.9 g/dL (33.0-37.0); MEAN PLATELET VOLUME 7.4 fL (7.2-11.7); MONO # 0.4 K/uL (0.0-0.8); MONO % 10.2 % (0.0-10.0); RED CELL DISTRIBUTION WIDTH 15.9 % (11.5-14.5); WHITE BLOOD COUNT 3.5 K/uL (4.8-10.8)
[2017-01-19 07:19] LABS: CHLORIDE 100 mmol/L (98-107); POTASSIUM 3.3 mmol/L (3.6-5.2); SODIUM 137 mmol/L (132-148)
[2017-01-19 07:21] LABS: AST/SGOT 20 U/L (14-36); CARBON DIOXIDE 28 mmol/L (22-30); GFR AFRICAN-AMERICAN > 60
[2017-01-19 07:22] LABS: ALB/GLOB RATIO 0.9 (1.0-2.1); ALKALINE PHOSPHATASE 88 U/L (38-126); ALT/SGPT 22 U/L (9-52); BLOOD UREA NITROGEN 13 mg/dL (7-17); CALCIUM 8.1 mg/dl (8.6-10.4); GLUCOSE,RANDOM 81 mg/dL (65-105); PHOSPHOROUS 3.9 mg/dL (2.5-4.5); TOTAL PROTEIN 6.7 g/dL (6.3-8.3)
[2017-01-19] MEDS ORDERED: Potassium Chloride 20 mEq ER Tab PO ONE (09:11)
[2017-01-19] MEDS: Saccharomyces Boulardi 250 mg Cap PO SCH ×2 (09:38→17:22)
[2017-01-19] MEDS: Pantoprazole 40 mg EC Tab PO SCH (09:38)
[2017-01-19] MEDS: Ammonium Lactate 12% Lotion (225 g) EXT SCH ×2 (09:39→17:22)
[2017-01-19] MEDS: cefTRIAXone 2 GM in Sodium Chloride 0.9% 100 ML IVPB SCH (09:57)
--- NOTE | 2017-01-20 04:14 | CP.PCM.PN ---
Subjective - Date & Time of Evaluation Date of Evaluation: 01/20/17 Time of Evaluation: 00:21 - Subjective Subjective: PGY 1 Medicine Note- Dr. Caldwell's service Patient seen and examined at bedside. Patient is doing well and has no complaints. She reports wearing brace with relief and ambulating without too much difficulty. She denies subjective fevers or chills, headaches, palpitations , diarrhea, nausea, vomiting, abdominal pain, chest pain, shortness of breath, dysuria, increased urinary frequency or lower extremity swelling. Objective - Vital Signs/Intake and Output Vital Signs (last 24 hours): Temp Pulse Resp BP Pulse Ox 98.6 F 88 20 138/91 H 98 01/20/17 00:00 01/20/17 00:00 01/20/17 00:00 01/20/17 00:00 01/20/17 00:00 Intake and Output: 01/19/17 01/20/17 18:59 06:59 Intake Total 1460 1010 Balance 1460 1010 - Medications Medications: Current Medications Acetaminophen (Tylenol 325mg Tab) 650 mg PO Q8 PRN PRN Reason: Pain, Mild (1-3) Last Admin: 12/23/16 09:04 Dose: 650 mg Acetaminophen (Tylenol 325mg Tab) 650 mg PO Q8 PRN PRN Reason: Fever>100.4 Last Admin: 12/23/16 17:01 Dose: 650 mg Amlodipine Besylate (Norvasc) 5 mg PO DAILY [facility] Last Admin: 01/19/17 09:38 Dose: 5 mg Chlorthalidone (Hygroton) 25 mg PO DAILY [facility] Last Admin: 01/19/17 09:38 Dose: 25 mg Cyclobenzaprine HCl (Flexeril) 10 mg PO BID PRN PRN Reason: Muscle spasm Last Admin: 12/31/16 09:31 Dose: 10 mg Dicyclomine HCl (Bentyl) 10 mg PO QID [facility] Last Admin: 01/19/17 21:24 Dose: 10 mg Docusate Sodium (Colace) 100 mg PO BID [facility] Last Admin: 01/19/17 17:22 Dose: 100 mg Nafcillin Sodium 2 gm/ Sodium (Chloride) 250 mls @ 250 mls/hr IVPB Q6H [facility] Last Admin: 01/20/17 02:05 Dose: 250 mls/hr Ceftriaxone Sodium 2 gm/ (Sodium Chloride) 100 mls @ 100 mls/hr IVPB DAILY [facility] Last Admin: 01/19/17 09:57 Dose: 100 mls/hr Lactic Acid (Lac-Hydrin 12% Lotion (225 G)) 0 gm EXT BID [facility] Last Admin: 01/19/17 17:22 Dose: 1 applic Naproxen (Anaprox) 275 mg PO BID PRN PRN Reason: Pain, moderate (4-7) Last Admin: 01/14/17 09:02 Dose: 275 mg Pantoprazole Sodium (Protonix Ec Tab) 40 mg PO DAILY [facility] Last Admin: 01/19/17 09:38 Dose: 40 mg Saccharomyces Boulardii (Florastor) 250 mg PO BID [facility] Last Admin: 01/19/17 17:22 Dose: 250 mg - Labs Labs: 01/19/17 06:53 01/19/17 06:53 PT 12.0 SECONDS (9.7-12.2) 12/27/16 07:16 INR 1.1 12/27/16 07:16 APTT 30 SECONDS (21-34) 12/27/16 07:16 - Constitutional Appears: Non-toxic, No Acute Distress - Head Exam Head Exam: ATRAUMATIC, NORMAL INSPECTION, NORMOCEPHALIC - Eye Exam Eye Exam: EOMI, Normal appearance, PERRL Pupil Exam: NORMAL ACCOMODATION - ENT Exam ENT Exam: Mucous Membranes Moist - Neck Exam Neck Exam: Full ROM - Respiratory Exam Respiratory Exam: NORMAL BREATHING PATTERN. absent: Wheezes - Cardiovascular Exam Cardiovascular Exam: +S1, +S2 - GI/Abdominal Exam GI & Abdominal Exam: Soft, Normal Bowel Sounds - Extremities Exam Extremities Exam: Normal Capillary Refill - Back Exam Back Exam: Full ROM - Neurological Exam Neurological Exam: Alert, Awake - Psychiatric Exam Psychiatric exam: Normal Affect, Normal Mood - Skin Skin Exam: Normal Color, Warm Assessment and Plan - Assessment and Plan (Free Text) Assessment: Bacteremia Afebrile in past 24 hours, WBC 4.3 Nafcillin 2 gm IVPB q6h restarted by Dr. Russo. Rocephin 2gram IV qdaily (started on 01/12/17 and to finish last dose on 02/09/17) for 4 weeks to complete 6 week total course of IV abx Blood culture (12/26/16) positive for Staphylococcus Aureus Repeat blood culture negative Dr. Russo on case. Recommends continuing Nafcillin 2 gm IVPB q4h. Started on and to be continued until 01/11. Patient will then need 4 week course of Rocephin 2g IV q24h to complete 6 week course of IV antibiotic therapy. Primaxin and Vancomycin discontinued. BAUDILIO ECHO showed EF >55%. Negative for vegetations/endocarditis. Dr. Jackson consulted for BAUDILIO to r/o endocarditis, help appreciated. PICC line. UTI Most recent UA - negative Urine culture (01/08): no growth Urine culture previouslt positive for Staph aureus however now negative growth Dr. Russo consulted, help appreciated. See above for abx management. Hypokalemia Repleted Monitor AM labs Lumbar spine pain Likely musculoskeletal in origin Improved Instructed to wear TLSO brace and continue with Physical therapy daily Lumbar CT showed degenerative changes L5-S1 without other acute abnormalities per report. Neuro Dr. Bailon consulted- No further neuro workup needed. Continue Flexeril 10mg PO BID PRN and Naproxen 275mg PO BID PRN for pain. MRI lumbar w and w/o contrast- Discitis at L5-S1 with epidural phlegmon and inflammation of adjacent paravertebral soft tissues. No evidence of abscess. Enhancement of the vertebral bodies at L5 and S1 bridging L5-S1 disc space which could represent marrow reactive changes related to adjacent discitis. Vertebral osteomyelitis is not excluded. TLSO brace per Dr. Khanna. ESR 54, previously 59. Leg weakness Head CT negative for acute etiologies per report. Per PT: "TOLERATED USE OF TLSO DURING AMBULATION AND WHILE OOB, PATIENT REQUIRES VC TO PROPER DONNING OF BRACE AND SAFETY DURING GAIT, + UNSTEADINESS BUT STABLE W/ RW. WILL BENEFIT W/ SKILLED PT FOR ENDURANCE, BALANCE AND GAIT TRNG." Neuro Dr. Bailon consulted, help appreciated. Exfoliative Dermatitis Xerosis and scaling improving. Likely secondary to Vitamin A deficiency. Punch Biopsy x2 taken on 12/26/16 from right upper buttock and right lower back for histopathology and T cell rearrangement study. Dermatopathology - slides not properly prepared but may represent spongiotic dermatitis/lichenoid dermatitis. Discussed with patient possibility of taking a third biopsy specimen. Per pathologist, recommends larger specimen for better analysis. Consider consulting surgery. Absolute CD4 count 293, Absolute CD8 count 154 - not suggestive of Mycosis Fungoides HIV negative. HTLV AB negative. STEPHAINE negative, Rheum Arthritis Panel negative SHELDON & Serum PEP: faint restricted M band spike. Vitamin A low- 24. Dietary consulted to increase intake of vitamin A rich foods as pharmacy does not have vitamin A. Continue LacHydrin 12% Lotion BID to affected scaly areas Hemeon Dr. Ramirez consulted, help appreciated. Hypertension normotensive Continue to monitor Prophylactic measure SCD, Lovenox, Protonix Dispo Patient lives [place] 4 flights of stairs and would not be able to get to for daily infusions as her ex- would need to transport her. Will try to get home infusions and home care approved. Patient now has Medicaid.
[2017-01-20 07:22] LABS: BASO % 0.9 % (0.0-2.0); EOS # 0.6 K/uL (0.0-0.7); EOS % 17.3 % (0.0-4.0); HEMATOCRIT 34.2 % (34.0-47.0); LYMPH % 26.4 % (20.0-40.0); MEAN CELL VOLUME 84.5 fL (81.0-99.0); MEAN CORPUSCULAR HEMOGLOBIN 27.9 pg (27.0-31.0); MEAN PLATELET VOLUME 7.6 fL (7.2-11.7); MONO # 0.4 K/uL (0.0-0.8); NRBC % 0.1 % (0.0-2.0); RED CELL DISTRIBUTION WIDTH 16.1 % (11.5-14.5); WHITE BLOOD COUNT 3.7 K/uL (4.8-10.8)
[2017-01-20 07:29] LABS: CHLORIDE 100 mmol/L (98-107)
[2017-01-20 07:30] LABS: POTASSIUM 3.3 mmol/L (3.6-5.2); SODIUM 137 mmol/L (132-148)
[2017-01-20 07:32] LABS: ALB/GLOB RATIO 0.9 (1.0-2.1); ALKALINE PHOSPHATASE 96 U/L (38-126); ALT/SGPT 25 U/L (9-52); AST/SGOT 23 U/L (14-36); BLOOD UREA NITROGEN 17 mg/dL (7-17); CARBON DIOXIDE 27 mmol/L (22-30); GFR AFRICAN-AMERICAN > 60; GLUCOSE,RANDOM 84 mg/dL (65-105); TOTAL PROTEIN 7.1 g/dL (6.3-8.3)
[2017-01-20 07:33] LABS: CALCIUM 8.7 mg/dl (8.6-10.4); PHOSPHOROUS 4.5 mg/dL (2.5-4.5)
[2017-01-20] MEDS: Saccharomyces Boulardi 250 mg Cap PO SCH ×2 (09:01→17:10)
[2017-01-20] MEDS: Pantoprazole 40 mg EC Tab PO SCH (09:02)
[2017-01-20] MEDS: Ammonium Lactate 12% Lotion (225 g) EXT SCH ×2 (09:04→17:10)
[2017-01-20] MEDS: cefTRIAXone 2 GM in Sodium Chloride 0.9% 100 ML IVPB SCH (10:22)
[2017-01-20] MEDS: Potassium Chloride 20 mEq ER Tab PO SCH ×2 (11:00→13:46)
--- NOTE | 2017-01-20 15:35 | CP.PCM.PN ---
Subjective - Date & Time of Evaluation Date of Evaluation: 01/20/17 Time of Evaluation: 09:00 - Subjective Subjective: no fever less pain Objective - Vital Signs/Intake and Output Vital Signs (last 24 hours): Temp Pulse Resp BP Pulse Ox 98.6 F 76 20 136/83 99 01/20/17 08:00 01/20/17 08:00 01/20/17 08:00 01/20/17 08:00 01/20/17 08:00 Intake and Output: 01/20/17 01/20/17 06:59 18:59 Intake Total 1620 1460 Balance 1620 1460 - Medications Medications: Current Medications Acetaminophen (Tylenol 325mg Tab) 650 mg PO Q8 PRN PRN Reason: Pain, Mild (1-3) Last Admin: 12/23/16 09:04 Dose: 650 mg Acetaminophen (Tylenol 325mg Tab) 650 mg PO Q8 PRN PRN Reason: Fever>100.4 Last Admin: 12/23/16 17:01 Dose: 650 mg Amlodipine Besylate (Norvasc) 5 mg PO DAILY [facility] Last Admin: 01/20/17 09:02 Dose: 5 mg Chlorthalidone (Hygroton) 25 mg PO DAILY [facility] Last Admin: 01/20/17 09:02 Dose: 25 mg Cyclobenzaprine HCl (Flexeril) 10 mg PO BID PRN PRN Reason: Muscle spasm Last Admin: 12/31/16 09:31 Dose: 10 mg Dicyclomine HCl (Bentyl) 10 mg PO QID [facility] Last Admin: 01/20/17 13:47 Dose: 10 mg Docusate Sodium (Colace) 100 mg PO BID [facility] Last Admin: 01/20/17 09:02 Dose: 100 mg Nafcillin Sodium 2 gm/ Sodium (Chloride) 250 mls @ 250 mls/hr IVPB Q6H [facility] Last Admin: 01/20/17 14:43 Dose: 250 mls/hr Ceftriaxone Sodium 2 gm/ (Sodium Chloride) 100 mls @ 100 mls/hr IVPB DAILY [facility] Last Admin: 01/20/17 10:22 Dose: 100 mls/hr Lactic Acid (Lac-Hydrin 12% Lotion (225 G)) 0 gm EXT BID [facility] Last Admin: 01/20/17 09:04 Dose: 1 applic Naproxen (Anaprox) 275 mg PO BID PRN PRN Reason: Pain, moderate (4-7) Last Admin: 01/14/17 09:02 Dose: 275 mg Pantoprazole Sodium (Protonix Ec Tab) 40 mg PO DAILY [facility] Last Admin: 01/20/17 09:02 Dose: 40 mg Saccharomyces Boulardii (Florastor) 250 mg PO BID [facility] Last Admin: 01/20/17 09:01 Dose: 250 mg - Labs Labs: 01/20/17 07:11 01/20/17 07:11 PT 12.0 SECONDS (9.7-12.2) 12/27/16 07:16 INR 1.1 12/27/16 07:16 APTT 30 SECONDS (21-34) 12/27/16 07:16 - Constitutional Appears: Non-toxic, Chronically Ill - Head Exam Head Exam: NORMOCEPHALIC - Eye Exam Eye Exam: PERRL. absent: Scleral icterus - ENT Exam ENT Exam: Mucous Membranes Dry, Normal External Ear Exam - Neck Exam Neck Exam: absent: Lymphadenopathy - Respiratory Exam Respiratory Exam: Decreased Breath Sounds, Rhonchi - Cardiovascular Exam Cardiovascular Exam: REGULAR RHYTHM, +S1, +S2 - GI/Abdominal Exam GI & Abdominal Exam: Distended, Soft. absent: Tenderness - Rectal Exam Rectal Exam: Deferred - Exam Exam: NORMAL INSPECTION Assessment and Plan (1) Sepsis affecting skin Status: Acute (2) Sepsis affecting skin Status: Acute (3) Low back pain Status: Acute
[2017-01-21 06:13] LABS: EOS # 0.6 K/uL (0.0-0.7); EOS % 15.3 % (0.0-4.0); HEMATOCRIT 35.7 % (34.0-47.0); LYMPH # 1.3 K/uL (1.0-4.3); LYMPH % 35.1 % (20.0-40.0); MEAN CELL VOLUME 84.6 fL (81.0-99.0); MEAN CORPUSCULAR HEMOGLOBIN 27.4 pg (27.0-31.0); MEAN CORPUSCULAR HGB CONC 32.4 g/dL (33.0-37.0); MEAN PLATELET VOLUME 7.3 fL (7.2-11.7); MONO # 0.4 K/uL (0.0-0.8); MONO % 9.7 % (0.0-10.0); NRBC % 0.2 % (0.0-2.0); RED CELL DISTRIBUTION WIDTH 16.2 % (11.5-14.5); WHITE BLOOD COUNT 3.8 K/uL (4.8-10.8)
[2017-01-21 06:55] LABS: CHLORIDE 102 mmol/L (98-107)
[2017-01-21 06:56] LABS: POTASSIUM 3.4 mmol/L (3.6-5.2); SODIUM 138 mmol/L (132-148)
[2017-01-21 06:58] LABS: AST/SGOT 26 U/L (14-36); BILIRUBIN,TOTAL 0.9 mg/dL (0.2-1.3); CARBON DIOXIDE 25 mmol/L (22-30); GFR AFRICAN-AMERICAN > 60
[2017-01-21 06:59] LABS: ALB/GLOB RATIO 0.8 (1.0-2.1); ALKALINE PHOSPHATASE 101 U/L (38-126); ALT/SGPT 29 U/L (9-52); BLOOD UREA NITROGEN 14 mg/dL (7-17); CALCIUM 8.8 mg/dl (8.6-10.4); GLUCOSE,RANDOM 83 mg/dL (65-105); PHOSPHOROUS 4.5 mg/dL (2.5-4.5); TOTAL PROTEIN 7.8 g/dL (6.3-8.3)
[2017-01-21] MEDS: Ammonium Lactate 12% Lotion (225 g) EXT SCH ×2 (09:06→17:43)
[2017-01-21] MEDS: Saccharomyces Boulardi 250 mg Cap PO SCH ×2 (09:07→17:43)
[2017-01-21] MEDS: Pantoprazole 40 mg EC Tab PO SCH (09:07)
--- NOTE | 2017-01-21 10:36 | CP.PCM.PN ---
Subjective - Date & Time of Evaluation Date of Evaluation: 01/21/17 Time of Evaluation: 08:00 - Subjective Subjective: rx renewed iv rx in progress Objective - Vital Signs/Intake and Output Vital Signs (last 24 hours): Temp Pulse Resp BP Pulse Ox 98.1 F 73 20 138/90 100 01/21/17 07:40 01/21/17 07:40 01/21/17 07:40 01/21/17 07:40 01/21/17 07:40 Intake and Output: 01/21/17 01/21/17 06:59 18:59 Intake Total 650 550 Balance 650 550 - Medications Medications: Current Medications Acetaminophen (Tylenol 325mg Tab) 650 mg PO Q8 PRN PRN Reason: Pain, Mild (1-3) Last Admin: 12/23/16 09:04 Dose: 650 mg Acetaminophen (Tylenol 325mg Tab) 650 mg PO Q8 PRN PRN Reason: Fever>100.4 Last Admin: 12/23/16 17:01 Dose: 650 mg Amlodipine Besylate (Norvasc) 5 mg PO DAILY [facility] Last Admin: 01/21/17 09:07 Dose: 5 mg Chlorthalidone (Hygroton) 25 mg PO DAILY [facility] Last Admin: 01/21/17 09:07 Dose: 25 mg Cyclobenzaprine HCl (Flexeril) 10 mg PO BID PRN PRN Reason: Muscle spasm Last Admin: 12/31/16 09:31 Dose: 10 mg Dicyclomine HCl (Bentyl) 10 mg PO QID [facility] Last Admin: 01/21/17 09:07 Dose: 10 mg Docusate Sodium (Colace) 100 mg PO BID [facility] Last Admin: 01/21/17 09:07 Dose: 100 mg Nafcillin Sodium 2 gm/ Sodium (Chloride) 250 mls @ 250 mls/hr IVPB Q6H [facility] Last Admin: 01/21/17 08:45 Dose: 250 mls/hr Ceftriaxone Sodium 2 gm/ (Sodium Chloride) 100 mls @ 100 mls/hr IVPB DAILY [facility] Last Admin: 01/20/17 10:22 Dose: 100 mls/hr Lactic Acid (Lac-Hydrin 12% Lotion (225 G)) 0 gm EXT BID [facility] Last Admin: 01/21/17 09:06 Dose: 1 applic Naproxen (Anaprox) 275 mg PO BID PRN PRN Reason: Pain, moderate (4-7) Last Admin: 01/14/17 09:02 Dose: 275 mg Pantoprazole Sodium (Protonix Ec Tab) 40 mg PO DAILY [facility] Last Admin: 01/21/17 09:07 Dose: 40 mg Saccharomyces Boulardii (Florastor) 250 mg PO BID [facility] Last Admin: 01/21/17 09:07 Dose: 250 mg - Labs Labs: 01/21/17 06:04 01/21/17 06:04 PT 12.0 SECONDS (9.7-12.2) 12/27/16 07:16 INR 1.1 12/27/16 07:16 APTT 30 SECONDS (21-34) 12/27/16 07:16 Assessment and Plan (1) Sepsis affecting skin Status: Acute (2) Sepsis affecting skin Status: Acute (3) Low back pain Status: Acute
[2017-01-21] MEDS: cefTRIAXone 2 GM in Sodium Chloride 0.9% 100 ML IVPB SCH (10:48)
[2017-01-21] MEDS ORDERED: Potassium Chloride 20 mEq/15 ml LIQ UD PO ONE (12:29)
--- NOTE | 2017-01-21 18:55 | CP.PCM.PN ---
Subjective - Date & Time of Evaluation Date of Evaluation: 01/21/17 Time of Evaluation: 10:00 - Subjective Subjective: Medicine Note - Dr. Caldwell Patient was seen and examined at bedside. Patient is doing well and has no new complaints. Patient is tolerating diet and ambulating with her brace without discomfort. Patient denies shortness of breath, chest pain, dizziness, nausea, vomiting, abd pain, diarrhea, urinary symptoms and back pain. Objective - Vital Signs/Intake and Output Vital Signs (last 24 hours): Temp Pulse Resp BP Pulse Ox 97.9 F 73 20 138/90 99 01/21/17 15:00 01/21/17 15:41 01/21/17 15:00 01/21/17 15:41 01/21/17 15:41 Intake and Output: 01/21/17 01/21/17 06:59 18:59 Intake Total 650 1950 Balance 650 1950 - Medications Medications: Current Medications Acetaminophen (Tylenol 325mg Tab) 650 mg PO Q8 PRN PRN Reason: Pain, Mild (1-3) Last Admin: 12/23/16 09:04 Dose: 650 mg Acetaminophen (Tylenol 325mg Tab) 650 mg PO Q8 PRN PRN Reason: Fever>100.4 Last Admin: 12/23/16 17:01 Dose: 650 mg Amlodipine Besylate (Norvasc) 5 mg PO DAILY [facility] Last Admin: 01/21/17 09:07 Dose: 5 mg Chlorthalidone (Hygroton) 25 mg PO DAILY [facility] Last Admin: 01/21/17 09:07 Dose: 25 mg Cyclobenzaprine HCl (Flexeril) 10 mg PO BID PRN PRN Reason: Muscle spasm Last Admin: 12/31/16 09:31 Dose: 10 mg Dicyclomine HCl (Bentyl) 10 mg PO QID [facility] Last Admin: 01/21/17 17:44 Dose: 10 mg Docusate Sodium (Colace) 100 mg PO BID [facility] Last Admin: 01/21/17 17:43 Dose: 100 mg Nafcillin Sodium 2 gm/ Sodium (Chloride) 250 mls @ 250 mls/hr IVPB Q6H [facility] Last Admin: 01/21/17 14:27 Dose: 250 mls/hr Ceftriaxone Sodium 2 gm/ (Sodium Chloride) 100 mls @ 100 mls/hr IVPB DAILY [facility] Last Admin: 01/21/17 10:48 Dose: 100 mls/hr Lactic Acid (Lac-Hydrin 12% Lotion (225 G)) 0 gm EXT BID [facility] Last Admin: 01/21/17 17:43 Dose: 1 applic Naproxen (Anaprox) 275 mg PO BID PRN PRN Reason: Pain, moderate (4-7) Last Admin: 01/14/17 09:02 Dose: 275 mg Pantoprazole Sodium (Protonix Ec Tab) 40 mg PO DAILY [facility] Last Admin: 01/21/17 09:07 Dose: 40 mg Saccharomyces Boulardii (Florastor) 250 mg PO BID [facility] Last Admin: 01/21/17 17:43 Dose: 250 mg - Labs Labs: 01/21/17 06:04 01/21/17 06:04 PT 12.0 SECONDS (9.7-12.2) 12/27/16 07:16 INR 1.1 12/27/16 07:16 APTT 30 SECONDS (21-34) 12/27/16 07:16 - Constitutional Appears: Well, No Acute Distress - Head Exam Head Exam: NORMOCEPHALIC - Eye Exam Eye Exam: EOMI, Normal appearance - ENT Exam ENT Exam: Mucous Membranes Moist - Respiratory Exam Respiratory Exam: Clear to Ausculation Bilateral, NORMAL BREATHING PATTERN - Cardiovascular Exam Cardiovascular Exam: REGULAR RHYTHM, +S1, +S2 - GI/Abdominal Exam GI & Abdominal Exam: Soft, Normal Bowel Sounds (Non-distended, Non-tender) - Extremities Exam Extremities Exam: Normal Capillary Refill, Normal Inspection - Back Exam Back Exam: rash noted - Neurological Exam Neurological Exam: Awake, Oriented x3 - Psychiatric Exam Psychiatric exam: Normal Affect, Normal Mood - Skin Skin Exam: Dry, Normal Color, Rash (Diffuse, dry and scaly), Warm Assessment and Plan - Assessment and Plan (Free Text) Assessment: Bacteremia Afebrile Nafcillin 2 gm IVPB q6h restarted by Dr. Russo. Rocephin 2gram IV qdaily (started on 01/12/17 and to finish last dose on 02/09/17) for 4 weeks to complete 6 week total course of IV abx Blood culture (12/26/16) positive for Staphylococcus Aureus Repeat blood culture negative Dr. Russo on case. Recommends continuing Nafcillin 2 gm IVPB q4h. Started on and to be continued until 01/11. Patient will then need 4 week course of Rocephin 2g IV q24h to complete 6 week course of IV antibiotic therapy. Primaxin and Vancomycin discontinued. BAUDILIO ECHO showed EF >55%. Negative for vegetations/endocarditis. Dr. Jackson consulted for BAUDILIO to r/o endocarditis, help appreciated. PICC line. UTI Most recent UA - negative Urine culture (01/08): no growth Urine culture previouslt positive for Staph aureus however now negative growth Dr. Russo consulted, help appreciated. See above for abx management. Hypokalemia Repleted Monitor AM labs Discitis Improved Instructed to wear TLSO brace and continue with Physical therapy daily Lumbar CT showed degenerative changes L5-S1 without other acute abnormalities per report. Neuro Dr. Bailon consulted- No further neuro workup needed. Continue Flexeril 10mg PO BID PRN and Naproxen 275mg PO BID PRN for pain. MRI lumbar w and w/o contrast- Discitis at L5-S1 with epidural phlegmon and inflammation of adjacent paravertebral soft tissues. No evidence of abscess. Enhancement of the vertebral bodies at L5 and S1 bridging L5-S1 disc space which could represent marrow reactive changes related to adjacent discitis. Vertebral osteomyelitis is not excluded. TLSO brace per Dr. Khanna. ESR 54, previously 59. Leg weakness Head CT negative for acute etiologies per report. Per PT: "TOLERATED USE OF TLSO DURING AMBULATION AND WHILE OOB, PATIENT REQUIRES VC TO PROPER DONNING OF BRACE AND SAFETY DURING GAIT, + UNSTEADINESS BUT STABLE W/ RW. WILL BENEFIT W/ SKILLED PT FOR ENDURANCE, BALANCE AND GAIT TRNG." Neuro Dr. Bailon consulted, help appreciated. Exfoliative Dermatitis Xerosis and scaling improving. Likely secondary to Vitamin A deficiency. Punch Biopsy x2 taken on 12/26/16 from right upper buttock and right lower back for histopathology and T cell rearrangement study. Dermatopathology - slides not properly prepared but may represent spongiotic dermatitis/lichenoid dermatitis. Discussed with patient possibility of taking a third biopsy specimen. Per pathologist, recommends larger specimen for better analysis. Consider consulting surgery. Absolute CD4 count 293, Absolute CD8 count 154 - not suggestive of Mycosis Fungoides HIV negative. HTLV AB negative. STEPHANIE negative, Rheum Arthritis Panel negative SHELDON & Serum PEP: faint restricted M band spike. Vitamin A low- 24. Dietary consulted to increase intake of vitamin A rich foods as pharmacy does not have vitamin A. Continue LacHydrin 12% Lotion BID to affected scaly areas [facility] Dr. Ramirez consulted, help appreciated. Hypertension normotensive Continue to monitor Prophylactic measure SCD, Lovenox, Protonix Discharge Plan: As per Dr. Russo, if possible patient can continue to receive infusion of IV Rocephin at an outpatient site for 6 weeks and if not patient can remain inpatient to complete a week of 2g IV of Naficillin.
--- NOTE | 2017-01-22 06:10 | CP.PCM.PN ---
<Angelica Caba V - Last Filed: 01/22/17 19:37> Objective - Vital Signs/Intake and Output Vital Signs (last 24 hours): Temp Pulse Resp BP Pulse Ox 97.9 F 71 20 122/76 97 01/22/17 15:00 01/22/17 15:00 01/22/17 15:00 01/22/17 15:00 01/22/17 15:00 Intake and Output: 01/22/17 01/23/17 18:59 06:59 Intake Total 1050 Balance 1050 - Medications Medications: Current Medications Acetaminophen (Tylenol 325mg Tab) 650 mg PO Q8 PRN PRN Reason: Pain, Mild (1-3) Last Admin: 12/23/16 09:04 Dose: 650 mg Acetaminophen (Tylenol 325mg Tab) 650 mg PO Q8 PRN PRN Reason: Fever>100.4 Last Admin: 12/23/16 17:01 Dose: 650 mg Amlodipine Besylate (Norvasc) 5 mg PO DAILY [facility] Last Admin: 01/22/17 09:20 Dose: 5 mg Chlorthalidone (Hygroton) 25 mg PO DAILY [facility] Last Admin: 01/22/17 09:20 Dose: 25 mg Cyclobenzaprine HCl (Flexeril) 10 mg PO BID PRN PRN Reason: Muscle spasm Last Admin: 12/31/16 09:31 Dose: 10 mg Dicyclomine HCl (Bentyl) 10 mg PO QID [facility] Last Admin: 01/22/17 17:17 Dose: 10 mg Docusate Sodium (Colace) 100 mg PO BID [facility] Last Admin: 01/22/17 17:17 Dose: 100 mg Nafcillin Sodium 2 gm/ Sodium (Chloride) 250 mls @ 250 mls/hr IVPB Q6H [facility] Last Admin: 01/22/17 14:07 Dose: 250 mls/hr Ceftriaxone Sodium 2 gm/ (Sodium Chloride) 100 mls @ 100 mls/hr IVPB DAILY [facility] Last Admin: 01/22/17 10:23 Dose: 100 mls/hr Lactic Acid (Lac-Hydrin 12% Lotion (225 G)) 0 gm EXT BID [facility] Last Admin: 01/22/17 17:18 Dose: 1 applic Naproxen (Anaprox) 275 mg PO BID PRN PRN Reason: Pain, moderate (4-7) Last Admin: 01/14/17 09:02 Dose: 275 mg Pantoprazole Sodium (Protonix Ec Tab) 40 mg PO DAILY [facility] Last Admin: 01/22/17 09:20 Dose: 40 mg Potassium Chloride (Potassium Chloride Oral Soln) 20 meq PO ONCE ONE Stop: 01/23/17 15:01 Saccharomyces Boulardii (Florastor) 250 mg PO BID [facility] Last Admin: 01/22/17 17:17 Dose: 250 mg - Labs Labs: 01/22/17 06:21 01/22/17 06:21 PT 12.0 SECONDS (9.7-12.2) 12/27/16 07:16 INR 1.1 12/27/16 07:16 APTT 30 SECONDS (21-34) 12/27/16 07:16 Attending/Attestation - Attestation I have personally seen and examined this patient.: Yes I have fully participated in the care of the patient.: Yes I have reviewed all pertinent clinical information, including history, physical exam and plan: Yes Notes (Text): Patient seen, examined, and case discussed with day-time resident. Patient denies acute complaints. She continues to work with physical therapist; reports the brace assists her. Patient is currently on Rocephin 2gram IV qdaily (started on 01/12/17 and to finish last dose on 02/09/17) for 4 weeks to complete 6 week total course of IV abx for disciti and patient restarted on Nafcillin 2gram IV Q6 H (active on 01/17) per infectious disease while patient remains in house. Discussed with case management who will coordinate with social service agency director regarding antibiotic and outpatient transfusion for either 1) Nafcillin 2gram IV Q6 H (active on 01/17/17) for one week 2) Rocephin 2gram IV qdaily (started on 01/12/17 and to finish last dose on ) Patient refuses general surgery consult for better skin biopsy. Patient is recommended to follow-up with airset caster as outpatient for workup. Assessment/Plan 1) Bacteremia secondary to Staph Aureus * Infectious Disease (Dr. Russo) on board-->help appreciated * Cardiology (Dr. Jackson) on board-->help appreciated * Blood culture (12/22/16): Staph Aureus X2 * Blood culture (12/24/16): Staph Aureus X2 * Blood culture (12/26/16): Staph Aureus X2 * Blood culture (12/28/16): No growth after 5 days X2 * Nafcillin 2gram Q6H (12/28-01/11; restarted on 01/17-present); followed by 4 weeks of Rocephin 2g IV qdaily (01/12/17-02/09/17) * BAUDILIO (12/29/16): no endocarditis noted. Normal LV function 2) Urinary Tract Infection secondary to Staph Aureus * Infectious Disease (Dr. Russo) on board-->help appreciated * Urine culture (12/2016) positive for Staph aureus * Urine culture (01/08/2017): no growth 3) Hypokalemia * Monitor and replete if necessary 4) Discitis * Neurology (Dr. Bailon) on board-->no further neuro workup * Neurosurgery (Dr. Khanna) on board-->very mild diskitis space at L5-1, Phlegmon which is not causing any significant neural element compromise, behind the body of the upper sacrum. Thecal sac and the S1 nerve roots are very well visualized; recommend for TLSO brace for when patient is out of bed * Infectious disease (Dr. Russo) on board-->help appreciated * MRI lumbar w and w/o contrast (12/27/16): Discitis at L5-S1 with epidural phlegmon and inflammation of adjacent apravertebral soft tissues. No evidence of abscess. Enhancement of the vertebral bodies at L5 and S1 bridging L5-S1 disc space which could represent marrow reactive changes related to adjacent discitis. Vertebral osteomyelitis is not excluded. * Lumbar Spine CT (12/22/16): degenerative change L5-S1, no acute osseous abnormality, no abscess * Tylenol 650mg PO Q 8 PRN pain * Tylenol 650mg PO Q 8 PRN Fever >100.4F * Flexeril 10mg PO BID PRN muscle spasm * Anaproz 275mg PO BID PRN moderate * Negative RA, STEPHANIE 5) Skin lesions * Heme-onc (Dr. Mckenna Ramirez) on board-->help appreciated * Unable to perform punch biopsy; sample is to small for pathology and patient refuses general surgery to attempt retrieval of bigger sample * suspicion for T-cell lymphoma with possible associated with low vitamin A * HIV negative * HTLV negative * negative HLA-[id number] * IPEP/SPEP: faint M spike * absolute: CD 4: 293, CD 8 * UDS: negative 6) Prophylactic measure * SCDs b/l * Lovenox 40mg subq daily for DVT ppx * Protonix 40mg PO daily for GI ppx Disposition * Will need to follow-up with case management and social regarding establishing patient for out-patient transfusion center. patient has recently received Medicaid. Patient recommended for 1) Nafcillin 2gram IV Q6 H (active on 01/17/17 ) for one week or 2) Rocephin 2gram IV qdaily (started on 01/12/17 and to finish last dose on 02/09/17) * Patient to continue to work with physical therapy; able to tolerate 5 steps; here housing requires 4 flights of stairs. <Abimbola Rodriguez - Last Filed: 01/22/17 21:09> Subjective - Date & Time of Evaluation Date of Evaluation: 01/22/17 Time of Evaluation: 07:40 - Subjective Subjective: Medicine Note (PGY 1) - Dr. Caba's service Patient was seen and examined at bedside. Patient states that she is doing well and had no acute event overnight. Patient is ambulating with brace, tolerating diet. Patient has no new complaints. Patient denies fever, chills, nausea, vomiting, back pain, leg weakness, abd pain, diarrhea and urinary symptoms. Objective - Vital Signs/Intake and Output Vital Signs (last 24 hours): Temp Pulse Resp BP Pulse Ox 97.9 F 70 20 126/86 100 01/22/17 00:00 01/22/17 00:00 01/22/17 00:00 01/22/17 00:00 01/22/17 00:00 Intake and Output: 01/21/17 01/22/17 18:59 06:59 Intake Total 1950 Balance 1950 - Medications Medications: Current Medications Acetaminophen (Tylenol 325mg Tab) 650 mg PO Q8 PRN PRN Reason: Pain, Mild (1-3) Last Admin: 12/23/16 09:04 Dose: 650 mg Acetaminophen (Tylenol 325mg Tab) 650 mg PO Q8 PRN PRN Reason: Fever>100.4 Last Admin: 12/23/16 17:01 Dose: 650 mg Amlodipine Besylate (Norvasc) 5 mg PO DAILY [facility] Last Admin: 01/21/17 09:07 Dose: 5 mg Chlorthalidone (Hygroton) 25 mg PO DAILY [facility] Last Admin: 01/21/17 09:07 Dose: 25 mg Cyclobenzaprine HCl (Flexeril) 10 mg PO BID PRN PRN Reason: Muscle spasm Last Admin: 12/31/16 09:31 Dose: 10 mg Dicyclomine HCl (Bentyl) 10 mg PO QID [facility] Last Admin: 01/21/17 21:36 Dose: 10 mg Docusate Sodium (Colace) 100 mg PO BID [facility] Last Admin: 01/21/17 17:43 Dose: 100 mg Nafcillin Sodium 2 gm/ Sodium (Chloride) 250 mls @ 250 mls/hr IVPB Q6H [facility] Last Admin: 01/22/17 03:14 Dose: 250 mls/hr Ceftriaxone Sodium 2 gm/ (Sodium Chloride) 100 mls @ 100 mls/hr IVPB DAILY [facility] Last Admin: 01/21/17 10:48 Dose: 100 mls/hr Lactic Acid (Lac-Hydrin 12% Lotion (225 G)) 0 gm EXT BID [facility] Last Admin: 01/21/17 17:43 Dose: 1 applic Naproxen (Anaprox) 275 mg PO BID PRN PRN Reason: Pain, moderate (4-7) Last Admin: 01/14/17 09:02 Dose: 275 mg Pantoprazole Sodium (Protonix Ec Tab) 40 mg PO DAILY [facility] Last Admin: 01/21/17 09:07 Dose: 40 mg Saccharomyces Boulardii (Florastor) 250 mg PO BID [facility] Last Admin: 01/21/17 17:43 Dose: 250 mg - Labs Labs: 01/21/17 06:04 01/21/17 06:04 PT 12.0 SECONDS (9.7-12.2) 12/27/16 07:16 INR 1.1 12/27/16 07:16 APTT 30 SECONDS (21-34) 12/27/16 07:16 - Constitutional Appears: Well, No Acute Distress - Head Exam Head Exam: NORMAL INSPECTION, NORMOCEPHALIC - Eye Exam Eye Exam: EOMI, Normal appearance - ENT Exam ENT Exam: Mucous Membranes Moist - Cardiovascular Exam Cardiovascular Exam: REGULAR RHYTHM, +S1, +S2 - GI/Abdominal Exam GI & Abdominal Exam: Soft (Non-distended, Non-tender), Normal Bowel Sounds - Extremities Exam Extremities Exam: Full ROM, Normal Capillary Refill, Normal Inspection - Back Exam Back Exam: rash noted (Dry, scaly.) - Neurological Exam Neurological Exam: Alert, Altered, Awake, Oriented x3 - Psychiatric Exam Psychiatric exam: Normal Affect, Normal Mood - Skin Skin Exam: Dry, Normal Color, Warm Assessment and Plan - Assessment and Plan (Free Text) Assessment: 1. Bacteremia Afebrile (01/12/17-01/2017) Blood culture: * + S. Aureus 2x- 12/22/16, 12/26/16 * No growth after 5 days 2x - 12/28/[address] Russo's recommendation patient will continue abx regimen: Continue Nafcillin 2 gm IVPB q6h for one week and Rocephin 2gm IV daily with last dose schdeuled for 02/09/17. Primaxin and Vancomycin discontinued. BAUDILIO ECHO showed EF >55%. Negative for vegetations/endocarditis. Dr. Jackson consulted for BAUDILIO to r/o endocarditis, help appreciated. 2. UTI Most recent UA - negative Urine culture (01/08): no growth Urine culture was positive for Staph aureus on 12/22/16 Dr. Russo consulted, help appreciated. 3. Hypokalemia Repleted Monitor AM labs 4. Discitis Improved Instructed to wear TLSO brace and continue with Physical therapy daily Lumbar CT showed degenerative changes L5-S1 without other acute abnormalities per report. Neuro Dr. Bailon consulted- No further neuro workup needed. Continue Flexeril 10mg PO BID PRN, Naproxen 275mg PO BID PRN and Acetaminophen 650mg PO Q8 PRN for pain. MRI lumbar w and w/o contrast- Discitis at L5-S1 with epidural phlegmon and inflammation of adjacent paravertebral soft tissues. No evidence of abscess. Enhancement of the vertebral bodies at L5 and S1 bridging L5-S1 disc space which could represent marrow reactive changes related to adjacent discitis. Vertebral osteomyelitis is not excluded. TLSO brace per Dr. Khanna. ESR 26 - 01/21/17 5. Leg weakness Head CT negative for acute etiologies per report. Per PT: "TOLERATED USE OF TLSO DURING AMBULATION AND WHILE OOB, PATIENT REQUIRES VC TO PROPER DONNING OF BRACE AND SAFETY DURING GAIT, + UNSTEADINESS BUT STABLE W/ RW. WILL BENEFIT W/ SKILLED PT FOR ENDURANCE, BALANCE AND GAIT TRNG." Neuro Dr. Bailon consulted, help appreciated. 6. Exfoliative Dermatitis Xerosis and scaling improving. Likely secondary to Vitamin A deficiency. Punch Biopsy x2 taken on 12/26/16 from right upper buttock and right lower back for histopathology and T cell rearrangement study. Dermatopathology - slides not properly prepared but may represent spongiotic dermatitis/lichenoid dermatitis. Discussed with patient possibility of taking a third biopsy specimen. Per pathologist, recommends larger specimen for better analysis. Consider consulting surgery. Absolute CD4 count 293, Absolute CD8 count 154 - not suggestive of Mycosis Fungoides HIV negative. HTLV AB negative. STEPHANIE negative, Rheum Arthritis Panel negative SHELDON & Serum PEP: faint restricted M band spike. Vitamin A low- 24. Dietary consulted to increase intake of vitamin A rich foods as pharmacy does not have vitamin A. Continue LacHydrin 12% Lotion BID to affected scaly areas [facility] Dr. Ramirez consulted, help appreciated. 7. Hypertension Norvasc 5mg PO daily Chlorthalidone 25mg PO daily Continue to monitor 8. Prophylactic measure SCD, Protonix 40mg PO daily Florastor 250mg PO BID Discharge Plan: As per Dr. Russo, if possible patient can continue to receive infusion of IV Rocephin at an outpatient site till 02/09/17 and if not patient can remain inpatient to complete a week of 2g IV of Naficillin.
[2017-01-22 06:37] LABS: EOS # 0.5 K/uL (0.0-0.7); EOS % 16.6 % (0.0-4.0); HEMATOCRIT 32.6 % (34.0-47.0); LYMPH % 29.4 % (20.0-40.0); MEAN CORPUSCULAR HGB CONC 33.4 g/dL (33.0-37.0); MEAN PLATELET VOLUME 7.5 fL (7.2-11.7); MONO # 0.3 K/uL (0.0-0.8); MONO % 10.2 % (0.0-10.0); NRBC % 0.1 % (0.0-2.0); WHITE BLOOD COUNT 3.3 K/uL (4.8-10.8)
[2017-01-22 06:48] LABS: CHLORIDE 103 mmol/L (98-107)
[2017-01-22 06:49] LABS: POTASSIUM 3.5 mmol/L (3.6-5.2); SODIUM 140 mmol/L (132-148)
[2017-01-22 06:51] LABS: ALB/GLOB RATIO 0.9 (1.0-2.1); AST/SGOT 20 U/L (14-36); BILIRUBIN,TOTAL 1.1 mg/dL (0.2-1.3); BLOOD UREA NITROGEN 15 mg/dL (7-17); CARBON DIOXIDE 28 mmol/L (22-30); GFR AFRICAN-AMERICAN > 60; TOTAL PROTEIN 7.1 g/dL (6.3-8.3)
[2017-01-22 06:52] LABS: ALKALINE PHOSPHATASE 83 U/L (38-126); ALT/SGPT 16 U/L (9-52); CALCIUM 8.6 mg/dl (8.6-10.4); GLUCOSE,RANDOM 82 mg/dL (65-105)
[2017-01-22] MEDS: Saccharomyces Boulardi 250 mg Cap PO SCH ×2 (09:19→17:17)
[2017-01-22] MEDS: Pantoprazole 40 mg EC Tab PO SCH (09:20)
[2017-01-22] MEDS: Ammonium Lactate 12% Lotion (225 g) EXT SCH ×2 (10:23→17:18)
[2017-01-22] MEDS: cefTRIAXone 2 GM in Sodium Chloride 0.9% 100 ML IVPB SCH (10:23)
--- NOTE | 2017-01-22 11:48 | CP.PCM.PN ---
Subjective - Date & Time of Evaluation Date of Evaluation: 01/22/17 Time of Evaluation: 10:00 - Subjective Subjective: seen on rounds rx in progress Objective - Vital Signs/Intake and Output Vital Signs (last 24 hours): Temp Pulse Resp BP Pulse Ox 98.5 F 68 20 131/84 100 01/22/17 07:00 01/22/17 07:00 01/22/17 07:00 01/22/17 07:00 01/22/17 07:00 - Medications Medications: Current Medications Acetaminophen (Tylenol 325mg Tab) 650 mg PO Q8 PRN PRN Reason: Pain, Mild (1-3) Last Admin: 12/23/16 09:04 Dose: 650 mg Acetaminophen (Tylenol 325mg Tab) 650 mg PO Q8 PRN PRN Reason: Fever>100.4 Last Admin: 12/23/16 17:01 Dose: 650 mg Amlodipine Besylate (Norvasc) 5 mg PO DAILY [facility] Last Admin: 01/22/17 09:20 Dose: 5 mg Chlorthalidone (Hygroton) 25 mg PO DAILY [facility] Last Admin: 01/22/17 09:20 Dose: 25 mg Cyclobenzaprine HCl (Flexeril) 10 mg PO BID PRN PRN Reason: Muscle spasm Last Admin: 12/31/16 09:31 Dose: 10 mg Dicyclomine HCl (Bentyl) 10 mg PO QID [facility] Last Admin: 01/22/17 09:20 Dose: 10 mg Docusate Sodium (Colace) 100 mg PO BID [facility] Last Admin: 01/22/17 09:20 Dose: 100 mg Nafcillin Sodium 2 gm/ Sodium (Chloride) 250 mls @ 250 mls/hr IVPB Q6H [facility] Last Admin: 01/22/17 09:19 Dose: 250 mls/hr Ceftriaxone Sodium 2 gm/ (Sodium Chloride) 100 mls @ 100 mls/hr IVPB DAILY [facility] Last Admin: 01/22/17 10:23 Dose: 100 mls/hr Lactic Acid (Lac-Hydrin 12% Lotion (225 G)) 0 gm EXT BID [facility] Last Admin: 01/22/17 10:23 Dose: 1 applic Naproxen (Anaprox) 275 mg PO BID PRN PRN Reason: Pain, moderate (4-7) Last Admin: 01/14/17 09:02 Dose: 275 mg Pantoprazole Sodium (Protonix Ec Tab) 40 mg PO DAILY [facility] Last Admin: 01/22/17 09:20 Dose: 40 mg Saccharomyces Boulardii (Florastor) 250 mg PO BID [facility] Last Admin: 01/22/17 09:19 Dose: 250 mg - Labs Labs: 01/22/17 06:21 01/22/17 06:21 PT 12.0 SECONDS (9.7-12.2) 12/27/16 07:16 INR 1.1 12/27/16 07:16 APTT 30 SECONDS (21-34) 12/27/16 07:16 - Constitutional Appears: Non-toxic, Cachectic - Head Exam Head Exam: NORMOCEPHALIC - Eye Exam Eye Exam: PERRL. absent: Scleral icterus - ENT Exam ENT Exam: Mucous Membranes Dry, Normal External Ear Exam Assessment and Plan (1) Sepsis affecting skin Status: Acute (2) Sepsis affecting skin Status: Acute (3) Low back pain Status: Acute
--- NOTE | 2017-01-23 06:07 | CP.PCM.PN ---
<PopejoyRenetta kingmirza Burris - Last Filed: 01/23/17 21:28> Subjective - Date & Time of Evaluation Date of Evaluation: 01/23/17 Time of Evaluation: 07:45 - Subjective Subjective: Medicine Note (PGY 1) - Dr. Caba's service Patient was seen and examined at bedside. Patient states that she is doing well and had no acute changes overnight. Patient is ambulating with brace tolerating diet. Patient has no new complaints. Patient denies fever, chills, nausea, vomiting, back pain, leg weakness, abd pain, diarrhea and urinary symptoms. Objective - Vital Signs/Intake and Output Vital Signs (last 24 hours): Temp Pulse Resp BP Pulse Ox 98.1 F 79 20 113/74 100 01/23/17 00:00 01/23/17 00:00 01/23/17 00:00 01/23/17 00:00 01/23/17 00:00 Intake and Output: 01/22/17 01/23/17 18:59 06:59 Intake Total 1050 300 Balance 1050 300 - Medications Medications: Current Medications Acetaminophen (Tylenol 325mg Tab) 650 mg PO Q8 PRN PRN Reason: Pain, Mild (1-3) Last Admin: 12/23/16 09:04 Dose: 650 mg Acetaminophen (Tylenol 325mg Tab) 650 mg PO Q8 PRN PRN Reason: Fever>100.4 Last Admin: 12/23/16 17:01 Dose: 650 mg Amlodipine Besylate (Norvasc) 5 mg PO DAILY [facility] Last Admin: 01/22/17 09:20 Dose: 5 mg Chlorthalidone (Hygroton) 25 mg PO DAILY [facility] Last Admin: 01/22/17 09:20 Dose: 25 mg Cyclobenzaprine HCl (Flexeril) 10 mg PO BID PRN PRN Reason: Muscle spasm Last Admin: 12/31/16 09:31 Dose: 10 mg Dicyclomine HCl (Bentyl) 10 mg PO QID [facility] Last Admin: 01/22/17 21:12 Dose: 10 mg Docusate Sodium (Colace) 100 mg PO BID [facility] Last Admin: 01/22/17 17:17 Dose: 100 mg Nafcillin Sodium 2 gm/ Sodium (Chloride) 250 mls @ 250 mls/hr IVPB Q6H [facility] Last Admin: 01/23/17 03:23 Dose: 250 mls/hr Ceftriaxone Sodium 2 gm/ (Sodium Chloride) 100 mls @ 100 mls/hr IVPB DAILY [facility] Last Admin: 01/22/17 10:23 Dose: 100 mls/hr Lactic Acid (Lac-Hydrin 12% Lotion (225 G)) 0 gm EXT BID [facility] Last Admin: 01/22/17 17:18 Dose: 1 applic Naproxen (Anaprox) 275 mg PO BID PRN PRN Reason: Pain, moderate (4-7) Last Admin: 01/14/17 09:02 Dose: 275 mg Pantoprazole Sodium (Protonix Ec Tab) 40 mg PO DAILY [facility] Last Admin: 01/22/17 09:20 Dose: 40 mg Potassium Chloride (Potassium Chloride Oral Soln) 20 meq PO ONCE ONE Stop: 01/23/17 15:01 Saccharomyces Boulardii (Florastor) 250 mg PO BID [facility] Last Admin: 01/22/17 17:17 Dose: 250 mg - Labs Labs: 01/22/17 06:21 01/22/17 06:21 PT 12.0 SECONDS (9.7-12.2) 12/27/16 07:16 INR 1.1 12/27/16 07:16 APTT 30 SECONDS (21-34) 12/27/16 07:16 - Constitutional Appears: Well, No Acute Distress - Head Exam Head Exam: NORMAL INSPECTION, NORMOCEPHALIC - Eye Exam Eye Exam: EOMI, Normal appearance - ENT Exam ENT Exam: Mucous Membranes Moist, Normal Exam - Respiratory Exam Respiratory Exam: Clear to Ausculation Bilateral, NORMAL BREATHING PATTERN - Cardiovascular Exam Cardiovascular Exam: REGULAR RHYTHM, +S1, +S2 - GI/Abdominal Exam GI & Abdominal Exam: Soft (Non-distended, Non-tender), Normal Bowel Sounds - Extremities Exam Extremities Exam: Normal Capillary Refill, Normal Inspection - Back Exam Back Exam: rash noted - Neurological Exam Neurological Exam: Alert, Altered, Awake, Oriented x3 Neuro motor strength exam: Left Lower Extremity: 5, Right Lower Extremity: 5 - Psychiatric Exam Psychiatric exam: Normal Affect, Normal Mood - Skin Skin Exam: Dry, Normal Color, Warm Assessment and Plan - Assessment and Plan (Free Text) Assessment: 1. Bacteremia Afebrile (01/12/17-01/23/17) Blood culture: * + S. Aureus 2x- 12/22/16, 12/26/16 * No growth after 5 days 2x - 12/28/[address] Russo's recommendation patient will continue abx regimen: Continue Nafcillin 2 gm IVPB q6h for one week and Rocephin 2gm IV daily with last dose schdeuled for 02/09/17; possible D/C on IV 2gm Rocephin. Patient communicated with home infusion personnel (01/23/17) Primaxin and Vancomycin discontinued. BAUDILIO ECHO showed EF >55%. Negative for vegetations/endocarditis. Dr. Jackson consulted for BAUDILIO to r/o endocarditis, help appreciated. 2. UTI Most recent UA - negative Urine culture (01/08): no growth Urine culture was positive for Staph aureus on 12/22/16 Dr. Russo consulted, help appreciated. 3. Hypokalemia Repleted Monitor AM labs 4. Discitis Improved Instructed to wear TLSO brace and continue with Physical therapy daily. As of , pt is not cleared by Physical therapy. Lumbar CT showed degenerative changes L5-S1 without other acute abnormalities per report. Neuro Dr. Bailon consulted- No further neuro workup needed. Continue Flexeril 10mg PO BID PRN, Naproxen 275mg PO BID PRN and Acetaminophen 650mg PO Q8 PRN for pain. MRI lumbar w and w/o contrast- Discitis at L5-S1 with epidural phlegmon and inflammation of adjacent paravertebral soft tissues. No evidence of abscess. Enhancement of the vertebral bodies at L5 and S1 bridging L5-S1 disc space which could represent marrow reactive changes related to adjacent discitis. Vertebral osteomyelitis is not excluded. TLSO brace per Dr. Khanna. ESR 26 - 01/21/17 [address] Leg weakness Head CT negative for acute etiologies per report. Per PT: "TOLERATED USE OF TLSO DURING AMBULATION AND WHILE OOB, PATIENT REQUIRES VC TO PROPER DONNING OF BRACE AND SAFETY DURING GAIT, + UNSTEADINESS BUT STABLE W/ RW. WILL BENEFIT W/ SKILLED PT FOR ENDURANCE, BALANCE AND GAIT TRNG." Neuro Dr. Bailon consulted, help appreciated. 6. Exfoliative Dermatitis Xerosis and scaling improving. Likely secondary to Vitamin A deficiency. Punch Biopsy x2 taken on 12/26/16 from right upper buttock and right lower back for histopathology and T cell rearrangement study. Dermatopathology - slides not properly prepared but may represent spongiotic dermatitis/lichenoid dermatitis. Discussed with patient possibility of taking a third biopsy specimen. Per pathologist, recommends larger specimen for better analysis. Consider consulting surgery. Absolute CD4 count 293, Absolute CD8 count 154 - not suggestive of Mycosis Fungoides HIV negative. HTLV AB negative. STEPHANIE negative, Rheum Arthritis Panel negative SHELDON & Serum PEP: faint restricted M band spike. Vitamin A low- 24. Dietary consulted to increase intake of vitamin A rich foods as pharmacy does not have vitamin A. Continue LacHydrin 12% Lotion BID to affected scaly areas Hemeon Dr. Ramirez consulted, help appreciated. Patient must follow up lead injection mold technician outpatient upon discharge as she has refused repeat biopsy 7. Hypertension Norvasc 5mg PO daily Chlorthalidone 25mg PO daily Continue to monitor 8. Prophylactic measure SCD, Protonix 40mg PO daily Florastor 250mg PO BID <Angelica Caba V - Last Filed: 01/23/17 23:07> Objective - Vital Signs/Intake and Output Vital Signs (last 24 hours): Temp Pulse Resp BP Pulse Ox 98.4 F 86 20 118/91 H 100 01/23/17 15:00 01/23/17 15:00 01/23/17 15:00 01/23/17 15:00 01/23/17 15:00 Intake and Output: 01/23/17 01/24/17 18:59 06:59 Intake Total 820 Balance 820 - Medications Medications: Current Medications Acetaminophen (Tylenol 325mg Tab) 650 mg PO Q8 PRN PRN Reason: Pain, Mild (1-3) Last Admin: 12/23/16 09:04 Dose: 650 mg Acetaminophen (Tylenol 325mg Tab) 650 mg PO Q8 PRN PRN Reason: Fever>100.4 Last Admin: 12/23/16 17:01 Dose: 650 mg Amlodipine Besylate (Norvasc) 5 mg PO DAILY [facility] Last Admin: 01/23/17 09:11 Dose: 5 mg Chlorthalidone (Hygroton) 25 mg PO DAILY [facility] Last Admin: 01/23/17 09:11 Dose: 25 mg Cyclobenzaprine HCl (Flexeril) 10 mg PO BID PRN PRN Reason: Muscle spasm Last Admin: 12/31/16 09:31 Dose: 10 mg Dicyclomine HCl (Bentyl) 10 mg PO QID [facility] Last Admin: 01/23/17 21:28 Dose: 10 mg Docusate Sodium (Colace) 100 mg PO BID [facility] Last Admin: 01/23/17 17:33 Dose: 100 mg Nafcillin Sodium 2 gm/ Sodium (Chloride) 250 mls @ 250 mls/hr IVPB Q6H [facility] Last Admin: 01/23/17 21:05 Dose: 250 mls/hr Ceftriaxone Sodium 2 gm/ (Sodium Chloride) 100 mls @ 100 mls/hr IVPB DAILY [facility] Last Admin: 01/23/17 09:13 Dose: 100 mls/hr Lactic Acid (Lac-Hydrin 12% Lotion (225 G)) 0 gm EXT BID [facility] Last Admin: 01/23/17 21:06 Dose: 1 applic Naproxen (Anaprox) 275 mg PO BID PRN PRN Reason: Pain, moderate (4-7) Last Admin: 01/14/17 09:02 Dose: 275 mg Pantoprazole Sodium (Protonix Ec Tab) 40 mg PO DAILY [facility] Last Admin: 01/23/17 09:11 Dose: 40 mg Saccharomyces Boulardii (Florastor) 250 mg PO BID [facility] Last Admin: 01/23/17 17:33 Dose: 250 mg - Labs Labs: 01/23/17 06:14 01/23/17 06:14 PT 12.0 SECONDS (9.7-12.2) 12/27/16 07:16 INR 1.1 12/27/16 07:16 APTT 30 SECONDS (21-34) 12/27/16 07:16 Attending/Attestation - Attestation I have personally seen and examined this patient.: Yes I have fully participated in the care of the patient.: Yes I have reviewed all pertinent clinical information, including history, physical exam and plan: Yes Notes (Text): Patient seen, examined and case discussed with day-time resident. Patient reports she is doing okay. Patient was visited by home infusion for IV antibiotics to setup for completion. Patient reports working with physical therapy, walking up and down the steps. Patient refuses general surgery to eval for larger skin biopsy; I stressed importance of her following workup for possible T-cell lymphoma with lead injection mold technician. Will coordinate between case management and physical therapy for discharge planning. Assessment/Plan 1) Bacteremia secondary to Staph Aureus * Infectious Disease (Dr. Russo) on board-->help appreciated * Cardiology (Dr. Jackson) on board-->help appreciated * Blood culture (12/22/16): Staph Aureus X2 * Blood culture (12/24/16): Staph Aureus X2 * Blood culture (12/26/16): Staph Aureus X2 * Blood culture (12/28/16): No growth after 5 days X2 * Nafcillin 2gram Q6H (12/28-01/11; restarted on 01/17-present); followed by 4 weeks of Rocephin 2g IV qdaily (01/12/17-02/09/17) * BAUDILIO (12/29/16): no endocarditis noted. Normal LV function 2) Urinary Tract Infection secondary to Staph Aureus * Infectious Disease (Dr. Russo) on board-->help appreciated * Urine culture (12/2016) positive for Staph aureus * Urine culture (01/08/2017): no growth 3) Hypokalemia * Monitor and replete if necessary 4) Discitis * Neurology (Dr. Bailon) on board-->no further neuro workup * Neurosurgery (Dr. Khanna) on board-->very mild diskitis space at L5-1, Phlegmon which is not causing any significant neural element compromise, behind the body of the upper sacrum. Thecal sac and the S1 nerve roots are very well visualized; recommend for TLSO brace for when patient is out of bed * Infectious disease (Dr. Russo) on board-->help appreciated * MRI lumbar w and w/o contrast (12/27/16): Discitis at L5-S1 with epidural phlegmon and inflammation of adjacent apravertebral soft tissues. No evidence of abscess. Enhancement of the vertebral bodies at L5 and S1 bridging L5-S1 disc space which could represent marrow reactive changes related to adjacent discitis. Vertebral osteomyelitis is not excluded. * Lumbar Spine CT (12/22/16): degenerative change L5-S1, no acute osseous abnormality, no abscess * Tylenol 650mg PO Q 8 PRN pain * Tylenol 650mg PO Q 8 PRN Fever >100.4F * Flexeril 10mg PO BID PRN muscle spasm * Anaproz 275mg PO BID PRN moderate * Negative RA, STEPHANIE 5) Skin lesions * Heme-onc (Dr. Mckenna Ramirez) on board-->help appreciated * Unable to perform punch biopsy; sample is to small for pathology and patient refuses general surgery to attempt retrieval of bigger sample * suspicion for T-cell lymphoma with possible associated with low vitamin A * HIV negative * HTLV negative * negative HLA-[id number] * IPEP/SPEP: faint M spike * absolute: CD 4: 293, CD 8 * UDS: negative 6) Prophylactic measure * SCDs b/l * Lovenox 40mg subq daily for DVT ppx * Protonix 40mg PO daily for GI ppx * PT note: TOLERATED ACTIVITIES, PATIENT IMPROVING W/ GAIT W/ USE OF CANE AND TLSO. PATIENT HOWEVER W/ MILD BACK PAIN AFTER GOING UP/DOWN 7 STEPS MIN A W/ CANE AND RAIL ASSIST. WILL BENEFIT W/ SKILLED PT TO IMPROVE STRENGTH, GAIT ENDURANCE AND BALANCE or recommending for home with home PT w cane Disposition * Will need to follow-up with case management and social regarding establishing patient for out-patient transfusion center and approval * Patient to continue to work with physical therapy; able to tolerate 7 steps; to determine if patient is stable for discharge
[2017-01-23 07:01] LABS: BASO % 0.9 % (0.0-2.0); EOS # 0.6 K/uL (0.0-0.7); EOS % 14.5 % (0.0-4.0); LYMPH % 25.8 % (20.0-40.0); MEAN CELL VOLUME 84.3 fL (81.0-99.0); MEAN CORPUSCULAR HEMOGLOBIN 28.4 pg (27.0-31.0); MEAN CORPUSCULAR HGB CONC 33.7 g/dL (33.0-37.0); MEAN PLATELET VOLUME 7.5 fL (7.2-11.7); MONO # 0.3 K/uL (0.0-0.8); MONO % 8.6 % (0.0-10.0); NRBC % 0.1 % (0.0-2.0); RED CELL DISTRIBUTION WIDTH 16.1 % (11.5-14.5); WHITE BLOOD COUNT 3.9 K/uL (4.8-10.8)
[2017-01-23 07:02] LABS: CHLORIDE 100 mmol/L (98-107)
[2017-01-23 07:03] LABS: POTASSIUM 3.3 mmol/L (3.6-5.2); SODIUM 138 mmol/L (132-148)
[2017-01-23 07:05] LABS: ALB/GLOB RATIO 0.9 (1.0-2.1); CARBON DIOXIDE 28 mmol/L (22-30); GFR AFRICAN-AMERICAN > 60; TOTAL PROTEIN 7.1 g/dL (6.3-8.3)
[2017-01-23 07:06] LABS: ALKALINE PHOSPHATASE 98 U/L (38-126); ALT/SGPT 15 U/L (9-52); AST/SGOT 19 U/L (14-36); BLOOD UREA NITROGEN 16 mg/dL (7-17); CALCIUM 8.3 mg/dl (8.6-10.4); GLUCOSE,RANDOM 80 mg/dL (65-105); PHOSPHOROUS 4.3 mg/dL (2.5-4.5)
[2017-01-23] MEDS: Saccharomyces Boulardi 250 mg Cap PO SCH ×2 (09:10→17:33)
[2017-01-23] MEDS: Ammonium Lactate 12% Lotion (225 g) EXT SCH ×2 (09:11→21:06)
[2017-01-23] MEDS: Pantoprazole 40 mg EC Tab PO SCH (09:11)
[2017-01-23] MEDS: cefTRIAXone 2 GM in Sodium Chloride 0.9% 100 ML IVPB SCH (09:13)
[2017-01-23] MEDS ORDERED: Potassium Chloride 20 mEq ER Tab PO ONE ×2 (10:00→13:30)
[2017-01-23] MEDS ORDERED: Potassium Chloride 20 mEq/15 ml LIQ UD PO ONE (15:00)
--- NOTE | 2017-01-23 15:27 | CP.PCM.PN ---
Subjective - Date & Time of Evaluation Date of Evaluation: 01/23/17 Time of Evaluation: 09:00 - Subjective Subjective: discussed on rounds improving less pain no fever for possible d/c on IV Rocephin Objective - Vital Signs/Intake and Output Vital Signs (last 24 hours): Temp Pulse Resp BP Pulse Ox 98.4 F 74 20 138/84 99 01/23/17 07:25 01/23/17 07:25 01/23/17 07:25 01/23/17 07:25 01/23/17 07:25 Intake and Output: 01/23/17 01/23/17 06:59 18:59 Intake Total 300 Balance 300 - Medications Medications: Current Medications Acetaminophen (Tylenol 325mg Tab) 650 mg PO Q8 PRN PRN Reason: Pain, Mild (1-3) Last Admin: 12/23/16 09:04 Dose: 650 mg Acetaminophen (Tylenol 325mg Tab) 650 mg PO Q8 PRN PRN Reason: Fever>100.4 Last Admin: 12/23/16 17:01 Dose: 650 mg Amlodipine Besylate (Norvasc) 5 mg PO DAILY [facility] Last Admin: 01/23/17 09:11 Dose: 5 mg Chlorthalidone (Hygroton) 25 mg PO DAILY [facility] Last Admin: 01/23/17 09:11 Dose: 25 mg Cyclobenzaprine HCl (Flexeril) 10 mg PO BID PRN PRN Reason: Muscle spasm Last Admin: 12/31/16 09:31 Dose: 10 mg Dicyclomine HCl (Bentyl) 10 mg PO QID [facility] Last Admin: 01/23/17 14:35 Dose: 10 mg Docusate Sodium (Colace) 100 mg PO BID [facility] Last Admin: 01/23/17 09:11 Dose: 100 mg Nafcillin Sodium 2 gm/ Sodium (Chloride) 250 mls @ 250 mls/hr IVPB Q6H [facility] Last Admin: 01/23/17 14:36 Dose: 250 mls/hr Ceftriaxone Sodium 2 gm/ (Sodium Chloride) 100 mls @ 100 mls/hr IVPB DAILY [facility] Last Admin: 01/23/17 09:13 Dose: 100 mls/hr Lactic Acid (Lac-Hydrin 12% Lotion (225 G)) 0 gm EXT BID [facility] Last Admin: 01/23/17 09:11 Dose: 1 applic Naproxen (Anaprox) 275 mg PO BID PRN PRN Reason: Pain, moderate (4-7) Last Admin: 01/14/17 09:02 Dose: 275 mg Pantoprazole Sodium (Protonix Ec Tab) 40 mg PO DAILY [facility] Last Admin: 01/23/17 09:11 Dose: 40 mg Saccharomyces Boulardii (Florastor) 250 mg PO BID [facility] Last Admin: 01/23/17 09:10 Dose: 250 mg - Labs Labs: 01/23/17 06:14 01/23/17 06:14 PT 12.0 SECONDS (9.7-12.2) 12/27/16 07:16 INR 1.1 12/27/16 07:16 APTT 30 SECONDS (21-34) 12/27/16 07:16 Assessment and Plan (1) Sepsis affecting skin Status: Acute (2) Sepsis affecting skin Status: Acute (3) Low back pain Status: Acute
[2017-01-24 08:23] LABS: EOS # 0.7 K/uL (0.0-0.7); EOS % 17.3 % (0.0-4.0); HEMATOCRIT 32.1 % (34.0-47.0); LYMPH % 25.4 % (20.0-40.0); MEAN CELL VOLUME 84.1 fL (81.0-99.0); MEAN CORPUSCULAR HEMOGLOBIN 28.3 pg (27.0-31.0); MEAN CORPUSCULAR HGB CONC 33.6 g/dL (33.0-37.0); MEAN PLATELET VOLUME 7.6 fL (7.2-11.7); MONO # 0.4 K/uL (0.0-0.8); MONO % 9.9 % (0.0-10.0); NRBC % 0.1 % (0.0-2.0); RED CELL DISTRIBUTION WIDTH 16.5 % (11.5-14.5); WHITE BLOOD COUNT 3.8 K/uL (4.8-10.8)
[2017-01-24 08:27] LABS: CHLORIDE 104 mmol/L (98-107)
[2017-01-24 08:28] LABS: POTASSIUM 3.6 mmol/L (3.6-5.2); SODIUM 141 mmol/L (132-148)
[2017-01-24 08:30] LABS: ALB/GLOB RATIO 0.8 (1.0-2.1); ALKALINE PHOSPHATASE 117 U/L (38-126); ALT/SGPT 13 U/L (9-52); AST/SGOT 20 U/L (14-36); BILIRUBIN,TOTAL 0.9 mg/dL (0.2-1.3); BLOOD UREA NITROGEN 16 mg/dL (7-17); CARBON DIOXIDE 28 mmol/L (22-30); GFR AFRICAN-AMERICAN > 60; GLUCOSE,RANDOM 81 mg/dL (65-105); TOTAL PROTEIN 7.2 g/dL (6.3-8.3)
[2017-01-24 08:31] LABS: CALCIUM 8.6 mg/dl (8.6-10.4); MAGNESIUM 2.2 mg/dL (1.6-2.3); PHOSPHOROUS 4.2 mg/dL (2.5-4.5)
[2017-01-24] MEDS: Saccharomyces Boulardi 250 mg Cap PO SCH ×2 (09:15→18:00)
[2017-01-24] MEDS: Pantoprazole 40 mg EC Tab PO SCH (09:16)
[2017-01-24] MEDS: Ammonium Lactate 12% Lotion (225 g) EXT SCH ×2 (09:21→18:00)
[2017-01-24] MEDS: cefTRIAXone 2 GM in Sodium Chloride 0.9% 100 ML IVPB SCH (10:36)
--- NOTE | 2017-01-24 17:12 | CP.PCM.PN ---
Subjective - Date & Time of Evaluation Date of Evaluation: 01/24/17 Time of Evaluation: 09:00 - Subjective Subjective: events noted iv rx renewed Objective - Vital Signs/Intake and Output Vital Signs (last 24 hours): Temp Pulse Resp BP Pulse Ox 98.2 F 75 20 118/71 97 01/24/17 15:00 01/24/17 15:00 01/24/17 15:00 01/24/17 15:00 01/24/17 15:00 Intake and Output: 01/24/17 01/24/17 06:59 18:59 Intake Total 820 1460 Balance 820 1460 - Medications Medications: Current Medications Acetaminophen (Tylenol 325mg Tab) 650 mg PO Q8 PRN PRN Reason: Pain, Mild (1-3) Last Admin: 12/23/16 09:04 Dose: 650 mg Acetaminophen (Tylenol 325mg Tab) 650 mg PO Q8 PRN PRN Reason: Fever>100.4 Last Admin: 12/23/16 17:01 Dose: 650 mg Amlodipine Besylate (Norvasc) 5 mg PO DAILY [facility] Last Admin: 01/24/17 09:16 Dose: 5 mg Chlorthalidone (Hygroton) 25 mg PO DAILY [facility] Last Admin: 01/24/17 09:16 Dose: 25 mg Cyclobenzaprine HCl (Flexeril) 10 mg PO BID PRN PRN Reason: Muscle spasm Last Admin: 12/31/16 09:31 Dose: 10 mg Dicyclomine HCl (Bentyl) 10 mg PO QID [facility] Last Admin: 01/24/17 13:42 Dose: 10 mg Docusate Sodium (Colace) 100 mg PO BID [facility] Last Admin: 01/24/17 09:15 Dose: 100 mg Nafcillin Sodium 2 gm/ Sodium (Chloride) 250 mls @ 250 mls/hr IVPB Q6H [facility] Last Admin: 01/24/17 14:28 Dose: 250 mls/hr Ceftriaxone Sodium 2 gm/ (Sodium Chloride) 100 mls @ 100 mls/hr IVPB DAILY [facility] Last Admin: 01/24/17 10:36 Dose: 100 mls/hr Lactic Acid (Lac-Hydrin 12% Lotion (225 G)) 0 gm EXT BID [facility] Last Admin: 01/24/17 09:21 Dose: 1 applic Naproxen (Anaprox) 275 mg PO BID PRN PRN Reason: Pain, moderate (4-7) Last Admin: 01/14/17 09:02 Dose: 275 mg Pantoprazole Sodium (Protonix Ec Tab) 40 mg PO DAILY [facility] Last Admin: 01/24/17 09:16 Dose: 40 mg Saccharomyces Boulardii (Florastor) 250 mg PO BID [facility] Last Admin: 01/24/17 09:15 Dose: 250 mg - Labs Labs: 01/24/17 07:39 01/24/17 07:39 PT 12.0 SECONDS (9.7-12.2) 12/27/16 07:16 INR 1.1 12/27/16 07:16 APTT 30 SECONDS (21-34) 12/27/16 07:16 Assessment and Plan (1) Sepsis affecting skin Status: Acute (2) Sepsis affecting skin Status: Acute (3) Low back pain Status: Acute
--- NOTE | 2017-01-24 20:11 | CP.PCM.PN ---
<[place]ola [place] - Last Filed: 01/24/17 20:23> Subjective - Date & Time of Evaluation Date of Evaluation: 01/24/17 Time of Evaluation: 07:20 - Subjective Subjective: Medicine Note (PGY 1) - Dr. Caba's service Patient was seen and examined at bedside. Patient states that she is doing well and had no acute changes overnight. Patient is ambulating with brace and working with PT. Patient is tolerating diet. Patient has no new complaints. Patient denies fever, chills, nausea, vomiting, back pain, leg weakness, abd pain, headache, diarrhea and urinary symptoms Objective - Vital Signs/Intake and Output Vital Signs (last 24 hours): Temp Pulse Resp BP Pulse Ox 98.2 F 75 20 118/71 97 01/24/17 15:00 01/24/17 15:00 01/24/17 15:00 01/24/17 15:00 01/24/17 15:00 Intake and Output: 01/24/17 01/25/17 18:59 06:59 Intake Total 1460 Balance 1460 - Medications Medications: Current Medications Acetaminophen (Tylenol 325mg Tab) 650 mg PO Q8 PRN PRN Reason: Pain, Mild (1-3) Last Admin: 12/23/16 09:04 Dose: 650 mg Acetaminophen (Tylenol 325mg Tab) 650 mg PO Q8 PRN PRN Reason: Fever>100.4 Last Admin: 12/23/16 17:01 Dose: 650 mg Amlodipine Besylate (Norvasc) 5 mg PO DAILY [facility] [place] Last Admin: 01/24/17 09:16 Dose: 5 mg Chlorthalidone (Hygroton) 25 mg PO DAILY [facility] [place] Last Admin: 01/24/17 09:16 Dose: 25 mg Cyclobenzaprine HCl (Flexeril) 10 mg PO BID PRN PRN Reason: Muscle spasm Last Admin: 12/31/16 09:31 Dose: 10 mg Dicyclomine HCl (Bentyl) 10 mg PO QID [facility] [place] Last Admin: 01/24/17 17:39 Dose: 10 mg Docusate Sodium (Colace) 100 mg PO BID [facility] [place] Last Admin: 01/24/17 17:39 Dose: 100 mg Nafcillin Sodium 2 gm/ Sodium (Chloride) 250 mls @ 250 mls/hr IVPB Q6H [facility] [place] Last Admin: 01/24/17 14:28 Dose: 250 mls/hr Ceftriaxone Sodium 2 gm/ (Sodium Chloride) 100 mls @ 100 mls/hr IVPB DAILY [facility] [place] Last Admin: 01/24/17 10:36 Dose: 100 mls/hr Lactic Acid (Lac-Hydrin 12% Lotion (225 G)) 0 gm EXT BID [facility] [place] Last Admin: 01/24/17 09:21 Dose: 1 applic Naproxen (Anaprox) 275 mg PO BID PRN PRN Reason: Pain, moderate (4-7) Last Admin: 01/14/17 09:02 Dose: 275 mg Pantoprazole Sodium (Protonix Ec Tab) 40 mg PO DAILY [facility] [place] Last Admin: 01/24/17 09:16 Dose: 40 mg Saccharomyces Boulardii (Florastor) 250 mg PO BID [facility] [place] Last Admin: 01/24/17 09:15 Dose: 250 mg - Labs Labs: 01/24/17 07:39 01/24/17 07:39 PT 12.0 SECONDS (9.7-12.2) 12/27/16 07:16 INR 1.1 12/27/16 07:16 APTT 30 SECONDS (21-34) 12/27/16 07:16 - Constitutional Appears: Well, No Acute Distress - Head Exam Head Exam: NORMAL INSPECTION, NORMOCEPHALIC - Eye Exam Eye Exam: EOMI, Normal appearance - ENT Exam ENT Exam: Mucous Membranes Moist, Normal Exam - Respiratory Exam Respiratory Exam: Clear to Ausculation Bilateral, NORMAL BREATHING PATTERN - Cardiovascular Exam Cardiovascular Exam: REGULAR RHYTHM, +S1, +S2 - GI/Abdominal Exam GI & Abdominal Exam: Soft, Normal Bowel Sounds - Extremities Exam Extremities Exam: Full ROM, Normal Capillary Refill, Normal Inspection - Neurological Exam Neurological Exam: Alert, Altered, Awake, Oriented x3 Neuro motor strength exam: Left Lower Extremity: 5, Right Lower Extremity: 5 - Psychiatric Exam Psychiatric exam: Homicidal Ideation, Normal Affect, Normal Mood - Skin Skin Exam: Dry, Normal Color, Warm Assessment and Plan - Assessment and Plan (Free Text) Assessment: Assessment: 1. Bacteremia Afebrile (01/12/17-01/24/17) Blood culture: * + S. Aureus 2x- 12/22/16, 12/26/16 * No growth after 5 days 2x - 12/28/[address] Russo's recommendation patient will continue abx regimen: Continue Nafcillin 2 gm IVPB q6h for one week and Rocephin 2gm IV daily with last dose schdeuled for 02/09/17; possible D/C on IV 2gm Rocephin. Patient communicated with home infusion personnel (01/23/17) Primaxin and Vancomycin discontinued. BAUDILIO ECHO showed EF >55%. Negative for vegetations/endocarditis. Dr. Jackson consulted for BAUDILIO to r/o endocarditis, help appreciated. 2. UTI Most recent UA - negative Urine culture (01/08): no growth Urine culture was positive for Staph aureus on 12/22/16 Dr. Russo consulted, help appreciated. 3. Hypokalemia Repleted- 01/23/17 ----> Improving at 3.6 (01/24/17) Monitor AM labs 4. Discitis Improved Instructed to wear TLSO brace and continue with Physical therapy daily. As of , pt is not cleared by Physical therapy. * As per Physical therapy on 01/24/17: IMPROVED LEVEL AMBULATION W/O C/O INCREASED BACK PAIN AND DENIES LE NUMBNESS, PATIENT REMAINS NEEDING 100% VC TO SAFETY AND GAIT SEQUENCE UP AND DOWN 1 FLIGHT OF STEPS, FAIR CARRY OVER OF ECT AND SAFE NEGOTIATION OF STEPS W/ CANE AND 1 SIDE RAIL. Patient needs to continue to PT and should be discharge home with service Lumbar CT showed degenerative changes L5-S1 without other acute abnormalities per report. Neuro Dr. Bailon consulted- No further neuro workup needed. Continue Flexeril 10mg PO BID PRN, Naproxen 275mg PO BID PRN and Acetaminophen 650mg PO Q8 PRN for pain. MRI lumbar w and w/o contrast- Discitis at L5-S1 with epidural phlegmon and inflammation of adjacent paravertebral soft tissues. No evidence of abscess. Enhancement of the vertebral bodies at L5 and S1 bridging L5-S1 disc space which could represent marrow reactive changes related to adjacent discitis. Vertebral osteomyelitis is not excluded. TLSO brace per Dr. Khanna. ESR 26 - 01/21/17 [address]. Leg weakness Head CT negative for acute etiologies per report. Per PT: "TOLERATED USE OF TLSO DURING AMBULATION AND WHILE OOB, PATIENT REQUIRES VC TO PROPER DONNING OF BRACE AND SAFETY DURING GAIT, + UNSTEADINESS BUT STABLE W/ RW. WILL BENEFIT W/ SKILLED PT FOR ENDURANCE, BALANCE AND GAIT TRNG." Neuro Dr. Bailon consulted, help appreciated. 6. Exfoliative Dermatitis Xerosis and scaling improving. Likely secondary to Vitamin A deficiency. Punch Biopsy x2 taken on 12/26/16 from right upper buttock and right lower back for histopathology and T cell rearrangement study. Dermatopathology - slides not properly prepared but may represent spongiotic dermatitis/lichenoid dermatitis. Discussed with patient possibility of taking a third biopsy specimen. Per pathologist, recommends larger specimen for better analysis. Consider consulting surgery. Absolute CD4 count 293, Absolute CD8 count 154 - not suggestive of Mycosis Fungoides HIV negative. HTLV AB negative. STEPHANIE negative, Rheum Arthritis Panel negative SHELDON & Serum PEP: faint restricted M band spike. Vitamin A low- 24. Dietary consulted to increase intake of vitamin A rich foods as pharmacy does not have vitamin A. Continue LacHydrin 12% Lotion BID to affected scaly areas Hemeonc Dr. Ramirez consulted, help appreciated. Patient must follow up [facility] outpatient upon discharge as she has refused repeat biopsy 7. Hypertension Norvasc 5mg PO daily Chlorthalidone 25mg PO daily Continue to monitor 8. Prophylactic measure SCD, Protonix 40mg PO daily Florastor 250mg PO BID <Angelica Caba V - Last Filed: 01/25/17 10:00> Objective - Vital Signs/Intake and Output Vital Signs (last 24 hours): Temp Pulse Resp BP Pulse Ox 97.8 F 80 20 119/78 98 01/25/17 00:00 01/25/17 00:00 01/25/17 00:00 01/25/17 00:00 01/25/17 00:00 Intake and Output: 01/25/17 01/25/17 06:59 18:59 Intake Total 1040 Balance 1040 - Medications Medications: Current Medications Acetaminophen (Tylenol 325mg Tab) 650 mg PO Q8 PRN PRN Reason: Pain, Mild (1-3) Last Admin: 12/23/16 09:04 Dose: 650 mg Acetaminophen (Tylenol 325mg Tab) 650 mg PO Q8 PRN PRN Reason: Fever>100.4 Last Admin: 12/23/16 17:01 Dose: 650 mg Amlodipine Besylate (Norvasc) 5 mg PO DAILY [facility] Last Admin: 01/25/17 09:04 Dose: 5 mg Chlorthalidone (Hygroton) 25 mg PO DAILY [facility] [place] Last Admin: 01/25/17 09:03 Dose: 25 mg Cyclobenzaprine HCl (Flexeril) 10 mg PO BID PRN PRN Reason: Muscle spasm Last Admin: 12/31/16 09:31 Dose: 10 mg Dicyclomine HCl (Bentyl) 10 mg PO QID [facility] [place] Last Admin: 01/25/17 09:04 Dose: 10 mg Docusate Sodium (Colace) 100 mg PO BID [facility] [place] Last Admin: 01/25/17 09:04 Dose: 100 mg Nafcillin Sodium 2 gm/ Sodium (Chloride) 250 mls @ 250 mls/hr IVPB Q6H [facility] [place] Last Admin: 01/25/17 09:05 Dose: 250 mls/hr Ceftriaxone Sodium 2 gm/ (Sodium Chloride) 100 mls @ 100 mls/hr IVPB DAILY [facility] [place] Last Admin: 01/25/17 09:04 Dose: 100 mls/hr Potassium Chloride (Potassium Chloride 20 Meq/100 Ml) 20 meq in 100 mls @ 50 mls/hr IVPB ONCE ONE Stop: 01/25/17 11:57 Lactic Acid (Lac-Hydrin 12% Lotion (225 G)) 0 gm EXT BID [facility] [place] Last Admin: 01/24/17 18:00 Dose: 1 applic Naproxen (Anaprox) 275 mg PO BID PRN PRN Reason: Pain, moderate (4-7) Last Admin: 01/14/17 09:02 Dose: 275 mg Pantoprazole Sodium (Protonix Ec Tab) 40 mg PO DAILY [facility] [place] Last Admin: 01/25/17 09:03 Dose: 40 mg Saccharomyces Boulardii (Florastor) 250 mg PO BID [facility] [place] Last Admin: 01/25/17 09:04 Dose: 250 mg - Labs Labs: 01/25/17 07:08 01/25/17 07:08 PT 12.0 SECONDS (9.7-12.2) 12/27/16 07:16 INR 1.1 12/27/16 07:16 APTT 30 SECONDS (21-34) 12/27/16 07:16 Attending/Attestation - Attestation I have personally seen and examined this patient.: Yes I have fully participated in the care of the patient.: Yes I have reviewed all pertinent clinical information, including history, physical exam and plan: Yes Notes (Text): This is a late computer entry for 01/24/17 Patient seen, examined and case discussed with day-time resident. Patient reports she is doing okay. Patient was visited by home infusion for IV antibiotics to setup for completion. Patient reports working with physical therapy, walking up and down the steps. Awaiting clearance from physical therapy for discharge to home. Patient refuses general surgery to eval for larger skin biopsy; I stressed importance of her following workup for possible T-cell lymphoma with [facility]. Will coordinate between case management and physical therapy for discharge planning. Assessment/Plan 1) Bacteremia secondary to Staph Aureus * Infectious Disease (Dr. Russo) on board-->help appreciated * Cardiology (Dr. Jackson) on board-->help appreciated * Blood culture (12/22/16): Staph Aureus X2 * Blood culture (12/24/16): Staph Aureus X2 * Blood culture (12/26/16): Staph Aureus X2 * Blood culture (12/28/16): No growth after 5 days X2 * Nafcillin 2gram Q6H (12/28-01/11; restarted on 01/17-present); followed by 4 weeks of Rocephin 2g IV qdaily (01/12/17-02/09/17) * BAUDILIO (12/29/16): no endocarditis noted. Normal LV function 2) Urinary Tract Infection secondary to Staph Aureus * Infectious Disease (Dr. Russo) on board-->help appreciated * Urine culture (12/2016) positive for Staph aureus * Urine culture (01/08/2017): no growth 3) Hypokalemia * Monitor and replete if necessary 4) Discitis * Neurology (Dr. Bailon) on board-->no further neuro workup * Neurosurgery (Dr. Khanna) on board-->very mild diskitis space at L5-1, Phlegmon which is not causing any significant neural element compromise, behind the body of the upper sacrum. Thecal sac and the S1 nerve roots are very well visualized; recommend for TLSO brace for when patient is out of bed * Infectious disease (Dr. Russo) on board-->help appreciated * MRI lumbar w and w/o contrast (12/27/16): Discitis at L5-S1 with epidural phlegmon and inflammation of adjacent apravertebral soft tissues. No evidence of abscess. Enhancement of the vertebral bodies at L5 and S1 bridging L5-S1 disc space which could represent marrow reactive changes related to adjacent discitis. Vertebral osteomyelitis is not excluded. * Lumbar Spine CT (12/22/16): degenerative change L5-S1, no acute osseous abnormality, no abscess * Tylenol 650mg PO Q 8 PRN pain * Tylenol 650mg PO Q 8 PRN Fever >100.4F * Flexeril 10mg PO BID PRN muscle spasm * Anaproz 275mg PO BID PRN moderate * Negative RA, STEPHANIE 5) Skin lesions * Heme-onc (Dr. Mckenna Ramirez) on board-->help appreciated * Unable to perform punch biopsy; sample is to small for pathology and patient refuses general surgery to attempt retrieval of bigger sample * suspicion for T-cell lymphoma with possible associated with low vitamin A * HIV negative * HTLV negative * negative [id number] * IPEP/SPEP: faint M spike * absolute: CD 4: 293, CD 8 * UDS: negative 6) Prophylactic measure * SCDs b/l * Lovenox 40mg subq daily for DVT ppx * Protonix 40mg PO daily for GI ppx * Latest PT note: IMPROVED LEVEL AMBULATION W/O C/O INCREASED BACK PAIN AND DENIES LE NUMBNESS, PATIENT REMAINS NEEDING 100% VC TO SAFETY AND GAIT SEQUENCE UP AND DOWN 1 FLIGHT OF STEPS, FAIR CARRY OVER OF ECT AND SAFE NEGOTIATION OF STEPS W/ CANE AND 1 SIDE RAIL Disposition * Will need to follow-up with case management and social regarding establishing patient for out-patient transfusion center and approval * Patient to continue to work with physical therapy;to determine if patient is stable for discharge
[2017-01-25 07:28] LABS: EOS # 0.6 K/uL (0.0-0.7); EOS % 17.2 % (0.0-4.0); HEMATOCRIT 32.1 % (34.0-47.0); LYMPH # 0.9 K/uL (1.0-4.3); LYMPH % 26.4 % (20.0-40.0); MEAN CELL VOLUME 84.1 fL (81.0-99.0); MEAN CORPUSCULAR HEMOGLOBIN 28.1 pg (27.0-31.0); MEAN CORPUSCULAR HGB CONC 33.4 g/dL (33.0-37.0); MEAN PLATELET VOLUME 7.7 fL (7.2-11.7); MONO # 0.3 K/uL (0.0-0.8); MONO % 9.1 % (0.0-10.0); NRBC % 0.1 % (0.0-2.0); RED CELL DISTRIBUTION WIDTH 16.8 % (11.5-14.5); WHITE BLOOD COUNT 3.6 K/uL (4.8-10.8)
[2017-01-25 07:41] LABS: CHLORIDE 103 mmol/L (98-107); SODIUM 142 mmol/L (132-148)
[2017-01-25 07:43] LABS: ALB/GLOB RATIO 0.8 (1.0-2.1); ALKALINE PHOSPHATASE 100 U/L (38-126); ALT/SGPT 17 U/L (9-52); AST/SGOT 23 U/L (14-36); BLOOD UREA NITROGEN 14 mg/dL (7-17); CARBON DIOXIDE 27 mmol/L (22-30); GFR AFRICAN-AMERICAN > 60
[2017-01-25 07:44] LABS: CALCIUM 8.6 mg/dl (8.6-10.4); GLUCOSE,RANDOM 81 mg/dL (65-105); MAGNESIUM 2.1 mg/dL (1.6-2.3); PHOSPHOROUS 4.1 mg/dL (2.5-4.5)
[2017-01-25] MEDS ORDERED: Potassium Chloride 20 mEq ER Tab PO ONE ×2 (08:19→08:27)
[2017-01-25] MEDS: Pantoprazole 40 mg EC Tab PO SCH (09:03)
[2017-01-25] MEDS: Saccharomyces Boulardi 250 mg Cap PO SCH ×2 (09:04→18:22)
[2017-01-25] MEDS: cefTRIAXone 2 GM in Sodium Chloride 0.9% 100 ML IVPB SCH (09:04)
[2017-01-25] MEDS: Ammonium Lactate 12% Lotion (225 g) EXT SCH ×2 (10:48→17:41)
[2017-01-25 15:58] VITALS: BP 142/95; PULSE 105; TEMP 98.8; O2SAT 99
--- NOTE | 2017-01-25 22:18 | CP.PCM.DIS ---
Provider - Provider Date of Admission: 12/22/16 18:06 Attending physician: Angelica Caba DO Time Spent in preparation of Discharge (in minutes): 45 Diagnosis - Discharge Diagnosis (1) Discitis of lumbosacral region Status: Acute (2) Low back pain Status: Acute (3) Bacteremia Status: Acute (4) Skin lesions Status: Acute Hospital Course - Lab Results Lab Results: Micro Results 01/08/17 09:00 Urine,Clean Catch Urine Culture - Final No Growth (<1,000 CFU/ML) 12/28/16 14:30 Blood-Venous Blood Culture - Final NO GROWTH AFTER 5 DAYS 12/28/16 14:30 Blood-Venous Gram Stain - Final TEST NOT PERFORMED 12/28/16 14:00 Blood-Venous Blood Culture - Final NO GROWTH AFTER 5 DAYS 12/28/16 14:00 Blood-Venous Gram Stain - Final TEST NOT PERFORMED 12/26/16 06:59 Blood-Venous Blood Culture - Final Staphylococcus Aureus 12/26/16 06:59 Blood-Venous Gram Stain - Final 12/24/16 17:00 Blood Blood Culture - Final Staphylococcus Aureus 12/24/16 17:00 Blood Gram Stain - Final 12/24/16 17:30 Blood Blood Culture - Final Staphylococcus Aureus 12/24/16 17:30 Blood Gram Stain - Final 12/26/16 07:39 Blood-Venous S.aureus & Coag-Neg Staph PNA FISH - Final TEST NOT PERFORMED 12/26/16 07:39 Blood-Venous Blood Culture - Preliminary Staphylococcus Aureus 12/26/16 07:39 Blood-Venous Gram Stain - Final Most Recent Lab Values WBC 3.6 K/uL (4.8-10.8) L 01/25/17 07:08 RBC 3.81 Mil/uL (3.80-5.20) 01/25/17 07:08 Hgb 10.7 g/dL (11.0-16.0) L 01/25/17 07:08 Hct 32.1 % (34.0-47.0) L 01/25/17 07:08 MCV 84.1 fL (81.0-99.0) 01/25/17 07:08 MCH 28.1 pg (27.0-31.0) 01/25/17 07:08 MCHC 33.4 g/dL (33.0-37.0) 01/25/17 07:08 RDW 16.8 % (11.5-14.5) H 01/25/17 07:08 Plt Count 288 K/uL (130-400) 01/25/17 07:08 MPV 7.7 fL (7.2-11.7) 01/25/17 07:08 Neut % (Auto) 46.3 % (50.0-75.0) L 01/25/17 07:08 Lymph % (Auto) 26.4 % (20.0-40.0) 01/25/17 07:08 Nicholas % (Auto) 9.1 % (0.0-10.0) 01/25/17 07:08 Eos % (Auto) 17.2 % (0.0-4.0) H 01/25/17 07:08 Baso % (Auto) 1.0 % (0.0-2.0) 01/25/17 07:08 Neut # 1.7 K/uL (1.8-7.0) L 01/25/17 07:08 Lymph # 0.9 K/uL (1.0-4.3) L 01/25/17 07:08 Nicholas # 0.3 K/uL (0.0-0.8) 01/25/17 07:08 Eos # 0.6 K/uL (0.0-0.7) 01/25/17 07:08 Baso # 0.0 K/uL (0.0-0.2) 01/25/17 07:08 Neutrophils % (Manual) 41 % (50-75) L 01/18/17 07:07 Band Neutrophils % 1 % (0-2) 01/18/17 07:07 Lymphocytes % (Manual) 25 % (20-40) 01/18/17 07:07 Monocytes % (Manual) 9 % (0-10) 01/18/17 07:07 Eosinophils % (Manual) 23 % (0-4) H 01/18/17 07:07 Basophils % (Manual) 1 % (0-2) 01/18/17 07:07 Toxic Granulation Present 12/22/16 11:17 Platelet Estimate Normal (NORMAL) 01/18/17 07:07 Large Platelets Present 12/22/16 11:17 Polychromasia Slight 12/22/16 11:17 Hypochromasia (manual) Slight 12/22/16 11:17 Poikilocytosis (manual Slight 01/18/17 07:07 Anisocytosis (manual) Slight 01/18/17 07:07 Ovalocytes Slight 01/18/17 07:07 ESR 26 mm/hr (0-20) H 01/21/17 06:04 PT 12.0 SECONDS (9.7-12.2) 12/27/16 07:16 INR 1.1 12/27/16 07:16 APTT 30 SECONDS (21-34) 12/27/16 07:16 pO2 34 mm/Hg (30-55) 12/22/16 11:18 VBG pH 7.39 (7.32-7.43) 12/22/16 11:18 VBG pCO2 35 mmHg (40-60) L 12/22/16 11:18 VBG HCO3 21.6 mmol/L 12/22/16 11:18 VBG Total CO2 22.3 mmol/L (22-28) 12/22/16 11:18 VBG O2 Sat (Calc) 71.3 % (40-65) H 12/22/16 11:18 VBG Base Excess -3.1 mmol/L (0.0-2.0) L 12/22/16 11:18 VBG Potassium 3.8 mmol/L (3.6-5.2) 12/22/16 11:18 Sodium 137.0 mmol/l (132-148) 12/22/16 11:18 Chloride 106.0 mmol/L (98-107) 12/22/16 11:18 Glucose 92 mg/dl (65-105) 12/22/16 11:18 Lactate 1.2 mmol/L (0.7-2.1) 12/22/16 11:18 Sodium 142 mmol/L (132-148) 01/25/17 07:08 Potassium 3.0 mmol/L (3.6-5.2) L 01/25/17 07:08 Chloride 103 mmol/L (98-107) 01/25/17 07:08 Carbon Dioxide 27 mmol/L (22-30) 01/25/17 07:08 Anion Gap 15 (10-20) 01/25/17 07:08 BUN 14 mg/dL (7-17) 01/25/17 07:08 Creatinine 0.8 MG/DL (0.7-1.2) 01/25/17 07:08 Est GFR ( Amer) > 60 01/25/17 07:08 Est GFR (Non-Af Amer) > 60 01/25/17 07:08 POC Glucose (mg/dL) 87 mg/dL (65-110) 12/22/16 11:33 Random Glucose 81 mg/dL (65-105) 01/25/17 07:08 Calcium 8.6 mg/dl (8.6-10.4) 01/25/17 07:08 Phosphorus 4.1 mg/dL (2.5-4.5) 01/25/17 07:08 Magnesium 2.1 mg/dL (1.6-2.3) 01/25/17 07:08 Total Bilirubin 1.0 mg/dL (0.2-1.3) 01/25/17 07:08 AST 23 U/L (14-36) 01/25/17 07:08 ALT 17 U/L (9-52) 01/25/17 07:08 Alkaline Phosphatase 100 U/L (38-126) 01/25/17 07:08 Lactate Dehydrogenase 665 U/L (313-618) H 12/27/16 07:16 Total Creatine Kinase 189 U/L (30-135) H 12/22/16 11:17 CK-MB (Mass) 3.26 ng/mL (0.0-3.38) 12/22/16 11:17 Troponin I 0.0150 ng/mL (0.00-0.120) 12/22/16 11:17 C-React Prot High Sens 3.84 mg/L (1.00-3.00) H 01/21/17 06:04 Total Protein 7.0 g/dL (6.3-8.3) 01/25/17 07:08 Total Protein (PEP) 6.3 g/dL (6.1-8.1) 12/27/16 07:16 Albumin 3.2 g/dL (3.5-5.0) L 01/25/17 07:08 Albumin (PEP) 2.5 g/dL (3.8-4.8) L 12/27/16 07:16 Globulin 3.8 gm/dL (2.2-3.9) 01/25/17 07:08 Albumin/Globulin Ratio 0.8 (1.0-2.1) L 01/25/17 07:08 Dwcai-0-Qmlrpjpdt 0.6 g/dL (0.2-0.3) H 12/27/16 07:16 Zglrp-9-Cncwvoejn 1.1 g/dL (0.5-0.9) H 12/27/16 07:16 Osrq-1-Okzqwjxu 0.4 g/dL (0.4-0.6) 12/27/16 07:16 Wzml-1-Pizwvscr 0.4 g/dL (0.2-0.5) 12/27/16 07:16 Gamma Globulins 1.3 g/dL (0.8-1.7) 12/27/16 07:16 Abnorm Protein Band 1 0.23 g/dL (None Detected) H 12/27/16 07:16 Abnorm Protein Band 2 TEST NOT PERFORMED 12/27/16 07:16 Abnorm Protein Band 3 TEST NOT PERFORMED 12/27/16 07:16 Vitamin A 24 mcg/dL (38-98) L 12/27/16 07:16 Procalcitonin < 0.05 NG/ML (0.19-0.49) L 01/21/17 06:04 Venous Blood Potassium 3.8 mmol/L (3.6-5.2) 12/22/16 11:18 Urine Color Straw (YELLOW) 01/08/17 09:23 Urine Clarity Clear (Clear) 01/08/17 09:23 Urine pH 7.0 (5.0-8.0) 01/08/17 09:23 Ur Specific Crescent 1.006 (1.003-1.030) 01/08/17 09:23 Urine Protein Negative mg/dL (NEGATIVE) 01/08/17 09:23 Urine Glucose (UA) Normal mg/dL (Normal) 01/08/17 09:23 Urine Ketones Negative mg/dL (NEGATIVE) 01/08/17 09:23 Urine Blood Negative (NEGATIVE) 01/08/17 09:23 Urine Nitrate Negative (NEGATIVE) 01/08/17 09:23 Urine Bilirubin Negative (NEGATIVE) 01/08/17 09:23 Urine Urobilinogen Normal mg/dL (0.2-1.0) 01/08/17 09:23 Ur Leukocyte Esterase Neg Ignacio/uL (Negative) 01/08/17 09:23 Urine WBC (Auto) 1 /hpf (0-5) 01/08/17 09:23 Urine RBC (Auto) < 1 /hpf (0-3) 01/08/17 09:23 Ur Squamous Epith Cells 6 /hpf (0-5) H 12/22/16 11:54 Urine Bacteria Rare (<OCC) 12/22/16 11:54 Urine HCG, Qual Negative (NEGATIVE) 12/28/16 05:30 Vancomycin Trough 15.7 ug/mL (5.0-10.0) H 12/25/16 07:08 Urine Opiates Screen Negative (NEGATIVE) 12/22/16 17:23 Urine Methadone Screen Negative (NEGATIVE) 12/22/16 17:23 Ur Barbiturates Screen Negative (NEGATIVE) 12/22/16 17:23 Ur Phencyclidine Scrn Negative (NEGATIVE) 12/22/16 17:23 Ur Amphetamines Screen Negative (NEGATIVE) 12/22/16 17:23 U Benzodiazepines Scrn Negative (NEGATIVE) 12/22/16 17:23 U Oth Cocaine Metabols Negative (NEGATIVE) 12/22/16 17:23 U Cannabinoids Screen Negative (NEGATIVE) 12/22/16 17:23 SHELDON & SPEP Interp See note 12/27/16 07:16 Rheum Arthritis Panel Negative (NEGATIVE) 12/27/16 07:16 STEPHANIE 6 Profile Negative (NEGATIVE) 12/27/16 07:16 Absolute Lymphs (Flow) 663 Cells/mcL (850-3900) L 12/27/16 07:16 % CD4 Cells 44 Percent (30-61) 12/27/16 07:16 Absolute CD4 Count 293 Cells/mcL (490-1740) L 12/27/16 07:16 T-Help/Suppress Ratio 1.90 Ratio (0.86-5.00) 12/27/16 07:16 % CD8 Cells 23 Percent (12-42) 12/27/16 07:16 Absolute CD8 Count 154 Cells/mcL (180-1170) L 12/27/16 07:16 T-Lymph Analys Comment See note 12/27/16 07:16 HLA-B27 Negative (Negative) 12/27/16 07:16 HIV 1&2 Antibody Screen Negative (NEGATIVE) 12/27/16 07:16 HTLV I/II Antibody Nonreactive (Nonreactive) 12/27/16 07:16 HTLV I/II Ab (MAITE) TEST NOT PERFORMED 12/27/16 07:16 HTLV I/II P19-I TEST NOT PERFORMED 12/27/16 07:16 HTLV I/II P19-I/II TEST NOT PERFORMED 12/27/16 07:16 HTLV I/II P24 TEST NOT PERFORMED 12/27/16 07:16 HTLV I/II gp 21 TEST NOT PERFORMED 12/27/16 07:16 HTLV I/II gp 46 TEST NOT PERFORMED 12/27/16 07:16 HTLV I/II gp 46-I TEST NOT PERFORMED 12/27/16 07:16 HTLV I/II gp 46-II TEST NOT PERFORMED 12/27/16 07:16 HTLV Streptavidin Ctrl TEST NOT PERFORMED 12/27/16 07:16 - Hospital Course Hospital Course: As per admission CC: Low back pain HPI: 46 yr old female brought in via BLS, with complaints of low back pain for the past 2-3 days. Patient states she is having difficulty walking due to the pain. Patient was seen in the ED 2 days ago, had a full work up done including CT of the abd/pelvis and blood work, was later discharged home. Patient is also complaining of weakness to the bilateral legs. Patient denies chest pain, SOB, nausea, vomiting, abdominal pain, diarrhea, constipation, dysuria, bowel/ bladder incontinence or sensory changes/saddle anesthesia. Patient also denies recent procedures/surgeries. Hospital Course: Patient was admitted on 12/22/16 with complaints of low back pain for the past 2- 3 days. Subsequently, a head CT w/o contrast, which showed no acute intracranial abnormality as well as a lumbar spine CT, with findings of degenerative change L5-S1, no acute osseous abnormality; no abscess. For better studies, an MRI of the lumbar spine was administered on 01/27/17, with findings of discitis at L5-S1 with epidural phlegmon and inflammation of adjacent apravertebral soft tissues. No evidence of abscess. Enhancement of the vertebral bodies at L5 and S1 bridging L5-S1 disc space which could represent marrow reactive changes related to adjacent discitis. Vertebral osteomyelitis is not excluded. Also, patient had blood culture that was positive for staphylococcus aureus on (12/22-12/26/16); patient was started on IV vancomycin 1gm q12h on 12/23/16, and Primaxin 500mg IV q6H started 12/24 as per ID, DR. russo's recommendation. Dr. Jackson, a hay sorter was consulted on this case to r/o endocarditis who was able to r/o out endocarditis by ordering an echocardiogram on 12/24/16 & 12/28/16 to r/o endocarditis; echocardiogram showed an EF of >55% and no endocarditis noted, respectively and recommended that patient be medically managed for discitis. As per infectious disease, Dr. Russo recommeded that patient continued on IV antibiotics due to persistent positive blood culture with recommendation of IV primaxin and vancomycin discontinued and Nafcillin 2gram Q4H was started on 12/28-01/11; followed by 4 weeks of Rocephin 2g IV qD. Furthermore, Dr. Ramirez, a hemotology and oncology physician was consulted on this case regarding patient's skin lesions, which was described as scaly exfoliative rash in order to r/o T-cell/ autoimmune etiology: HTLV AB negative, STEPHANIE negative, Rheum Arthritis Panel negative, absolute CD4 count 293, Absolute CD8 count 154 - not suggestive of Mycosis Fungoides. 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 Patient was then managed with LacHydrin 12% Lotion BID to affected scaly areas and instructed to follow up with a healthcare or medical outpatient. Patient was continued on IV antibiotics therapy. As per physical therapy, patient was instructed to wear TLSO brace and continue with Physical therapy daily. Patient started to clinically improve with negative blood culture (12/26/16-12/28/16). Patient was then discharge home and will complete IV rocephin 2gm daily for 2 weeks via home infusion and home physical therapy as well. Discharge Exam - Head Exam Head Exam: NORMAL INSPECTION, NORMOCEPHALIC - Eye Exam Eye Exam: EOMI, Normal appearance - ENT Exam ENT Exam: Mucous Membranes Moist, Normal Exam - Respiratory Exam Respiratory Exam: Clear to PA & Lateral, NORMAL BREATHING PATTERN - Cardiovascular Exam Cardiovascular Exam: REGULAR RHYTHM, +S1, +S2 - GI/Abdominal Exam GI & Abdominal Exam: Normal Bowel Sounds, Soft - Neurological Exam Neurological exam: Alert, Oriented x3 - Psychiatric Exam Psychiatric exam: Normal Affect, Normal Mood - Skin Skin Exam: Dry, Normal Color, Warm Discharge Plan - Discharge Medications Prescriptions: amLODIPine [Norvasc] 5 mg PO DAILY #30 tab Ammonium Lactate 12% [Lac-Hydrin 12% Lotion (225 g)] 1 gm EXT BID #1 bottle cefTRIAXone [Rocephin] 2 gm IVPB DAILY #14 vial Chlorthalidone [Hygroton] 25 mg PO DAILY #30 tab Cyclobenzaprine [Cyclobenzaprine HCl] 10 mg PO BID PRN #15 tab PRN Reason: Muscle Spasm Docusate [Colace] 100 mg PO BID #60 cap Naproxen [Naprosyn Tab] 375 mg PO BID PRN #15 tab PRN Reason: pain Saccharomyces Boulardi [Florastor] 250 mg PO BID #60 cap - Follow Up Plan Condition: FAIR Disposition: HOME/ ROUTINE Instructions: Naproxen (By mouth), Cyclobenzaprine (By mouth), Laxative, Stool Softeners (By mouth), Chlorthalidone (By mouth), Amlodipine (By mouth), Ceftriaxone (By injection), Ammonium Lactate (On the skin), Probiotic (By mouth) , Dehydration (DC), Acute Low Back Pain (ED) Additional Instructions: Discharge patient to home as per Dr. Caba. You will need 2 weeks of home infusions of Rocephin 2gm IVPB daily. You will need Rocephin IVPB up and through 02/08/17. Please resume all other home medications as prescribed. Patient will be sent home with home PT and standing cane. Please follow up with your primary case doctor within one week of discharge to establish care at the [facility]. Will need skin biopsy work up for T cell lymphoma. Return to the emergency room if symptoms return. Referrals: Shaik Robbins MD [Staff Provider] - Gus Avalos MD [Staff Provider] -
== END 2017-01-25 21:42 | disposition home health service (06) | DRG 901 ==
LOC: C.ER 08:52 → C.9OBSV 11:40 → OBSVTOIN 18:06 → MERGE 18:06 → C.9E 18:28 → C.3T 18:41
PROVIDERS: ADMIT Hospitalist; ATTEND Hospitalist
PROC: 0HB6XZX Excision of Back Skin, External Approach, Diagnostic (ICD-10-PCS; principal; 2016-12-26)
PROC: 0HB8XZX Excision of Buttock Skin, External Approach, Diagnostic (ICD-10-PCS; 2016-12-26)
PROC: B548ZZA Ultrasonography of Superior Vena Cava, Guidance (ICD-10-PCS; 2016-12-28)
PROC: B246ZZ4 Ultrasonography of Right and Left Heart, Transesophageal (ICD-10-PCS; 2016-12-28)
PROC: 02HV33Z Insertion of Infusion Device into Superior Vena Cava, Percutaneous Approach (ICD-10-PCS; 2017-01-02)
DX: A41.01 Sepsis due to Methicillin susceptible Staphylococcus aureus (principal); M46.47 Discitis, unspecified, lumbosacral region; G62.9 Polyneuropathy, unspecified; I10 Essential (primary) hypertension; N39.0 Urinary tract infection, site not specified; E87.6 Hypokalemia; E86.0 Dehydration; R26.2 Difficulty in walking, not elsewhere classified; L26 Exfoliative dermatitis; M47.817 Spondylosis without myelopathy or radiculopathy, lumbosacral region; B95.61 Methicillin susceptible Staphylococcus aureus infection as the cause of diseases classified elsewhere; E50.9 Vitamin A deficiency, unspecified; K59.00 Constipation, unspecified; R65.20 Severe sepsis without septic shock